=== PATIENT | male | born 1940 | race Caucasian/White ===

== ENCOUNTER 2016-05-11 23:49 | Inpatient (IN) | payer MEDICARE ==
[~2016-05-11] VITALS: Ht 167.6 cm; Wt 77.6 kg
[~2016-05-11 23:49] MED LIST: AMIO200T PO; ASPI-605 PO; BACL20TA PO; DOCU-270 PO; FERR325T28 PO; FURO20TA4 PO; IBUP1TAB68 PO; LACT1CAP72 PO; LEVO500T15 PO; METO-295 PO; PANT40TA2 PO; POTA10TA PO; SULF1TAB48 PO; TAMS-12 PO; TEMA30CA PO; TIZA4TAB4 PO; [UNRECOGNIZED DRUG - CODE] PO
[2016-05-12 00:20] LABS: BASOPHILS % (AUTO) 0.3 % (0.0-2.0); DIFF TOTAL % 100 %; EOSINOPHILS # (AUTO) 0.2 /CMM (0.0-0.7); EOSINOPHILS % (AUTO) 1.4 % (0.0-6.0); HEMATOCRIT 36 % (39-51); LYMPHOCYTES # (AUTO) 2.9 /CMM (0.8-4.8); LYMPHOCYTES % (AUTO) 25.4 % (20.0-44.0); MEAN CORPUSCULAR HEMOGLOBIN 30 PG (26.0-33.0); MEAN CORPUSCULAR HGB CONC 34 g/dl (31.0-36.0); MEAN CORPUSCULAR VOLUME 90 fL (80-96); MONOCYTES # (AUTO) 1.1 /CMM (0.1-1.30); MONOCYTES % (AUTO) 9.7 % (2.0-12.0); NEUTROPHILS # (AUTO) 7.3 /CMM (1.8-8.9); NEUTROPHILS % (AUTO) 63.2 % (43.0-81.0); PLATELET COUNT (AUTO) 332 /CMM (150-450); RED BLOOD CELL COUNT(AUTO) 3.95 MIL/uL (4.5-6.0); WHITE BLOOD COUNT (AUTO) 11.5 K/uL (4.3-11.0)
[2016-05-12] MEDS ORDERED: IV SET PRIMARY 1 EA INFUS.SET MC ONE ×2 (00:21→00:59)
[2016-05-12] MEDS ORDERED: IV NS 0.9% 1,000 ML ONE (00:21)
[2016-05-12 00:25] LABS: KETONES,URINE NEGATIVE (NEGATIVE); LEUKOCYTE ESTERASE ,URINE 3+ (NEGATIVE)
[2016-05-12 00:26] LABS: ADD UA MICROSCOPIC YES
[2016-05-12] MEDS ORDERED: IV NS 0.9% 1,000 ML BAG IV ONE (00:30)
[2016-05-12 00:36] LABS: CALCIUM, SERUM 8.1 mg/dL (8.5-10.1); CREATININE 1.3 mg/dL (0.6-1.3); POTASSIUM 3.9 mmol/L (3.5-5.1)
[2016-05-12 00:37] LABS: ADD URINE CULTURE YES; RBC,URINE TOO NUMEROUS TO COUN /HPF (0-2); WBC,URINE TOO NUMEROUS TO COUN /HPF (0-3)
[2016-05-12 00:38] LABS: LACTIC ACID 1.5 mmol/L (0.4-2.0)
[2016-05-12 00:39] LABS: TROPONIN I 0.025 ng/mL (0.00-0.056)
[2016-05-12 00:43] LABS: INR 1.05 (0.87-1.13); PROTHROMBIN TIME 11.4 SECS (9.5-12.7)
[2016-05-12 00:53] LABS: BILIRUBIN,DIRECT 0.1 mg/dL (0.0-0.2); BILIRUBIN,TOTAL 0.3 mg/dL (0.2-1.0); INDIRECT BILIRUBIN 0.2 mg/dL (0.0-1.1)
[2016-05-12] MEDS ORDERED: LEVO5TAB13 PO (00:54)
[2016-05-12] MEDS ORDERED: CEFTRIAXONE 1GM BAG (ER ONLY) 50 ML IV ONE (00:59)
[2016-05-12] MEDS ORDERED: IV NS 0.9% 1,000 ML IV PRN (00:59)
[2016-05-12] MEDS ORDERED: MAG HYDROX/AL HYDROX/SIMETH 30 ML UDC PO PRN (01:00)
[2016-05-12] MEDS ORDERED: MAGNESIUM HYDROXIDE 30 ML UDC PO PRN (01:00)
[2016-05-12] MEDS ORDERED: ACETAMINOPHEN 325 MG TABLET PO PRN (01:00)
[2016-05-12] MEDS ORDERED: CEFTRIAXONE 1GM BAG (ER ONLY) 1 GM/50 ML PIGGYBACK IV ONE (01:00)
[2016-05-12] MEDS ORDERED: ONDANSETRON HCL/PF 4 MG/2 ML VIAL IVP PRN (01:00)
[2016-05-12] MEDS ORDERED: Z GUARD REMEDY 2 OZ OINT TP PRN (01:00)
[2016-05-12 02:30] VITALS: BP 96/66
[2016-05-12 03:10] VITALS: BP 96/66
[2016-05-12] MEDS ORDERED: IV SET PRIMARY PUMP SET 1 EA INFUS.SET MC ONE (03:30)
[2016-05-12 08:00] VITALS: BP 129/72
[2016-05-12] MEDS: BACLOFEN (10 MG) 10 MG TABLET PO SCH ×3 (08:34→16:23)
[2016-05-12] MEDS: PANTOPRAZOLE 40 MG TABLET.DR PO SCH (08:34)
[2016-05-12] MEDS: TIZANIDINE HCL 4 MG TABLET PO SCH ×3 (08:34→16:23)
[2016-05-12] MEDS: HEPARIN SODIUM, PORCINE 5000 UNITS/1 ML VIAL SQ SCH ×2 (08:40→21:17)
[2016-05-12] MEDS ORDERED: ASPI81TA2 PO (10:19)
[2016-05-12 16:00] VITALS: BP 102/62
[2016-05-12 19:00] VITALS: BP 101/54
[2016-05-12 20:00] VITALS: BP 101/54
[2016-05-12] MEDS: TEMAZEPAM 15 MG CAPSULE PO PRN ×2 (22:25→22:27)
[2016-05-13] MEDS ORDERED: SECONDARY IV SET 1 EA INFUS.SET MC ONE (01:39)
[2016-05-13] MEDS: CEFTRIAXONE 1 G in IV D5W 50 ML IV SCH (01:40)
[2016-05-13 07:07] LABS: BASOPHILS % (AUTO) 0.5 % (0.0-2.0); DIFF TOTAL % 100 %; EOSINOPHILS # (AUTO) 0.3 /CMM (0.0-0.7); HEMATOCRIT 36 % (39-51); LYMPHOCYTES # (AUTO) 3.3 /CMM (0.8-4.8); LYMPHOCYTES % (AUTO) 33.5 % (20.0-44.0); MEAN CORPUSCULAR HEMOGLOBIN 30 PG (26.0-33.0); MEAN CORPUSCULAR HGB CONC 33 g/dl (31.0-36.0); MEAN CORPUSCULAR VOLUME 91 fL (80-96); MONOCYTES # (AUTO) 0.8 /CMM (0.1-1.30); MONOCYTES % (AUTO) 8.1 % (2.0-12.0); NEUTROPHILS # (AUTO) 5.4 /CMM (1.8-8.9); NEUTROPHILS % (AUTO) 54.9 % (43.0-81.0); PLATELET COUNT (AUTO) 303 /CMM (150-450); RED BLOOD CELL COUNT(AUTO) 4.02 MIL/uL (4.5-6.0); WHITE BLOOD COUNT (AUTO) 9.8 K/uL (4.3-11.0)
[2016-05-13 07:43] LABS: CALCIUM, SERUM 8.4 mg/dL (8.5-10.1); CREATININE 0.8 mg/dL (0.6-1.3); PHOSPHORUS 2.7 mg/dL (2.5-4.9); POTASSIUM 3.8 mmol/L (3.5-5.1)
[2016-05-13 08:00] VITALS: BP 105/81
[2016-05-13] MEDS: PANTOPRAZOLE 40 MG TABLET.DR PO SCH (08:03)
[2016-05-13] MEDS: ASPIRIN 81 MG TAB.CHEW PO SCH (08:03)
[2016-05-13] MEDS: BACLOFEN (10 MG) 10 MG TABLET PO SCH ×3 (08:03→17:13)
[2016-05-13] MEDS: HEPARIN SODIUM, PORCINE 5000 UNITS/1 ML VIAL SQ SCH ×2 (08:04→21:44)
[2016-05-13] MEDS: TIZANIDINE HCL 4 MG TABLET PO SCH ×3 (08:07→17:13)
[2016-05-13 16:00] VITALS: BP 131/87
[2016-05-13 16:47] VITALS: BP 131/87
[2016-05-13 19:00] VITALS: BP 99/55
[2016-05-13 20:00] VITALS: BP 99/55
[2016-05-13] MEDS: TEMAZEPAM 15 MG CAPSULE PO PRN (22:35)
[2016-05-14] MEDS: CEFTRIAXONE 1 G in IV D5W 50 ML IV SCH (00:24)
[2016-05-14 06:54] LABS: BASOPHILS # (AUTO) 0.1 /CMM (0.0-0.2); BASOPHILS % (AUTO) 0.7 % (0.0-2.0); DIFF TOTAL % 100 %; EOSINOPHILS # (AUTO) 0.2 /CMM (0.0-0.7); EOSINOPHILS % (AUTO) 3.1 % (0.0-6.0); HEMATOCRIT 38 % (39-51); HEMOGLOBIN 12.8 g/dL (13.5-17.5); LYMPHOCYTES # (AUTO) 2.9 /CMM (0.8-4.8); LYMPHOCYTES % (AUTO) 36.7 % (20.0-44.0); MEAN CORPUSCULAR HEMOGLOBIN 31 PG (26.0-33.0); MEAN CORPUSCULAR HGB CONC 34 g/dl (31.0-36.0); MEAN CORPUSCULAR VOLUME 90 fL (80-96); MONOCYTES # (AUTO) 0.8 /CMM (0.1-1.30); MONOCYTES % (AUTO) 10.5 % (2.0-12.0); NEUTROPHILS # (AUTO) 3.9 /CMM (1.8-8.9); PLATELET COUNT (AUTO) 334 /CMM (150-450); RED BLOOD CELL COUNT(AUTO) 4.17 MIL/uL (4.5-6.0)
[2016-05-14 07:02] LABS: CALCIUM, SERUM 8.8 mg/dL (8.5-10.1); CREATININE 1.1 mg/dL (0.6-1.3); PHOSPHORUS 3.9 mg/dL (2.5-4.9); POTASSIUM 3.8 mmol/L (3.5-5.1)
[2016-05-14] MEDS: ASPIRIN 81 MG TAB.CHEW PO SCH (07:50)
[2016-05-14] MEDS: TIZANIDINE HCL 4 MG TABLET PO SCH ×3 (07:51→17:11)
[2016-05-14] MEDS: PANTOPRAZOLE 40 MG TABLET.DR PO SCH (07:51)
[2016-05-14] MEDS: BACLOFEN (10 MG) 10 MG TABLET PO SCH ×3 (07:51→17:11)
[2016-05-14] MEDS: HEPARIN SODIUM, PORCINE 5000 UNITS/1 ML VIAL SQ SCH ×2 (07:58→21:04)
[2016-05-14 08:00] VITALS: BP 129/57
[2016-05-14] MEDS ORDERED: SECONDARY IV SET 1 EA INFUS.SET MC ONE ×2 (11:22→17:13)
[2016-05-14] MEDS: Magnesium 1GM/D5W 100ML PREMIX 100 ML IV SCH ×2 (11:32→12:50)
[2016-05-14 12:00] VITALS: BP 114/7
[2016-05-14] MEDS ORDERED: Magnesium 1GM/D5W 100ML PREMIX 100 ML IV SCH (12:30)
[2016-05-14] MEDS ORDERED: CEFE1PIG3 IV (14:10)
[2016-05-14] MEDS ORDERED: CEFEPIME 1 GM in IV D5W 50 ML IV SCH (14:30)
[2016-05-14 15:59] VITALS: BP 91/58
[2016-05-14] MEDS: CEFEPIME 1 GM in IV D5W 50 ML IV SCH (17:11)
[2016-05-14 20:00] VITALS: BP 113/69
[2016-05-14 22:00] VITALS: BP 113/69
[2016-05-14] MEDS: TEMAZEPAM 15 MG CAPSULE PO PRN (22:06)
[2016-05-15 08:00] VITALS: BP 150/72
[2016-05-15] MEDS: BACLOFEN (10 MG) 10 MG TABLET PO SCH ×3 (09:25→17:24)
[2016-05-15] MEDS: ASPIRIN 81 MG TAB.CHEW PO SCH (09:25)
[2016-05-15] MEDS: PANTOPRAZOLE 40 MG TABLET.DR PO SCH (09:25)
[2016-05-15] MEDS: HEPARIN SODIUM, PORCINE 5000 UNITS/1 ML VIAL SQ SCH (09:30)
[2016-05-15] MEDS: TIZANIDINE HCL 4 MG TABLET PO SCH ×3 (09:31→17:24)
[2016-05-15] MEDS: CEFEPIME 1 GM in IV D5W 50 ML IV SCH (14:26)
[2016-05-15 16:00] VITALS: BP 94/57
== END 2016-05-15 17:50 | disposition home health service (06) | DRG 689 ==
LOC: ER 23:52 → TELE1 05-12 00:44 → MEDSG1 05-12 01:31 → MED 05-12 02:30
PROVIDERS: ADMIT Nurse Practitioner Acute Care; ATTEND Nurse Practitioner Acute Care
PROC: 05H533Z Insertion of Infusion Device into Right Subclavian Vein, Percutaneous Approach (ICD-10-PCS; principal; 2016-05-15)
PROC: B546ZZA Ultrasonography of Right Subclavian Vein, Guidance (ICD-10-PCS; 2016-05-15)
DX: N39.0 Urinary tract infection, site not specified (principal); R53.2 Functional quadriplegia; I50.33 Acute on chronic diastolic (congestive) heart failure; D68.59 Other primary thrombophilia; Z87.820 Personal history of traumatic brain injury; D63.8 Anemia in other chronic diseases classified elsewhere; Z74.01 Bed confinement status; E86.0 Dehydration; G62.9 Polyneuropathy, unspecified; I25.10 Atherosclerotic heart disease of native coronary artery without angina pectoris; I10 Essential (primary) hypertension; E78.5 Hyperlipidemia, unspecified; M54.5 Low back pain; G89.29 Other chronic pain; K21.9 Gastro-esophageal reflux disease without esophagitis; M62.81 Muscle weakness (generalized); I34.0 Nonrheumatic mitral (valve) insufficiency; I25.2 Old myocardial infarction; Z87.440 Personal history of urinary (tract) infections; B96.5 Pseudomonas (aeruginosa) (mallei) (pseudomallei) as the cause of diseases classified elsewhere
CPT/HCPCS: 36415; 70450-TC; 71010-TC; 80048-TC; 80061-TC; 80076-TC; 81000-TC; 82962-TC; 83605-TC; 83735-TC; 83880; 84100-TC; 84484-TC; 85025-TC; 85730-TC; 87040-TC; 87081-TC; 87086-TC; 87186-TC; 92521; A4606; J0692; J0696; J1644; J3475; J7030; J7060; Z7610

== ENCOUNTER 2017-03-13 14:06 | Emergency (ER) | payer MEDICARE ==
[~2017-03-13] VITALS: Ht 177.8 cm; Wt 81.6 kg
[~2017-03-13 14:06] MED LIST changes: -AMIO200T PO; -ASPI-605 PO; +ASPI81TA2 PO; +CEFE1PIG3 IV; -DOCU-270 PO; -FERR325T28 PO; -FURO20TA4 PO; -IBUP1TAB68 PO; -LACT1CAP72 PO; -LEVO500T15 PO; +LEVO5TAB13 PO; -POTA10TA PO; -SULF1TAB48 PO; -TAMS-12 PO; -[UNRECOGNIZED DRUG - CODE] PO
--- NOTE | 2017-03-13 14:10 | NUR ---
BIB RA 889 FROM HOME, HUTCHISON ACCIDENTALLY PULLED OUT DURING TRANSFER FROM TRANSFER. NO BLEEDING NOTED. VSS
[2017-03-13 15:12] LABS: BASOPHILS % (AUTO) 0.3 % (0.0-2.0); EOSINOPHILS # (AUTO) 0.3 /CMM (0.0-0.7); EOSINOPHILS % (AUTO) 2.6 % (0.0-6.0); HEMATOCRIT 41 % (39-51); HEMOGLOBIN 13.5 g/dL (13.5-17.5); LYMPHOCYTES # (AUTO) 2.1 /CMM (0.8-4.8); LYMPHOCYTES % (AUTO) 18.6 % (20.0-44.0); MEAN CORPUSCULAR HEMOGLOBIN 30 PG (26.0-33.0); MEAN CORPUSCULAR HGB CONC 33 g/dl (31.0-36.0); MEAN CORPUSCULAR VOLUME 91 fL (80-96); MONOCYTES # (AUTO) 0.7 /CMM (0.1-1.30); MONOCYTES % (AUTO) 5.8 % (2.0-12.0); NEUTROPHILS # (AUTO) 8.3 /CMM (1.8-8.9); NEUTROPHILS % (AUTO) 72.7 % (43.0-81.0); PLATELET COUNT (AUTO) 398 /CMM (150-450); RED BLOOD CELL COUNT(AUTO) 4.46 MIL/uL (4.5-6.0); WHITE BLOOD COUNT (AUTO) 11.4 K/uL (4.3-11.0)
[2017-03-13 15:19] LABS: CALCIUM, SERUM 8.6 mg/dL (8.5-10.1); CARBON DIOXIDE 27 mmol/L (21-32); CHLORIDE 107 mmol/L (98-107); CREATININE 0.8 mg/dL (0.6-1.3); GLUCOSE 101 mg/dL (74-106); POTASSIUM 4.4 mmol/L (3.5-5.1); SODIUM SERUM 142 mmol/L (136-145); UREA NITROGEN, BLOOD 21 mg/dL (7-18)
--- NOTE | 2017-03-13 15:44 | NUR ---
dr willis called for dr cervantes
--- NOTE | 2017-03-13 15:52 | NUR ---
ATTEMPTED TO CALL CARMELA CLOUD AT DR VAZ'S OFFICE TO F/U THE OH TO [facility] UNDER DR MK BENITEZ MENTIONED BY DR VAZ
--- NOTE | 2017-03-13 16:00 | NUR ---
CARMELA IS UNABLE TO COME TO THE PHONE AND WILL CALL ME BACK
--- NOTE | 2017-03-13 16:09 | NUR ---
CALL BACK FROM BELLA CLOUD FROM DR VAZ'S OFFICE TO LET US KNOW THAT THEY ARE WORKING ON THE TRANSFER AND DR VAZ DID CALL [facility] TO REQUEST FOR THE TRANSFER
--- NOTE | 2017-03-13 17:20 | NUR ---
[facility] TX/BED CONTROL CALLED TO F/U , I WAS TOLD THAT THEY HAVEN'T RECEIVE ANY REQUEST FOR TX, WHEN I CALLED THE OFFICE, CARMELA CLOUD, WHO WAS NOT VERY HELPFUL TOLD ME THAT IT TAKES TIME. WHEN I TOLD HER THAT THIS IS A UROLOGICAL EMERGENCY AND TRIED TO GIVE HER THE NUMBER OF THE TX CENTER, SHE REFUSED AND ASKED TO TALK TO MY MANAGEMENT PSYCHOLOGIST INSTEAD SINCE SHE DIDN'T LIKE THE WAY I TALKED TO HER. I TOLD HER THE REASON WHY I WAN'T THIS TO MOVE FASTER IS BECAUSE I'M CONCERNED FOR THE WELFARE OF THE PATIENT. DR STOVER IN [place] PAGED INSTEAD
--- NOTE | 2017-03-13 17:28 | NUR ---
CALL BACK FROM DR STOVER,SPOKE WITH DR CASSIDY.
--- NOTE | 2017-03-13 17:46 | NUR ---
DR CRUZ, ON-CALL FOR [facility] PAGED
--- NOTE | 2017-03-13 18:12 | NUR ---
MADELINE CLOUD,CALLED FOR A BED AT [facility]
--- NOTE | 2017-03-13 18:19 | NUR ---
CALLED [facility] FOR S TRANSPORT TO [place] WITH ETA 1845 - TRIP# [id number]
--- NOTE | 2017-03-13 18:38 | NUR ---
REPORT GIVEN TO NURA CLOUD FOR MUKUL
[2017-03-13 18:45] VITALS: BP 147/88
== END 2017-03-13 19:02 | disposition home or self-care (01) ==
LOC: ER 14:08
DX: T83.021A Displacement of indwelling urethral catheter, initial encounter (principal); Z79.82 Long term (current) use of aspirin
CPT/HCPCS: 36415; 51702; 72192; 80048; 85025; 99285; A4606; Z7610

== ENCOUNTER 2020-08-10 02:45 | Inpatient (IN) | payer MEDICARE ==
[~2020-08-10] VITALS: Ht 170.2 cm; Wt 68.0 kg
[~2020-08-10 02:45] MED LIST changes: +ASPI-1169 PEG; -ASPI81TA2 PO; +BACL20TA PEG; -BACL20TA PO; +METO-295 PEG; -METO-295 PO; +PANT40TA2 PEG; -PANT40TA2 PO; +TEMA30CA PEG; -TEMA30CA PO; -TIZA4TAB4 PO; +TIZA4TAB5 PEG
[2020-08-10] MEDS ORDERED: IV NS 0.9% 1,000 ML BAG IV ONE ×2 (03:00→06:00)
--- NOTE | 2020-08-10 03:05 | NUR ---
PATIENT BIBRA 102 FROM HOME C/O LOW BLOOD PRESSURE PER PREPARER MAKING DEPARTMENT. PATIENT IS A/OX 2, RR EVEN AND UNLABORED. PATIENT CONNECTED TO BUFFER MACHINE AND POX. PATIENT POA WTIH F/C AND G TUBE. WILL CONTINUE TO MONITOR.
--- NOTE | 2020-08-10 03:15 | NUR ---
BLOOD Cx, BLOOD DRAW, COLLECTED AND SENT TO LAB
[2020-08-10 03:18] LABS: BASOPHILS % (AUTO) 0.1 % (0.0-2.0); EOSINOPHILS % (AUTO) 0.5 % (0.0-6.0); HEMATOCRIT 35 % (39-51); HEMOGLOBIN 11.7 g/dL (13.5-17.5); LYMPHOCYTES # (AUTO) 1.6 /CMM (0.8-4.8); LYMPHOCYTES % (AUTO) 13.1 % (20.0-44.0); MEAN CORPUSCULAR HGB CONC 33 g/dl (31.0-36.0); MEAN CORPUSCULAR VOLUME 92 fL (80-96); MONOCYTES # (AUTO) 1.1 /CMM (0.1-1.30); MONOCYTES % (AUTO) 9.3 % (2.0-12.0); NEUTROPHILS # (AUTO) 9.3 /CMM (1.8-8.9); PLATELET COUNT (AUTO) 302 /CMM (150-450); RED BLOOD CELL COUNT(AUTO) 3.82 MIL/uL (4.5-6.0); WHITE BLOOD COUNT (AUTO) 12.1 K/uL (4.3-11.0)
[2020-08-10 03:28] LABS: CALCIUM, SERUM 8.4 mg/dL (8.5-10.1); CARBON DIOXIDE 29 mmol/L (21-32); CHLORIDE 102 mmol/L (98-107); CREATININE 1.1 mg/dL (0.6-1.3); GLUCOSE 118 mg/dL (74-106); POTASSIUM 3.8 mmol/L (3.5-5.1); SODIUM SERUM 141 mmol/L (136-145); UREA NITROGEN, BLOOD 26 mg/dL (7-18)
--- NOTE | 2020-08-10 03:33 | NUR ---
X RAY AT BEDSIDE
[2020-08-10 03:34] LABS: ALANINE AMINOTRANSFERASE 13 U/L (12-78); ALBUMIN 3.1 g/dL (3.4-5.0); ALKALINE PHOSPHATASE 64 U/L (46-116); ASPARTATE AMINOTRANSFERASE 14 U/L (15-37); BILIRUBIN,DIRECT 0.1 mg/dL (0.0-0.2); BILIRUBIN,TOTAL 0.2 mg/dL (0.2-1.0); TOTAL PROTEIN, SERUM 7.4 g/dL (6.4-8.2)
[2020-08-10 04:07] LABS: BILIRUBIN,URINE NEGATIVE (NEGATIVE); COLOR,URINE YELLOW (YELLOW); PH,URINE 5.5 (5.0-8.0); PROTEIN,URINE NEGATIVE (NEGATIVE); UGLUCOSE NEGATIVE (NEGATIVE)
[2020-08-10 04:08] LABS: LEUKOCYTE ESTERASE ,URINE SMALL (NEGATIVE); NITRITE, URINE NEGATIVE (NEGATIVE); UROBILINOGEN,URINE 0.2 EU/dL (0.2)
--- NOTE | 2020-08-10 04:10 | NUR ---
COLLECTED COVID SWAB AND SENT TO LAB
[2020-08-10 04:19] LABS: BACTERIA,URINE Moderate /HPF (None Seen)
[2020-08-10 04:20] LABS: SQUAMOUS EPITHELIAL CELL,UR Rare /HPF (None Seen); YEAST,URINE Moderate /HPF (None Seen)
--- NOTE | 2020-08-10 05:47 | NUR ---
PATIENT DAUGHTER PHONE NUMBER
[2020-08-10] MEDS ORDERED: VANCOMYCIN 1 GM in IV D5W 250 ML IV ONE (06:00)
[2020-08-10] MEDS ORDERED: PIPERACILLIN /TAZOBACTAM 3.375 G in IV D5W 50 ML IV ONE (06:00)
[2020-08-10] MEDS ORDERED: VANCOMYCIN 1 GM VIAL ONE (06:30)
[2020-08-10] MEDS ORDERED: MAGNESIUM HYDROXIDE 30 ML UDC PO PRN (06:30)
[2020-08-10] MEDS ORDERED: ACETAMINOPHEN 325 MG TABLET PO PRN (06:30)
[2020-08-10] MEDS ORDERED: Z GUARD REMEDY 2 OZ OINT TP PRN (06:30)
[2020-08-10] MEDS ORDERED: HYDROCODONE/APAP 5/325MG TABLET PO PRN (06:30)
[2020-08-10] MEDS ORDERED: ZOLPIDEM TARTRATE 5 MG TABLET PO PRN (06:30)
[2020-08-10] MEDS ORDERED: IV NS 0.9% 1,000 ML IV PRN (06:30)
[2020-08-10] MEDS ORDERED: PIPERACILLIN /TAZOBACTAM 3.375 G VIAL IV ONE (06:30)
[2020-08-10] MEDS ORDERED: ONDANSETRON HCL/PF 4 MG/2 ML VIAL IVP PRN (06:30)
--- NOTE | 2020-08-10 07:41 | NUR ---
BED 112-1 REPORT GIVEN TO NAVEED CLOUD FOR MUKUL.
--- NOTE | 2020-08-10 07:41 | NUR ---
REPORT GIVEN TO NAVEED CLOUD FOR MUKUL.
--- NOTE | 2020-08-10 08:37 | NUR ---
PATIENT TRANSFERRED TO ROOM 112-1 VIA ACLS PROTOCOL. IN NO DISTRESS. NEEDS ATTENDED. ENDORSED TO NAVEED CLOUD.
--- NOTE | 2020-08-10 08:40 | NUR ---
RN NOTE PT REPORT GIVEN BY AI NEGRON. PT IN STABLE CONDITION, A/Ox1, ON NC 2LPM SPO2 99%, NO SIGNS OF RESP DISTRESS OR SOB. PT CONTRACTED ON ALL FOUR EXTREMITIES. PT RFA #20 FLUSHED, INTACT AND PATENT WITH NO SIGNS OF INFECTION/INFILTRATION, SL. PT HAS GTUBE, AUSCULTATED FOR POSITIVE PLACEMENT, FLUSHED, NO RESIDUALS, PATENT AND CLAMPED. PT HUTCHISON CATH IN PLACE DRAINING CLEAR YELLOW URINE TO GRAVITY. PT HOB 40 DEGREES. ALL PT SAFETY PRECAUTIONS IN PLACE, WILL CONT TO MONITOR
[2020-08-10 09:00] VITALS: BP 110/52
[2020-08-10] MEDS: ENOXAPARIN SODIUM 40 MG/0.4 ML DISP.SYRIN SQ SCH (09:50)
--- NOTE | 2020-08-10 10:30 | NUR ---
RN NOTE' PT ON CARDIAC DIET. PER SPEECH THERAPIST, PT HIGH ASPIRATION RISK, MESSAGED DR SNEED PT IS ORDERED CARDIAC DIET. RD TO FOLLOW UP WITH PT
[2020-08-10 12:00] VITALS: BP 105/47
[2020-08-10] MEDS ORDERED: BUME0.5T6 PO (12:19)
[2020-08-10] MEDS: ZOSYN IVPB 3.375 G in IV D5W 50ml IV SCH ×2 (14:21→20:17)
--- NOTE | 2020-08-10 14:45 | NUR ---
RN NOTE PT DISCHARGED IN STABLE CONDITION. REPORT GIVEN TO EMT, AND CAREGIVER ART AT BOARD AND CARE Addendum: 08/10/20 at 1454 by MYLA CLINE RN DISREGARD ABOVE NOTE- WRONG PT
[2020-08-10 16:00] VITALS: BP 108/65
[2020-08-10] MEDS ORDERED: VANCOMYCIN 0.75 GM in IV D5W 250 ML IV SCH (18:00)
[2020-08-10] MEDS: JEVITY 1.2 CAL 1,000 ML BOTTLE GT PRN (18:15)
--- NOTE | 2020-08-10 18:15 | NUR ---
RN NOTE LEFT V/M WITH GUARANTOR TRICIA NGUYEN REGARDING PT CODE STATUS. PT FULL CODE UNTIL HEMAL REACHED Addendum: 08/10/20 at 1843 by MYLA CLINE RN HEMAL NGUYEN [phone]
--- NOTE | 2020-08-10 19:00 | NUR ---
RN CLOSING NOTE PT IN STABLE CONDITION. NO CHANGES TO PT STATUS. PT NOW ON JEVITY 1.2 STARTING AT 20ML/HR WITH GOAL RATE OF 60 ML/HR. ALL PT SAFETY PRECAUTIONS IN PLACE, HOB 40 DEGREES D/T ASPIRATION RISK, PT CALL LIGHT WITHIN REACH, SR UP x2, BED LOCKED AND IN LOWEST POSITION. WILL ENDORSE MUKUL TO ONCOMING RN
[2020-08-10 20:00] VITALS: BP 117/51
--- NOTE | 2020-08-10 20:00 | NUR ---
RN NOTE RECEIVED PT IN BED A/A/O X2, PT ON 2L VIA NC SATING 98%, TELE MONITOR SHOWING SR WITH HR IN 80s, PT HAS TUBE FEEDING RUNNING AT20 ML/H, NO RESIDUAL NOTED. CHECKED FOR REPLACEMENT.WILL CONTINUE WITH PLAN OF CARE.
[2020-08-11] VITALS (8 sets, daily range): BP systolic 92–113; BP diastolic 49–113
[2020-08-11] MEDS: ZOSYN IVPB 3.375 G in IV D5W 50ml IV SCH ×4 (01:57→20:20)
[2020-08-11 06:01] LABS: BASOPHILS # (AUTO) 0.1 /CMM (0.0-0.2); BASOPHILS % (AUTO) 0.8 % (0.0-2.0); HEMATOCRIT 31 % (39-51); HEMOGLOBIN 10.5 g/dL (13.5-17.5); LYMPHOCYTES # (AUTO) 1.6 /CMM (0.8-4.8); LYMPHOCYTES % (AUTO) 20.2 % (20.0-44.0); MEAN CORPUSCULAR HGB CONC 34 g/dl (31.0-36.0); MEAN CORPUSCULAR VOLUME 93 fL (80-96); MONOCYTES # (AUTO) 0.8 /CMM (0.1-1.30); MONOCYTES % (AUTO) 10.2 % (2.0-12.0); NEUTROPHILS # (AUTO) 5.1 /CMM (1.8-8.9); NEUTROPHILS % (AUTO) 64.8 % (43.0-81.0); PLATELET COUNT (AUTO) 254 /CMM (150-450); RED BLOOD CELL COUNT(AUTO) 3.35 MIL/uL (4.5-6.0); WHITE BLOOD COUNT (AUTO) 7.9 K/uL (4.3-11.0)
[2020-08-11 06:19] LABS: CALCIUM, SERUM 8.4 mg/dL (8.5-10.1); CREATININE 0.9 mg/dL (0.6-1.3); MAGNESIUM 2.2 mg/dL (1.8-2.4); PHOSPHORUS 2.4 mg/dL (2.5-4.9); POTASSIUM 3.9 mmol/L (3.5-5.1)
--- NOTE | 2020-08-11 07:24 | NUR ---
rn note report given to oncoming shift for ben.
[2020-08-11] MEDS ORDERED: PANTOPRAZOLE 40 MG TABLET.DR PO SCH (07:30)
--- NOTE | 2020-08-11 08:00 | NUR ---
ms rn note patient in bed , all needs attended alert x2 ,awake , hob elevated with g tube feeding as ordered, on 2l nc, no sob noted at this time, with g tube feeding as ordered no residua noted, st at bedside with order oral gravitation, bed in lowest and locked position , will cont to monitor
[2020-08-11] MEDS: ENOXAPARIN SODIUM 40 MG/0.4 ML DISP.SYRIN SQ SCH (08:01)
[2020-08-11] MEDS ORDERED: HYDROCODONE/APAP 5/325MG TABLET GT PRN (10:22)
[2020-08-11] MEDS ORDERED: MAGNESIUM HYDROXIDE 30 ML UDC GT PRN (10:22)
[2020-08-11] MEDS ORDERED: ACETAMINOPHEN 650 MG/20.3 ML UDC GT PRN (10:30)
[2020-08-11] MEDS ORDERED: NEUTRA PHOS 1 POWD.PACKET GT ONE (11:00)
[2020-08-11] MEDS ORDERED: BISACODYL SUPP (10 MG) 10 MG/SUPP.RECT SUPP.RECT RC PRN (11:30)
[2020-08-11] MEDS: TIZANIDINE HCL 4 MG TABLET GT SCH ×2 (12:13→16:15)
[2020-08-11] MEDS: METOCLOPRAMIDE HCL 10 MG TABLET GT SCH ×2 (12:14→20:20)
[2020-08-11] MEDS: BACLOFEN (10 MG) 10 MG TABLET GT SCH ×3 (12:14→20:20)
--- NOTE | 2020-08-11 12:41 | NUR ---
MS RN NOTE NOTED SOUND CONGESTED, RT AT BEDSIDE OROPHARYNGEAL SUCTION DONE , DR SNEED NOTIFIED WITH ORDER TO OK TO STOP IVF , ORDER CARRIED OUT
--- NOTE | 2020-08-11 15:55 | NUR ---
ms rn note all needs attended, checked for residual ok to increase to 45 ml per hour of g tube feeding , turn reposition , not in distress
--- NOTE | 2020-08-11 18:21 | NUR ---
MS RN NOTE PATIENT IN BED .AWAKE , ALERT, WITH G TUBE FEEDING ORDERED ,NO RESIDUAL NOTED , KEEP HOB ELEVATED AT ALL TIME, LT WRIST HL INTACT AND FLUSHED WELL , ON 2L NC NO SOB NOTED , BED IN LOWEST AND LOCKED POSITION ,SAFETY MEASURE IMPLEMENTED , KEEP CLEAN DRY CALLLIGHT WITHIN REACH , WILL CONT TO MONITOR
[2020-08-12] MEDS: ZOSYN IVPB 3.375 G in IV D5W 50ml IV SCH ×4 (02:39→20:01)
--- NOTE | 2020-08-12 02:54 | NUR ---
RN notes In bed, awake with caregiver at bedside. Alert and oriented x 2. Garbled speech. Good eye contact. No physical manifestation of pain or discomfort. Vital signs wnl. No significant change of condition. On O2 at 2lpm via nasal cannula, tolerating well. Breathing even and unlabored. Kept clean and dry. Will endorse to next shift for continuity of care.
[2020-08-12] MEDS: JEVITY 1.2 CAL 1,000 ML BOTTLE GT PRN (03:26)
[2020-08-12 04:00] VITALS: BP 96/54
[2020-08-12] MEDS: METOCLOPRAMIDE HCL 10 MG TABLET GT SCH ×3 (06:29→20:05)
[2020-08-12 06:34] LABS: BASOPHILS % (AUTO) 0.3 % (0.0-2.0); EOSINOPHILS % (AUTO) 1.4 % (0.0-6.0); HEMATOCRIT 31 % (39-51); HEMOGLOBIN 10.6 g/dL (13.5-17.5); LYMPHOCYTES # (AUTO) 1.6 /CMM (0.8-4.8); MEAN CORPUSCULAR HGB CONC 34 g/dl (31.0-36.0); MEAN CORPUSCULAR VOLUME 92 fL (80-96); MONOCYTES % (AUTO) 10.1 % (2.0-12.0); NEUTROPHILS # (AUTO) 6.9 /CMM (1.8-8.9); NEUTROPHILS % (AUTO) 71.2 % (43.0-81.0); PLATELET COUNT (AUTO) 274 /CMM (150-450); RED BLOOD CELL COUNT(AUTO) 3.38 MIL/uL (4.5-6.0); WHITE BLOOD COUNT (AUTO) 9.7 K/uL (4.3-11.0)
[2020-08-12 06:40] LABS: CALCIUM, SERUM 8.2 mg/dL (8.5-10.1); CREATININE 0.9 mg/dL (0.6-1.3); PHOSPHORUS 2.7 mg/dL (2.5-4.9); POTASSIUM 3.7 mmol/L (3.5-5.1)
--- NOTE | 2020-08-12 07:10 | NUR ---
RN OPENING NOTES RECEIVED PT IN BED, A/O X2. ON 2L O2 VIA NC, SATING @95%. NO SOB OR ANY DISTRESS NOTED. TELE MONITOR SHOWING SR. PT HAS GTUBE, POSITIVE PLACEMENT CHECKED BY AUSCULTATION. FEEDING RUNNING @60ML/HR, NO RESIDUAL NOTED. SAFETY MEASURES IN PLACE. CALL LIGHT WITHIN REACH. BED LOCKED AND AT LOWEST POSITION WITH SIDE RAILS UP X3. WILL CONTINUE TO MONITOR.
[2020-08-12 08:00] VITALS: BP 100/68
[2020-08-12] MEDS: PANTOPRAZOLE 40 MG/PACK PACK GT SCH (08:08)
[2020-08-12] MEDS: TIZANIDINE HCL 4 MG TABLET GT SCH ×3 (08:09→17:40)
[2020-08-12] MEDS: BACLOFEN (10 MG) 10 MG TABLET GT SCH ×4 (08:09→20:04)
[2020-08-12] MEDS: ENOXAPARIN SODIUM 40 MG/0.4 ML DISP.SYRIN SQ SCH (08:11)
[2020-08-12 16:00] VITALS: BP 90/54
--- NOTE | 2020-08-12 18:51 | NUR ---
RN CLOSING NOTES NO SIGNIFICANT CHANGES THROUGHOUT THE SHIFT. NO SOB. NO PAIN REPORTED AT THIS TIME. ALL DUE MEDS GIVEN. NEEDS ATTENDED. SAFETY MEASURES STILL IN PLACE. WILL ENDORSE TO NIGHT RN FOR MUKUL.
--- NOTE | 2020-08-12 19:30 | NUR ---
RN NOTE RECEIVED PATIENT IN BED, CAREGIVER AT BEDSIDE, A0 X 1-2, IN NO S/SX OF ACUTE DISTRESS AT THIS TIME, BREATHING IS EVEN AND UNLABORED, SATURATION AT 95% ON 2L VIA NC, HR IS 73. NOTED IV SITE RFA 20G, PATENT AND FLUSHING WELL, NO S/S OF INFECTION OR INFILTRATION, SALINE LOCKED. GTUBE INTACT, PLACEMENT CHECKED BY AUSCULTATION AND ASPIRATION, NO RESIDUAL NOTED. HUTCHISON CATHETER CONNECTED TO URINE BAG IN PLACE, DRAINING TO A CLEAR, YELLOW OUTPUT. SAFETY MEASURES HAVE BEEN PROVIDED AND IMPLEMENTED. PATIENT BED ALARM IS ON. HEAD OF BED ELEVATED. BED IS LOCKED, IN LOWEST POSITION AND SIDE RAILS UP. CALL LIGHT WITHIN REACH OF THE PATIENT. WILL CONTINUE TO MONITOR AND REASSESS FOR ANY CHANGES.
[2020-08-12 20:00] VITALS: BP 104/54
--- NOTE | 2020-08-12 20:00 | NUR ---
RN NOTE NOTED TEMP AT 99.6 DEG. COOLING MEASURES PROVIDED. TEMP RECHECKED AND REVEALED 98.7 DEG. WILL CONTINUE TO MONITOR TEMP
[2020-08-13] MEDS: ZOSYN IVPB 3.375 G in IV D5W 50ml IV SCH ×4 (02:00→19:46)
[2020-08-13 04:00] VITALS: BP 99/62
[2020-08-13] MEDS: METOCLOPRAMIDE HCL 10 MG TABLET GT SCH ×3 (05:05→20:57)
[2020-08-13] MEDS: JEVITY 1.2 CAL 1,000 ML BOTTLE GT PRN (06:14)
[2020-08-13 06:28] LABS: CALCIUM, SERUM 7.8 mg/dL (8.5-10.1)
--- NOTE | 2020-08-13 07:20 | NUR ---
RN OPENING NOTE PATIENT RECEIVED IN BED RESTING IN HIGH-FOWLERS POSITION, A&O X 1-2, IN NO S/SX OF ACUTE DISTRESS AT THIS TIME, BREATHING IS EVEN AND UNLABORED. PATIENT IS ON O2 THERAPY VIA NC AT 2 LPM TOLERATING WELL. NOTED IV SITE RFA 20G, PATENT AND FLUSHING WELL, NO S/S OF INFECTION OR INFILTRATION, SALINE LOCKED. G-TUBE INTACT, PLACEMENT CHECKED BY AUSCULTATION AND ASPIRATION, NO RESIDUAL NOTED WITH JEVITY 1.2 RUNNING AT 60 ML/HR. HUTCHISON CATHETER DRAINING URINE VIA GRAVITY. SAFETY MEASURES IMPLEMENTED, BED LOCKED IN LOWEST POSITION, SIDE RAILS UP X2, CALL LIGHT WITHIN REACH. WILL CONTINUE TO MONITOR AND PROVIDE CARE THROUGHOUT SHIFT.
--- NOTE | 2020-08-13 07:29 | NUR ---
RN NOTE NO SIGNIFICANT CHANGES THROUGHOUT THE SHIFT. STABLE ON 2L VIA NC. NO PAIN REPORTED AT THIS TIME. TUBE FEEDING OF JEVITY 1.2 RUNNING AT 60 ML/HR. HOB ELEVATED AT ALL TIMES. ALL DUE MEDS GIVEN. NEEDS ATTENDED. SAFETY MEASURES STILL IN PLACE. ENDORSED TO JEAN CLOUD FOR CONTINUATION OF CARE.
[2020-08-13 08:00] VITALS: BP 96/48
[2020-08-13] MEDS: ENOXAPARIN SODIUM 40 MG/0.4 ML DISP.SYRIN SQ SCH (08:34)
[2020-08-13] MEDS: BACLOFEN (10 MG) 10 MG TABLET GT SCH ×4 (08:37→20:57)
[2020-08-13] MEDS: TIZANIDINE HCL 4 MG TABLET GT SCH ×3 (08:37→17:27)
[2020-08-13] MEDS: PANTOPRAZOLE 40 MG/PACK PACK GT SCH (08:37)
[2020-08-13] MEDS ORDERED: IV NS 0.9% 500 ML IV ONE (12:30)
[2020-08-13] MEDS ORDERED: TEMAZEPAM 15 MG CAPSULE GT PRN (12:30)
[2020-08-13 18:50] VITALS: BP 102/58
--- NOTE | 2020-08-13 19:10 | NUR ---
RN CLOSING NOTE PATIENT IN BED RESTING IN HIGH-FOWLERS POSITION, A&O X 1-2, IN NO S/SX OF ACUTE DISTRESS AT THIS TIME, BREATHING IS EVEN AND UNLABORED. PATIENT IS ON O2 THERAPY VIA NC AT 2 LPM TOLERATING WELL. LEFT UPPER ARM MIDLINE AND LEFT HAND 24 QUINTEN [address]ACED INTACT AND PATENT AND FLUSHING WELL. G-TUBE INTACT WITH JEVITY 1.2 RUNNING AT 60 ML/HR. HUTCHISON CATHETER DRAINING URINE VIA GRAVITY. SAFETY MEASURES IMPLEMENTED, BED LOCKED IN LOWEST POSITION, SIDE RAILS UP X2, CALL LIGHT WITHIN REACH. WILL ENDORSE CARE TO UPCOMING SHIFT.
--- NOTE | 2020-08-13 19:30 | NUR ---
RN NOTE RECEIVED PATIENT IN BED, CAREGIVER AT BEDSIDE, A0 X 1-2, IN NO S/SX OF ACUTE DISTRESS AT THIS TIME, BREATHING IS EVEN AND UNLABORED, SATURATION AT 95% ON 2L VIA NC, HR IS 73. NOTED IV SITE L HAND 24G, AND MUSTAPHA MIDLINE 18G, ALL HUBS PATENT AND FLUSHING WELL, NO S/S OF INFECTION OR INFILTRATION. GTUBE INTACT, PLACEMENT CHECKED BY AUSCULTATION AND ASPIRATION, NO RESIDUAL NOTED. HUTCHISON CATHETER CONNECTED TO URINE BAG IN PLACE, DRAINING TO A CLEAR, YELLOW OUTPUT. SAFETY MEASURES HAVE BEEN PROVIDED AND IMPLEMENTED. PATIENT BED ALARM IS ON. HEAD OF BED ELEVATED. BED IS LOCKED, IN LOWEST POSITION AND SIDE RAILS UP. CALL LIGHT WITHIN REACH OF THE PATIENT. WILL CONTINUE TO MONITOR AND REASSESS FOR ANY CHANGES.
[2020-08-13 20:00] VITALS: BP 98/50
--- NOTE | 2020-08-13 21:00 | NUR ---
RN NOTE NOTED BP AT 1999 88/39, PLACED PATIENT ON [place] POSITION, RECHECKED BP AND REVEALED, 102/49.
[2020-08-14] MEDS ORDERED: IV NS 0.9% 500 ML IV ONE (01:00)
[2020-08-14] MEDS: ZOSYN IVPB 3.375 G in IV D5W 50ml IV SCH ×4 (02:07→19:59)
[2020-08-14] MEDS: METOCLOPRAMIDE HCL 10 MG TABLET GT SCH ×3 (04:36→21:13)
[2020-08-14] MEDS: JEVITY 1.2 CAL 1,000 ML BOTTLE GT PRN (05:15)
[2020-08-14 06:18] LABS: BASOPHILS # (AUTO) 0.1 /CMM (0.0-0.2); BASOPHILS % (AUTO) 0.5 % (0.0-2.0); EOSINOPHILS % (AUTO) 2.7 % (0.0-6.0); HEMATOCRIT 32 % (39-51); HEMOGLOBIN 10.7 g/dL (13.5-17.5); LYMPHOCYTES # (AUTO) 2.1 /CMM (0.8-4.8); MEAN CORPUSCULAR HGB CONC 34 g/dl (31.0-36.0); MEAN CORPUSCULAR VOLUME 93 fL (80-96); MONOCYTES # (AUTO) 1.1 /CMM (0.1-1.30); MONOCYTES % (AUTO) 10.3 % (2.0-12.0); NEUTROPHILS % (AUTO) 66.5 % (43.0-81.0); PLATELET COUNT (AUTO) 294 /CMM (150-450); RED BLOOD CELL COUNT(AUTO) 3.43 MIL/uL (4.5-6.0); WHITE BLOOD COUNT (AUTO) 10.5 K/uL (4.3-11.0)
[2020-08-14 06:26] LABS: CALCIUM, SERUM 8.1 mg/dL (8.5-10.1); POTASSIUM 3.9 mmol/L (3.5-5.1)
--- NOTE | 2020-08-14 07:25 | NUR ---
RN OPENING NOTE PATIENT RESTING IN BED RESTING IN HIGH-FOWLERS POSITION, A&O X 1-2, IN NO S/SX OF ACUTE DISTRESS AT THIS TIME, BREATHING IS EVEN AND UNLABORED. PATIENT IS ON O2 THERAPY VIA NC AT 2 LPM TOLERATING WELL. LEFT UPPER ARM MIDLINE AND LEFT HAND 24 QUINTEN INTACT AND PATENT AND FLUSHING WELL. G-TUBE INTACT WITH JEVITY 1.2 RUNNING AT 60 ML/HR. HUTCHISON CATHETER DRAINING URINE VIA GRAVITY. SAFETY MEASURES IMPLEMENTED, BED LOCKED IN LOWEST POSITION, SIDE RAILS UP X2, CALL LIGHT WITHIN REACH. WILL CONTINUE TO MONITOR AND PROVIDE CARE THROUGHOUT SHIFT.
[2020-08-14 08:00] VITALS: BP 98/60
[2020-08-14] MEDS: PANTOPRAZOLE 40 MG/PACK PACK GT SCH (09:24)
[2020-08-14] MEDS: BACLOFEN (10 MG) 10 MG TABLET GT SCH ×4 (09:25→21:14)
[2020-08-14] MEDS: TIZANIDINE HCL 4 MG TABLET GT SCH ×3 (09:25→17:49)
[2020-08-14] MEDS: ENOXAPARIN SODIUM 40 MG/0.4 ML DISP.SYRIN SQ SCH (09:27)
--- NOTE | 2020-08-14 19:08 | NUR ---
RN CLOSING NOTE PATIENT IN BED RESTING IN HIGH-FOWLERS POSITION, A&O X 1-2, IN NO S/SX OF ACUTE DISTRESS AT THIS TIME, BREATHING IS EVEN AND UNLABORED. PATIENT IS ON O2 THERAPY VIA NC AT 2 LPM TOLERATING WELL. LEFT UPPER ARM MIDLINE AND LEFT HAND 24 QUINTEN INTACT AND PATENT AND FLUSHING WELL. G-TUBE INTACT WITH JEVITY 1.2 RUNNING AT 60 ML/HR. HUTCHISON CATHETER DRAINING URINE VIA GRAVITY. SAFETY MEASURES IMPLEMENTED, BED LOCKED IN LOWEST POSITION, SIDE RAILS UP X2, CALL LIGHT WITHIN REACH. WILL ENDORSE CARE TO UPCOMING SHIFT.
--- NOTE | 2020-08-14 19:20 | NUR ---
RN OPENING NOTE RECEIVED PATIENT IN BED RESTING ALERT ORIENTED X1-2 ON MED SURG MONITORING ON 2L OXYGEN VIA NASAL CANNULA,O2:97% IV SITE IS ON RIGHT UPPER ARM MID LINE INTACT PATENT ON G-TUBE FEEDING JEVITY 1.2 60CC/HR CHECKED PLACEMENT IN PLACE NO RESIDUAL NOTED,HUTCHISON CATHETER IN PLACE,URINE DRAINING YELLOW CLOUDY,HEAD OF BED ELEVATED SAFETY MEASURE IMPLEMENT,BED IN LOW POSITION AND LOCKED CONTINUE TO MONITOR
[2020-08-14 20:00] VITALS: BP 97/62
[2020-08-15] MEDS: ZOSYN IVPB 3.375 G in IV D5W 50ml IV SCH ×4 (01:05→20:14)
[2020-08-15] MEDS: METOCLOPRAMIDE HCL 10 MG TABLET GT SCH ×3 (05:06→20:15)
[2020-08-15] MEDS: JEVITY 1.2 CAL 1,000 ML BOTTLE GT PRN (05:53)
--- NOTE | 2020-08-15 06:39 | NUR ---
RN CLOSING NOTE PATIENT REMAINS ON ALERT ORIENTED X1-2 ON 2L OXYGEN VIA NASAL CANNULA, O2:98% NO SOB NOT ACUTE DISTRESS NOTED ON G-TUBE FEEDING ALL DUE MEDS GIVEN MD ORDERED KEPT CLEAN AND DRY ALL THE TIME,KEPT HEAD OF BED ELEVATED,HUTCHISON CATHETER IN PLACE URINE DRAINING YELLOW AND CLEAR ENDORSE NEXT COMING SHIFT FOR CONTINUATION OF CARE.
--- NOTE | 2020-08-15 07:30 | NUR ---
MS RN AM NOTES RECEIVED PATIENT IN BED RESTING ALERT ORIENTED X1-2, ON 2L OXYGEN VIA NASAL CANNULA,97% SATURATION,NO SOB, RESPIRATION UNLABORED. CONTRACTED, MUSTAPHA MIDLINE, FLUSHES WELL, SITE CLEAR. ON G-TUBE FEEDING JEVITY 1.2 60CC/HR CHECKED PLACEMENT IN PLACE NO RESIDUAL NOTED,HUTCHISON CATHETER IN PLACE,URINE DRAINING YELLOW CLOUDY,HEAD OF BED ELEVATED SAFETY MEASURE IMPLEMENT,BED IN LOW POSITION AND LOCKED WILL CONTINUE TO MONITOR
[2020-08-15] MEDS: PANTOPRAZOLE 40 MG/PACK PACK GT SCH (07:48)
[2020-08-15 08:00] VITALS: BP 104/61
[2020-08-15] MEDS: TIZANIDINE HCL 4 MG TABLET GT SCH ×3 (08:51→17:15)
[2020-08-15] MEDS: BACLOFEN (10 MG) 10 MG TABLET GT SCH ×4 (08:51→20:15)
[2020-08-15] MEDS: ENOXAPARIN SODIUM 40 MG/0.4 ML DISP.SYRIN SQ SCH (08:56)
--- NOTE | 2020-08-15 09:30 | NUR ---
RN NOTES DUE MEDS GIVEN
[2020-08-15 16:00] VITALS: BP 83/50
--- NOTE | 2020-08-15 18:29 | NUR ---
MS RN CLOSING NOTES PATIENT RESTING IN BED.COMFORTABLE.ALERT ORIENTED X1-2, ON 2L OXYGEN VIA NASAL CANNULA,98% SATURATION,NO SOB, RESPIRATION UNLABORED. CONTRACTED, MUSTAPHA MIDLINE, FLUSHES WELL, SITE CLEAR. ON G-TUBE FEEDING JEVITY 1.2 60CC/HR CHECKED PLACEMENT IN PLACE NO RESIDUAL NOTED,HUTCHISON CATHETER IN PLACE,URINE DRAINING YELLOW CLOUDY,TOTAL 750 ML OUTPUT.HEAD OF BED ELEVATED SAFETY MEASURE IMPLEMENT,BED IN LOW POSITION AND LOCKED, CALL LIGHT WITHIN REACH, OBDULIO PCG AT BEDSIDE. ALL NEEDS MET. NO OTHER SIGNIFICANT CHANGE IN CONDITION. WILL ENDORSE TO NEXT SHIFT FOR MUKUL. Addendum: 08/15/20 at 1832 by RANJITH WILLIAM RN ADDENDUM TURNED AND REPOSITIONED Q 2 HOURS. PM CARE DONE EARLIER.
[2020-08-15 20:00] VITALS: BP 110/55
[2020-08-16] MEDS: ZOSYN IVPB 3.375 G in IV D5W 50ml IV SCH ×3 (02:36→13:00)
[2020-08-16 04:00] VITALS: BP 105/54
[2020-08-16] MEDS: METOCLOPRAMIDE HCL 10 MG TABLET GT SCH ×2 (05:09→13:00)
[2020-08-16] MEDS: JEVITY 1.2 CAL 1,000 ML BOTTLE GT PRN (05:14)
[2020-08-16 06:43] LABS: CALCIUM, SERUM 8.3 mg/dL (8.5-10.1); POTASSIUM 3.8 mmol/L (3.5-5.1)
--- NOTE | 2020-08-16 07:30 | NUR ---
RN OPENING NOTE PATIENT RESTING IN BED COMFORTABLY A/Ox1, ON RA SPO2 94% NO SOB OR RESP DISTRESS, BREATHING EVEN AND UNLABORED. PT HAS CONTRACTED BUE. PT MUSTAPHA MIDLINE FLUSHED, INTACT WITH NO S/S OF INFECTION/INFILTRATION. PT HAS G-TUBE FEED JEVITY 1.2 RUNNING @ 60 ML/HR, AUSCULTATED FOR POSITIVE PLACEMENT, NO RESIDUALS, FLUSHED AND IS PATENT. HUTCHISON CATH IN PLACE DRAINING YELLOW CLOUDY URINE TO GRAVITY. ALL PT SAFETY PRECAUTIONS IN PLACE, PT IN HIGH FOWLERS FOR ASPIRATION PRECAUTIONS, BED LOCKED AND IN LOWEST POSITION, SR UP x2, CALL LIGHT WITHIN REACH, BED ALARM ON. PT HAS REGIONAL CONTROLLER GABE LANDIS. WILL CONT TO MONITOR
[2020-08-16 08:00] VITALS: BP 91/55
[2020-08-16] MEDS: TIZANIDINE HCL 4 MG TABLET GT SCH ×2 (08:16→13:00)
[2020-08-16] MEDS: BACLOFEN (10 MG) 10 MG TABLET GT SCH ×2 (08:16→13:00)
[2020-08-16] MEDS: PANTOPRAZOLE 40 MG/PACK PACK GT SCH (08:16)
[2020-08-16] MEDS: ENOXAPARIN SODIUM 40 MG/0.4 ML DISP.SYRIN SQ SCH (08:17)
[2020-08-16 16:00] VITALS: BP 89/53
--- NOTE | 2020-08-16 19:20 | NUR ---
PT REPORT GIVEN TO EMT. PT IN STABLE CONDITION FOR DISCHARGE HOME
== END 2020-08-16 17:00 | disposition home health service (06) | DRG 871 ==
LOC: ER 02:46 → TRANSITION 06:53 → TELE1 07:45 → MEDSG1 08-11 08:19
PROVIDERS: ADMIT Internal Medicine; ATTEND Nurse Practitioner Acute Care
PROC: 05H533Z Insertion of Infusion Device into Right Subclavian Vein, Percutaneous Approach (ICD-10-PCS; principal; 2020-08-13)
PROC: B546ZZA Ultrasonography of Right Subclavian Vein, Guidance (ICD-10-PCS; 2020-08-13)
DX: A41.9 Sepsis, unspecified organism (principal); G92 Toxic encephalopathy; G82.50 Quadriplegia, unspecified; N17.0 Acute kidney failure with tubular necrosis; J69.0 Pneumonitis due to inhalation of food and vomit; N39.0 Urinary tract infection, site not specified; E87.2 Acidosis; E86.0 Dehydration; E78.5 Hyperlipidemia, unspecified; D63.8 Anemia in other chronic diseases classified elsewhere; I10 Essential (primary) hypertension; R13.10 Dysphagia, unspecified; Z20.822 Contact with and (suspected) exposure to COVID-19; Z93.1 Gastrostomy status; I25.10 Atherosclerotic heart disease of native coronary artery without angina pectoris; N31.9 Neuromuscular dysfunction of bladder, unspecified; B96.5 Pseudomonas (aeruginosa) (mallei) (pseudomallei) as the cause of diseases classified elsewhere; T14.8XXS Other injury of unspecified body region, sequela; Z79.82 Long term (current) use of aspirin
CPT/HCPCS: 36410; 36415; 71045-TC; 80048-TC; 80061-TC; 80076-TC; 81001; 83605-TC; 83735-TC; 84100-TC; 84484-TC; 85025-TC; 85730-TC; 87040-TC; 87081-TC; 87086-TC; 87186-TC; 92526; 92611-TC; 94799-TC; C9803; G0378; J1650; J2405; J2543; J3370; J7030; J7040; J7050; J7060; J7070; J8597

== ENCOUNTER 2020-10-31 04:33 | Inpatient (IN) | payer MEDICARE ==
[~2020-10-31] VITALS: Ht 165.1 cm; Wt 60.3 kg
[~2020-10-31 04:33] MED LIST changes: -ASPI-1169 PEG; -CEFE1PIG3 IV; -LEVO5TAB13 PO
[2020-10-31] MEDS ORDERED: NOREPINEPHRINE 4 MG/4 ML AMPUL IV ONE (04:40)
--- NOTE | 2020-10-31 04:54 | NUR ---
PATIENT CAME TO THE ER BED 8 BIBRA 102 FROM HOME C/O LOW BLOOD PRESSURE. PATIENT'S REVENUE INTEGRITY ANALYST WAS TAKING THE PATIENT'S BLOOD PRESSURE WHEN REVENUE INTEGRITY ANALYST NOTICED 70s SYSTOLIC BLOOD PRESSURE. PER RA, PATIENT IS ALTERED, IS USUALLY ALERT AND ORIENTED. BREATHING EVENLY AND UNLABORED ON 4L AT 100%. CONNECTED TO THE COMPUTER NUMERICAL CONTROL PROGRAMMER.
[2020-10-31] MEDS ORDERED: VANCOMYCIN 1 GM VIAL ONE (04:56)
[2020-10-31 04:57] LABS: BASOPHILS % (AUTO) 0.3 % (0.0-2.0); EOSINOPHILS % (AUTO) 0.1 % (0.0-6.0); HEMATOCRIT 37 % (39-51); HEMOGLOBIN 12.4 g/dL (13.5-17.5); LYMPHOCYTES # (AUTO) 1.6 K/uL (0.8-4.8); LYMPHOCYTES % (AUTO) 11.6 % (20.0-44.0); MEAN CORPUSCULAR HGB CONC 34 g/dl (31.0-36.0); MEAN CORPUSCULAR VOLUME 94 fL (80-96); MONOCYTES # (AUTO) 0.2 K/uL (0.1-1.30); MONOCYTES % (AUTO) 1.5 % (2.0-12.0); NEUTROPHILS % (AUTO) 86.5 % (43.0-81.0); PLATELET COUNT (AUTO) 333 K/uL (150-450); RED BLOOD CELL COUNT(AUTO) 3.94 MIL/uL (4.5-6.0); WHITE BLOOD COUNT (AUTO) 13.8 K/uL (4.3-11.0)
[2020-10-31] MEDS ORDERED: PIPERACILLIN /TAZOBACTAM 3.375 G VIAL IV ONE (04:57)
[2020-10-31] MEDS ORDERED: ACETAMINOPHEN 650 MG/SUPP.RECT RC ONE ×2 (04:57→05:00)
[2020-10-31] MEDS ORDERED: NOREPINEPHRINE 8 MG in IV NS 0.9% 250 ML IV ONE (05:00)
[2020-10-31] MEDS ORDERED: IV NS 0.9% 1,000 ML BAG IV ONE (05:00)
[2020-10-31] MEDS ORDERED: VANCOMYCIN 1 GM in IV D5W 250 ML IV ONE (05:00)
[2020-10-31] MEDS ORDERED: PIPERACILLIN /TAZOBACTAM 3.375 G in IV D5W 50 ML IV ONE (05:00)
--- NOTE | 2020-10-31 05:03 | NUR ---
PT HAD A BM, CLEANED, PLACED IN A GOWN. REMAINS ON REFRIGERATING ENGINEER AND PULSE OX.
[2020-10-31] MEDS ORDERED: LEVO750T46 GT (05:04)
[2020-10-31 05:10] LABS: BILIRUBIN,URINE NEGATIVE (NEGATIVE); COLOR,URINE YELLOW (YELLOW); LEUKOCYTE ESTERASE ,URINE LARGE (NEGATIVE); NITRITE, URINE POSITIVE (NEGATIVE); PH,URINE 5.5 (5.0-8.0); PROTEIN,URINE TRACE mg/dl (NEGATIVE); UGLUCOSE NEGATIVE (NEGATIVE); UROBILINOGEN,URINE 0.2 EU/dL (0.2)
--- NOTE | 2020-10-31 05:11 | NUR ---
PT'S BLOOD PRESSURE STABLIZED DUE TO FLUIDS ONLY. LEVOPHED NOT STARTED. ER MD AWARE. PT NOW AWAKE, RESPONSIVE WHEN SPOKEN TO. PLAN OF CARE DISCUSSED WITH PATIENT.
[2020-10-31 05:13] LABS: BACTERIA,URINE Many /HPF (None Seen); RBC,URINE 21-50 /HPF (0-2); SQUAMOUS EPITHELIAL CELL,UR Few /HPF (None Seen); WBC,URINE TOO NUMEROUS TO COUN /HPF (0-3)
--- NOTE | 2020-10-31 05:13 | NUR ---
PAGED EPIC. PATTERSON WILL CALL BACK.
[2020-10-31 05:16] LABS: D-DIMER 1.6 mg/L(FEU (0.17-0.50)
--- NOTE | 2020-10-31 05:20 | NUR ---
CALLED LAB FOR COVID SWAB
[2020-10-31 05:27] LABS: ALANINE AMINOTRANSFERASE 16 U/L (12-78); ALKALINE PHOSPHATASE 64 U/L (46-116); ASPARTATE AMINOTRANSFERASE 10 U/L (15-37); BILIRUBIN,DIRECT 0.2 mg/dL (0.0-0.2); BILIRUBIN,TOTAL 0.8 mg/dL (0.2-1.0); CALCIUM, SERUM 8.6 mg/dL (8.5-10.1); CARBON DIOXIDE 27 mmol/L (21-32); CHLORIDE 100 mmol/L (98-107); CREATININE 1.5 mg/dL (0.6-1.3); GLUCOSE 115 mg/dL (74-106); POTASSIUM 3.8 mmol/L (3.5-5.1); SODIUM SERUM 136 mmol/L (136-145); TOTAL PROTEIN, SERUM 7.7 g/dL (6.4-8.2); UREA NITROGEN, BLOOD 32 mg/dL (7-18)
[2020-10-31 05:38] LABS: CREATINE KINASE, TOTAL 62 U/L (39-308); FERRITIN 84 ng/mL (8-388)
[2020-10-31 05:39] LABS: C-REACTIVE PROTEIN 17.5 mg/dL (0.0-0.9)
--- NOTE | 2020-10-31 06:20 | NUR ---
tele bed [phone]
[2020-10-31] MEDS ORDERED: MAGNESIUM HYDROXIDE 30 ML UDC PO PRN (06:30)
[2020-10-31] MEDS ORDERED: IV NS 0.9% 1,000 ML IV PRN (06:30)
[2020-10-31] MEDS ORDERED: ZOLPIDEM TARTRATE 5 MG TABLET PO PRN (06:30)
[2020-10-31] MEDS ORDERED: ONDANSETRON HCL/PF 4 MG/2 ML VIAL IVP PRN (06:30)
[2020-10-31] MEDS ORDERED: Z GUARD REMEDY 2 OZ OINT TP PRN (06:30)
--- NOTE | 2020-10-31 06:43 | NUR ---
report given to David on third floor for MUKUL
--- NOTE | 2020-10-31 06:52 | NUR ---
PT WAS TRANSFERED TO THE THIRD FLOOR UNDER ACLS
[2020-10-31 08:00] VITALS: BP 111/58
[2020-10-31] MEDS: HEPARIN SODIUM, PORCINE 5000 UNITS/1 ML VIAL SQ SCH ×2 (10:11→21:34)
[2020-10-31 11:00] VITALS: BP 83/37
[2020-10-31] MEDS ORDERED: TEMAZEPAM 15 MG CAPSULE GT PRN (11:30)
[2020-10-31] MEDS: ALBUTEROL HALF STRENGTH 1.25 MG/3 ML VIAL.NEB NEB SCH ×3 (11:50→20:14)
[2020-10-31] MEDS: IPRATROPIUM NEB FS 0.5 MG/2.5 ML AMPUL.NEB NEB SCH ×3 (11:50→20:14)
--- NOTE | 2020-10-31 11:50 | NUR ---
RT HHN tx not given at this time, too close to next scheduled administration. No SOB or respiratory distress noted.
[2020-10-31] MEDS: METOCLOPRAMIDE HCL 10 MG TABLET GT SCH ×2 (14:01→21:24)
[2020-10-31] MEDS: TIZANIDINE HCL 4 MG TABLET PEG SCH ×2 (14:01→17:59)
[2020-10-31] MEDS: ZOSYN IVPB 2.25 G in IV D5W 50ml IV SCH ×3 (14:37→23:53)
--- NOTE | 2020-10-31 20:00 | NUR ---
Patient sleeping though easy to wake. On NC 3L. ON IVF at 75cc/hr tolerating well. No signs of distress. Will continue to monitor.
[2020-10-31 20:30] VITALS: BP 69/37
--- NOTE | 2020-10-31 20:52 | NUR ---
Patient B/P 69/37 awake and alert. All other VS WNL. Order from MD for NS 1000mL bolus. Started.
[2020-10-31] MEDS ORDERED: IV NS 0.9% 1,000 ML IV ONE (21:00)
[2020-11-01] VITALS (7 sets, daily range): BP systolic 90–132; BP diastolic 50–73
--- NOTE | 2020-11-01 | NUR ---
B/P went up to 129/56 after admin of bolus fluids.
[2020-11-01] MEDS: IPRATROPIUM NEB FS 0.5 MG/2.5 ML AMPUL.NEB NEB SCH ×4 (01:49→19:51)
[2020-11-01] MEDS: ALBUTEROL HALF STRENGTH 1.25 MG/3 ML VIAL.NEB NEB SCH ×4 (01:50→19:51)
[2020-11-01] MEDS: METOCLOPRAMIDE HCL 10 MG TABLET GT SCH ×3 (05:12→21:36)
[2020-11-01] MEDS: ZOSYN IVPB 2.25 G in IV D5W 50ml IV SCH ×4 (05:13→23:07)
[2020-11-01] MEDS ORDERED: VANCOMYCIN 1 GM in IV D5W 250 ML IV SCH (06:00)
[2020-11-01 06:41] LABS: BASOPHILS % (AUTO) 0.1 % (0.0-2.0); EOSINOPHILS % (AUTO) 0.1 % (0.0-6.0); HEMATOCRIT 28 % (39-51); HEMOGLOBIN 9.7 g/dL (13.5-17.5); LYMPHOCYTES # (AUTO) 0.8 K/uL (0.8-4.8); LYMPHOCYTES % (AUTO) 5.3 % (20.0-44.0); MEAN CORPUSCULAR HGB CONC 34 g/dl (31.0-36.0); MEAN CORPUSCULAR VOLUME 94 fL (80-96); MONOCYTES # (AUTO) 0.7 K/uL (0.1-1.30); MONOCYTES % (AUTO) 4.4 % (2.0-12.0); NEUTROPHILS # (AUTO) 14.4 K/uL (1.8-8.9); NEUTROPHILS % (AUTO) 90.1 % (43.0-81.0); PLATELET COUNT (AUTO) 272 K/uL (150-450); RED BLOOD CELL COUNT(AUTO) 3.02 MIL/uL (4.5-6.0)
[2020-11-01 06:58] LABS: CALCIUM, SERUM 7.7 mg/dL (8.5-10.1); CREATININE 0.9 mg/dL (0.6-1.3); MAGNESIUM 1.7 mg/dL (1.8-2.4); PHOSPHORUS 1.6 mg/dL (2.5-4.9); POTASSIUM 3.5 mmol/L (3.5-5.1)
--- NOTE | 2020-11-01 07:00 | NUR ---
Patient is awake A&Ox1. VSS. Denies pain or discomfort. Continuous feeding going. IVF running. No signs of distress. Denies pain. Tolerated IV ABX well. Tolerated breathing txt with RT well. B/P stable since IV bolus admin.
--- NOTE | 2020-11-01 07:49 | NUR ---
TELE/RN OPENING NOTES RECEIVED PATIENT IN BED, ALERT AND ORIENTEDX1-2. GARBLED SPEECH. ON 3L OF OXYGEN VIA NASAL CANNULA SATURATING WELL. HOB ELEVATED AT 40 DEGREES. JEVITY 1.2 RUNNING @60ML/HR VIA G-TUBE. RIGHT AC #20G HAS A RUNNING NS@75CC/HR. SAFETY PRECAUTIONS IN PLACED. BED LOCKED ON LOWEST POSITION. SIDE RAILS UPX3, CALL LIGHT WITHIN REACH. WILL CONTINUE TO MONITOR.
[2020-11-01] MEDS: HEPARIN SODIUM, PORCINE 5000 UNITS/1 ML VIAL SQ SCH ×2 (08:30→21:38)
[2020-11-01] MEDS: TIZANIDINE HCL 4 MG TABLET PEG SCH ×3 (08:33→16:01)
[2020-11-01] MEDS: PANTOPRAZOLE 40 MG TABLET.DR PO SCH (08:33)
[2020-11-01 08:52] LABS: ABG BASE EXCESS -2.6 mmol/L; ABG OXYGEN SATURATION 93.8 % (92.0-98.5); ABG PCO2 32.3 mmHg (35.0-45.0); ABG PH 7.432 (7.350-7.450); ABG PO2 64.9 mmHg (75.0-100.0); AaDO2 125.5 mmHg; COHb 0.1 % (0.5-1.5); MetHb 0.3 % (0.0-1.5); O2Hb 93.4 % (94.0-97.0); SITE, ABG Left Brachial; VENT MODE, BG NASAL CANNULA
[2020-11-01] MEDS ORDERED: ALBUTEROL FS 2.5 MG/0.5 ML VIAL.NEB NEB PRN (09:00)
[2020-11-01] MEDS ORDERED: Magnesium 1GM/D5W 100ML PREMIX PIGGYBACK IV ONE (09:00)
[2020-11-01] MEDS ORDERED: MGSO4/D5W 100 ML IV SCH (09:30)
[2020-11-01] MEDS ORDERED: NEUTRA PHOS 1 POWD.PACKET GT ONE (09:30)
[2020-11-01] MEDS: JEVITY 1.2 CAL 1,000 ML BOTTLE GT SCH (10:51)
[2020-11-01] MEDS: VANCOMYCIN 1 GM in IV D5W 250 ML IV SCH (13:52)
--- NOTE | 2020-11-01 19:42 | NUR ---
MS/RN CLOSING NOTES PATIENT IN BED, ALERT AND ORIENTEDX1-2. GARBLED SPEECH. ON 5L OF OXYGEN VIA NASAL CANNULA SATURATING WELL. HOB ELEVATED AT 40 DEGREES. JEVITY 1.2 RUNNING @60ML/HR VIA G-TUBE. RIGHT AC #20G IS INTACT AND PATENT ON SALINE LOCKED. IV FLUIDS HOLD PER NOW. SAFETY PRECAUTIONS IN PLACED. BED LOCKED ON LOWEST POSITION. SIDE RAILS UPX3, CALL LIGHT WITHIN REACH. PRIVATE CAREGIVER AT PATIENT'S BEDSIDE. WILL ENDORSE TO THE NEXT SHIFT FOR MUKUL.
--- NOTE | 2020-11-01 20:11 | NUR ---
MS RN OPENING NOT4ES: RECEIVED PATIENT IN BED, BED IN LOW POSITION, CALL LIGHTS WITHIN REACH, NO COMPLAIN OF PAIN AND DISCOMFORT AT THIS TIME, ON G TUBE FEEDING WITH JEVITY 1.2@60ML PER HR, ON HUTCHISON CATHETER, INFUSING WELL, PATIENT TO REMAIN SEMI FOWLERS WITH HOB 40 AT ALL TIMES, ON O2 INHALATION AT 3LPM IV LINE WITH RIGHT AC#20, AND AT RT WRIST #20 SL , VANCO TROUGH AT 1200NN TOMORROW, HOLD IV FLUID., PATIENT KEPT CLEAN AND DRY, WILL CONTINUE TO MONITOR.
[2020-11-01] MEDS ORDERED: FUROSEMIDE 20 MG/2 ML VIAL IV SCH (22:00)
--- NOTE | 2020-11-01 22:44 | NUR ---
RN NOTES: LASIX 20 MG STAT DOSE GIVEN
[2020-11-02] MEDS ORDERED: BUMETANIDE INJ 6 MG in IV NS 0.9% 36 ML IV ONE (01:00)
[2020-11-02] MEDS: VANCOMYCIN 1 GM in IV D5W 250 ML IV SCH (01:10)
[2020-11-02] MEDS ORDERED: BUMETANIDE INJ 0.25 MG/ML VIAL ONE ×3 (01:29→01:31)
[2020-11-02] MEDS: IPRATROPIUM NEB FS 0.5 MG/2.5 ML AMPUL.NEB NEB SCH ×4 (01:44→19:44)
[2020-11-02] MEDS: ALBUTEROL HALF STRENGTH 1.25 MG/3 ML VIAL.NEB NEB SCH ×4 (01:44→19:44)
--- NOTE | 2020-11-02 03:13 | NUR ---
RN NOTES: RIKAMEX 6MG GIVEN @0224 TO RUN AT 10ML/HR X 6H.
[2020-11-02] MEDS: METOCLOPRAMIDE HCL 10 MG TABLET GT SCH ×3 (04:59→20:41)
[2020-11-02] MEDS: ZOSYN IVPB 2.25 G in IV D5W 50ml IV SCH ×4 (04:59→22:23)
[2020-11-02 06:14] LABS: BASOPHILS % (AUTO) 0.1 % (0.0-2.0); EOSINOPHILS % (AUTO) 0.1 % (0.0-6.0); HEMATOCRIT 28 % (39-51); HEMOGLOBIN 9.6 g/dL (13.5-17.5); LYMPHOCYTES % (AUTO) 7.6 % (20.0-44.0); MEAN CORPUSCULAR HGB CONC 35 g/dl (31.0-36.0); MEAN CORPUSCULAR VOLUME 93 fL (80-96); MONOCYTES % (AUTO) 7.5 % (2.0-12.0); NEUTROPHILS % (AUTO) 84.7 % (43.0-81.0); PLATELET COUNT (AUTO) 243 K/uL (150-450); RED BLOOD CELL COUNT(AUTO) 2.97 MIL/uL (4.5-6.0); WHITE BLOOD COUNT (AUTO) 12.9 K/uL (4.3-11.0)
[2020-11-02 06:36] LABS: CALCIUM, SERUM 7.7 mg/dL (8.5-10.1); CREATININE 0.8 mg/dL (0.6-1.3); PHOSPHORUS 2.7 mg/dL (2.5-4.9); POTASSIUM 3.5 mmol/L (3.5-5.1)
[2020-11-02 06:48] VITALS: BP 99/44
--- NOTE | 2020-11-02 07:26 | NUR ---
MS RN OPENING NOTES RECEIVED PATIENT AWAKE IN BED IN NO ACUTE SIGNS OF DISTRESS. HOB ELEVATED. A/O X1-2. GARBLED SPEECH, PT CALMED, QUIET WITH NO S/S OF PAIN LIKE GRIMACING OR MOANING NOTED AT THIS TIME. ON 02 VIA N/C AT 3LPM, TOLERATING WELL WITH NO SOB NOTED. IV BUMEX AT 10ML/HR RUNNING TO IV ACCESS ON RIGHT HAND G#22, NO S/S OF INFILTRATION AT SITE NOTED. G-TUBE IN PLACE WITH FEEDING OF JEVITY 1.2 RUNNING ORDERED, TOLERATING WELL. ASPIRATION PRECAUTIONS MAINTAINED. HTUCHISON IN PLACE WITH CLEAR YELLOW URINE OUTPUT NOTED. SAFETY PRECAUTIONS IN PLACED: BED LOCKED AND IN LOWEST POSITION, SIDE RAILS UP X2 AND CALL LIGHT WITHIN REACH. WILL CONTINUE TO MONITOR PT ACCORDINGLY. .
--- NOTE | 2020-11-02 07:46 | NUR ---
RN CLOSING NOTES: RECEIVED PATIENT AWAKE IN BED, A/O X1 GARBLED SPEECH, BR ON O2 INHALTION AT 43LPM, HOLD ALL IV FLUIDS, PATIENT IS DESATING AT AROUND 2230 WITH O2 SAT AT [address] MEADOWS ORDERED ONE TIME FUROSIMIDE, NOTIFY DR THOMPSON AND ORDERED TO HOLD IVF AND BUMEG 6MG TO RUN FOR 6H, PATIENT IS MONITORED DUE TO DESATURATION AND SHORTNESS OF BREATH, UPRIGHT AT ALL TIMES AT 40 DEGREE HOB, PRN SUCTIONING DONE, BP IS MONITORED DUE TO BUMEG INFUSION RECENT IS 94/49 PATIENT IS MS BUT PLACE TELE MONITORING AND READS AFIB ASYMPTOMATIC. ENDORSE TO INCOMING SHIFT FOR MONITORING , PATIEN KEPT CLEAN AND RY ALL NEEDS METT, WILL CONTINUE TO MONITOR.
[2020-11-02 08:00] VITALS: BP 98/42
[2020-11-02] MEDS: PANTOPRAZOLE 40 MG TABLET.DR PO SCH (08:19)
[2020-11-02] MEDS: TIZANIDINE HCL 4 MG TABLET PEG SCH ×3 (08:51→16:21)
[2020-11-02] MEDS: HEPARIN SODIUM, PORCINE 5000 UNITS/1 ML VIAL SQ SCH ×2 (08:52→20:40)
--- NOTE | 2020-11-02 09:31 | NUR ---
RN NOTES PT NOTED WITH CRACKLES AND UN-ABLE TO COUGH-OUT SECRETIONS, RESPIRATORY THERAPIST DID DEEP SUCTIONING AND OBTAINED BLOOD TINGED THIN WHITISH SECRETION. EKG DONE AND RESULTS SHOWS A-FIB. CONTROLLED, DR MARVIN MADE AWARE. G-TUBE FEEDING DECREASED TO JEVITY 1.2 AT 30ML/HR AT THIS TIME AND CHRIS MARVIN IS AWARE. PT ASLEEP AT THIS TIME. HOB KEEP ELEVATED. PT'S PRIVATE CAREGIVER AT BEDSIDE.
[2020-11-02] MEDS: VANCOMYCIN 0.75 GM in IV D5W 250 ML IV SCH (13:33)
[2020-11-02 16:00] VITALS: BP 54/97
--- NOTE | 2020-11-02 18:32 | NUR ---
MS RN CLOSING NOTES PATIENT IN BED AWAKE AT THIS TIME WITH PRIVATE CAREGIVER AT BEDSIDE. A/O X1-2. PT HAS GARBLED SPEECH. MAINTAINED PT ON 02 VIA N/C AT 3LPM, TOLERATING WELL WITH NO SOB NOTED. IV IV ACCESS ON RIGHT HAND G#22 AND LEFT WRIST G#20 BOTH INTACT AND PATENT. G-TUBE IN PLACE WITH FEEDING OF JEVITY 1.2 RUNNING AT 45ML/HR AT THIS TIME, TOLERATING WELL. ASPIRATION PRECAUTIONS MAINTAINED. HUTCHISON IN PLACE WITH CLEAR YELLOW URINE OUTPUT NOTED, HUTCHISON CARE DONE. PT TURNED AND REPOSITIONED Q 2HRS AND PRN. ALL NEEDS AND CARE PROVIDED WELL. SAFETY MEASURES KEPT IN PLACE: BED LOCKED AND IN LOWEST POSITION, HOB KEPT ELEVATED AT 40 DEGREES AT ALL TIMES, SIDE RAILS UP X2 AND CALL LIGHT WITHIN REACH. WILL ENDORSE MUKUL TO BACON SKINNER NURSE.
[2020-11-02] MEDS: JEVITY 1.2 CAL 1,000 ML BOTTLE GT SCH (18:43)
--- NOTE | 2020-11-02 19:00 | NUR ---
MS RN OPENING NOTES RECEIVE PT AWAKE IN BED AT THIS TIME. AOx 1 WITH GARBLED SPECH. UNABLE TO VERBALIZE NEEDS. NO S/O OF ANY ACUTE DISTRESS NOTED, DENIES PAIN AT THIS. PT ON 3LP OXYGEN VIA NC, G TUBE IN PLACE. HUTCHISON IN PLACE AND DRAINING TO GRAVITY IV ACCESS IN R WRIST #22SL INTACT AND PATENT AND FLUSHING WELL. SAFETY PRECAUTIONS IN PLACE AND MAINTAINED AT ALL TIMES. BED IN LOWEST LOCKED POSITION, HOB ELEVATED, SIDE RAILS UP X2, CALL LIGHT AND TABLE WITHIN REACH. CAREGIVER AT BEDSIDE. WILL CONTINUE TO MONITOR
[2020-11-02 20:00] VITALS: BP 78/45
--- NOTE | 2020-11-03 00:45 | NUR ---
MS RN OPENING NOTES REPORT RECEIVED, ASSESSMENT COMPLETE. PT RECEIVED SLEEPING INTERMITTENTLY. . AOx 1 WITH GARBLED SPECH. PT UNABLE TO VERBALIZE BASIC NEEDS. NO S/O OF ACUTE DISTRESS NOTED, DENIES PT ON 3L OXYGEN VIA NC, O2 SATURATION WITHIN NORMAL LIMITS. G TUBE IN PLACE AND INFUSING JEVITY.HUTCHISON IN PLACE AND DRAINING TO GRAVITY WITH CLOUDY PETRA URINE. IV ACCESS IN R WRIST #22SL INFILTRATED. LEFT WRIST #20 PATENT AND FLUSHING WELL. HOB ELEVATED, ASPIRATION PRECAUTIONS IN PLACE. BED IN LOWEST LOCKED POSITION, SIDE RAILS UP X2. CALL LIGHT WITHIN REACH. ASSISTED WITH REPOSITIONING FOR SKIN INTEGRITY AND COMFORT. WILL CONTINUE TO MONITOR
[2020-11-03] MEDS: IPRATROPIUM NEB FS 0.5 MG/2.5 ML AMPUL.NEB NEB SCH ×4 (01:46→20:36)
[2020-11-03] MEDS: ALBUTEROL HALF STRENGTH 1.25 MG/3 ML VIAL.NEB NEB SCH ×4 (01:46→20:36)
[2020-11-03] MEDS: VANCOMYCIN 0.75 GM in IV D5W 250 ML IV SCH (02:04)
[2020-11-03] MEDS: ZOSYN IVPB 2.25 G in IV D5W 50ml IV SCH ×4 (04:42→23:20)
[2020-11-03] MEDS: METOCLOPRAMIDE HCL 10 MG TABLET GT SCH ×3 (04:42→21:47)
--- NOTE | 2020-11-03 06:22 | NUR ---
RN NOTE: ASSISTED WITH REPOSITIONING, PERICARE AND LINEN CHANGED. PT IS WARM TO TOUCH. FOLLOW UP TEMP 99.0.
[2020-11-03 07:00] LABS: CALCIUM, SERUM 7.8 mg/dL (8.5-10.1); CREATININE 1.2 mg/dL (0.6-1.3); POTASSIUM 2.9 mmol/L (3.5-5.1)
[2020-11-03 08:00] VITALS: BP 117/60
[2020-11-03] MEDS ORDERED: MAGNESIUM HYDROXIDE 30 ML UDC GT PRN (08:24)
--- NOTE | 2020-11-03 08:33 | NUR ---
RN-NOTES RECEIVED PATIENT LYING BED HOB @45 DEGREE HIGH,NOTED PATIENT WITH SOB O2 SAT 83% @3 L/MIN. RT CAME FOR BREATHING TREATMENT AND SUCTION PATIENT. O2 SAT UP @ 99%.
[2020-11-03] MEDS: POTASSIUM CHLORIDE 20 MEQ POWDER PACKET GT SCH ×3 (10:19→12:26)
[2020-11-03] MEDS: PANTOPRAZOLE 40 MG/PACK PACK GT SCH (10:19)
[2020-11-03] MEDS: TIZANIDINE HCL 4 MG TABLET PEG SCH ×3 (10:19→16:34)
[2020-11-03] MEDS: HEPARIN SODIUM, PORCINE 5000 UNITS/1 ML VIAL SQ SCH ×2 (10:23→21:48)
[2020-11-03] MEDS: MIDODRINE HCL (5MG) 5 MG TABLET PO SCH ×2 (13:00→16:34)
[2020-11-03 16:00] VITALS: BP 90/50
--- NOTE | 2020-11-03 18:40 | NUR ---
RN-CLOSED NOTES PATIENT LYING IN BED AWAKE,ALERT X1 ,NO ACUTE DISTRESS NOTED. PATIENT ON GT JEVITY 1.2 @ 45ML/HR,INFUSING WELL WELL TOLERATED. IV SITE ON L WRIST , INTACT NO S/S OF INFILTRATION NOTED ON THE IV SITE. ALL NEEDS ATTENDED AND ANTICIPATED. REPOSITIONED Q2HRS ORDERED.MOTOR VEHICLE SALESPERSON AT BEDSIDE AT THIS TIME.WILL ENDORSE TO INCOMING NURSED FOR CONTINUITY OF CARE AND MONITORING.
--- NOTE | 2020-11-03 19:15 | NUR ---
MS RN OPENING NOTES: RECEIVED PATIENT IN BED, AWAKE, NON VERBAL. NO S/S OF DISTRESS NOTED. WITH APPLICATION COUNSELOR AT THE BEDSIDE. CALL LIGHT WITHIN REACH. BED ALARM ON. BED IN LOWEST AND LOCKED POSITION. HOB ELEVATED AT ALL TIMES. WITH G-TUBE INTACT, TF RUNNING AT 45ML/HOUR.WITH SCD'S ON. WITH HUTCHISON CATHETER INTACT.
[2020-11-03 20:00] VITALS: BP 112/71
[2020-11-04] MEDS: ALBUTEROL HALF STRENGTH 1.25 MG/3 ML VIAL.NEB NEB SCH ×4 (02:43→20:59)
[2020-11-04] MEDS: IPRATROPIUM NEB FS 0.5 MG/2.5 ML AMPUL.NEB NEB SCH ×4 (02:43→20:59)
[2020-11-04] MEDS: ACETAMINOPHEN 325 MG TABLET PO PRN ×2 (02:47→22:31)
--- NOTE | 2020-11-04 03:04 | NUR ---
HAD LARGE BM. TEMP [id number]=617.0, TYLENOL 650 MG GIVEN THRU G-TUBE, PATIENT IS TACHYPNEIC RR=32, INFORMED DR NISHA THOMPSON.
[2020-11-04] MEDS: ZOSYN IVPB 2.25 G in IV D5W 50ml IV SCH (05:17)
[2020-11-04] MEDS: METOCLOPRAMIDE HCL 10 MG TABLET GT SCH ×3 (05:19→21:41)
--- NOTE | 2020-11-04 06:18 | NUR ---
MS RN CLOSING NOTES: PATIENT IN BED, AWAKE, NON VERBAL. NO S/S OF DISTRESS NOTED. CALL LIGHT WITHIN REACH, BED ALARM ON. BED IN LOWEST AND LOCKED POSITION. HOB ELEVATED AT ALL TIMES, WITH TF JEVITY RUNNING AT 45ML/HOUR, NO RESIDUAL NOTED. GT SITE IS CLEAN, AND DRY, NO LEAKING NOTED. OXYGEN TITRATED TO 8L/MIN MASK, SATTING 98%. TEMP RECHECKED EARLIER, 97.5. TURNED AND REPOSITIONED Q2 HOURS. HEELS OFFLOADED.
--- NOTE | 2020-11-04 07:49 | NUR ---
MS RN OPENING NOTES RECEIVED PATIENT IN BED, AWAKE, GARBLED SPEECH. PATIENT ON OXYGEN THERAPY VIA FACE MASK AT 8 LPM; BREATHING EVEN AND UNLABORED AT THIS TIME. NO S/S OF PAIN SUCH FACIAL GRIMACING, MOANING OR GUARDING NOTED. L WRIST IV ACCESS G #20; G SL PRESENT. G-TUBE IN PLACE RUNNING JEVITY @ 45 MLS/HR. SAFETY PRECAUTIONS IN PLACE; BED IN LOW POSITION AND LOCKED, RAILS UP X2, CALL LIGHT WITHIN REACH. WILL CONTINUE TO MONITOR PATIENT.
[2020-11-04 07:52] LABS: CALCIUM, SERUM 8.3 mg/dL (8.5-10.1); POTASSIUM 3.9 mmol/L (3.5-5.1)
[2020-11-04 08:14] LABS: BASOPHILS # (AUTO) 0.1 K/uL (0.0-0.2); BASOPHILS % (AUTO) 0.5 % (0.0-2.0); EOSINOPHILS % (AUTO) 0.1 % (0.0-6.0); HEMATOCRIT 32 % (39-51); HEMOGLOBIN 10.6 g/dL (13.5-17.5); LYMPHOCYTES # (AUTO) 1.5 K/uL (0.8-4.8); LYMPHOCYTES % (AUTO) 10.1 % (20.0-44.0); MEAN CORPUSCULAR HGB CONC 33 g/dl (31.0-36.0); MEAN CORPUSCULAR VOLUME 94 fL (80-96); MONOCYTES # (AUTO) 1.8 K/uL (0.1-1.30); NEUTROPHILS # (AUTO) 11.4 K/uL (1.8-8.9); NEUTROPHILS % (AUTO) 77.3 % (43.0-81.0); PLATELET COUNT (AUTO) 273 K/uL (150-450); RED BLOOD CELL COUNT(AUTO) 3.38 MIL/uL (4.5-6.0); WHITE BLOOD COUNT (AUTO) 14.7 K/uL (4.3-11.0)
[2020-11-04] MEDS: PANTOPRAZOLE 40 MG/PACK PACK GT SCH (08:25)
[2020-11-04] MEDS: TIZANIDINE HCL 4 MG TABLET PEG SCH ×3 (08:25→17:07)
[2020-11-04] MEDS: MIDODRINE HCL (5MG) 5 MG TABLET PO SCH ×3 (08:29→17:07)
[2020-11-04] MEDS: HEPARIN SODIUM, PORCINE 5000 UNITS/1 ML VIAL SQ SCH ×2 (08:30→21:41)
[2020-11-04] MEDS ORDERED: VANCOMYCIN 1 GM in IV D5W 250 ML IV SCH (10:00)
[2020-11-04 10:47] VITALS: BP 103/83
[2020-11-04] MEDS: MEROPENEM 1 G in IV NS 0.9% 100 ML IV SCH ×2 (12:09→23:01)
[2020-11-04] MEDS ORDERED: MEROPENEM 500 MG in IV NS 0.9% 50 ML IV SCH (13:00)
[2020-11-04 13:46] LABS: ABG OXYGEN SATURATION 97.8 % (92.0-98.5); ABG PH 7.474 (7.350-7.450); ABG PO2 99.3 mmHg (75.0-100.0); COHb 0.1 % (0.5-1.5); MetHb 0.3 % (0.0-1.5); O2Hb 97.4 % (94.0-97.0); SITE, ABG Right Radial; VENT MODE, BG 8L SIMPLE MASK
[2020-11-04 17:18] VITALS: BP 89/50
--- NOTE | 2020-11-04 18:43 | NUR ---
MS RN CLOSING NOTES PATIENT REMAINS IN BED, AWAKE, GARBLED SPEECH. PATIENT STILL ON OXYGEN THERAPY VIA FACE MASK AT 8 LPM; BREATHING EVEN AND UNLABORED. NO S/S OF PAIN SUCH FACIAL GRIMACING, MOANING OR GUARDING NOTED. L WRIST IV ACCESS G #20; G SL PRESENT. G-TUBE IN PLACE RUNNING JEVITY @ 45 MLS/HR. ALL NEEDS ATTENDED DURING THE DAY. SAFETY PRECAUTIONS IN PLACE; BED IN LOW POSITION AND LOCKED, RAILS UP X2, CALL LIGHT WITHIN REACH. WILL ENDORSE TO MANAGER INFRASTRUCTURE NURSE.
--- NOTE | 2020-11-04 19:30 | NUR ---
MS RN OPENING NOTES: RECEIVED PATIENT IN BED, AWAKE, NON VERBAL. CAREGIVER AT THE BEDSIDE. NO S/S OF DISTRESS NOTED. CALL LIGHT WITHIN REACH. BED ALARM ON. BED IN LOWEST AND LOCKED POSITION. HOB ELEVATED. WITH TF RUNNING AT 45ML/HOUR. HEELS OFFLOADED. WITH 02 AT 8L/MIN VIA MASK O2 SAT 95%.
[2020-11-04 20:00] VITALS: BP 117/57
[2020-11-04] MEDS: VANCOMYCIN 0.75 GM in IV D5W 250 ML IV SCH (21:40)
--- NOTE | 2020-11-04 22:32 | NUR ---
PATIENT IS BEING TURNED Q1 HOUR BY THE CAREGIVER. OFFERED ASSISTANCE, DECLINED.
[2020-11-05] VITALS (15 sets, daily range): BP systolic 91–153; BP diastolic 42–105
[2020-11-05] MEDS: IPRATROPIUM NEB FS 0.5 MG/2.5 ML AMPUL.NEB NEB SCH ×4 (02:07→20:01)
[2020-11-05] MEDS: ALBUTEROL HALF STRENGTH 1.25 MG/3 ML VIAL.NEB NEB SCH ×4 (02:07→20:01)
[2020-11-05] MEDS: MEROPENEM 1 G in IV NS 0.9% 100 ML IV SCH ×3 (05:45→21:26)
[2020-11-05] MEDS: METOCLOPRAMIDE HCL 10 MG TABLET GT SCH ×3 (05:45→21:25)
[2020-11-05 06:10] LABS: ABG BASE EXCESS 4.4 mmol/L; ABG OXYGEN SATURATION 96.5 % (92.0-98.5); ABG PCO2 47.8 mmHg (35.0-45.0); ABG PH 7.412 (7.350-7.450); ABG PO2 83.3 mmHg (75.0-100.0); AaDO2 291.9 mmHg; COHb 0.8 % (0.5-1.5); O2Hb 95.7 % (94.0-97.0); SITE, ABG Left Brachial
--- NOTE | 2020-11-05 06:19 | NUR ---
RT NOTE ABG TAKEN AND RESULTS REPORTED TO CHARGED RN. WILL CONTINUE TO MONITOR PATIENT.
[2020-11-05 07:00] LABS: CALCIUM, SERUM 8.6 mg/dL (8.5-10.1); CREATININE 0.9 mg/dL (0.6-1.3); POTASSIUM 3.9 mmol/L (3.5-5.1)
--- NOTE | 2020-11-05 07:01 | NUR ---
MS RN CLOSING NOTES: PATIENT IN BED, AWAKE, NON VERBAL. CALL LIGHT WITHIN REACH. BED ALARM ON. BED IN LOWEST AND LOCKED POSITION. HOB ELEVATED AT ALL TIMES. NO FEEDING RESIDUAL NOTED. DRESSING PLACED ON THE G TUBE SITE, NO LEAKING NOTED. HEELS OFFLOADED AT ALL TIMES AND PATIENT TURNED AND REPOSITIONED Q6LCUCR. PATIENT STILL TACHYPNEIC, STAT ABG DONE THIS MORNING, RESULTS WAS RELAYED TO THE CHARGE NURSE MARGARET BY THE RT.
[2020-11-05] MEDS ORDERED: FUROSEMIDE 20 MG/2 ML VIAL IV SCH (09:00)
[2020-11-05] MEDS: PANTOPRAZOLE 40 MG/PACK PACK GT SCH (09:21)
[2020-11-05] MEDS: VANCOMYCIN 0.75 GM in IV D5W 250 ML IV SCH ×2 (09:21→22:13)
[2020-11-05] MEDS: TIZANIDINE HCL 4 MG TABLET PEG SCH ×3 (09:24→18:38)
[2020-11-05] MEDS: HEPARIN SODIUM, PORCINE 5000 UNITS/1 ML VIAL SQ SCH ×2 (09:24→21:27)
[2020-11-05] MEDS: MIDODRINE HCL (5MG) 5 MG TABLET PO SCH ×3 (09:32→18:38)
[2020-11-05 09:57] LABS: BASOPHILS % (AUTO) 0.2 % (0.0-2.0); EOSINOPHILS % (AUTO) 0.1 % (0.0-6.0); HEMATOCRIT 30 % (39-51); HEMOGLOBIN 9.9 g/dL (13.5-17.5); LYMPHOCYTES # (AUTO) 0.9 K/uL (0.8-4.8); LYMPHOCYTES % (AUTO) 4.3 % (20.0-44.0); MEAN CORPUSCULAR HGB CONC 33 g/dl (31.0-36.0); MEAN CORPUSCULAR VOLUME 95 fL (80-96); MONOCYTES # (AUTO) 1.7 K/uL (0.1-1.30); MONOCYTES % (AUTO) 8.3 % (2.0-12.0); NEUTROPHILS # (AUTO) 17.7 K/uL (1.8-8.9); NEUTROPHILS % (AUTO) 87.1 % (43.0-81.0); PLATELET COUNT (AUTO) 281 K/uL (150-450); RED BLOOD CELL COUNT(AUTO) 3.18 MIL/uL (4.5-6.0); WHITE BLOOD COUNT (AUTO) 20.3 K/uL (4.3-11.0)
[2020-11-05 10:26] LABS: ABG BASE EXCESS 5.9 mmol/L; ABG PCO2 50.6 mmHg (35.0-45.0); ABG PH 7.412 (7.350-7.450); ABG PO2 62.4 mmHg (75.0-100.0); AaDO2 309.7 mmHg; COHb 0.4 % (0.5-1.5); O2Hb 91.6 % (94.0-97.0); SITE, ABG Right Radial; VENT MODE, BG SIMPLE MASK
--- NOTE | 2020-11-05 10:54 | NUR ---
PT ARRIVED IN ICU ROOM 257 FROM 3W ON 10L SIMPLE MASK FOR RESPIRATORY DISTRESS. CAREGIVER AT BEDSIDE, APPEARS SUPPORTIVE. PT APPEARS OBTUNDED, NON VERBAL AND CONTRACTED. PLAN IS TO TRIAL PT ON HIGH FLOW NASAL CANNULA TO AVOID INTUBATION AT THIS TIME. PT CHECKED ON HOURLY AND PRN BY NURSING STAFF. Addendum: 11/05/20 at 1400 by SNEHAL UGARTE RN CORRECTION ON NEURO STATUS. PT IS LETHARGIC, ORIENTED TO SELF, GARBLED SPEECH.
--- NOTE | 2020-11-05 11:04 | NUR ---
RT NOTE TRANSPORTED PATIENT TO ICU 257 WITH NURSE. PLACED ON 10L SIMPLE MASK VIA E OXYGEN TANK DURING TRANSPORT. NO INCIDENCE.
[2020-11-05 14:06] LABS: ABG BASE EXCESS 7.7 mmol/L; ABG OXYGEN SATURATION 98.1 % (92.0-98.5); ABG PCO2 46.5 mmHg (35.0-45.0); ABG PH 7.461 (7.350-7.450); ABG PO2 107.4 mmHg (75.0-100.0); AaDO2 559.1 mmHg; COHb 0.1 % (0.5-1.5); MetHb 0.1 % (0.0-1.5); O2Hb 97.9 % (94.0-97.0); SITE, ABG Right Radial; VENT MODE, BG HIGH FLOW N/C 100%
--- NOTE | 2020-11-05 17:32 | NUR ---
RT Pt was transferred to ICU and was placed on high flow nasal cannula initially with 40L and 60% FiO2, pt gradually required more O2 and is now at 90% FiO2. Pt remains tachypneic with mild abdominal muscle usage, ABG was done and is within normal limits. Addendum: 11/05/20 at 1752 by CLAUDE ERAZO RT Amended: Links added.
--- NOTE | 2020-11-05 19:21 | NUR ---
END OF SHIFT NOTE: PT'S MENTAL STATUS APPEARS TO HAVE IMPROVED SINCE HIS ARRIVAL IN THE ICU. PT IS OPENING HIS EYES AND COMMUNICATING. PT'S BREATHING APPEARS TO BE CALMER ALSO. CAREGIVER HAS BEEN AT THE BEDSIDE IN THE ICU AND PT'S DAUGHTER AND GRANDSON VISITED TODAY. PT CHECKED ON HOURLY AND PRN BY NURSING STAFF.
--- NOTE | 2020-11-05 19:38 | NUR ---
RN NOTE RECEIVED PT IN BED IN SEMI-FOWLERS POSITION A/O X 1. PT IN NO RESPIRATORY DISTRESS, HUTCHISON CATH DRAINING URINE. IV SITE PATENT, INTACT ANG FLUSHING WELL. CALL LIGHT WITHIN REACH, BED LOCKED AND IN THE LOWEST POSITION WILL CONT. TO MONITOR PT.
[2020-11-05] MEDS ORDERED: VANCOMYCIN 1 GM VIAL ONE (22:02)
[2020-11-06] VITALS (26 sets, daily range): BP systolic 83–139; BP diastolic 40–77
[2020-11-06] MEDS: ACETAMINOPHEN 325 MG TABLET PO PRN ×2 (01:07→08:14)
--- NOTE | 2020-11-06 01:20 | NUR ---
RN NOTE TYLENOL GIVEN FOR TEMP OF 99.9 ORAL.
[2020-11-06] MEDS: IPRATROPIUM NEB FS 0.5 MG/2.5 ML AMPUL.NEB NEB SCH ×4 (02:13→20:14)
[2020-11-06] MEDS: ALBUTEROL HALF STRENGTH 1.25 MG/3 ML VIAL.NEB NEB SCH ×4 (02:13→20:14)
[2020-11-06] MEDS: MEROPENEM 1 G in IV NS 0.9% 100 ML IV SCH ×3 (04:44→20:29)
[2020-11-06] MEDS: METOCLOPRAMIDE HCL 10 MG TABLET GT SCH ×3 (04:44→20:29)
[2020-11-06 04:58] LABS: BASOPHILS % (AUTO) 0.2 % (0.0-2.0); EOSINOPHILS % (AUTO) 0.4 % (0.0-6.0); HEMATOCRIT 28 % (39-51); HEMOGLOBIN 9.3 g/dL (13.5-17.5); LYMPHOCYTES # (AUTO) 2.1 K/uL (0.8-4.8); LYMPHOCYTES % (AUTO) 13.9 % (20.0-44.0); MEAN CORPUSCULAR HGB CONC 34 g/dl (31.0-36.0); MEAN CORPUSCULAR VOLUME 93 fL (80-96); MONOCYTES # (AUTO) 1.4 K/uL (0.1-1.30); MONOCYTES % (AUTO) 9.3 % (2.0-12.0); NEUTROPHILS # (AUTO) 11.4 K/uL (1.8-8.9); NEUTROPHILS % (AUTO) 76.2 % (43.0-81.0); PLATELET COUNT (AUTO) 279 K/uL (150-450); RED BLOOD CELL COUNT(AUTO) 2.96 MIL/uL (4.5-6.0); WHITE BLOOD COUNT (AUTO) 14.9 K/uL (4.3-11.0)
[2020-11-06 05:06] LABS: CALCIUM, SERUM 8.5 mg/dL (8.5-10.1); CREATININE 1.1 mg/dL (0.6-1.3); MAGNESIUM 2.2 mg/dL (1.8-2.4); POTASSIUM 3.6 mmol/L (3.5-5.1)
--- NOTE | 2020-11-06 07:13 | NUR ---
RN NOTE PT REMAINED STABLE, AFEBRILE DURING SHIFT,ALL NEEDS MET REPORT GIVEN TO AM RN FOR MUKUL
--- NOTE | 2020-11-06 07:55 | NUR ---
superintendent horticulture note patient in bed awake bir nonverbal, on high floe arn793% 40l saturation 98%, hob elevated at al time, with Paiz cath to gravity with yellow color urine, g tube feeding in placed, on npo at this time, lt hl lt wrist intact but arm slightly swollen , keep elevated at this time, new hl vangie 22 inserted on rt fa , bed in lowest and locked position , will monitor closely
--- NOTE | 2020-11-06 08:00 | NUR ---
viticulturist note . rt at bedside ,placed o 6l nc saturation 95% will cont to monitor Addendum: 11/06/20 at 1041 by GRACIA HUTTON RN dr haddad aware that earlier t 100.0 and Tylenol was given
[2020-11-06] MEDS: TIZANIDINE HCL 4 MG TABLET PEG SCH ×3 (08:13→16:19)
[2020-11-06] MEDS: HEPARIN SODIUM, PORCINE 5000 UNITS/1 ML VIAL SQ SCH ×2 (08:14→20:30)
[2020-11-06] MEDS: FUROSEMIDE 20 MG/2 ML VIAL IV SCH ×2 (08:15→16:17)
[2020-11-06] MEDS: MIDODRINE HCL (5MG) 5 MG TABLET PO SCH ×3 (08:18→16:17)
[2020-11-06] MEDS: PANTOPRAZOLE 40 MG/PACK PACK GT SCH (08:30)
--- NOTE | 2020-11-06 09:46 | NUR ---
icu r note seen by set up worker ok to cont monitor aware on 6l nc saturation 95% and still has a little labored respiration also aware that bp 86/49
[2020-11-06] MEDS: VANCOMYCIN 0.75 GM in IV D5W 250 ML IV SCH ×2 (10:18→22:48)
--- NOTE | 2020-11-06 10:36 | NUR ---
research agricultural engineer note kub done as ordered ,dr haddad at bedside aware that urine out put 50 ml at this time ,last night 300 ml also bp was earlier 86/45 Lasix was given earlier , stated to monitor closely ,no new order given
--- NOTE | 2020-11-06 14:00 | NUR ---
curriculum development coordinator note turn reposition q2 hour , no sob noted at this time , saturation 96% , healthcare advisory services manager at bedside , all needs attended
--- NOTE | 2020-11-06 18:17 | NUR ---
horticulture supervisor note turn reposition q2 hour, new hl on lt fa vangie 20 inserted with good blood return , keep clean dry not in distress will monitor,
--- NOTE | 2020-11-06 19:30 | NUR ---
RN NOTE RECEIVED PATIENT IN BED. A/OX1. ON OXYGEN 6L/MIN VIA NASAL CANNULA. NO S/S SOB NOTED AT THIS TIME. NO S/S PAIN NOTED. EXTERNAL TELE MONITOR READS UNCONTROLLED A FIB/ AFLUTTER. IN NO APPARENT DISTRESS. IV ACCESS IN RFA#24 PATENT AND SALINE LOCKED. LFA#20 PATENT AND SALINE LOCKED. LEFT WRIST #20 INFILTRATED. REMOVED IV. GTUBE PRESENT. NO RESIDUAL, CLAMPED. FEEDINGS ARE BEING HELD PER DR. LYN NOTE. HUTCHISON CATHETER DRAINING TO GRAVITY, URINE YELLOW. BED IS LOW AND LOCKED, HOB ELEVATED IN SEMI FOWLERS, SIDE RAILS UP X2, CALL LIGHT WITHIN REACH. PATIENTS CAREGIVER IS AT BEDSIDE. WILL CONTINUE TO MONITOR THROUGHOUT SHIFT.
--- NOTE | 2020-11-06 21:35 | NUR ---
RN NOTE PATIENT IS SOB, TACHYPNEIC O2 SAT 90% ON 6L NC. CHANGED TO SIMPLE MASK 10L, O2 SAT REMAINED 90%. THEN INCREASED O2 TO 15L NON REBREATHER. WILL TITRATE DOWN PATIENTS RESPIRATORY STATUS ALLOWS.
[2020-11-07] VITALS (24 sets, daily range): BP systolic 91–142; BP diastolic 32–92
[2020-11-07] MEDS: ACETAMINOPHEN 325 MG TABLET PO PRN (00:35)
[2020-11-07] MEDS: ALBUTEROL HALF STRENGTH 1.25 MG/3 ML VIAL.NEB NEB SCH ×5 (01:30→20:24)
[2020-11-07] MEDS: IPRATROPIUM NEB FS 0.5 MG/2.5 ML AMPUL.NEB NEB SCH ×5 (01:30→20:24)
[2020-11-07] MEDS: METOCLOPRAMIDE HCL 10 MG TABLET GT SCH ×3 (04:19→20:04)
[2020-11-07] MEDS: MEROPENEM 1 G in IV NS 0.9% 100 ML IV SCH ×3 (04:19→20:04)
[2020-11-07 05:38] LABS: CALCIUM, SERUM 8.1 mg/dL (8.5-10.1); CREATININE 0.9 mg/dL (0.6-1.3); POTASSIUM 3.5 mmol/L (3.5-5.1)
--- NOTE | 2020-11-07 06:37 | NUR ---
RN NOTE PATIENT RESTING IN BED. A/OX1. ON OXYGEN 8L/MIN VIA SIMPLE MASK. SOB NOTED, TACHYPNEA, DESAT TO 90%. NOW 95% ON 8L. TELE MONITOR READS UNCONTROLLED AFLUTTER, UP TO 130S BUT UNSUSTAINED. NO DISTRESS. IV RFA#24 RUNNING MERREM #33.33. GTUBE REMAINS CLAMPED. HUTCHIOSN CATHETER OUTPUT 375. BED IS LOW AND LOCKED, HOB ELEVATED IN HIGH FOWLERS, SIDE RAILS UP X3, CALL LIGHT WITHIN REACH. WILL ENDORSE TO ONCOMING SHIFT.
--- NOTE | 2020-11-07 07:00 | NUR ---
RN NOTES RECEIVED, PT ON BED, DRAWZY , OPENS EYES VERBAL STIMULI, ON TELE , AFB/A.FLUTER , PT ON 6L O2 N/C , O2 SAT 90-91% , HUTCHISON DRAINING TO GRAVITY, TF ON HOLD PER MD AT THIS TIME, RIGHT FA AN LEFT FA IV SITES, CLEAN,DRY AND INTACT, SR UP x3, CALL LIGHT WITHIN EASY REACH, BED LOCKED AND IN LOWEST POSITION, CONTINUE OT MONITOR.
[2020-11-07] MEDS: PANTOPRAZOLE 40 MG/PACK PACK GT SCH (08:09)
[2020-11-07] MEDS: MIDODRINE HCL (5MG) 5 MG TABLET PO SCH ×3 (08:10→16:36)
[2020-11-07] MEDS: FUROSEMIDE 20 MG/2 ML VIAL IV SCH ×2 (08:10→16:38)
[2020-11-07] MEDS: HEPARIN SODIUM, PORCINE 5000 UNITS/1 ML VIAL SQ SCH ×2 (08:13→21:52)
[2020-11-07] MEDS: TIZANIDINE HCL 4 MG TABLET PEG SCH ×3 (08:17→16:26)
[2020-11-07] MEDS: JEVITY 1.2 CAL 1,000 ML BOTTLE GT SCH (09:58)
[2020-11-07] MEDS: VANCOMYCIN 0.75 GM in IV D5W 250 ML IV SCH ×2 (10:00→22:56)
[2020-11-07 10:20] LABS: ABG BASE EXCESS 6.9 mmol/L; ABG OXYGEN SATURATION 98.6 % (92.0-98.5); ABG PCO2 40.4 mmHg (35.0-45.0); ABG PH 7.498 (7.350-7.450); ABG PO2 125.2 mmHg (75.0-100.0); AaDO2 258.2 mmHg; COHb 0.1 % (0.5-1.5); MetHb 0.3 % (0.0-1.5); O2Hb 98.2 % (94.0-97.0); SITE, ABG Right Radial; VENT MODE, BG SIMPLE MASK
--- NOTE | 2020-11-07 12:00 | NUR ---
RN NOTES PT ON FACE MASK AT 10L , O2 SAT WNL, CONTINUE TO MONITOR.
--- NOTE | 2020-11-07 18:00 | NUR ---
RN NOTES PT REMAINS THE SAME ON , 10 L O2 FACE MASK , PT IS MOUTH BREATHER , FLOWER CHENILLER AT THE BEDSIDE, TF AT 20CC/HR RUNNING PER DIRECTOR OF SLEEP ORDER , WILL ENDORSE TO REPAIRER FINISHED METAL NURSE FOR CONTINUITY OF CARE .
--- NOTE | 2020-11-07 19:30 | NUR ---
RN NOTE PATIENT IN BED. A/OX1. ON OXYGEN 7L/MIN VIA SIMPLE MASK. TACHYPNEIC. O2 SAT 96%. NO S/S PAIN NOTED. EXTERNAL TELE MONITOR READS UNCONTROLLED A FIB/ AFLUTTER. HR RANGING FROM 108-130 IN NO APPARENT DISTRESS. IV ACCESS IN LFA#20 X2. GTUBE SITE IS CLEAN, NO RESIDUAL, RUNNING JEVITY @20ML/HR. HUTCHISON CATHETER DRAINING TO GRAVITY, URINE YELLOW. BED IS LOW AND LOCKED, HOB ELEVATED IN SEMI FOWLERS, SIDE RAILS UP X3, CALL LIGHT WITHIN REACH. PATIENTS CAREGIVER IS AT BEDSIDE. WILL CONTINUE TO MONITOR THROUGHOUT SHIFT.
--- NOTE | 2020-11-07 21:22 | NUR ---
RN NOTE INFORMED PASSENGER TIRE INSPECTOR NISHA THOMPSON DNP THAT PATIENT IS NOT ON ANY ANTICOAGULANTS, HEPARIN WAS DC D/T REACHING STOP DATE. PATIENT HAS UNCONTROLLED AFIB. NISHA THOMPSON DNP ORDER TO CONTINUE HEPARIN 5000 UNITS Q12HR. ORDER READ BACK NOTED AND CARRIED OUT.
[2020-11-08] VITALS (38 sets, daily range): BP systolic 66–151; BP diastolic 41–89
[2020-11-08] MEDS: ALBUTEROL HALF STRENGTH 1.25 MG/3 ML VIAL.NEB NEB SCH ×4 (01:30→20:12)
[2020-11-08] MEDS: IPRATROPIUM NEB FS 0.5 MG/2.5 ML AMPUL.NEB NEB SCH ×4 (01:30→20:12)
[2020-11-08] MEDS: MEROPENEM 1 G in IV NS 0.9% 100 ML IV SCH ×3 (04:29→20:00)
[2020-11-08] MEDS: METOCLOPRAMIDE HCL 10 MG TABLET GT SCH ×3 (04:29→20:44)
[2020-11-08 04:45] LABS: BASOPHILS % (AUTO) 0.4 % (0.0-2.0); EOSINOPHILS % (AUTO) 4.5 % (0.0-6.0); HEMATOCRIT 30 % (39-51); LYMPHOCYTES # (AUTO) 1.8 K/uL (0.8-4.8); LYMPHOCYTES % (AUTO) 15.7 % (20.0-44.0); MEAN CORPUSCULAR HGB CONC 34 g/dl (31.0-36.0); MEAN CORPUSCULAR VOLUME 93 fL (80-96); MONOCYTES # (AUTO) 0.8 K/uL (0.1-1.30); NEUTROPHILS # (AUTO) 8.5 K/uL (1.8-8.9); NEUTROPHILS % (AUTO) 72.4 % (43.0-81.0); PLATELET COUNT (AUTO) 347 K/uL (150-450); RED BLOOD CELL COUNT(AUTO) 3.19 MIL/uL (4.5-6.0); WHITE BLOOD COUNT (AUTO) 11.8 K/uL (4.3-11.0)
[2020-11-08 04:50] LABS: CALCIUM, SERUM 8.1 mg/dL (8.5-10.1); POTASSIUM 3.1 mmol/L (3.5-5.1)
--- NOTE | 2020-11-08 06:17 | NUR ---
RN NOTE RESTING IN BED. A/OX1. REMAINS ON OXYGEN 7L/MIN VIA SIMPLE MASK. TACHYPNEIC. O2 SAT RANGE 93-98%. NO S/S PAIN. TELE MONITOR CONTINUES TO READS UNCONTROLLED A FIB/ AFLUTTER. HR RANGING FROM 108-130S. NO DISTRESS. IV ACCESS IN LFA#20 X2, CURRENTLY RUNNING [employer]. GTUBE RUNNING FittingRoom @20ML/HR. HUTCHISON CATHETER OUTPUT 700. BED REMAINS LOW AND LOCKED, HOB ELEVATED IN SEMI FOWLERS, SIDE RAILS UP X3, CALL LIGHT WITHIN REACH. WILL ENDORSE TO ONCOMING SHIFT.
--- NOTE | 2020-11-08 07:12 | NUR ---
RN NOTES RECEIVED, PT ON BED, ALERT, DOES NOT FOLLOW COMMAND, ON TELE , AFB/A.FLUTER , PT ON 6L 02 VIA FACE MASK , O2 SAT WNL, HUTCHISON DRAINING TO GRAVITY, TF AT 20CC/HR RUNNING, NO RESIDUAL NOTED, , RIGHT FA IV SITES , CLEAN,DRY AND INTACT, SR UP x3, CALL LIGHT WITHIN EASY REACH, BED LOCKED AND IN LOWEST POSITION, CONTINUE OT MONITOR.
[2020-11-08] MEDS ORDERED: POTASSIUM CHLORIDE 20 MEQ POWDER PACKET GT ONE (08:00)
[2020-11-08] MEDS: MIDODRINE HCL (5MG) 5 MG TABLET PO SCH ×3 (08:35→16:10)
[2020-11-08] MEDS: PANTOPRAZOLE 40 MG/PACK PACK GT SCH (08:35)
[2020-11-08] MEDS: FUROSEMIDE 20 MG/2 ML VIAL IV SCH ×2 (08:35→16:06)
[2020-11-08] MEDS: TIZANIDINE HCL 4 MG TABLET PEG SCH ×3 (08:35→16:05)
[2020-11-08] MEDS: HEPARIN SODIUM, PORCINE 5000 UNITS/1 ML VIAL SQ SCH ×2 (08:37→20:45)
--- NOTE | 2020-11-08 09:44 | NUR ---
WOUND CARE CONSULT: PT PRESENTS WITH INTACT SKIN AND SACRAL SCARRING, PRESENT ON ADMISSION. PT IS IMMOBILE. HUTCHISON CATH NOTED. RECOMMENDATIONS MADE FOR SKIN PROTECTION. DISCUSSED WITH NURSING STAFF AND PT CAREGIVER AT BEDSIDE. PT IS ON DESMOND ISOFLEX LOW AIRLOSS BED. MD IN AGREEMENT WITH PLAN OF CARE.
--- NOTE | 2020-11-08 10:15 | NUR ---
RN NOTES SBP IN 80'S , DR CROWELL NOTIFIED, NEW ORDER RECEIVED FOR 500CC NS BULOS , CONTINUE TO MONITOR.
[2020-11-08] MEDS ORDERED: IV NS 0.9% 500 ML IV ONE (10:30)
--- NOTE | 2020-11-08 10:45 | NUR ---
RN NOTES SBP IN 90'S AT THIS TIME, CONTINUE TO MONITOR.
--- NOTE | 2020-11-08 16:06 | NUR ---
RN NOTES DANIEL HELD PER DR CROWELL AT THIS TIME.
[2020-11-08] MEDS: JEVITY 1.2 CAL 1,000 ML BOTTLE GT SCH (16:13)
--- NOTE | 2020-11-08 19:14 | NUR ---
RN NOTES PT REMAINS THE SAME ON , 6 L O2 FACE MASK , PT IS MOUTH BREATHER , WIRE HANGER AT THE BEDSIDE, TF AT 40CC/HR RUNNING PER ASPHALT TAMPING MACHINE OPERATOR ORDER , BP STABLE AT THIS TIME , WILL ENDORSE TO STORE ASSOCIATE NURSE FOR CONTINUITY OF CARE .
--- NOTE | 2020-11-08 19:41 | NUR ---
RN NOTE RECEIVED PT OPEN EYES TO VERBAL AND TOUCH STIMULI. ON O2 VIA FACE MASK AT 6L. NO SIGNS OF DISTRESS NOTED. TELE SHOWS SR WITH HR OF 76. GT IN PLACE AND PATENT, ON GT FEEDING OF JEVITY AT 40L NO RESIDUAL NOTED, FEEDING RATE INCREASED TO 5OCC/HR, GOAL IS 60CC/HR. IV SITES INTACT AND PATENT, FLUSHES WELL. HUTCHISON DRAINING URINE BY GRAVITY. NO SIGNS OF PAIN OR DISCOMFORT. ALL SAFETY IN PLACE, WILL CONTINUE TO MONITOR.
[2020-11-08] MEDS: VANCOMYCIN 0.75 GM in IV D5W 250 ML IV SCH (22:51)
--- NOTE | 2020-11-08 23:13 | NUR ---
RN NOTE PT TOLERATING FEEDING, NO RESIDUALS NOTED. INCREASED RATE TO 60ML/HR, GOAL RATE. WILL CONTINUE TO MONITOR.
[2020-11-09] VITALS (23 sets, daily range): BP systolic 87–126; BP diastolic 47–70
[2020-11-09] MEDS: ACETAMINOPHEN 325 MG TABLET PO PRN (00:22)
--- NOTE | 2020-11-09 00:22 | NUR ---
RN NOTE PT COMPLAINS OF BACK PAIN, REPOSITIONED. TYLENOL GIVEN.
[2020-11-09] MEDS: ALBUTEROL HALF STRENGTH 1.25 MG/3 ML VIAL.NEB NEB SCH ×4 (01:41→20:42)
[2020-11-09] MEDS: IPRATROPIUM NEB FS 0.5 MG/2.5 ML AMPUL.NEB NEB SCH ×4 (01:41→20:42)
[2020-11-09 04:42] LABS: BASOPHILS # (AUTO) 0.1 K/uL (0.0-0.2); EOSINOPHILS % (AUTO) 3.6 % (0.0-6.0); HEMATOCRIT 28 % (39-51); HEMOGLOBIN 9.2 g/dL (13.5-17.5); LYMPHOCYTES % (AUTO) 15.6 % (20.0-44.0); MEAN CORPUSCULAR HGB CONC 34 g/dl (31.0-36.0); MEAN CORPUSCULAR VOLUME 94 fL (80-96); MONOCYTES # (AUTO) 0.8 K/uL (0.1-1.30); MONOCYTES % (AUTO) 6.1 % (2.0-12.0); NEUTROPHILS # (AUTO) 9.4 K/uL (1.8-8.9); NEUTROPHILS % (AUTO) 73.7 % (43.0-81.0); PLATELET COUNT (AUTO) 320 K/uL (150-450); RED BLOOD CELL COUNT(AUTO) 2.94 MIL/uL (4.5-6.0); WHITE BLOOD COUNT (AUTO) 12.7 K/uL (4.3-11.0)
[2020-11-09] MEDS: MEROPENEM 1 G in IV NS 0.9% 100 ML IV SCH ×3 (04:43→21:37)
[2020-11-09] MEDS: METOCLOPRAMIDE HCL 10 MG TABLET GT SCH ×3 (04:43→21:36)
[2020-11-09 04:58] LABS: ALBUMIN 2.2 g/dL (3.4-5.0); BILIRUBIN,TOTAL 0.4 mg/dL (0.2-1.0); CALCIUM, SERUM 7.8 mg/dL (8.5-10.1); CREATININE 0.9 mg/dL (0.6-1.3); MAGNESIUM 2.3 mg/dL (1.8-2.4); PHOSPHORUS 2.7 mg/dL (2.5-4.9); POTASSIUM 3.3 mmol/L (3.5-5.1)
[2020-11-09] MEDS ORDERED: POTASSIUM CHLORIDE 20 MEQ POWDER PACKET GT ONE (07:00)
--- NOTE | 2020-11-09 07:05 | NUR ---
RN NOTE PT REMAINS ON 6L O2 VIA SIMPLE MASK. NO DISTRESS NOTED. PT TOLERATING GT FEEDING AT 60ML/HR. NO RESIDUAL NOTED. NO SIGNS OF ASPIRATION NOTED. KEPT HOB ELEVATED. HUTCHISON DRAINING WELL. REPOSITIONED Q2H, KEPT CLEAN AND DRY. ALL SAFETY MEASURES MAINTAINED. ENDORSED TO NEXT SHIFT NURSE FOR MUKUL.
--- NOTE | 2020-11-09 07:31 | NUR ---
OPENING NOTE: REPORT RECEIVED FROM HAYDER CLOUD. K IS 3.3, DR ROSA ORDERED POTASSIUM ALREADY THIS AM. TUBE FEEDING AT GOAL AT 60ML/HR WITH 100ML Q6H WATER FLUSHES. PT CHECKED ON HOURLY AND PRN BY NURSING STAFF.
[2020-11-09] MEDS: FUROSEMIDE 20 MG/2 ML VIAL IV SCH ×2 (08:52→16:27)
[2020-11-09] MEDS: TIZANIDINE HCL 4 MG TABLET PEG SCH ×3 (08:52→16:27)
[2020-11-09] MEDS: PANTOPRAZOLE 40 MG/PACK PACK GT SCH (08:53)
[2020-11-09] MEDS: MIDODRINE HCL (5MG) 5 MG TABLET PO SCH ×3 (08:53→16:27)
[2020-11-09] MEDS: HEPARIN SODIUM, PORCINE 5000 UNITS/1 ML VIAL SQ SCH ×2 (08:54→21:40)
--- NOTE | 2020-11-09 10:58 | NUR ---
REPORT GIVEN TO BUNNY RN FOR PT TRANSFER TO ROOM 117-2 AT 1025. PT TRANSFERRED TO ROOM 117-2 AT 1043. PT SETTLED IN ROOM, CAREGIVER AT BEDSIDE, ALL BELONGINGS SENT WITH PATIENT. TELE HOOKED UP TO PATIENT, BUNNY RN IN ROOM BEFORE MAXILLOFACIAL SURGEON LEFT ROOM.
--- NOTE | 2020-11-09 19:30 | NUR ---
RN OPENING NOTES: RECEIVED PT A/OX1 IN BED RESTING COMFORTABLY. CAREGIVER PRESENT AT BEDSIDE. PATIENT IN NO S/SX OF ACUTE DISTRESS AT THIS TIME. NO SOB NOTED. PATIENT'S BREATHING IS EVEN AND UNLABORED. PATIENT IS ON 6L OF OXYGEN VIA NC; TOLERATING WELL. PATIENT ON TELE MONITORING READING SINUS RHYTHM HR IS @70s AT THE TIME OF RECEIVED. PT HAS G TUBE FLUSHING AND PATENT; SITE CLEAN DRY AND INTACT; NO RESIDUAL NOTED; CONNECTED TO GTUBE FEEDING OF JEVITY 1.2 @60CC/HR;TOLERATES WELL. NOTED IV SITE ON L FA #20 ; PATENT, INTACT AND FLUSHING WELL; NO S/S OF INFECTION OR INFILTRATION. HUTCHISON CATH IN PLACE, MODERATE URINE OUTPUT NOTED. SAFETY MEASURES HAVE BEEN PROVIDED AND IMPLEMENTED. PATIENT BED ALARM IS ON. HEAD OF BED ELEVATED. BED IS LOCKED, IN LOWEST POSITION AND SIDE RAILS UP. CALL LIGHT WITHIN REACH OF THE PATIENT. APPLICABLE ISOLATION PRECAUTIONS IN PLACE. WILL CONTINUE TO MONITOR AND REASSESS FOR ANY CHANGES AND WILL CARRY OUT ANY ONGOING AND ACTIVE MD ORDER.
[2020-11-09] MEDS: VANCOMYCIN 0.75 GM in IV D5W 250 ML IV SCH (22:42)
--- NOTE | 2020-11-09 23:00 | NUR ---
RN NOTES PATIENT REMAINED TO BE IN NO SIGNS OF ACUTE RESPIRATORY DISTRESS , VITAL SIGNS WNL AT THIS TIME. DISPATCHER SERVICE MADE AWARE. WILL CONTINUE TO MONITOR AND REASSESS FOR ANY CHANGES THROUGHOUT THE SHIFT.
[2020-11-10] VITALS: BP 99/48
[2020-11-10] MEDS: IPRATROPIUM NEB FS 0.5 MG/2.5 ML AMPUL.NEB NEB SCH ×4 (01:39→19:56)
[2020-11-10] MEDS: ALBUTEROL HALF STRENGTH 1.25 MG/3 ML VIAL.NEB NEB SCH ×4 (01:39→19:56)
[2020-11-10 04:00] VITALS: BP 98/41
[2020-11-10] MEDS: METOCLOPRAMIDE HCL 10 MG TABLET GT SCH ×3 (04:04→21:34)
[2020-11-10] MEDS: MEROPENEM 1 G in IV NS 0.9% 100 ML IV SCH ×3 (04:05→21:35)
--- NOTE | 2020-11-10 05:47 | NUR ---
RN NOTES RT COORDINATED TO RN; PT WAS PLACED ON8L OF VIA SIMPLE MASK; CURRENT O2 SAT @96% DINING SERVICE WORKER MADE AWARE. WILL CONTINUE TO MONITOR AND ASSESS THROUGHOUT THE SHIFT.
--- NOTE | 2020-11-10 06:39 | NUR ---
RN CLOSING NOTE: PATIENT REMAINS IN ROOM IN NO SIGNS OF RESPIRATORY DISTRESS, PATIENT ON 8L OF 02 VIA SIMPLE MASK ;TOLERATING WELL SATURATING @ >95% SP02. SAFETY MEASURES IMPLEMENTED, BED IN LOWEST POSITION, LOCKED, SIDE RAILS UP, CALL LIGHT WITHIN REACH. ALL NEEDS AND ORDERS ADDRESSED DURING THE SHIFT. IV ACCESS MAINTAINED INTACT, SECURED AND FLUSHING WELL. ALL DUE MEDS GIVEN ORDERED & SCHEDULED ; PATIENT TOLERATED WELL. PATIENT KEPT CLEAN & COMFORTABLE WITHIN THE SHIFT. PATIENT ENDORSED TO INCOMING SHIFT RN WITH STABLE VITAL SIGN AND FOR CONTINUITY OF CARE.
[2020-11-10 07:26] LABS: BASOPHILS % (AUTO) 0.3 % (0.0-2.0); HEMATOCRIT 29 % (39-51); HEMOGLOBIN 9.6 g/dL (13.5-17.5); LYMPHOCYTES # (AUTO) 1.9 K/uL (0.8-4.8); LYMPHOCYTES % (AUTO) 13.6 % (20.0-44.0); MEAN CORPUSCULAR HGB CONC 34 g/dl (31.0-36.0); MEAN CORPUSCULAR VOLUME 94 fL (80-96); MONOCYTES # (AUTO) 0.7 K/uL (0.1-1.30); MONOCYTES % (AUTO) 5.1 % (2.0-12.0); NEUTROPHILS # (AUTO) 10.4 K/uL (1.8-8.9); PLATELET COUNT (AUTO) 409 K/uL (150-450); RED BLOOD CELL COUNT(AUTO) 3.04 MIL/uL (4.5-6.0); WHITE BLOOD COUNT (AUTO) 13.9 K/uL (4.3-11.0)
--- NOTE | 2020-11-10 07:45 | NUR ---
RN OPENING NOTE Pt is A/O X 1, no respiratory distress, no SOB. Ongoing Gtube feeding, HOB kept elevated, No facial grimacing. F/C in place draining urine. Left FA IV site clean with no s/sx of infiltration. Safety precautions implemented, bed locked in lowest position, call light within reach.
[2020-11-10 08:00] VITALS: BP 131/57
[2020-11-10 08:12] LABS: ALBUMIN 2.2 g/dL (3.4-5.0); BILIRUBIN,TOTAL 0.3 mg/dL (0.2-1.0); CREATININE 0.9 mg/dL (0.6-1.3); MAGNESIUM 2.3 mg/dL (1.8-2.4); POTASSIUM 3.8 mmol/L (3.5-5.1)
[2020-11-10] MEDS: TIZANIDINE HCL 4 MG TABLET PEG SCH ×3 (09:06→16:16)
[2020-11-10] MEDS: PANTOPRAZOLE 40 MG/PACK PACK GT SCH (09:06)
[2020-11-10] MEDS: MIDODRINE HCL (5MG) 5 MG TABLET PO SCH ×3 (09:08→16:16)
[2020-11-10] MEDS: FUROSEMIDE 20 MG/2 ML VIAL IV SCH ×2 (09:10→16:17)
[2020-11-10] MEDS: HEPARIN SODIUM, PORCINE 5000 UNITS/1 ML VIAL SQ SCH ×2 (09:14→21:37)
[2020-11-10 12:00] VITALS: BP 133/86
[2020-11-10] MEDS: JEVITY 1.2 CAL 1,000 ML BOTTLE GT SCH (12:53)
[2020-11-10] MEDS ORDERED: NEUTRA PHOS 1 POWD.PACKET GT ONE (15:30)
[2020-11-10 16:00] VITALS: BP 132/71
--- NOTE | 2020-11-10 18:58 | NUR ---
RN CLOSING NOTE Pt is A/O X 2, verbally responsive, no respiratory distress, no SOB. Telereading sinus rhythm. F/C patent 1 liter at end of shift. Wound care rendered. Gtube ongoing, HOB kept elevated. Left FA Iv site clean with no s/sx of infiltration. Safety precautions implemented, bed locked in lowest position, call light within reach.
--- NOTE | 2020-11-10 19:35 | NUR ---
RN OPENING NOTES: RECEIVED PT A/OX1 IN BED RESTING COMFORTABLY. CAREGIVER PRESENT AT BEDSIDE. PATIENT IN NO S/SX OF ACUTE DISTRESS AT THIS TIME. NO SOB NOTED. PATIENT'S BREATHING IS EVEN AND UNLABORED. PATIENT IS ON 8L OF OXYGEN VIA SIMPLE MASK TOLERATING WELL. PATIENT ON TELE MONITORING READING SINUS RHYTHM HR IS @80s AT THE TIME OF RECEIVED. PT HAS G TUBE FLUSHING AND PATENT; SITE CLEAN DRY AND INTACT; NO RESIDUAL NOTED; CONNECTED TO GTUBE FEEDING OF JEVITY 1.2 @60CC/HR;TOLERATES WELL. NOTED IV SITE ON L FA #20 ; PATENT, INTACT AND FLUSHING WELL; NO S/S OF INFECTION OR INFILTRATION. HUTCHISON CATH IN PLACE, MODERATE URINE OUTPUT NOTED. SAFETY MEASURES HAVE BEEN PROVIDED AND IMPLEMENTED. PATIENT BED ALARM IS ON. HEAD OF BED ELEVATED. BED IS LOCKED, IN LOWEST POSITION AND SIDE RAILS UP. CALL LIGHT WITHIN REACH OF THE PATIENT. APPLICABLE ISOLATION PRECAUTIONS IN PLACE. WILL CONTINUE TO MONITOR AND REASSESS FOR ANY CHANGES AND WILL CARRY OUT ANY ONGOING AND ACTIVE MD ORDER.
[2020-11-10 20:00] VITALS: BP 92/47
--- NOTE | 2020-11-10 23:43 | NUR ---
RN NOTES RT COORDINATED TO RN; PT WAS switched form 8L OF 02 VIA MASK TO 6L OF 02 VIA NC; CURRENT O2 SAT @98% MATTRESS AND BOXSPRINGS SUPERVISOR MADE AWARE. WILL CONTINUE TO MONITOR AND ASSESS THROUGHOUT THE SHIFT.
[2020-11-11] VITALS: BP 126/81
[2020-11-11] MEDS: ALBUTEROL HALF STRENGTH 1.25 MG/3 ML VIAL.NEB NEB SCH ×3 (01:43→13:18)
[2020-11-11] MEDS: IPRATROPIUM NEB FS 0.5 MG/2.5 ML AMPUL.NEB NEB SCH ×3 (01:43→13:18)
[2020-11-11 04:00] VITALS: BP 106/59
[2020-11-11] MEDS: METOCLOPRAMIDE HCL 10 MG TABLET GT SCH ×2 (04:02→13:18)
[2020-11-11] MEDS: MEROPENEM 1 G in IV NS 0.9% 100 ML IV SCH ×2 (04:02→14:17)
--- NOTE | 2020-11-11 06:53 | NUR ---
RN CLOSING NOTE: PATIENT REMAINS IN ROOM IN NO SIGNS OF RESPIRATORY DISTRESS, PATIENT ON 6L OF 02 VIA NC ;TOLERATING WELL SATURATING @ >93% SP02. SAFETY MEASURES IMPLEMENTED, BED IN LOWEST POSITION, LOCKED, SIDE RAILS UP, CALL LIGHT WITHIN REACH. ALL NEEDS AND ORDERS ADDRESSED DURING THE SHIFT. IV ACCESS MAINTAINED INTACT, SECURED AND FLUSHING WELL. ALL DUE MEDS GIVEN ORDERED & SCHEDULED ; PATIENT TOLERATED WELL. PATIENT KEPT CLEAN & COMFORTABLE WITHIN THE SHIFT. PATIENT ENDORSED TO INCOMING SHIFT RN WITH STABLE VITAL SIGN AND FOR CONTINUITY OF CARE.
--- NOTE | 2020-11-11 07:20 | NUR ---
RN NOTE PATIENT OBSERVED IN BED, AWAKE, ALERT AND ORIENTED X1,ON O2 VIA NC @ 6LPM, O2 SAT OF 95% BREATHING EVEN AND UNLABORED, ON TELE MONITOR SR OF 77, HOB ELEVATED FOR ASPIRATION PRECAUTION, GT FEEDING JEVITY 1.2 TOLERATING WELL 0 RESIDUAL NOTED, PATIENT HUTCHISON CATHETER DRAINING WELL NO HEMATURIA NOTED, WILL CONTINUE TO MONITOR, SAFETY MEASURES OBSERVED, BED WHEELS LOCK, CALL LIGHT WITHIN REACH.
[2020-11-11 07:29] LABS: BASOPHILS # (AUTO) 0.1 K/uL (0.0-0.2); EOSINOPHILS % (AUTO) 3.6 % (0.0-6.0); HEMATOCRIT 33 % (39-51); HEMOGLOBIN 11.1 g/dL (13.5-17.5); LYMPHOCYTES # (AUTO) 2.1 K/uL (0.8-4.8); LYMPHOCYTES % (AUTO) 14.2 % (20.0-44.0); MEAN CORPUSCULAR HGB CONC 33 g/dl (31.0-36.0); MEAN CORPUSCULAR VOLUME 95 fL (80-96); MONOCYTES # (AUTO) 0.9 K/uL (0.1-1.30); MONOCYTES % (AUTO) 6.2 % (2.0-12.0); NEUTROPHILS # (AUTO) 10.9 K/uL (1.8-8.9); PLATELET COUNT (AUTO) 484 K/uL (150-450); RED BLOOD CELL COUNT(AUTO) 3.51 MIL/uL (4.5-6.0); WHITE BLOOD COUNT (AUTO) 14.6 K/uL (4.3-11.0)
[2020-11-11 07:46] LABS: ALBUMIN 2.7 g/dL (3.4-5.0); BILIRUBIN,TOTAL 0.3 mg/dL (0.2-1.0); MAGNESIUM 2.9 mg/dL (1.8-2.4); PHOSPHORUS 2.8 mg/dL (2.5-4.9); POTASSIUM 4.1 mmol/L (3.5-5.1); TOTAL PROTEIN, SERUM 8.5 g/dL (6.4-8.2)
[2020-11-11 08:00] VITALS: BP 106/59
[2020-11-11] MEDS: FUROSEMIDE 20 MG/2 ML VIAL IV SCH ×2 (09:06→16:55)
[2020-11-11] MEDS: MIDODRINE HCL (5MG) 5 MG TABLET PO SCH ×3 (09:06→16:55)
[2020-11-11] MEDS: TIZANIDINE HCL 4 MG TABLET PEG SCH ×3 (09:06→16:55)
[2020-11-11] MEDS: PANTOPRAZOLE 40 MG/PACK PACK GT SCH (09:06)
[2020-11-11] MEDS: HEPARIN SODIUM, PORCINE 5000 UNITS/1 ML VIAL SQ SCH (09:08)
[2020-11-11 10:08] LABS: EOSINOPHILS % (MANUAL) 4 % (0-4); LYMPHOCYTES % (MANUAL) 15 % (16-48); MONOCYTES % (MANUAL) 6 % (0-11.0); NEUTROPHILS % (MANUAL) 75 (42-76)
--- NOTE | 2020-11-11 11:30 | NUR ---
RN NOTE DR. MERVAT ADHIKARI NOTIFED REGARDING PATIENT BP OF 70/40, MD ORDERED NS 500CC BOLUS 1X, ORDERS NOTED AND CARRIED OUT.
[2020-11-11 12:00] VITALS: BP 90/55
[2020-11-11] MEDS ORDERED: IV NS 0.9% 500 ML IV ONE (12:00)
--- NOTE | 2020-11-11 13:45 | NUR ---
RN NOTE PATIENT BP 90/55 DR. CROWELL NOTIFIED
[2020-11-11 16:00] VITALS: BP 111/67
[2020-11-11 16:55] VITALS: BP 111/61
--- NOTE | 2020-11-11 19:23 | NUR ---
RN NOTE PATIENT DISCHARGE TO HOME UNDER HOSPICE CARE, PATIENT VTS WNL, ON O2 VIA NC @6LPM O2 SAT OF 97%, TRANSFERRED OUT OF UNIT VIA GURNEY.
== END 2020-11-11 19:28 | disposition hospice, home (50) | DRG 871 ==
LOC: ER 04:34 → TELE 06:23 → MED 11-01 12:40 → ICU 11-05 10:53 → TELE1 11-09 11:08 → TELE-TD 11-09 20:31 → TELE1 11-11 11:54
PROVIDERS: ADMIT Nurse Practitioner Acute Care
PROC: 05H533Z Insertion of Infusion Device into Right Subclavian Vein, Percutaneous Approach (ICD-10-PCS; principal; 2020-11-11)
PROC: B546ZZA Ultrasonography of Right Subclavian Vein, Guidance (ICD-10-PCS; 2020-11-11)
DX: A41.9 Sepsis, unspecified organism (principal); J69.0 Pneumonitis due to inhalation of food and vomit; N17.0 Acute kidney failure with tubular necrosis; G92 Toxic encephalopathy; G82.50 Quadriplegia, unspecified; J96.01 Acute respiratory failure with hypoxia; N39.0 Urinary tract infection, site not specified; E87.2 Acidosis; D68.59 Other primary thrombophilia; J90 Pleural effusion, not elsewhere classified; D63.8 Anemia in other chronic diseases classified elsewhere; E78.5 Hyperlipidemia, unspecified; I25.10 Atherosclerotic heart disease of native coronary artery without angina pectoris; K21.9 Gastro-esophageal reflux disease without esophagitis; E86.0 Dehydration; R65.20 Severe sepsis without septic shock; Z20.822 Contact with and (suspected) exposure to COVID-19; E83.42 Hypomagnesemia; I10 Essential (primary) hypertension; S14.109S Unspecified injury at unspecified level of cervical spinal cord, sequela; Z74.01 Bed confinement status; Z87.440 Personal history of urinary (tract) infections; Z93.1 Gastrostomy status; B96.20 Unspecified Escherichia coli [E. coli] as the cause of diseases classified elsewhere; N31.9 Neuromuscular dysfunction of bladder, unspecified; R13.10 Dysphagia, unspecified; Z74.09 Other reduced mobility; E87.70 Fluid overload, unspecified; I95.9 Hypotension, unspecified
CPT/HCPCS: 31720; 36415; 36600; 71045-TC; 74018; 80048-TC; 80053-TC; 80061-TC; 80076-TC; 80202-TC; 81001; 82550-TC; 82728-TC; 82803-TC; 83605-TC; 83615-TC; 83735-TC; 83880; 84100-TC; 84484-TC; 85025-TC; 85378-TC; 85730-TC; 86140-TC; 87040-TC; 87070-TC; 87081-TC; 87086-TC; 87186-TC; 93307-TC; 94667-TC; 94799-TC; 99082-TC; C9803; G0378; J1644; J1940; J2185; J2543; J3370; J3475; J3490; J7030; J7040; J7050; J7060; J8597

== ENCOUNTER 2021-04-14 04:05 | Inpatient (IN) | payer MEDICARE ==
[~2021-04-14] VITALS: Ht 170.2 cm; Wt 83.5 kg
[~2021-04-14 04:05] MED LIST changes: +BACL20TA GT; -BACL20TA PEG; +LEVO750T46 GT; +METO-295 GT; -METO-295 PEG; +PANT40TA2 GT; -PANT40TA2 PEG; +TEMA30CA GT; -TEMA30CA PEG; +TIZA4TAB5 GT; -TIZA4TAB5 PEG
--- NOTE | 2021-04-14 04:26 | NUR ---
PATIENT BIBRA FROM HOME C/O LOW BP AT HOME IN THE 50'S SYSTOLIC. PER EMS HE WAS 70'S SYSTOLIC, WAS GIVEN 250CC NS. PATIENT O2 WAS ALSO LOW AT 88% ROOM AIR GIVEN 3L NC NOW 96%. PATIENT A&0X0 WITH NON LABORED BREATHING.
[2021-04-14] MEDS ORDERED: PIPERACILLIN /TAZOBACTAM 3.375 G VIAL IV ONE (04:27)
[2021-04-14] MEDS ORDERED: VANCOMYCIN 1 GM VIAL ONE (04:27)
--- NOTE | 2021-04-14 04:27 | NUR ---
BLOOD AND CULTURES COLLECTED AND SENT TO LAB
--- NOTE | 2021-04-14 04:28 | NUR ---
URINE COLLECTED AND SENT TO LAB
--- NOTE | 2021-04-14 04:28 | NUR ---
ESTEFANY DONE AND SENT TO LAB
--- NOTE | 2021-04-14 04:28 | NUR ---
EMT @ BEDSIDE FOR EKG
[2021-04-14] MEDS ORDERED: VANCOMYCIN 1 GM in IV D5W 250 ML IV ONE (04:30)
[2021-04-14] MEDS ORDERED: PIPERACILLIN /TAZOBACTAM 3.375 G in IV D5W 50 ML IV ONE (04:30)
[2021-04-14 04:59] LABS: BASOPHILS % (AUTO) 0.2 % (0.0-2.0); HEMATOCRIT 32 % (39-51); LYMPHOCYTES # (AUTO) 1.4 K/uL (0.8-4.8); LYMPHOCYTES % (AUTO) 25.3 % (20.0-44.0); MEAN CORPUSCULAR HGB CONC 34 g/dl (31.0-36.0); MEAN CORPUSCULAR VOLUME 94 fL (80-96); MONOCYTES # (AUTO) 0.5 K/uL (0.1-1.30); NEUTROPHILS # (AUTO) 3.6 K/uL (1.8-8.9); NEUTROPHILS % (AUTO) 65.5 % (43.0-81.0); PLATELET COUNT (AUTO) 228 K/uL (150-450); RED BLOOD CELL COUNT(AUTO) 3.45 MIL/uL (4.5-6.0); WHITE BLOOD COUNT (AUTO) 5.5 K/uL (4.3-11.0)
[2021-04-14 05:18] LABS: CALCIUM, SERUM 7.8 mg/dL (8.5-10.1); CARBON DIOXIDE 26 mmol/L (21-32); CHLORIDE 98 mmol/L (98-107); CREATININE 1.3 mg/dL (0.6-1.3); GLUCOSE 92 mg/dL (74-106); POTASSIUM 4.6 mmol/L (3.5-5.1); SODIUM SERUM 137 mmol/L (136-145); UREA NITROGEN, BLOOD 26 mg/dL (7-18)
--- NOTE | 2021-04-14 05:26 | NUR ---
LA 4.1
[2021-04-14] MEDS ORDERED: ASPIRIN 325 MG TABLET PO ONE (05:30)
[2021-04-14 05:31] LABS: ALANINE AMINOTRANSFERASE 24 U/L (12-78); ALBUMIN 2.8 g/dL (3.4-5.0); ALKALINE PHOSPHATASE 49 U/L (46-116); ASPARTATE AMINOTRANSFERASE 31 U/L (15-37); BILIRUBIN,DIRECT 0.1 mg/dL (0.0-0.2); BILIRUBIN,TOTAL 0.3 mg/dL (0.2-1.0); TOTAL PROTEIN, SERUM 7.4 g/dL (6.4-8.2)
--- NOTE | 2021-04-14 05:33 | NUR ---
epic panel paged
[2021-04-14] MEDS ORDERED: ASPIRIN 325 MG TABLET ONE (05:42)
[2021-04-14 06:07] LABS: BILIRUBIN,URINE NEGATIVE (NEGATIVE); COLOR,URINE YELLOW (YELLOW); LEUKOCYTE ESTERASE ,URINE MODERATE (NEGATIVE); NITRITE, URINE POSITIVE (NEGATIVE); PROTEIN,URINE NEGATIVE (NEGATIVE); UGLUCOSE NEGATIVE (NEGATIVE); UROBILINOGEN,URINE 0.2 EU/dL (0.2)
[2021-04-14] MEDS ORDERED: MAGNESIUM HYDROXIDE 30 ML UDC PO PRN (06:30)
[2021-04-14] MEDS ORDERED: ALBUTEROL SULFATE 8 GM HFA.AER.AD IH PRN (06:30)
[2021-04-14] MEDS ORDERED: Z GUARD REMEDY 4 OZ OINT TP PRN (06:30)
[2021-04-14] MEDS ORDERED: MAG HYDROX/AL HYDROX/SIMETH 30 ML UDC PO PRN (06:30)
[2021-04-14] MEDS ORDERED: ONDANSETRON HCL/PF 4 MG/2 ML VIAL IVP PRN (06:30)
[2021-04-14] MEDS ORDERED: ENOXAPARIN SODIUM 40 MG/0.4 ML DISP.SYRIN SQ ONE (07:59)
[2021-04-14] MEDS ORDERED: PANTOPRAZOLE 40 MG TABLET.DR PO ONE (08:00)
[2021-04-14] MEDS: ENOXAPARIN SODIUM 40 MG/0.4 ML DISP.SYRIN SQ SCH (08:00)
[2021-04-14] MEDS: PANTOPRAZOLE 40 MG TABLET.DR PO SCH (08:08)
[2021-04-14 08:49] LABS: SQUAMOUS EPITHELIAL CELL,UR Rare /HPF (None Seen)
[2021-04-14 08:50] LABS: BACTERIA,URINE Few /HPF (None Seen)
[2021-04-14] MEDS: IV NS 0.9% 1,000 ML IV PRN ×2 (08:53→18:44)
[2021-04-14] MEDS ORDERED: TEMAZEPAM 15 MG CAPSULE GT PRN (11:30)
[2021-04-14] MEDS: PIPERACILLIN /TAZOBACTAM 3.375 G in IV D5W 100 ML IV SCH ×2 (12:08→20:52)
--- NOTE | 2021-04-14 12:40 | NUR ---
BUSINESS ACCOUNT EXECUTIVE AT PT'S BEDSIDE
[2021-04-14] MEDS ORDERED: DEXAMETHASONE SOD PHOSPHATE 10 MG/ML VIAL ONE (12:49)
[2021-04-14] MEDS ORDERED: BACLOFEN (10 MG) 10 MG TABLET ONE (12:50)
[2021-04-14] MEDS: BACLOFEN (10 MG) 10 MG TABLET GT SCH ×3 (13:01→21:20)
[2021-04-14] MEDS: METOCLOPRAMIDE HCL 10 MG TABLET GT SCH ×2 (13:01→21:21)
[2021-04-14] MEDS: DEXAMETHASONE SOD PHOSPHATE 10 MG/ML VIAL IV SCH (13:01)
[2021-04-14] MEDS: TIZANIDINE HCL 4 MG TABLET GT SCH ×2 (13:02→16:16)
[2021-04-14] MEDS ORDERED: METOCLOPRAMIDE HCL 10 MG TABLET ONE (13:03)
--- NOTE | 2021-04-14 13:35 | NUR ---
GOT BED 119-1
--- NOTE | 2021-04-14 14:01 | NUR ---
CALLED MULTIPLE TIMES, NURSE WAS NOT AVAILABLE TO RECEIVE REPORT
--- NOTE | 2021-04-14 14:35 | NUR ---
TRANSFERRED TO ROOM 119 IN STABLE CONDITION
--- NOTE | 2021-04-14 14:35 | NUR ---
RN NOTE PATIENT RECEIVED ON THE FLOOR, ON 3L O2 NC WITH NO SIGNS OF LABORED BREATHING AT THIS TIME. PATIENT NON-VERBAL, CONFUSED. HUTCHISON CATH IN PLACE. RIGHT AND LEFT FA 20G IN PLACE RUNNING NS AT 75 CC/HR. BED LOCKED AND IN LOWEST POSITION, CALL LIGHT WITHIN REACH, 3 SIDE RAILS UP. WILL CONTINUE TO MONITOR.
[2021-04-14 15:32] LABS: C-REACTIVE PROTEIN 6.5 mg/dL (0.0-0.9)
[2021-04-14 16:00] VITALS: BP 115/58
[2021-04-14] MEDS ORDERED: REMDESIVIR (CHARGED) 200 MG, *LOADING DOSE 1 EA in IV NS 0.9% 210 ML IV ONE (17:00)
[2021-04-14] MEDS: VANCOMYCIN 0.75 GM in IV D5W 250 ML IV SCH (18:08)
--- NOTE | 2021-04-14 18:56 | NUR ---
RN NOTE PATIENT REMAINS IN BED. PATIENT ON 3L O2 NC WITH NO SIGNS OF LABORED BREATHING AT THIS TIME. G TUBE IN PLACE, NO FEEDING RUNNING AT THIS TIME. RIGHT AND LEFT FA IV IN PLACE, PATENT AND RUNNING ABX AND NS AT 75 CC/HR. HUTCHISON CATH IN PLACE, PATENT. NO SIGNS OF DISTRESS NOTED. BED LOCKED AND IN LOWEST POSITION, CALL LIGHT WITHIN REACH, 3 SIDE RAILS UP. WILL ENDORSE TO PRINTED CIRCUIT BOARD DRAFTER NURSE.
--- NOTE | 2021-04-14 19:30 | NUR ---
RN NOTES RECEIVED PT FOR CONTINUITY OF CARE. PATIENT NON VERBAL,IN NO S/SX OF ACUTE DISTRESS AT THIS TIME; CURRENTLY ON 3L OF 02 VIA NC; WITH 02 SAT >95% AT THIS TIME. WILL ENSURE SAFETY MEASURES WITHIN THE SHIFT. PATIENT BED ALARM IS ON. HEAD OF BED ELEVATED. BED IS LOCKED, IN LOWEST POSITION AND SIDE RAILS UP. CALL LIGHT WITHIN REACH OF THE PATIENT. APPLICABLE ISOLATION PRECAUTIONS IN PLACE. WILL CONTINUE TO MONITOR AND REASSESS FOR ANY CHANGES AND WILL CARRY OUT ANY ONGOING AND ACTIVE MD ORDER.
--- NOTE | 2021-04-14 20:26 | NUR ---
RN NOTES CALLED NAZARIO NGUYEN (PT'S DAUGHTER-[phone]) VERIFIED PT'S DIET AT HOME. SHE SAID PT IS GETTING JEVITY 1.5 BOLUS Q6H. RN ACKNOWLEDGED. PROVIDED GENERAL UPDATE ABOUT PT. FAMILY ACKNOWLEDGED AND THANKFUL. WILL REQUEST FOR DIETARY CONSULT.
[2021-04-14 22:00] VITALS: BP 112/87
[2021-04-15] VITALS (94 sets, daily range): BP systolic 47–162; BP diastolic 20–130
--- NOTE | 2021-04-15 00:24 | NUR ---
RN NOTES RN NOTIFIED BY DESIGN ENG THAT PT UNRESPONSIVE. ASSESSMENT DONE, PT REMAINED UNRESPONSIVE. CODE BLUE INITIATED.
--- NOTE | 2021-04-15 00:25 | NUR ---
RN NOTES ACTIVATED CODE BLUE, ACLS INITIATED PER PROTOCOL. REFER TO CARDIOPULMONARY ARREST RECORD FOR DETAILS. ACLS EFFORTS SUCCESSFUL, PT. SURVIVED,ROSC AT 0029. BED SPRING MAKER MADE AWARE.
--- NOTE | 2021-04-15 00:29 | NUR ---
RT NOTE PATIENT ORALLY INTUBATED WITH ETT 7.0 AND SECURED AT 25CM @ LIP LINE. COLOR CHANGE ON CO2 DETECTOR NOTED. BILATERAL BREATH SOUNDS AND EQUAL CHEST RISE NOTED. PLACED ON VENT SETTINGS OF AC16 500 100% PEEP+5 PER MD ORDERS. PT SUCTIONED FOR SMALL, PINK TINGED SECRETIONS. MECHANICAL VENT IS PLUGGED INTO RED OUTLET. ALARMS ARE SET AND AUDIBLE. WILL CONTINUE TO MONITOR PATIENT. PENDING FURTHER ORDERS. Addendum: 04/15/21 at 0125 by ALANNA GUNDERSON RT Amended: Links added.
--- NOTE | 2021-04-15 00:35 | NUR ---
RN NOTES PATIENT TRANSFERRED TO ICU RM #[id number] VIA ACLS PROTOCOL WITH RT STAFF. PROVIDED BEDSIDE REPORT TO ED,RN FOR MUKUL.
--- NOTE | 2021-04-15 00:50 | NUR ---
RN NOTES CALLED NAZARIO NGUYEN (PT DAUGHTER- [phone]) PROVIDED UPDATE ABOUT PT STATUS, PT CODED AROUND 0025 AND INTUBATED AT 0029. PT TRANSFERRED TO ICU RM 254. FAMILY ACKNOWLEDGED. PRESIDENT COLLEGE OR UNIVERSITY MADE AWARE.
[2021-04-15] MEDS ORDERED: NOREPINEPHRINE 8MG/250ML RTU 250 ML IV ONE (01:22)
[2021-04-15] MEDS: NOREPINEPHRINE 8 MG in IV NS 0.9% 242 ML IV PRN (01:25)
--- NOTE | 2021-04-15 01:30 | NUR ---
ICU/ET PT'S DAUGHTER NAZARIO WAS NOTIFED THAT HER FATHER, PT CANDICE RAMAN WAS S/P CODE BLUE AND INTUBATED. NAZARIO CALLED [phone]. PT'S DAUGHTER WAS BROUGHT UP TO THE ICU EXPLAINED WHAT HAD TAKEN PLACE WITH NIRAJ DIA, DAUGHTER STARTED TO CRY, WANTED TO GO IN ROOM, THIS WAS ATTEMPTED A FEW TIMES. IT WAS EXPLAINED TO HER THAT PT WAS COVID POSITIVE AND SHE WASN'T ALLOWED IN ROOM. THEN DAUGHTER BEGAN TO YELL ABOUT HOW COVID WAS NOT KILLING HER FATHER AND THE UTI AND SEPSIS WAS KILLING HER FATHER AND SHE ALSO SAID COVID ISN'T A REAL THING. DAUGHTER THEN GOT ON THE PHONE WITH UNKNOWN PERSON AND TRIED TO HAND THE PHONE OVER TO THE CHARGE NURSE. CHARGE NURSE REFUSED PHONE. THE DAUGHTER THEN BECAME MORE ANGRY AND STATED ICU STAFF WAS TRYING TO KILL HER FATHER BECAUSE THE BP WAS LOW, IT WAS EXPLAINED PT WAS ON A PRESSOR HOWEVER DAUGHTER WOULD NOT LISTEN. AGAIN DAUGHTER STARTED TO YELL THAT STAFF IS KILLING HER FATHER, AT THIS TIME SECURITY ESCORTED DAUGHTER OUT. DAUGHTER BECAME DEFENSIVE AND ASKED FOR CHARGE NURSE NAME SO THAT SHE COULD GO TO THE HOUSE SUP. TO COMPLAIN.
[2021-04-15] MEDS: IV NS 0.9% 1,000 ML IV PRN ×2 (02:03→17:20)
[2021-04-15 02:48] LABS: ABG BASE EXCESS -4.5 mmol/L; ABG OXYGEN SATURATION 93.5 % (92.0-98.5); ABG PCO2 33.8 mmHg (35.0-45.0); ABG PH 7.384 (7.350-7.450); ABG PO2 69.9 mmHg (75.0-100.0); AaDO2 609.3 mmHg; COHb 0.1 % (0.5-1.5); O2Hb 93.4 % (94.0-97.0); PEEP,BG 5 cm H2O; SITE, ABG Right Brachial; VENT MODE, BG AC16 VT500 100% PEEP+5; VT, ABG 500 mL
--- NOTE | 2021-04-15 02:54 | NUR ---
GELY PÉREZ RN NOTIFIED. Addendum: 04/15/21 at 0254 by QIAN HADDAD RT Amended: Links added.
[2021-04-15] MEDS ORDERED: PHENYLEPHRINE 10 MG/ML VIAL ONE (03:02)
[2021-04-15] MEDS: PHENYLEPHRINE 50 MG in IV NS 0.9% 245 ML IV PRN ×3 (03:21→23:03)
[2021-04-15] MEDS: PROPOFOL 100 ML IV PRN ×4 (03:22→21:29)
[2021-04-15] MEDS: PIPERACILLIN /TAZOBACTAM 3.375 G in IV D5W 100 ML IV SCH ×3 (03:24→20:00)
[2021-04-15] MEDS: METOCLOPRAMIDE HCL 10 MG TABLET GT SCH ×3 (04:32→20:32)
[2021-04-15] MEDS: VANCOMYCIN 0.75 GM in IV D5W 250 ML IV SCH ×2 (05:13→17:24)
[2021-04-15 06:10] LABS: HEMATOCRIT 33 % (39-51); LYMPHOCYTES # (AUTO) 0.4 K/uL (0.8-4.8); LYMPHOCYTES % (AUTO) 3.2 % (20.0-44.0); MEAN CORPUSCULAR HGB CONC 33 g/dl (31.0-36.0); MEAN CORPUSCULAR VOLUME 94 fL (80-96); MONOCYTES # (AUTO) 1.2 K/uL (0.1-1.30); MONOCYTES % (AUTO) 9.9 % (2.0-12.0); NEUTROPHILS # (AUTO) 10.3 K/uL (1.8-8.9); NEUTROPHILS % (AUTO) 86.9 % (43.0-81.0); PLATELET COUNT (AUTO) 255 K/uL (150-450); RED BLOOD CELL COUNT(AUTO) 3.54 MIL/uL (4.5-6.0); WHITE BLOOD COUNT (AUTO) 11.8 K/uL (4.3-11.0)
--- NOTE | 2021-04-15 06:22 | NUR ---
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 PT IS SEDATED WITH PROPOFOL DRIP, D/T HYPOTENSION PT IS ON PHENYLEPHRINE DRIP, TITRATED TO KEEP SBP> 90. PT HAS 2 PERIPHERAL IV ACCESS. D/T PRESSORS PT NEED PICC LINE INSERTION. SCOPE-SR-ST. URINE OUTPUT IS INADEQUATE. MEDICATED ORDERED. WILL CONTINUE CLOSE MONITORING.
[2021-04-15 06:39] LABS: ALBUMIN 2.5 g/dL (3.4-5.0); BILIRUBIN,DIRECT 0.4 mg/dL (0.0-0.2); BILIRUBIN,TOTAL 0.7 mg/dL (0.2-1.0); CALCIUM, SERUM 7.3 mg/dL (8.5-10.1); CREATININE 1.1 mg/dL (0.6-1.3); MAGNESIUM 1.9 mg/dL (1.8-2.4); PHOSPHORUS 3.4 mg/dL (2.5-4.9); POTASSIUM 3.5 mmol/L (3.5-5.1); TOTAL PROTEIN, SERUM 6.8 g/dL (6.4-8.2)
[2021-04-15] MEDS ORDERED: PANTOPRAZOLE 40 MG TABLET.DR PO SCH (07:30)
--- NOTE | 2021-04-15 07:30 | NUR ---
SPORTS PHYSIOTHERAPIST OPENING NOTES Patient is sedated on propofol. Patient is on mechanical vent setting of 500, 100% fi02 peep of 5 and ac 16. On diprivan at 40 mcg/min and tsering at 1 mcg, normal saline running 75 cc/hour. Turned and repositioned q2h and prn. HOB kept elevated. No grimacing and moaning noted. Bed is in lowest and locked position.Will continue to monitor. Call light with in reach.
[2021-04-15] MEDS: TIZANIDINE HCL 4 MG TABLET GT SCH ×3 (09:00→16:57)
[2021-04-15] MEDS: BACLOFEN (10 MG) 10 MG TABLET GT SCH ×4 (09:00→20:32)
[2021-04-15] MEDS: DEXAMETHASONE SOD PHOSPHATE 10 MG/ML VIAL IV SCH (09:56)
[2021-04-15] MEDS: PANTOPRAZOLE 40 MG TABLET.DR PO SCH (09:56)
[2021-04-15] MEDS: ENOXAPARIN SODIUM 40 MG/0.4 ML DISP.SYRIN SQ SCH (09:56)
[2021-04-15] MEDS: HYDROCORTISONE SOD SUCCINATE 100 MG/2 ML VIAL IV SCH ×3 (09:58→20:34)
[2021-04-15] MEDS ORDERED: EPINEPHRINE (1:10,000) SYRINGE 1 MG/10 ML DISP.SYRIN IVP ONE (10:23)
[2021-04-15] MEDS ORDERED: SODIUM BICARBONATE SYR 50 MEQ/50 ML DISP.SYRIN IV ONE (10:23)
--- NOTE | 2021-04-15 11:50 | NUR ---
Et-tube pulled back to 22cm per md order.
[2021-04-15] MEDS ORDERED: methylPREDNISolone SOD SUCC 40 MG/ML VIAL IV ONE (12:00)
[2021-04-15] MEDS: FLUDROCORTISONE 0.1 MG TABLET GT SCH ×3 (12:00→23:28)
[2021-04-15] MEDS ORDERED: diphenhydrAMINE HCL 50 MG/ML VIAL IV ONE (12:00)
[2021-04-15] MEDS ORDERED: ACETAMINOPHEN 650 MG/20.3 ML UDC GT ONE (12:00)
[2021-04-15] MEDS ORDERED: NS 0.9% IV ONE (12:30)
[2021-04-15] MEDS ORDERED: TOCILIZUMAB IV ONE (12:30)
--- NOTE | 2021-04-15 12:30 | NUR ---
Vent setting changed to TV 450 Fi02 of 80% peep of 8
[2021-04-15] MEDS: REMDESIVIR (CHARGED) 100 MG in IV NS 0.9% 100 ML IV SCH (18:26)
[2021-04-15] MEDS ORDERED: GLUCERNA 1.2 1,000 ML BOTTLE NG PRN (19:30)
--- NOTE | 2021-04-15 19:30 | NUR ---
TONGUE CARRIER JEVITY NOT AVAILABLE IN NURSING OFFICE AT THIS TIME
--- NOTE | 2021-04-15 19:36 | NUR ---
SENIOR RELIABILITY ENGINEER CLOSING NOTES Patient is sedated on propofol. Patient is on mechanical vent setting of 450, 70% fi02 peep of 8 and ac 16. On diprivan at 40 mcg/min and tsering at 1.5 mcg, normal saline running 75 cc/hour. Noted with steve output of 900 cc during shift and one bm. Patient noted with right upper arm mid line. Midline nurse unable to place picc line due to patient being contracted. Turned and repositioned q2h and prn. HOB kept elevated. No grimacing and moaning noted. Endorsed to next shift for MUKUL. Bed is in lowest and locked position.
--- NOTE | 2021-04-15 20:00 | NUR ---
TECHNICAL RESEARCH SCIENTIST MIDLINE NOT FLUSHING PROPERLY; NO BLOOD RETURN
--- NOTE | 2021-04-15 20:30 | NUR ---
BANBURY OPERATOR RCD CALL FROM PTS DAUGHTER ANNAMARIE; UPDATED HER WITH PLAN OF CARE AND PT CONDITION. DAUGHTER REQUESTED CAREGIVER TO STAY WITH PT EXPLAINED TO HER THAT WAS NOT ALLOWED D/T PT BEING COVID POSITIVE. PER DAUGHTER PT IS NOT COVID POSITIVE. THEN SHE SHIFTED CONVERSATION STATING THAT THE WHOLE FAMILY (HER, HER BF, HER 9 YEAR OLD SON) WENT TO SEE AMANDA DOTSON AND THEY ALL BECAME COVID POSITIVE. DAUGHTER VERY DISTRACTED DURING PHONE CALL. THEN SHE PUT HER BOYFRIEND ON THE PHONE ONCE AGAIN HE STATED THERE IS NO COVID. STATES PT HAS SEPSIS AND WE ARE NOT TREATING THE SEPSIS; INFORMED HIM PT IS GETTING THE ADEQUATE TREATMENT WITH THE DX HE HAS; HE THEN ASKED FOR A MINUTE BY MINUTE ACCOUNT THE CARE AND MEDICATION THE PT RECEIVED. TOLD HIM ONCE AGAIN THAT THE PT IS GETTING THE APPROPRIATE CARE; HE BEGAN CURSING AND THREATENING STAFF; AT THIS POINT HE WAS TOLD THE CONVERSATION WOULD NO LONGER CONTINUE THERE IS NO REASON FOR STAFF TO TOLERATE THREATS AND CURSING.
[2021-04-16] VITALS (94 sets, daily range): BP systolic 91–188; BP diastolic 31–125
[2021-04-16] MEDS: PROPOFOL 100 ML IV PRN ×4 (02:43→17:00)
[2021-04-16] MEDS: PIPERACILLIN /TAZOBACTAM 3.375 G in IV D5W 100 ML IV SCH ×3 (03:11→20:20)
[2021-04-16] MEDS: VANCOMYCIN 0.75 GM in IV D5W 250 ML IV SCH ×2 (05:01→18:50)
[2021-04-16] MEDS: HYDROCORTISONE SOD SUCCINATE 100 MG/2 ML VIAL IV SCH ×3 (05:01→21:41)
[2021-04-16] MEDS: METOCLOPRAMIDE HCL 10 MG TABLET GT SCH ×3 (05:01→21:41)
[2021-04-16] MEDS: PHENYLEPHRINE 50 MG in IV NS 0.9% 245 ML IV PRN ×3 (05:02→18:49)
[2021-04-16] MEDS: FLUDROCORTISONE 0.1 MG TABLET GT SCH ×4 (05:03→23:23)
--- NOTE | 2021-04-16 06:55 | NUR ---
CATTLE SORTER PT NOTED WITH TWITCHING EPISODES; ZANAFLEX HELD BY MD WILL ENDORSE TO ONCOMING SHIFT.
--- NOTE | 2021-04-16 07:20 | NUR ---
RN NOTES PT FOUND SEMI FOWLERS DISPLAYING NO S/S OF DISTRESS, FLACC = 2, RIKERS = 4 AND BILATERAL RISE AND FALL OF THE CHEST OBSERVED. PT TWITCHING. R UA ML PATIENT AND INTACT. HUTCHISON CATH BELOW PATIENT DRAINING BY GRAVITY. VSS, RN WILL MONITOR AND TREAT THROUGHOUT SHIFT. SAFETY MEASURES IN PLACE, BED LOCKED AND IN LOWEST POSITION, SIDE RAILS UPX2, CALL LIGHT WITHIN REACH, BED ALARM ARMED.
--- NOTE | 2021-04-16 07:25 | NUR ---
CRITICAL LAB LAB [facility] CALLED TO REPORT CRITICAL LAB: CORTISOL LEVEL IS 21.4. RN ACKNOWLEDGED AND WILL INFORM PROVIDER
[2021-04-16] MEDS: DEXAMETHASONE SOD PHOSPHATE 10 MG/ML VIAL IV SCH (08:04)
[2021-04-16] MEDS: PANTOPRAZOLE 40 MG TABLET.DR PO SCH (08:04)
[2021-04-16] MEDS: ENOXAPARIN SODIUM 40 MG/0.4 ML DISP.SYRIN SQ SCH (08:06)
[2021-04-16 08:12] LABS: ABG BASE EXCESS -3.9 mmol/L; ABG OXYGEN SATURATION 98.7 % (92.0-98.5); ABG PCO2 28.6 mmHg (35.0-45.0); ABG PH 7.441 (7.350-7.450); ABG PO2 148.5 mmHg (75.0-100.0); AaDO2 247.8 mmHg; COHb 0.3 % (0.5-1.5); MetHb 0.2 % (0.0-1.5); O2Hb 98.2 % (94.0-97.0); SITE, ABG Left Radial
[2021-04-16] MEDS: TIZANIDINE HCL 4 MG TABLET GT SCH ×3 (09:00→17:04)
[2021-04-16] MEDS: BACLOFEN (10 MG) 10 MG TABLET GT SCH ×4 (09:00→21:42)
--- NOTE | 2021-04-16 09:00 | NUR ---
NURSES NOTES RN INFORMED DR CANALES OF PT'S CORTISOL LEVEL. ACKNOWLEDGED AND GAVE NO NEW ORDERS. AT 0815 DR SNEED VISITED PT, STATED HE WOULD PUT IN A NEURO CONSULT AND BEST TO HOLD BACLOFEN AND ZENAFLEX UNTIL CLEARED.
[2021-04-16] MEDS: ACETAMINOPHEN 325 MG TABLET PO PRN ×2 (10:22→18:12)
[2021-04-16] MEDS: IV NS 0.9% 1,000 ML IV PRN ×2 (10:22→21:35)
--- NOTE | 2021-04-16 11:45 | NUR ---
MD COMMUNICATION RN SPOKE TO DR. SAUNDERS, DESCRIBED PT'S CONDITION AND ASKED ABOUT BACLOFEN AND ZANAFLEX. MD GAVE ORDERS: EEG AND OKAY TO GIVE BACLOFEN AND ZANAFLEX. FAMILY CONTACT INFO PROVIDED TO
[2021-04-16] MEDS: JEVITY 1.2 CAL 1,000 ML BOTTLE GT PRN (12:17)
--- NOTE | 2021-04-16 12:30 | NUR ---
RN NOTE TYLENOL WAS NOT EFFECTIVE AT LOWERING TEMP, 102.4 -> 103.2. ICE PACKS APPLIED TO AXILLA
[2021-04-16] MEDS: REMDESIVIR (CHARGED) 100 MG in IV NS 0.9% 100 ML IV SCH (19:23)
--- NOTE | 2021-04-16 19:30 | NUR ---
RN NOTES PT FOUND SEMI FOWLERS DISPLAYING NO S/S OF DISTRESS, FLACC = 1, RIKERS = 4 AND BILATERAL RISE AND FALL OF THE CHEST OBSERVED. PT TWITCHING, EEG CURRENTLY BEING DONE. R UA ML PATIENT AND INTACT. HUTCHISON CATH BELOW PATIENT DRAINING BY GRAVITY. SBAR AND REPORT GIVEN TO STAFFING PROGRAM MANAGER RN, ALL QUESTIONS ANSWERED. SAFETY MEASURES IN PLACE, BED LOCKED AND IN LOWEST POSITION, SIDE RAILS UPX2, CALL LIGHT WITHIN REACH, BED ALARM ARMED. PT ENDORSED IN STABLE CONDITION FOR MUKUL.
[2021-04-16] MEDS ORDERED: LORAZEPAM INJ 2 MG/ML VIAL IV STA (19:37)
--- NOTE | 2021-04-16 19:45 | NUR ---
MULTILITH OPERATOR GLUTEN SETTLING TENDER AT BEDSIDE UNABLE TO COMPLETE EEG PT IS CONTINUOUSLY TWITCHING ATIVAN 1 MG IV GIVEN PER MD ORDER
[2021-04-16] MEDS ORDERED: LEVETIRACETAM (500MG) 2,000 MG in IV NS 0.9% 100 ML IV STA (20:06)
[2021-04-16] MEDS ORDERED: LEVETIRACETAM (500MG) 500 MG/5 ML VIAL IV ONE ×2 (20:24→20:29)
[2021-04-16] MEDS ORDERED: MEROPENEM 500 MG VIAL IV ONE (20:25)
[2021-04-17] VITALS (92 sets, daily range): BP systolic 62–138; BP diastolic 29–90
[2021-04-17] MEDS: PROPOFOL 100 ML IV PRN ×2 (02:02→11:05)
--- NOTE | 2021-04-17 02:11 | NUR ---
CATALOGUE ILLUSTRATOR PT NOTED AFIB ON MONITOR; NOTIFIED HORTICULTURAL FARMWORKER ROSETTE. EKG DONE.
[2021-04-17] MEDS: PHENYLEPHRINE 50 MG in IV NS 0.9% 245 ML IV PRN ×3 (02:22→19:55)
--- NOTE | 2021-04-17 02:44 | NUR ---
RESEARCH PHYSIOLOGIST MULTIPLE ATTEMPTS BY AUTOPSY ASSISTANT TO DRAW LABS UNSUCCESFUL PLACED ORDER FOR NE MIDLINE EXISITNG MIDLINE HAS NO BLOOD RETURN.
[2021-04-17] MEDS: PIPERACILLIN /TAZOBACTAM 3.375 G in IV D5W 100 ML IV SCH ×3 (03:00→20:46)
[2021-04-17] MEDS: METOCLOPRAMIDE HCL 10 MG TABLET GT SCH ×3 (05:22→21:18)
[2021-04-17] MEDS: HYDROCORTISONE SOD SUCCINATE 100 MG/2 ML VIAL IV SCH ×3 (05:22→21:18)
[2021-04-17] MEDS: FLUDROCORTISONE 0.1 MG TABLET GT SCH ×4 (05:22→23:40)
[2021-04-17] MEDS: ACETAMINOPHEN 325 MG TABLET PO PRN (05:42)
[2021-04-17] MEDS: VANCOMYCIN 0.75 GM in IV D5W 250 ML IV SCH ×2 (06:15→18:07)
--- NOTE | 2021-04-17 07:15 | NUR ---
RN OPENING NOTES; RECIEVED PT IN BED IN SUPINE POS. PT IS SEDATED. PT ON PROPOFOL @ 25MCG, NS RUNNING AT 75ML/HR. BRUCE AT 1.2MCG. JEVITY FEEDING AT 20CC/HR, NOTED, AND RUNNING. MUSTAPHA ML NOTED, FLUSHED WITH NO SIGNS OF INFILTRATION. ALL SAFETY MEASURES RENDERED, BED IN LOWEST POS. LOCKED, SIDE RAILSX3. WILL CONTINUE TO MONITOR.
[2021-04-17] MEDS ORDERED: LEVETIRACETAM (500MG) 1,000 MG in IV NS 0.9% 100 ML IV SCH (08:00)
--- NOTE | 2021-04-17 08:05 | NUR ---
WOUND CARE CONSULT: REVIEWED CHART, NURSING DOCUMENTATION AND PHOTOS WHICH INDICATE SACRAL, RT HIP AND BUTTOCK SCARRING AND DRY SCABS TO LOWER EXTREMITIES, PRESENT ON ADMISSION. RECOMMENDATIONS MADE FOR SKIN PROTECTION. DISCUSSED WITH NURSING STAFF. MD IN AGREEMENT WITH PLAN OF CARE.
[2021-04-17 08:10] LABS: ALBUMIN 2.1 g/dL (3.4-5.0); BILIRUBIN,DIRECT 0.1 mg/dL (0.0-0.2); BILIRUBIN,TOTAL 0.4 mg/dL (0.2-1.0); CALCIUM, SERUM 6.7 mg/dL (8.5-10.1); POTASSIUM 3.1 mmol/L (3.5-5.1)
[2021-04-17] MEDS: ENOXAPARIN SODIUM 40 MG/0.4 ML DISP.SYRIN SQ SCH (08:13)
[2021-04-17] MEDS: TIZANIDINE HCL 4 MG TABLET GT SCH ×3 (08:14→16:17)
[2021-04-17] MEDS: PANTOPRAZOLE 40 MG TABLET.DR PO SCH (08:14)
[2021-04-17] MEDS: BACLOFEN (10 MG) 10 MG TABLET GT SCH ×4 (08:14→21:17)
[2021-04-17] MEDS: DEXAMETHASONE SOD PHOSPHATE 10 MG/ML VIAL IV SCH (08:14)
[2021-04-17] MEDS: LEVETIRACETAM (500MG) 1,000 MG in IV NS 0.9% 100 ML IV SCH ×2 (08:56→20:53)
[2021-04-17] MEDS: POTASSIUM CL. PREMIX PERIPHER. 50 ML IV SCH ×4 (09:30→12:30)
[2021-04-17 09:43] LABS: BASOPHILS % (AUTO) 0.2 % (0.0-2.0); HEMATOCRIT 36 % (39-51); HEMOGLOBIN 11.7 g/dL (13.5-17.5); LYMPHOCYTES # (AUTO) 1.2 K/uL (0.8-4.8); LYMPHOCYTES % (AUTO) 13.1 % (20.0-44.0); MEAN CORPUSCULAR HGB CONC 33 g/dl (31.0-36.0); MEAN CORPUSCULAR VOLUME 95 fL (80-96); MONOCYTES % (AUTO) 21.4 % (2.0-12.0); NEUTROPHILS # (AUTO) 6.2 K/uL (1.8-8.9); NEUTROPHILS % (AUTO) 65.3 % (43.0-81.0); PLATELET COUNT (AUTO) 184 K/uL (150-450); RED BLOOD CELL COUNT(AUTO) 3.74 MIL/uL (4.5-6.0); WHITE BLOOD COUNT (AUTO) 9.4 K/uL (4.3-11.0)
[2021-04-17] MEDS: IV NS 0.9% 1,000 ML IV PRN (10:07)
[2021-04-17] MEDS: REMDESIVIR (CHARGED) 100 MG in IV NS 0.9% 100 ML IV SCH (16:33)
--- NOTE | 2021-04-17 18:45 | NUR ---
RN CLOSING NOTES; PT IN BED IN SUPINE POS. SEDATION VACATION STARTING AT 1300. PROPOFOL ON HOLD SINCE 1325. NO RESPONSE FROM PT. PT STILL SEDATED. DR. CANALES AWARE. ALL MEDICATIONS GIVEN AND TOLERATED WELL. REMDESIVIR 3RD BAG GIVEN. PT K WAS LOW, 4 BAGS OF IV POTASSIUM GIVEN. FLORIDALMA #18 ML INSERTED. STILL CANNOT DRAW BLOOD. PHLEBOTOMISTS ATTEMPTED TO GET BLOOD FROM PT, BUT PT IS A HARD STICK. PT KEPT, CLEAN, DRY AND COMFORTABLE. ALL SAFETY MEASURES RENDERED, BED IN LOWEST POS. LOCKED, WITH SIDE RAILSX3. NO SIGNIFICANT CHANGES IN PT HEALTH STATUS DURING SHIFT. WILL ENDORSE TO FORM SETTER STEEL FORMS RN.
[2021-04-18] VITALS (93 sets, daily range): BP systolic 82–125; BP diastolic 41–82
[2021-04-18] MEDS: IV NS 0.9% 1,000 ML IV PRN ×2 (01:32→17:47)
[2021-04-18] MEDS: PIPERACILLIN /TAZOBACTAM 3.375 G in IV D5W 100 ML IV SCH ×3 (04:27→19:45)
[2021-04-18] MEDS: PHENYLEPHRINE 50 MG in IV NS 0.9% 245 ML IV PRN ×2 (05:02→19:46)
[2021-04-18] MEDS: HYDROCORTISONE SOD SUCCINATE 100 MG/2 ML VIAL IV SCH ×3 (05:08→21:55)
[2021-04-18] MEDS: METOCLOPRAMIDE HCL 10 MG TABLET GT SCH ×3 (05:09→21:56)
[2021-04-18] MEDS: VANCOMYCIN 0.75 GM in IV D5W 250 ML IV SCH ×2 (05:53→18:00)
[2021-04-18] MEDS: FLUDROCORTISONE 0.1 MG TABLET GT SCH ×3 (06:06→18:06)
[2021-04-18 08:35] LABS: ABG BASE EXCESS -2.7 mmol/L; ABG PCO2 33.2 mmHg (35.0-45.0); ABG PH 7.421 (7.350-7.450); ABG PO2 94.1 mmHg (75.0-100.0); AaDO2 152.9 mmHg; COHb 0.3 % (0.5-1.5); MetHb 0.1 % (0.0-1.5); O2Hb 96.6 % (94.0-97.0); PEEP,BG 5 cm H2O; SITE, ABG Right Radial; VT, ABG 450 mL
[2021-04-18] MEDS: BACLOFEN (10 MG) 10 MG TABLET GT SCH ×4 (08:44→21:56)
[2021-04-18] MEDS: TIZANIDINE HCL 4 MG TABLET GT SCH ×3 (08:44→16:29)
[2021-04-18] MEDS: DEXAMETHASONE SOD PHOSPHATE 10 MG/ML VIAL IV SCH (08:44)
[2021-04-18] MEDS: PANTOPRAZOLE 40 MG TABLET.DR PO SCH (08:44)
[2021-04-18] MEDS: ENOXAPARIN SODIUM 40 MG/0.4 ML DISP.SYRIN SQ SCH (08:46)
[2021-04-18] MEDS: LEVETIRACETAM (500MG) 1,000 MG in IV NS 0.9% 100 ML IV SCH ×2 (08:50→21:30)
[2021-04-18] MEDS ORDERED: POTASSIUM CHLORIDE 20 MEQ POWDER PACKET GT SCH (09:30)
[2021-04-18 10:58] LABS: BASOPHILS % (AUTO) 0.1 % (0.0-2.0); EOSINOPHILS % (AUTO) 0.1 % (0.0-6.0); HEMATOCRIT 33 % (39-51); LYMPHOCYTES # (AUTO) 0.8 K/uL (0.8-4.8); LYMPHOCYTES % (AUTO) 6.7 % (20.0-44.0); MEAN CORPUSCULAR HGB CONC 33 g/dl (31.0-36.0); MEAN CORPUSCULAR VOLUME 95 fL (80-96); MONOCYTES # (AUTO) 1.5 K/uL (0.1-1.30); MONOCYTES % (AUTO) 12.3 % (2.0-12.0); NEUTROPHILS # (AUTO) 9.7 K/uL (1.8-8.9); NEUTROPHILS % (AUTO) 80.8 % (43.0-81.0); PLATELET COUNT (AUTO) 217 K/uL (150-450)
[2021-04-18 11:18] LABS: ALBUMIN 2.1 g/dL (3.4-5.0); BILIRUBIN,DIRECT 0.2 mg/dL (0.0-0.2); BILIRUBIN,TOTAL 0.6 mg/dL (0.2-1.0); CALCIUM, SERUM 6.6 mg/dL (8.5-10.1); POTASSIUM 3.8 mmol/L (3.5-5.1); TOTAL PROTEIN, SERUM 5.9 g/dL (6.4-8.2)
[2021-04-18] MEDS: REMDESIVIR (CHARGED) 100 MG in IV NS 0.9% 100 ML IV SCH (18:03)
[2021-04-19] VITALS (55 sets, daily range): BP systolic 83–180; BP diastolic 42–103
[2021-04-19] MEDS: FLUDROCORTISONE 0.1 MG TABLET GT SCH ×4 (00:18→17:44)
--- NOTE | 2021-04-19 02:07 | NUR ---
POSTAL SUPERVISOR NO SEIZURE LIKE ACTIVITY NOTED
[2021-04-19] MEDS: PIPERACILLIN /TAZOBACTAM 3.375 G in IV D5W 100 ML IV SCH ×3 (03:00→20:47)
[2021-04-19] MEDS: HYDROCORTISONE SOD SUCCINATE 100 MG/2 ML VIAL IV SCH ×3 (04:39→20:47)
[2021-04-19] MEDS: METOCLOPRAMIDE HCL 10 MG TABLET GT SCH ×3 (04:39→20:47)
[2021-04-19] MEDS: ACETAMINOPHEN 325 MG TABLET PO PRN (04:39)
[2021-04-19] MEDS: VANCOMYCIN 0.75 GM in IV D5W 250 ML IV SCH ×2 (05:00→23:26)
[2021-04-19 05:58] LABS: CALCIUM, SERUM 6.7 mg/dL (8.5-10.1); CARBON DIOXIDE 22 mmol/L (21-32); CHLORIDE 110 mmol/L (98-107); GLUCOSE 145 mg/dL (74-106); POTASSIUM 4.2 mmol/L (3.5-5.1); SODIUM SERUM 140 mmol/L (136-145); UREA NITROGEN, BLOOD 33 mg/dL (7-18)
[2021-04-19] MEDS: ENOXAPARIN SODIUM 40 MG/0.4 ML DISP.SYRIN SQ SCH (08:13)
[2021-04-19] MEDS: LEVETIRACETAM SOL (5 ML) 100 MG/ML UDC GT SCH ×2 (08:17→20:47)
[2021-04-19] MEDS: TIZANIDINE HCL 4 MG TABLET GT SCH ×3 (08:17→17:44)
[2021-04-19] MEDS: JEVITY 1.2 CAL 1,000 ML BOTTLE GT PRN (08:17)
[2021-04-19] MEDS: BACLOFEN (10 MG) 10 MG TABLET GT SCH ×4 (08:17→20:47)
[2021-04-19] MEDS: PANTOPRAZOLE 40 MG TABLET.DR PO SCH (08:17)
[2021-04-19] MEDS: DEXAMETHASONE SOD PHOSPHATE 10 MG/ML VIAL IV SCH (08:18)
[2021-04-19] MEDS ORDERED: FENTANYL CITRATE/PF 1,250 MCG in IV NS 0.9% 225 ML IV PRN (10:30)
[2021-04-19] MEDS ORDERED: BUPIVACAINE IV PRN (11:00)
[2021-04-19] MEDS ORDERED: FENTANYL CITRATE IV PRN (11:00)
[2021-04-19] MEDS ORDERED: NS 0.9% IV PRN (11:00)
[2021-04-19] MEDS ORDERED: EPINEPHRINE (1:10,000) SYRINGE 1 MG/10 ML DISP.SYRIN IVP ONE (14:42)
[2021-04-19] MEDS ORDERED: SODIUM BICARBONATE SYR 50 MEQ/50 ML DISP.SYRIN IV ONE (14:42)
--- NOTE | 2021-04-19 15:32 | NUR ---
SW consult for: getting adequate treatment/Doesn't believe pt. is COVID positive. SW attempted to reach out to pt.'s daughter [Fabiana [phone]] and left VM.
[2021-04-19] MEDS: IV NS 0.9% 1,000 ML IV PRN ×2 (15:36→22:18)
[2021-04-19] MEDS: PHENYLEPHRINE 50 MG in IV NS 0.9% 245 ML IV PRN (18:50)
--- NOTE | 2021-04-19 19:30 | NUR ---
RN CLOSING NOTES PT INTUBATED VENT SETTINGS AC 16, TV 450, 40% FIO2 AND PEEP 5. PT HAS CHELSIE MIDLINE #18 RUNNING PHENYLEPHRINE 0.6 MCG, FENTANYL 50 MCG, AND NS 75CC. PT HAS RIGHT FA #18 TKO. HUTCHISON OUTPUT 500CC. PT PLACED ON INFLATEABLE BED. JEVITY @20CC TOLERATING WELL WITH NO RESIDUAL. WILL ENDORSE TO CHRISTIE RN.
[2021-04-20] VITALS (92 sets, daily range): BP systolic 56–215; BP diastolic 31–190
[2021-04-20] MEDS: FLUDROCORTISONE 0.1 MG TABLET GT SCH ×5 (00:07→23:21)
[2021-04-20] MEDS: PIPERACILLIN /TAZOBACTAM 3.375 G in IV D5W 100 ML IV SCH ×3 (04:03→20:08)
[2021-04-20 05:09] LABS: CALCIUM, SERUM 6.7 mg/dL (8.5-10.1); CARBON DIOXIDE 25 mmol/L (21-32); CHLORIDE 111 mmol/L (98-107); CREATININE 0.8 mg/dL (0.6-1.3); GLUCOSE 169 mg/dL (74-106); POTASSIUM 4.2 mmol/L (3.5-5.1); SODIUM SERUM 140 mmol/L (136-145); UREA NITROGEN, BLOOD 34 mg/dL (7-18)
[2021-04-20] MEDS: HYDROCORTISONE SOD SUCCINATE 100 MG/2 ML VIAL IV SCH ×3 (05:53→21:18)
[2021-04-20] MEDS: METOCLOPRAMIDE HCL 10 MG TABLET GT SCH ×3 (05:53→21:19)
[2021-04-20] MEDS ORDERED: FENTANYL CITRAT IV 2,500 MCG in IV NS 0.9% 200 ML IV PRN (07:30)
[2021-04-20] MEDS ORDERED: NS 0.9% IV PRN (07:30)
[2021-04-20] MEDS ORDERED: FENTANYL CITRATE IV PRN (07:30)
[2021-04-20] MEDS: LEVETIRACETAM SOL (5 ML) 100 MG/ML UDC GT SCH ×2 (08:21→21:18)
[2021-04-20] MEDS: TIZANIDINE HCL 4 MG TABLET GT SCH ×3 (08:21→17:02)
[2021-04-20] MEDS: BACLOFEN (10 MG) 10 MG TABLET GT SCH ×4 (08:22→21:18)
[2021-04-20] MEDS: PANTOPRAZOLE 40 MG TABLET.DR PO SCH (08:22)
[2021-04-20] MEDS: DEXAMETHASONE SOD PHOSPHATE 10 MG/ML VIAL IV SCH (08:24)
[2021-04-20] MEDS: ENOXAPARIN SODIUM 40 MG/0.4 ML DISP.SYRIN SQ SCH (08:25)
[2021-04-20] MEDS: PHENYLEPHRINE 50 MG in IV NS 0.9% 245 ML IV PRN (10:25)
[2021-04-20] MEDS: IV NS 0.9% 1,000 ML IV PRN (13:20)
--- NOTE | 2021-04-20 19:04 | NUR ---
RN CLOSING NOTES PT RESTING IN BED, INTUBATED VENT SETTINGS AC 16, TV 450, 40% FIO2 AND PEEP 5. CHELSIE MIDLINE #[address] AND RUNNING PHENYLEPHRINE 0.6 MCG, FENTANYL 150 MCG. AND NS 75CC. PT HAS RIGHT FA #18 TKO. HUTCHISON OUTPUT 400CC. PT PLACED ON INFLATEABLE BED. JEVITY @20CC TOLERATING WELL WITH NO RESIDUAL. WILL ENDORSE TO NOC RN. ASPIRATION PRECAUTIONS FOLLOWED. DUE MEDICATIONS GIVEN.
--- NOTE | 2021-04-20 19:35 | NUR ---
WOOD DRILL OPERATOR NOTES RECEIVED PT FOR CONTINUITY OF CARE. PATIENT A/OX0 IN NO S/SX OF ACUTE DISTRESS AT THIS TIME; CURRENTLY ON MECHANICAL VENT; SETTING PRESCRIBED, WITH 02 SAT >95% AT THIS TIME. RECEIVED PT WITH RUNNING DRIPS FOLLOWS: NS@75CC/HR, BRUCE RECEIVED AT 0.6MCG/KG/MIN , FENTANYL DRIP VIA GRANITE POLISHER RECEIVED @ 150MCG/HR ALL RUNNING , MONITORED AND ADJUSTED PER PROTOCOL. WITH GTUBE FEEDING RUNNING PRESCRIBED. WILL ENSURE SAFETY MEASURES WITHIN THE SHIFT. PATIENT BED ALARM IS ON. HEAD OF BED ELEVATED. BED IS LOCKED, IN LOWEST POSITION AND SIDE RAILS UP. CALL LIGHT WITHIN REACH OF THE PATIENT. APPLICABLE ISOLATION PRECAUTIONS IN PLACE. WILL CONTINUE TO MONITOR AND REASSESS FOR ANY CHANGES AND WILL CARRY OUT ANY ONGOING AND ACTIVE MD ORDER.
--- NOTE | 2021-04-20 22:20 | NUR ---
TWISTER HAND NOTES PICC LINE NURSE (ARIA) FACILITATED INSERTION OF MIDLINE @ R UA G#18, SECURED , INTACT AND FLUSHING WELL. DIRECTOR OF LAND MADE AWARE.
[2021-04-21] VITALS (85 sets, daily range): BP systolic 54–131; BP diastolic 20–96
[2021-04-21] MEDS: FENTANYL CITRAT IV 2,500 MCG in IV NS 0.9% 200 ML IV PRN ×2 (01:09→18:38)
[2021-04-21] MEDS: IV NS 0.9% 1,000 ML IV PRN ×2 (02:30→15:36)
[2021-04-21] MEDS: PIPERACILLIN /TAZOBACTAM 3.375 G in IV D5W 100 ML IV SCH (03:27)
[2021-04-21] MEDS: HYDROCORTISONE SOD SUCCINATE 100 MG/2 ML VIAL IV SCH ×3 (05:25→21:54)
[2021-04-21] MEDS: FLUDROCORTISONE 0.1 MG TABLET GT SCH ×4 (05:26→23:06)
[2021-04-21] MEDS: METOCLOPRAMIDE HCL 10 MG TABLET GT SCH ×3 (05:26→21:54)
--- NOTE | 2021-04-21 05:51 | NUR ---
RN NOTES AM ABG RESULT ENDORSED TO ONCANI STEVE (Chetan BERRIOS,) RT ADJUSTED SETTINGS FROM 40% TO 50 % FI02. ONCANI STEVE ACKNOWLEDGED. FINANCIAL ASSISTANCE SPECIALIST MADE AWARE.
[2021-04-21] MEDS: PHENYLEPHRINE 50 MG in IV NS 0.9% 245 ML IV PRN ×2 (06:21→21:16)
--- NOTE | 2021-04-21 06:42 | NUR ---
INFORMATION TECHNOLOGY PROFESSOR CLOSING NOTE: PATIENT REMAINS IN ROOM IN NO SIGNS OF RESPIRATORY DISTRESS, PATIENT STILL ON MECH VENT; SETTINGS PRESCRIBED;TOLERATING WELL SATURATING @ >95% SP02. SAFETY MEASURES IMPLEMENTED, BED IN LOWEST POSITION, LOCKED, SIDE RAILS UP, CALL LIGHT WITHIN REACH. ALL NEEDS AND ORDERS ADDRESSED DURING THE SHIFT. IV ACCESS MAINTAINED INTACT, SECURED AND FLUSHING WELL. ALL DUE MEDS GIVEN ORDERED & SCHEDULED ; PATIENT TOLERATED WELL. STILL WITH ONGOING DRIP FOLLOWS: FENTANYL DRIP VIA DIE STORAGE WORKER PUMP @150MCG/HR AND ; BRUCE@0.5MCG/KG/MIN BOTH RUNNING AND MONITORED PER PROTOCOL. ALSO HAS A RUNNING IVF OF NS@75ML/HR. PATIENT KEPT CLEAN AND COMFORTABLE WITHIN THE SHIFT. PATIENT ENDORSED TO INCOMING SHIFT RN WITH STABLE VITAL SIGN AND FOR CONTINUITY OF CARE.
--- NOTE | 2021-04-21 07:01 | NUR ---
FABRIC MACHINE OPERATOR CLOSING NOTE: PATIENT REMAINS IN ROOM IN NO SIGNS OF RESPIRATORY DISTRESS, PATIENT STILL ON MECH VENT; SETTINGS PRESCRIBED;TOLERATING WELL SATURATING @ >93% SP02. SAFETY MEASURES IMPLEMENTED, BED IN LOWEST POSITION, LOCKED, SIDE RAILS UP, CALL LIGHT WITHIN REACH. ALL NEEDS AND ORDERS ADDRESSED DURING THE SHIFT. IV ACCESS MAINTAINED INTACT, SECURED AND FLUSHING WELL. ALL DUE MEDS GIVEN ORDERED & SCHEDULED ; PATIENT TOLERATED WELL. PATIENT KEPT CLEAN AND COMFORTABLE WITHIN THE SHIFT. PATIENT ENDORSED TO INCOMING SHIFT RN WITH STABLE VITAL SIGN AND FOR CONTINUITY OF CARE.
[2021-04-21] MEDS: DEXAMETHASONE SOD PHOSPHATE 10 MG/ML VIAL IV SCH (08:36)
[2021-04-21] MEDS: TIZANIDINE HCL 4 MG TABLET GT SCH ×3 (08:36→17:32)
[2021-04-21] MEDS: BACLOFEN (10 MG) 10 MG TABLET GT SCH ×4 (08:36→21:54)
[2021-04-21] MEDS: LEVETIRACETAM SOL (5 ML) 100 MG/ML UDC GT SCH ×2 (08:36→21:53)
[2021-04-21] MEDS: PANTOPRAZOLE 40 MG TABLET.DR PO SCH (08:40)
[2021-04-21] MEDS: ENOXAPARIN SODIUM 40 MG/0.4 ML DISP.SYRIN SQ SCH (08:44)
--- NOTE | 2021-04-21 19:32 | NUR ---
RN CLOSING NOTES PT RESTING IN BED, INTUBATED VENT SETTINGS AC 16, TV 450, 40% FIO2 AND PEEP 5. CHELSIE MIDLINE #[address] AND RUNNING PHENYLEPHRINE 0.6 MCG, MUSTAPHA MIDLINE #[address] AND RUNNING FENTANYL 150 MCG. AND NS 75CC. PT HAS RIGHT FA #18 TKO. HUTCHISON OUTPUT 550CC. PT PLACED ON INFLATEABLE BED. JEVITY @20CC TOLERATING WELL WITH NO RESIDUAL. WILL ENDORSE TO NOC RN. ASPIRATION PRECAUTIONS FOLLOWED. DUE MEDICATIONS GIVEN.
--- NOTE | 2021-04-21 19:32 | NUR ---
SILVER BRAZER NOTES RECEIVED PT FOR CONTINUITY OF CARE. PATIENT A/OX0 IN NO S/SX OF ACUTE DISTRESS AT THIS TIME; CURRENTLY ON MECHANICAL VENT; SETTING PRESCRIBED, WITH 02 SAT >95% AT THIS TIME. RECEIVED PT WITH RUNNING DRIPS FOLLOWS: NS@75CC/HR, BRUCE RECEIVED AT 1.1MCG/KG/MIN , FENTANYL DRIP VIA RETAIL INTERIOR DESIGNER RECEIVED @ 150MCG/HR ALL RUNNING , MONITORED AND ADJUSTED PER PROTOCOL. WITH GTUBE FEEDING RUNNING PRESCRIBED. WILL ENSURE SAFETY MEASURES WITHIN THE SHIFT. PATIENT BED ALARM IS ON. HEAD OF BED ELEVATED. BED IS LOCKED, IN LOWEST POSITION AND SIDE RAILS UP. CALL LIGHT WITHIN REACH OF THE PATIENT. APPLICABLE ISOLATION PRECAUTIONS IN PLACE. WILL CONTINUE TO MONITOR AND REASSESS FOR ANY CHANGES AND WILL CARRY OUT ANY ONGOING AND ACTIVE MD ORDER.
[2021-04-22] VITALS (97 sets, daily range): BP systolic 42–157; BP diastolic 15–108
--- NOTE | 2021-04-22 03:00 | NUR ---
RN NOTES [place]HIP SUPERVISOR RECEIVE CRITICAL LAB RESULT FROM LAB; PCR RESULT +. WILL NOTIFY MISSY STEVE (YASH Benton DO). Addendum: 04/22/21 at 0633 by MASON DE LA FUENTE RN NOTIFIED MISSY STEVE (YASH Benton DO) ABOUT PCR + RESULT.
[2021-04-22] MEDS: IV NS 0.9% 1,000 ML IV PRN ×2 (04:50→17:14)
[2021-04-22] MEDS: HYDROCORTISONE SOD SUCCINATE 100 MG/2 ML VIAL IV SCH ×3 (04:59→20:59)
[2021-04-22] MEDS: METOCLOPRAMIDE HCL 10 MG TABLET GT SCH ×3 (04:59→20:59)
[2021-04-22] MEDS: FLUDROCORTISONE 0.1 MG TABLET GT SCH ×3 (05:18→17:16)
[2021-04-22] MEDS: JEVITY 1.2 CAL 1,000 ML BOTTLE GT PRN (05:54)
--- NOTE | 2021-04-22 06:37 | NUR ---
RN CLOSING NOTE: PATIENT REMAINS IN ROOM IN NO SIGNS OF RESPIRATORY DISTRESS, PATIENT STILL ON MECH VENT; SETTINGS PRESCRIBED;TOLERATING WELL SATURATING @ >95% SP02. SAFETY MEASURES IMPLEMENTED, BED IN LOWEST POSITION, LOCKED, SIDE RAILS UP, CALL LIGHT WITHIN REACH. ALL NEEDS AND ORDERS ADDRESSED DURING THE SHIFT. IV ACCESS MAINTAINED INTACT, SECURED AND FLUSHING WELL. ALL DUE MEDS GIVEN ORDERED & SCHEDULED ; PATIENT TOLERATED WELL. STILL WITH ONGOING DRIP FOLLOWS: FENTANYL DRIP VIA ELECTRICAL UNIT REBUILDER PUMP @150CG/HR & BRUCE 1.1MCG/KG/MIN BOTH ALL RUNNING AND MONITORED PER PROTOCOL. ALSO HAS ON GOING TUBE FEEDING PRESCRIBED; TOLERATED WELL. PATIENT KEPT CLEAN AND COMFORTABLE WITHIN THE SHIFT. PATIENT ENDORSED TO INCOMING SHIFT RN WITH STABLE VITAL SIGN AND FOR CONTINUITY OF CARE.
[2021-04-22] MEDS: PHENYLEPHRINE 50 MG in IV NS 0.9% 245 ML IV PRN ×2 (06:46→22:31)
--- NOTE | 2021-04-22 07:10 | NUR ---
RN NOTES RECEIVED PT ON BED, INTUBATED AND SEDATED, TOLERATING VENT SETTING WELL, O2 SAT WNL, PT AWAKE , DOES NOT FOLLOW COMMAND , NS@75CC/HR, BRUCE RECEIVED AT 1.1MCG/KG/MIN , FENTANYL DRIP VIA MECHANICAL PRODUCT ENGINEER RECEIVED @ 150MCG/HR ALL RUNNING , G TUBE FEEDING AT 20CC/HR RUNNING , PATIENT BED ALARM IS ON. HEAD OF BED ELEVATED. BED IS LOCKED, IN LOWEST POSITION AND SIDE RAILS UP x3, . CALL LIGHT WITHIN REACH OF THE PATIENT. APPLICABLE ISOLATION PRECAUTIONS IN PLACE. WILL CONTINUE TO MONITOR .
[2021-04-22] MEDS: BACLOFEN (10 MG) 10 MG TABLET GT SCH ×4 (08:09→20:59)
[2021-04-22] MEDS: PANTOPRAZOLE 40 MG TABLET.DR PO SCH (08:09)
[2021-04-22] MEDS: TIZANIDINE HCL 4 MG TABLET GT SCH ×3 (08:09→16:13)
[2021-04-22] MEDS: DEXAMETHASONE SOD PHOSPHATE 10 MG/ML VIAL IV SCH (08:10)
[2021-04-22] MEDS: ENOXAPARIN SODIUM 40 MG/0.4 ML DISP.SYRIN SQ SCH ×2 (08:11→09:00)
--- NOTE | 2021-04-22 09:20 | NUR ---
RN ADITYA AVILA HELD PER DR JONES ORDER , PT TO HAVE U/S GUIDED THORACENTESIS TODAY.
[2021-04-22] MEDS: LEVETIRACETAM SOL (5 ML) 100 MG/ML UDC GT SCH ×2 (09:48→20:59)
--- NOTE | 2021-04-22 10:13 | NUR ---
CALL AI HAAS REGARDING PROCEDURE AT 9.00 AM , WAITING FOR THE DOUGHTER TO CALL BACK TO CONSENT FOR THE PROCEDURE
[2021-04-22] MEDS: FENTANYL CITRAT IV 2,500 MCG in IV NS 0.9% 200 ML IV PRN (11:28)
--- NOTE | 2021-04-22 11:40 | NUR ---
RN NOTES LEFT TWO VOICE MESSAGED FOR PT DAUGHTER REGARDING US GUIDED THORACENTESIS CONSENT , NO RETURN CALL YET , DR JONES NOTIFIED.
--- NOTE | 2021-04-22 12:34 | NUR ---
NO CONSENT AT THIS TIME PER RN JEFFREY, STILL WAITING FO THE DAUGHTER TO RESPOND, I GIVE MY PHONE NUMBER TO JEFFREY TO CALL ME IF CONSENT IS DONE BEFORE 4.0 O'CLOCK
--- NOTE | 2021-04-22 14:35 | NUR ---
RN NOTES NO RETURN CALL FROM PT'S DAUGHTER REGARDING US GUIDED THORACENTESIS CONSENT , OK TO TO WAIT TILL TOMORROW PER DR JONES ORDER .
[2021-04-22 15:08] LABS: BASOPHILS % (AUTO) 0.1 % (0.0-2.0); EOSINOPHILS % (AUTO) 0.1 % (0.0-6.0); HEMATOCRIT 34 % (39-51); HEMOGLOBIN 10.9 g/dL (13.5-17.5); LYMPHOCYTES # (AUTO) 0.4 K/uL (0.8-4.8); LYMPHOCYTES % (AUTO) 2.9 % (20.0-44.0); MEAN CORPUSCULAR HGB CONC 32 g/dl (31.0-36.0); MEAN CORPUSCULAR VOLUME 98 fL (80-96); MONOCYTES # (AUTO) 0.5 K/uL (0.1-1.30); MONOCYTES % (AUTO) 3.3 % (2.0-12.0); NEUTROPHILS # (AUTO) 13.2 K/uL (1.8-8.9); NEUTROPHILS % (AUTO) 93.6 % (43.0-81.0); PLATELET COUNT (AUTO) 156 K/uL (150-450); RED BLOOD CELL COUNT(AUTO) 3.47 MIL/uL (4.5-6.0); WHITE BLOOD COUNT (AUTO) 14.2 K/uL (4.3-11.0)
[2021-04-22 15:28] LABS: CALCIUM, SERUM 6.9 mg/dL (8.5-10.1); CREATININE 0.7 mg/dL (0.6-1.3); POTASSIUM 4.8 mmol/L (3.5-5.1)
[2021-04-22 16:32] LABS: LYMPHOCYTES % (MANUAL) 7 % (16-48); MONOCYTES % (MANUAL) 2 % (0-11.0); NEUTROPHILS % (MANUAL) 91 (42-76)
--- NOTE | 2021-04-22 18:00 | NUR ---
RN NOTES TELEPHONE CONSENT RECEIVED FROM PT'S DAUGHTER FOR U/S GUIDED THORACENTESIS ,
--- NOTE | 2021-04-22 18:31 | NUR ---
RN NOTES PT REMANINS INTUBATED, AND SEDATED, ON FENTANYL AT 183 MCG/HR, TOLERAING VENT SETTING WELL, O2 SAT WNL, ON TELE HR IN 100'S, BRUCE AT .1MCG/KG/MIN RUNNING , IV SITE CLEAN ,DRY AND INTACT, NS AT 75CC/HR RUNNING , SR UP x3, CALL LIGHT WITHIN EASY REACH, BED LOCKED AND IN LOWEST POSITION, WILL ENDORSE TO SPACE OPERATIONS NURSE FOR CONTINUITY OF CARE.
--- NOTE | 2021-04-22 19:30 | NUR ---
TICKET SORTER NOTES RECEIVED PT FOR CONTINUITY OF CARE. PATIENT A/OX0 IN NO S/SX OF ACUTE DISTRESS AT THIS TIME; CURRENTLY ON MECHANICAL VENT; SETTING PRESCRIBED, WITH 02 SAT 94% AT THIS TIME. RECEIVED PT WITH RUNNING DRIPS FOLLOWS: NS@75CC/HR, BRUCE RECEIVED AT 0.2MCG/KG/MIN , FENTANYL DRIP VIA WELL SERVICE PUMP EQUIPMENT OPERATOR RECEIVED @ 183MCG/HR ALL RUNNING , MONITORED AND ADJUSTED PER PROTOCOL. WITH GTUBE FEEDING RUNNING PRESCRIBED. WILL ENSURE SAFETY MEASURES WITHIN THE SHIFT. PATIENT BED ALARM IS ON. HEAD OF BED ELEVATED. BED IS LOCKED, IN LOWEST POSITION AND SIDE RAILS UP. CALL LIGHT WITHIN REACH OF THE PATIENT. APPLICABLE ISOLATION PRECAUTIONS IN PLACE. WILL CONTINUE TO MONITOR AND REASSESS FOR ANY CHANGES AND WILL CARRY OUT ANY ONGOING AND ACTIVE MD ORDER.
[2021-04-23] VITALS (98 sets, daily range): BP systolic 70–142; BP diastolic 34–93
[2021-04-23] MEDS: FLUDROCORTISONE 0.1 MG TABLET GT SCH ×5 (00:04→23:23)
[2021-04-23] MEDS: FENTANYL CITRAT IV 2,500 MCG in IV NS 0.9% 200 ML IV PRN ×2 (02:20→17:38)
[2021-04-23] MEDS: HYDROCORTISONE SOD SUCCINATE 100 MG/2 ML VIAL IV SCH ×3 (05:07→20:36)
[2021-04-23] MEDS: METOCLOPRAMIDE HCL 10 MG TABLET GT SCH ×3 (05:07→20:36)
--- NOTE | 2021-04-23 05:30 | NUR ---
RN NOTES AM ABG RESULT OUT, NOTIFIED ONCALL (Hannah BERRIOS DO). AUTOMATION TEST ENGINEER MADE AWARE.
[2021-04-23] MEDS: IV NS 0.9% 1,000 ML IV PRN ×2 (06:40→20:53)
--- NOTE | 2021-04-23 06:52 | NUR ---
ADULT FAMILY HOME PROGRAM MANAGER CLOSING NOTE: PATIENT REMAINS IN ROOM STILL ON [facility] VENT; SETTINGS PRESCRIBED;TOLERATING WELL SATURATING @ >90% SP02. SAFETY MEASURES IMPLEMENTED, BED IN LOWEST POSITION, LOCKED, SIDE RAILS UP, CALL LIGHT WITHIN REACH. ALL NEEDS AND ORDERS ADDRESSED DURING THE SHIFT. IV ACCESS MAINTAINED INTACT, SECURED AND FLUSHING WELL. ALL DUE MEDS GIVEN ORDERED & SCHEDULED ; PATIENT TOLERATED WELL. STILL WITH ONGOING DRIP FOLLOWS: FENTANYL DRIP VIA BLEND PLANT OPERATOR PUMP @200CG/HR & BRUCE 0.6 MCG/KG/MIN BOTH ALL RUNNING AND MONITORED PER PROTOCOL. ALSO HAS ON GOING TUBE FEEDING PRESCRIBED; TOLERATED WELL. PATIENT KEPT CLEAN AND COMFORTABLE WITHIN THE SHIFT. PATIENT ENDORSED TO INCOMING SHIFT RN WITH STABLE VITAL SIGN AND FOR CONTINUITY OF CARE.
--- NOTE | 2021-04-23 07:52 | NUR ---
RT PATIENT REC'D ORALLY INTUBATED ON [facility] VENT WITH ORDERED SETTINGS. VENT ALARMS CHECKED + AUDIBLE. AIRWAY CHECKED + SECURE. AMBU BAG AT HOB. Addendum: 04/23/21 at 1616 by RAMSEY NORIEGA RT Amended: Links added.
--- NOTE | 2021-04-23 08:00 | NUR ---
RN NOTES RECEIVED PATIENT ON [facility] VENT, TOLERATING WELL SATURATING 90% SP02, FIO2-65, PEEP-5. BEDSIDE MONITOR SHOWS HR 123 AFIB, PATIENT GETTING SEDATION FENTANYL 200 MCG/KG/HR, ALSO INFUSING BRUCE 0.6 MCG/KG/HR, AND NS @75ML/HR. IV ACCESS RIGHT AND LEFT UPPER ARMS MIDLINE MAINTAINED INTACT, SECURED AND FLUSHING WELL. ALL DUE MEDS ADMINISTERED. RUNNING TUBE FEEDING @20ML/HR NO RESIDUAL. TOLERATED WELL. PATIENT ASSIST TURN AND REPOSTION, KEEP HOB ELEVATED FOR ASPIRATION PRECAUTION. PATIENT HAS GENERALIZED EDEMA, OOZING FROM RIGHT ARM. HUTCHISON DRAINING VIA GRAVITY. WILL FOLLOW UP.
[2021-04-23] MEDS: LEVETIRACETAM SOL (5 ML) 100 MG/ML UDC GT SCH ×2 (08:20→20:36)
[2021-04-23] MEDS: BACLOFEN (10 MG) 10 MG TABLET GT SCH ×4 (08:20→20:36)
[2021-04-23] MEDS: DEXAMETHASONE SOD PHOSPHATE 10 MG/ML VIAL IV SCH (08:20)
[2021-04-23] MEDS: PANTOPRAZOLE 40 MG TABLET.DR PO SCH (08:20)
[2021-04-23] MEDS: TIZANIDINE HCL 4 MG TABLET GT SCH ×3 (08:20→17:43)
[2021-04-23] MEDS: ENOXAPARIN SODIUM 40 MG/0.4 ML DISP.SYRIN SQ SCH (09:00)
[2021-04-23 09:14] LABS: ABG BASE EXCESS -4.9 mmol/L; ABG OXYGEN SATURATION 90.3 % (92.0-98.5); ABG PCO2 34.3 mmHg (35.0-45.0); ABG PH 7.375 (7.350-7.450); ABG PO2 62.5 mmHg (75.0-100.0); AaDO2 255.4 mmHg; COHb 0.2 % (0.5-1.5); MetHb 0.3 % (0.0-1.5); O2Hb 89.8 % (94.0-97.0); SITE, ABG Left Radial; VENT MODE, BG AC 16 450 50% +5
[2021-04-23 09:53] LABS: ABG BASE EXCESS -7.3 mmol/L; ABG OXYGEN SATURATION 87.4 % (92.0-98.5); ABG PCO2 32.9 mmHg (35.0-45.0); ABG PH 7.343 (7.350-7.450); ABG PO2 58.9 mmHg (75.0-100.0); AaDO2 404.8 mmHg; COHb 0.3 % (0.5-1.5); MetHb 0.3 % (0.0-1.5); O2Hb 86.9 % (94.0-97.0); PEEP,BG 5 cm H2O; SITE, ABG Right Radial; VT, ABG 450 mL
--- NOTE | 2021-04-23 10:17 | NUR ---
RN NOTES PATIENT SCHEDULE ONCOMING THORACENTESIS TODAY, HELD LOVENOX.
--- NOTE | 2021-04-23 16:10 | NUR ---
rn notes PATIENT GETTING THORACENTESIS AT THIS TIME VIA RADIOLOGIST DR LOPEZ OUTPUT WAS 950ML, PATIENT TOLERATED BEDSIDE PROCEDURE WELL, DRESSING INTACT.
[2021-04-23] MEDS: JEVITY 1.2 CAL 1,000 ML BOTTLE GT PRN (17:51)
[2021-04-23] MEDS ORDERED: VANCOMYCIN 1.25 GM in IV D5W 250 ML IV ONE (18:00)
--- NOTE | 2021-04-23 18:30 | NUR ---
RN NOTES PATIENT PM CARE DONE, ADMINISTERED SCHEDULED MEDICATION, RUNNING JEVITY 1.2 @20ML/HR. PATIENT SEDATED WITH FENTANYL 150MCG/KG/HR. INFUSING BRUCE 0.1 MCG/KG/HR, NS@75ML/HR, AND VANCOMYCIN @125ML/HR INTACT ON LEFT UA MIDLINE INTACT. PATIENT HAS GENERALIZED EDEMA, OOZING ON LEFT AND RIGHT ARMS. KEEP HOB ELEVATED FOR ASPIRATION PRECAUTION. HUTCHISON DRAINING VIA GRAVITY. ENDORSED ONCOMING NURSE FOLLOW PLAN OF CARE.
[2021-04-23] MEDS: CEFEPIME 2 GM in IV D5W 100 ML IV SCH (20:36)
--- NOTE | 2021-04-23 21:50 | NUR ---
RN NOTE SPOKE WITH MAX KHOURY, FROM ID, NO NEED TO CONT LABS 04/23 SAID OK TO WAIT FOR AM LABS 04/24
[2021-04-23] MEDS: PHENYLEPHRINE 50 MG in IV NS 0.9% 245 ML IV PRN (23:03)
[2021-04-24] VITALS (73 sets, daily range): BP systolic 78–177; BP diastolic 32–94
--- NOTE | 2021-04-24 01:42 | NUR ---
RN NOTE PT HAS OPENED EYES, UNABLE TO FOLLOW COMMANDS. BUT HAS BEGUN SHAKING, PT IS BLINKING, AND SITUATION HAS OCCURRED CONTINUOUSLY FOR OVER 10 MIN, NOTIFIED DR BERRIOS OF SITUATION. SHAKING OCCURS MOSTLY IN THE MOUTH AREA. ORDERS TO GIVE 1MG ATIVAN Q6HR PRN NOTED.
[2021-04-24] MEDS: LORAZEPAM INJ 2 MG/ML VIAL IV PRN (01:52)
[2021-04-24] MEDS: FLUDROCORTISONE 0.1 MG TABLET GT SCH ×4 (05:19→23:40)
[2021-04-24] MEDS: CEFEPIME 2 GM in IV D5W 100 ML IV SCH ×3 (05:19→20:12)
[2021-04-24] MEDS: HYDROCORTISONE SOD SUCCINATE 100 MG/2 ML VIAL IV SCH ×3 (05:19→20:12)
[2021-04-24] MEDS: METOCLOPRAMIDE HCL 10 MG TABLET GT SCH ×3 (05:19→20:12)
[2021-04-24 05:42] LABS: BASOPHILS # (AUTO) 0.1 K/uL (0.0-0.2); BASOPHILS % (AUTO) 0.8 % (0.0-2.0); HEMATOCRIT 30 % (39-51); HEMOGLOBIN 10.1 g/dL (13.5-17.5); LYMPHOCYTES # (AUTO) 0.3 K/uL (0.8-4.8); LYMPHOCYTES % (AUTO) 2.3 % (20.0-44.0); MEAN CORPUSCULAR HGB CONC 33 g/dl (31.0-36.0); MEAN CORPUSCULAR VOLUME 96 fL (80-96); MONOCYTES % (AUTO) 7.7 % (2.0-12.0); NEUTROPHILS # (AUTO) 11.6 K/uL (1.8-8.9); NEUTROPHILS % (AUTO) 89.2 % (43.0-81.0); PLATELET COUNT (AUTO) 273 K/uL (150-450); RED BLOOD CELL COUNT(AUTO) 3.17 MIL/uL (4.5-6.0)
--- NOTE | 2021-04-24 05:50 | NUR ---
RN NOTE NOTIFIED LAB, ENDOTRACH CX AND URINE COLLECTED READY FOR CAN REFORMING MACHINE OPERATOR
[2021-04-24 05:52] LABS: CALCIUM, SERUM 6.7 mg/dL (8.5-10.1); CREATININE 0.9 mg/dL (0.6-1.3); POTASSIUM 4.1 mmol/L (3.5-5.1)
[2021-04-24] MEDS: VANCOMYCIN 1 GM in IV D5W 250 ML IV SCH ×2 (05:53→17:19)
--- NOTE | 2021-04-24 07:24 | NUR ---
RN NOTE PT REMAINS WITH AFIB, ONLY CHANGE INCREASED IN HEARTRATE 100-130S. PT CURRENTLY TITRATING BP TO BE WNL OF ORDER. PT NOTED TO HAVE THICK SECRETIONS WHEN SUCTIONING, SPECIMENS COLLECTED FOR LAB. ALL MEDS ADMINISTERED ORDERED. NO SEIZURE ACTIVITY, SINCE FIRST TWITCHING/SHAKING EPISODE, NO OTHER ACTIVITY. SAFETY MEASURES IN PLACE. NEEDS ATTENDED. ENDORSED TO DAY SHIFT FOR CONT OF CARE
--- NOTE | 2021-04-24 07:30 | NUR ---
RN NOTES RECEIVED PT FOR CONTINUITY OF CARE. PATIENT A/OX0 IN NO S/SX OF ACUTE DISTRESS AT THIS TIME; CURRENTLY ON MECHANICAL VENT; SETTING PRESCRIBED, WITH 02 SAT 94% AT THIS TIME. RECEIVED PT WITH RUNNING DRIPS FOLLOWS: NS@75CC/HR, BRUCE RECEIVED AT 0.4MCG/KG/MIN , FENTANYL DRIP VIA MANAGER OF TRAINING ALL RUNNING , MONITORED AND ADJUSTED PER PROTOCOL. WITH GTUBE FEEDING RUNNING PRESCRIBED 20 CC/HR. WILL ENSURE SAFETY MEASURES WITHIN THE SHIFT. PATIENT BED ALARM IS ON. HEAD OF BED ELEVATED. BED IS LOCKED, IN LOWEST POSITION AND SIDE RAILS UP. CALL LIGHT WITHIN REACH OF THE PATIENT. APPLICABLE ISOLATION PRECAUTIONS IN PLACE. WILL CONTINUE TO MONITOR AND REASSESS FOR ANY CHANGES AND WILL CARRY OUT ANY ONGOING AND ACTIVE MD ORDER.
[2021-04-24] MEDS: PANTOPRAZOLE 40 MG TABLET.DR PO SCH (07:42)
[2021-04-24] MEDS: TIZANIDINE HCL 4 MG TABLET GT SCH ×3 (08:36→17:16)
[2021-04-24] MEDS: DEXAMETHASONE SOD PHOSPHATE 10 MG/ML VIAL IV SCH (08:36)
[2021-04-24] MEDS: BACLOFEN (10 MG) 10 MG TABLET GT SCH ×4 (08:36→20:12)
[2021-04-24] MEDS: LEVETIRACETAM SOL (5 ML) 100 MG/ML UDC GT SCH ×2 (08:36→20:12)
[2021-04-24] MEDS: ENOXAPARIN SODIUM 40 MG/0.4 ML DISP.SYRIN SQ SCH (08:38)
[2021-04-24] MEDS: FENTANYL CITRAT IV 2,500 MCG in IV NS 0.9% 200 ML IV PRN (09:07)
[2021-04-24] MEDS: IV NS 0.9% 1,000 ML IV PRN ×2 (11:18→23:53)
--- NOTE | 2021-04-24 18:55 | NUR ---
RN NOTE PATIENT REMAIN A/OX0 IN NO S/SX OF ACUTE DISTRESS AT THIS TIME; NS@75CC/HR, BRUCE AT 0.4MCG/KG/MIN , FENTANYL DRIP VIA DRUG SAFETY SPECIALIST RUNNING , WITH GT FEEDING RUNNING 20 CC/HR. HUTCHISON DRAINING VIA GRAVITY, SAFETY PT OBSERVED. PATIENT BED ALARM IS ON. HOB ELEVATED. BED IS LOCKED, IN LOWEST POSITION AND SIDE RAILS X3 UP. CALL LIGHT WITHIN REACH. WILL ENDORSE TO NOC SHIFT.
[2021-04-24] MEDS: JEVITY 1.2 CAL 1,000 ML BOTTLE GT PRN (19:34)
--- NOTE | 2021-04-24 21:15 | NUR ---
DAUGHTER UPDATED PHONE NUMBER GAVE DAUGHTER ANNAMARIE UPDATE, PHONE NUMBER TO CALL IS [phone]
[2021-04-24] MEDS: PHENYLEPHRINE 50 MG in IV NS 0.9% 245 ML IV PRN (23:41)
[2021-04-24] MEDS: IV NS 0.9% 250 ML IV PRN (23:53)
[2021-04-25] VITALS (59 sets, daily range): BP systolic 70–160; BP diastolic 34–119
[2021-04-25] MEDS: FENTANYL CITRAT IV 2,500 MCG in IV NS 0.9% 200 ML IV PRN ×2 (02:04→16:28)
[2021-04-25] MEDS: CEFEPIME 2 GM in IV D5W 100 ML IV SCH ×3 (04:43→20:10)
[2021-04-25 05:05] LABS: CALCIUM, SERUM 7.1 mg/dL (8.5-10.1); CARBON DIOXIDE 20 mmol/L (21-32); CHLORIDE 112 mmol/L (98-107); CREATININE 0.7 mg/dL (0.6-1.3); GLUCOSE 118 mg/dL (74-106); SODIUM SERUM 141 mmol/L (136-145); UREA NITROGEN, BLOOD 34 mg/dL (7-18)
[2021-04-25] MEDS: FLUDROCORTISONE 0.1 MG TABLET GT SCH ×4 (05:11→23:51)
[2021-04-25] MEDS: HYDROCORTISONE SOD SUCCINATE 100 MG/2 ML VIAL IV SCH (05:11)
[2021-04-25] MEDS: METOCLOPRAMIDE HCL 10 MG TABLET GT SCH ×3 (05:11→20:09)
--- NOTE | 2021-04-25 06:13 | NUR ---
RN NOTE VANCO TROUGH IS 19
[2021-04-25] MEDS: VANCOMYCIN 1 GM in IV D5W 250 ML IV SCH ×2 (06:15→17:27)
--- NOTE | 2021-04-25 07:18 | NUR ---
RN NOTE SAFETY MEASURES IN PLACE. ALL NEEDS ATTENDED. PT GOES FROM LETHARGIC TO EYES OPEN/ALERT. STILL DOES NOT OBEY COMMANDS. ENDORSED TO DAY SHIFT RN FOR CONT OF CARE.
--- NOTE | 2021-04-25 07:27 | NUR ---
RN OPENING NOTE RECEIVE REPORT FROM SENIOR ORACLE ADF DEVELOPER NURSE. PATIENT ON VENTILATOR WITH SETTING OF AC 16, TV 450, FIO2 65%, PEEP 8. PATIENT IS LETHARGIC, OPEN EYES. TELEMETRY SHOWS AFIB 120-130. RECEIVING JEVITY TUBE FEEDING AT 20ML/HR. WILL FOLLOW UP AM LABS AND DOCTOR ORDERS. PROPER ISOLATION PRECAUTION IN PLACE. ALL SAFETY MEASURE IN PLACE. BED ON LOWEST POSITION WITH HOB ELEVATED. WILL CONTINUE TO MONITOR.
[2021-04-25] MEDS: PANTOPRAZOLE 40 MG TABLET.DR PO SCH (08:03)
[2021-04-25] MEDS: BACLOFEN (10 MG) 10 MG TABLET GT SCH ×4 (08:03→20:09)
[2021-04-25] MEDS: ENOXAPARIN SODIUM 40 MG/0.4 ML DISP.SYRIN SQ SCH (08:03)
[2021-04-25] MEDS: LEVETIRACETAM SOL (5 ML) 100 MG/ML UDC GT SCH ×2 (08:03→20:09)
[2021-04-25] MEDS: TIZANIDINE HCL 4 MG TABLET GT SCH ×3 (08:03→17:26)
[2021-04-25] MEDS: DEXAMETHASONE SOD PHOSPHATE 10 MG/ML VIAL IV SCH (08:11)
[2021-04-25 08:35] LABS: ABG BASE EXCESS -3.8 mmol/L; ABG OXYGEN SATURATION 89.7 % (92.0-98.5); ABG PCO2 29.7 mmHg (35.0-45.0); ABG PH 7.435 (7.350-7.450); ABG PO2 58.3 mmHg (75.0-100.0); AaDO2 336.8 mmHg; COHb 0.3 % (0.5-1.5); MetHb 0.3 % (0.0-1.5); O2Hb 89.2 % (94.0-97.0); SITE, ABG Right Radial
[2021-04-25] MEDS: MICAFUNGIN SODIUM 100 MG in IV NS 0.9% 100 ML IV SCH (11:41)
[2021-04-25] MEDS: IV NS 0.9% 1,000 ML IV PRN (14:24)
[2021-04-25] MEDS: JEVITY 1.2 CAL 1,000 ML BOTTLE GT PRN (16:03)
--- NOTE | 2021-04-25 18:22 | NUR ---
RN CLOSING NOTE PATIENT REMAIN HEMODYNAMICLY UNSTABLE. CONTINUE NEOSYNEPHERINE DRIP. REAMAIN ON FENTANYL DRIP AT 200MCG/KG/MIN. CONTINUE TUBE FEEDING WITH JEVITY AT 20ML/HR. NO RESIDUAL. REMAIN ON VENT WITH VENT SETTIGN OF; AC16, TV 450, FIO2 70%, PEEP 8. ALL SCHEDULE MEDICATION WAS GIVEN. ALL WOUND DRESSING WAS CHANGED. PATIETN WAS CLEAN, TURNED, AND REPOSITION PER PROTOCOL. PROPER ISOLATION IN PLACE. ALL SAFETY MEASURE IN PLACE. BED ON LOWEST POSITION WITH HOB ELEVATED AND 3 SIDE RAIL UP. WILL CONTINUE TO MONITOR AND ENDORSE TO ON COMING NURSE.
--- NOTE | 2021-04-25 19:05 | NUR ---
RECEIVED PT ON BED AWAKE/OBTUNDED NOT FOLLOWING ANY COMMANDS STILL ORALLY INTUBATED SETTING PER MD FIO2 70% SPO2 91-94% BEDSIDE MONITOR READS AFIB UNCONTROLLED WITH HR 100'S-130'S HAVE GTUBE ON PLACE WITH ONGOING JEVITY @ 20 RESIDUAL 10ML/HR WEEOING EDEMA NOTED ON BUE, ON FRNTANYL 200 MCG/HR BRUCE @ 0.2 MCG/KG/MIN AND NS @ 75ML/HR INFUSING VIA MUSTAPHA ML HUTCHISON CATHETER DRAINING SMALL AMT OF YELLOW URINE VIA GRAVITY BED ON LOWEST POSITON AND LOCKED SIDERAILS UP X2 WILL CONT TO MONITOR
[2021-04-26] VITALS (60 sets, daily range): BP systolic 79–162; BP diastolic 43–100
[2021-04-26] MEDS: FENTANYL CITRAT IV 2,500 MCG in IV NS 0.9% 200 ML IV PRN ×2 (02:34→17:41)
[2021-04-26] MEDS: LORAZEPAM INJ 2 MG/ML VIAL IV PRN (02:56)
[2021-04-26] MEDS: FLUDROCORTISONE 0.1 MG TABLET GT SCH ×4 (05:03→23:36)
[2021-04-26] MEDS: METOCLOPRAMIDE HCL 10 MG TABLET GT SCH ×3 (05:03→20:37)
[2021-04-26] MEDS: CEFEPIME 2 GM in IV D5W 100 ML IV SCH ×3 (05:03→20:36)
[2021-04-26 05:30] LABS: BASOPHILS % (AUTO) 0.2 % (0.0-2.0); HEMATOCRIT 28 % (39-51); HEMOGLOBIN 9.2 g/dL (13.5-17.5); LYMPHOCYTES # (AUTO) 0.4 K/uL (0.8-4.8); LYMPHOCYTES % (AUTO) 3.3 % (20.0-44.0); MEAN CORPUSCULAR HGB CONC 33 g/dl (31.0-36.0); MEAN CORPUSCULAR VOLUME 96 fL (80-96); MONOCYTES % (AUTO) 9.2 % (2.0-12.0); NEUTROPHILS # (AUTO) 9.9 K/uL (1.8-8.9); NEUTROPHILS % (AUTO) 87.3 % (43.0-81.0); PLATELET COUNT (AUTO) 256 K/uL (150-450); RED BLOOD CELL COUNT(AUTO) 2.91 MIL/uL (4.5-6.0); WHITE BLOOD COUNT (AUTO) 11.3 K/uL (4.3-11.0)
[2021-04-26 05:47] LABS: CALCIUM, SERUM 7.1 mg/dL (8.5-10.1); CARBON DIOXIDE 20 mmol/L (21-32); CHLORIDE 114 mmol/L (98-107); CREATININE 0.7 mg/dL (0.6-1.3); GLUCOSE 115 mg/dL (74-106); MAGNESIUM 2.4 mg/dL (1.8-2.4); PHOSPHORUS 2.4 mg/dL (2.5-4.9); SODIUM SERUM 140 mmol/L (136-145); UREA NITROGEN, BLOOD 35 mg/dL (7-18)
[2021-04-26] MEDS: IV NS 0.9% 250 ML IV PRN (05:50)
[2021-04-26] MEDS: IV NS 0.9% 1,000 ML IV PRN ×2 (05:50→20:27)
[2021-04-26] MEDS: VANCOMYCIN 1 GM in IV D5W 250 ML IV SCH (06:16)
--- NOTE | 2021-04-26 07:07 | NUR ---
RN OPENING NOTE RECEIVE REPORT FROM HOTEL RECEPTIONIST NURSE. PATIENT CONTINUE TO BRUCE DRIPS AT 0.1MCG/KG/MIN. CONTINUE ON FENTANYL DRIP. RECEIVING G-TUBE FEEDING WITH JEVITY AT 20ML/HR. PATIENT IS OBTUNDED, OPEN EYES. WOODWORKER SHOWS A-FIB. WILL FOLLOW UP AM LABS AND DOCTOR ORDERS. ALL SAFETY MEASURE IN PLACE. BED ON LOWEST POSITION WITH HOB ELEVATED AND 3 SIDE RAIL UP. WILL CONTINUE TO MONITOR.
--- NOTE | 2021-04-26 07:16 | NUR ---
PT STILL ORALLY INTUBATED VENT SETTING ORDERED FIO2 70% SPO2 92% NO RESPIRATORY DISTRESS, TELE MONITOR READS AFIB 80-110'S STILL ON FENTANYL 175 MCG/HR AND NS @ 75ML/HR HUTCHISON CATHETER DRAIN 300ML URINE THE WHOLE SHIFT NO BM,BED ON LOWEST POSITION AND LOCKED SIDE RAILS UP WILL CONT TO MONITOR
--- NOTE | 2021-04-26 08:00 | NUR ---
RT PATIENT REMAINS ORALLY INTUBATED ON [facility] VENT. PER DR JONES FIO2 INCREASED TO 80% AND PEEP AT 8. AIRWAY SECURE AND SUCTIONED. AMBU BAG AT HOB. Addendum: 04/26/21 at 1747 by RAMSEY NORIEGA RT Amended: Links added.
[2021-04-26] MEDS: LEVETIRACETAM SOL (5 ML) 100 MG/ML UDC GT SCH ×2 (08:06→20:37)
[2021-04-26] MEDS: PANTOPRAZOLE 40 MG TABLET.DR PO SCH (08:07)
[2021-04-26] MEDS: DEXAMETHASONE SOD PHOSPHATE 10 MG/ML VIAL IV SCH (08:07)
[2021-04-26] MEDS: BACLOFEN (10 MG) 10 MG TABLET GT SCH ×4 (08:07→20:37)
[2021-04-26] MEDS: TIZANIDINE HCL 4 MG TABLET GT SCH ×3 (08:07→17:08)
[2021-04-26] MEDS: ENOXAPARIN SODIUM 40 MG/0.4 ML DISP.SYRIN SQ SCH (08:11)
[2021-04-26] MEDS: PHENYLEPHRINE 50 MG in IV NS 0.9% 245 ML IV PRN (10:52)
--- NOTE | 2021-04-26 11:52 | NUR ---
RN NOTE FENTANYL WAS STOP FROM 0950 TO 1045. PATIENT WAS NON RESPONSIVE. PATIENT IS BACK ON FENTANYL DRIP AT 200MCG/HR.
[2021-04-26] MEDS: MICAFUNGIN SODIUM 100 MG in IV NS 0.9% 100 ML IV SCH (12:46)
[2021-04-26] MEDS ORDERED: Sodium Phosphate 30 MMOL in IV NS 0.9% 250 ML IV SCH (14:00)
[2021-04-26 14:19] LABS: BAND % (MANUAL) 2 % (0.0-5.0); LYMPHOCYTES % (MANUAL) 5 % (16-48); MONOCYTES % (MANUAL) 4 % (0-11.0); NEUTROPHILS % (MANUAL) 89 (42-76)
--- NOTE | 2021-04-26 16:45 | NUR ---
RN NOTE PATIENT TEMPERATURE 93.5 DEGREE. WARM BLANKET AND BEAR HUGER WAS PLACE.
[2021-04-26] MEDS: JEVITY 1.2 CAL 1,000 ML BOTTLE GT PRN (17:08)
[2021-04-26] MEDS: VANCOMYCIN HCL 0.75 GM in IV D5W 250 ML IV SCH (17:09)
--- NOTE | 2021-04-26 18:38 | NUR ---
RN CLOSING NOTE PATIENT REMAIN ON VENTILATOR WITH SETTINGS: AC16, TV450, FIO2 80%, PEEP 8. INTERVENTIONAL RADIOLOGY RN SHOWS SINUS CUCA CARDIA IN THE 40S TO 50S. CONTINUE TO RECEIVE TUBE FEEDING WITH JEVITY AT 20ML/HR. PATIENT TOLERATE WELL WITH 0ML OF RESIDUAL. CONTINUE RECEIVING PRESSORS DRIP AND FENTANYL. TITRATE PER PATIENT CONDITIONS. PATIENT IS SCHEDULE TO HAVE LEFT SIDED THORACENTESIS. PATIENT TEMPERATURE HAVE BEEN DECREASING. LAST TEMPERATURE WAS 93.5 F. BEAR HUGGER HAVE BEEN PLACE ON PATIENT. HOLD BLOOD THINNER. PATIENT WAS CLEAN, TURN, AND REPOSITION PER PROTOCOL. PROPER ISOLATION PRECAUTION IN PLACE. ALL SAFETY MEASURE IN PLACE. BED ON LOWEST POSITION WITH HOB ELEVATED AND 3 SIDE RAIL UP. WILL CONTINUE TO MONITOR AND ENDORSE TO ON COMING NURSE.
--- NOTE | 2021-04-26 19:05 | NUR ---
RECEIVED PT ON BED OBTUNDED NOT FOLLOWING ANY COMMANDS STILL ORALLY INTUBATED SETTING PER MD FIO2 80% SPO2 91-94% BEDSIDE MONITOR READS sinus charito 38-[address] WITH ONGOING JEVITY @ 20 RESIDUAL 0ML/HR WEEPING EDEMA NOTED ON BUE, ON FENTANYL 200 MCG/HR BRUCE @ 0.2 MCG/KG/MIN AND NS @ 75ML/HR INFUSING VIA MUSTAPHA ML HUTCHISON CATHETER DRAINING SMALL AMT OF YELLOW URINE VIA GRAVITY BED ON LOWEST POSITON AND LOCKED SIDERAILS UP X2 WILL CONT TO MONITOR
[2021-04-26] MEDS ORDERED: NOREPINEPHRINE 8 MG in IV NS 0.9% 242 ML IV PRN (19:30)
[2021-04-26] MEDS: NOREPINEPHRINE 8 MG in IV NS 0.9% 242 ML IV PRN (20:02)
--- NOTE | 2021-04-26 20:36 | NUR ---
PT INTUBATED ON VENT. 7.0 ETT SECURED AT 24CM AT THE LIP. SX'D SMALL AMT OF TINGED SECRETIONS. VENT ALARMS SET AND AUDIBLE. CONTINUE TO MONITOR. Addendum: 04/26/21 at 2036 by QIAN HADDAD RT Amended: Links added.
[2021-04-27] VITALS (87 sets, daily range): BP systolic 73–176; BP diastolic 31–108
[2021-04-27] MEDS: CEFEPIME 2 GM in IV D5W 100 ML IV SCH ×3 (04:59→21:12)
[2021-04-27] MEDS: METOCLOPRAMIDE HCL 10 MG TABLET GT SCH ×3 (05:10→21:12)
[2021-04-27] MEDS: FLUDROCORTISONE 0.1 MG TABLET GT SCH ×3 (05:10→17:02)
[2021-04-27 05:28] LABS: CALCIUM, SERUM 6.6 mg/dL (8.5-10.1); CARBON DIOXIDE 21 mmol/L (21-32); CHLORIDE 112 mmol/L (98-107); CREATININE 0.7 mg/dL (0.6-1.3); GLUCOSE 102 mg/dL (74-106); MAGNESIUM 2.1 mg/dL (1.8-2.4); POTASSIUM 3.5 mmol/L (3.5-5.1); SODIUM SERUM 140 mmol/L (136-145); UREA NITROGEN, BLOOD 29 mg/dL (7-18)
[2021-04-27 05:36] LABS: HEMATOCRIT 32 % (39-51); HEMOGLOBIN 10.4 g/dL (13.5-17.5); LYMPHOCYTES # (AUTO) 0.6 K/uL (0.8-4.8); LYMPHOCYTES % (AUTO) 3.2 % (20.0-44.0); MEAN CORPUSCULAR HGB CONC 33 g/dl (31.0-36.0); MEAN CORPUSCULAR VOLUME 97 fL (80-96); MONOCYTES # (AUTO) 1.3 K/uL (0.1-1.30); MONOCYTES % (AUTO) 7.3 % (2.0-12.0); NEUTROPHILS # (AUTO) 16.2 K/uL (1.8-8.9); NEUTROPHILS % (AUTO) 89.5 % (43.0-81.0); PLATELET COUNT (AUTO) 284 K/uL (150-450); WHITE BLOOD COUNT (AUTO) 18.2 K/uL (4.3-11.0)
[2021-04-27] MEDS: FENTANYL CITRAT IV 2,500 MCG in IV NS 0.9% 200 ML IV PRN ×2 (06:14→21:28)
[2021-04-27] MEDS: VANCOMYCIN HCL 0.75 GM in IV D5W 250 ML IV SCH ×2 (06:14→17:02)
--- NOTE | 2021-04-27 07:21 | NUR ---
PT STILL ORALLY INTUBATED VENT SETTING ORDERED FIO2 80% SPO2 93% NO RESPIRATORY DISTRESS, TELE MONITOR READS AFIB 80-110'S STILL ON FENTANYL 200 MCG/HR AND NS @ 75ML/HR HUTCHISON CATHETER DRAIN 350ML URINE THE WHOLE SHIFT NO BM,BED ON LOWEST POSITION AND LOCKED SIDE RAILS UP WILL CONT TO MONITOR
[2021-04-27] MEDS: DEXAMETHASONE SOD PHOSPHATE 10 MG/ML VIAL IV SCH (08:32)
[2021-04-27] MEDS: TIZANIDINE HCL 4 MG TABLET GT SCH ×3 (08:32→17:00)
[2021-04-27] MEDS: PANTOPRAZOLE 40 MG TABLET.DR PO SCH (08:32)
[2021-04-27] MEDS: BACLOFEN (10 MG) 10 MG TABLET GT SCH ×4 (08:32→21:12)
[2021-04-27] MEDS: LEVETIRACETAM SOL (5 ML) 100 MG/ML UDC GT SCH ×2 (08:32→21:12)
[2021-04-27] MEDS: ENOXAPARIN SODIUM 40 MG/0.4 ML DISP.SYRIN SQ SCH ×2 (08:33→08:44)
[2021-04-27] MEDS: IV NS 0.9% 1,000 ML IV PRN (09:52)
[2021-04-27] MEDS: POTASSIUM CL. PREMIX PERIPHER. 50 ML IV SCH ×2 (11:44→12:44)
[2021-04-27] MEDS: MICAFUNGIN SODIUM 100 MG in IV NS 0.9% 100 ML IV SCH (11:54)
--- NOTE | 2021-04-27 12:00 | NUR ---
LATE ENTRY NOTE PT HAD LEFT THORACENTESIS AT THE BEDSIDE BY RADIOLOGIST, 700 CC PLEURAL FLUID OBTAINED .
[2021-04-27] MEDS: NOREPINEPHRINE 8 MG in IV NS 0.9% 242 ML IV PRN (15:59)
--- NOTE | 2021-04-27 16:00 | NUR ---
RN NOTES BP IS LOW, LEVO DRIP RESTARTED . CONTINUE TO MONITOR.
--- NOTE | 2021-04-27 18:00 | NUR ---
RN NOTES REPORT GIVEN TO PM NURSE FOR CONTINUITY OF CARE .
--- NOTE | 2021-04-27 19:20 | NUR ---
RN NOTE RECEIVED PATIENT FROM AM NURSE, PATIENT OBTUNDED, OPENS EYES, DOES NOT FOLLOW COMMANDS. PATIENT ORALLY INTUBATED WITH SETTINGS: FIO2 70%, TV 450, AC 16, PEEP 8. PATIENT WITH GTUBE RUNNING JEVITY @ 20CC/HR, NO RESIDUAL NOTED. MUSTAPHA ML RUNNING ON FENTANYL 150 MCG/HR AND LEVOPHED 0.2MCG/KG/HR. HUTCHISON CATHETER DRAINING WELL, YELLOW URINE NOTED. APPROPRIATE ISOLATION PRECAUTIONS IMPLEMENTED. SAFETY PRECAUTIONS PUT IN PLACE, BED AT LOWEST POSITON AND LOCKED SIDERAILS UP X2. WILL CONTINUE TO MONITOR.
--- NOTE | 2021-04-27 21:05 | NUR ---
RN NOTES LEVO DRIP TITRATED DOWN FROM 0.3 MCG/KG/MIN TO 0.2MCG/KG/MIN AT 2010 FOR BP 177/72. LEVO DRIP WAS TITRATED DOWN TO 0.1 MCG/KG/MIN AT 2025 FOR BP 162/103. LEVO DRIP STOPPED AT 2102 FOR BP 159/107. PATIENT SHOWS NO SIGNS OF DISTRESS. WILL CONTINUE TO MONITOR.
[2021-04-28] VITALS (76 sets, daily range): BP systolic 75–160; BP diastolic 37–100
[2021-04-28] MEDS: FLUDROCORTISONE 0.1 MG TABLET GT SCH ×5 (00:26→23:22)
[2021-04-28 04:34] LABS: BASOPHILS # (AUTO) 0.2 K/uL (0.0-0.2); BASOPHILS % (AUTO) 0.8 % (0.0-2.0); HEMATOCRIT 31 % (39-51); HEMOGLOBIN 10.3 g/dL (13.5-17.5); LYMPHOCYTES # (AUTO) 0.3 K/uL (0.8-4.8); LYMPHOCYTES % (AUTO) 1.7 % (20.0-44.0); MEAN CORPUSCULAR HGB CONC 33 g/dl (31.0-36.0); MEAN CORPUSCULAR VOLUME 96 fL (80-96); MONOCYTES # (AUTO) 0.9 K/uL (0.1-1.30); MONOCYTES % (AUTO) 4.4 % (2.0-12.0); NEUTROPHILS % (AUTO) 93.1 % (43.0-81.0); RED BLOOD CELL COUNT(AUTO) 3.23 MIL/uL (4.5-6.0); WHITE BLOOD COUNT (AUTO) 20.4 K/uL (4.3-11.0)
[2021-04-28 05:01] LABS: CALCIUM, SERUM 6.7 mg/dL (8.5-10.1); CREATININE 0.7 mg/dL (0.6-1.3); PHOSPHORUS 2.3 mg/dL (2.5-4.9); POTASSIUM 3.6 mmol/L (3.5-5.1)
[2021-04-28] MEDS: METOCLOPRAMIDE HCL 10 MG TABLET GT SCH ×3 (05:42→21:57)
[2021-04-28] MEDS: CEFEPIME 2 GM in IV D5W 100 ML IV SCH ×3 (05:43→21:44)
[2021-04-28 06:40] LABS: PLATELET COUNT (AUTO) 192 K/uL (150-450)
[2021-04-28] MEDS: VANCOMYCIN HCL 0.75 GM in IV D5W 250 ML IV SCH ×2 (06:41→17:00)
--- NOTE | 2021-04-28 07:00 | NUR ---
RN NOTE RECEIVED PATIENT ON BED, OBTUNDED, OPENS EYES, DOES NOT FOLLOW COMMANDS. PATIENT ORALLY INTUBATED WITH SETTINGS: FIO2 70%, TV 450, AC 16, PEEP 8. PATIENT WITH G TUBE RUNNING JEVITY @ 20CC/HR, NO RESIDUAL NOTED. MUSTAPHA ML RUNNING ON FENTANYL 150 MCG/HR , HUTCHISON CATHETER DRAINING WELL, YELLOW URINE NOTED. SAFETY PRECAUTIONS IN PLACE, BED AT LOWEST POSITION AND LOCKED SIDE RAILS UP X3. WILL CONTINUE TO MONITOR.
--- NOTE | 2021-04-28 07:22 | NUR ---
RN NOTES ENDORSED CARE OF PATIENT TO AM NURSE FOR CONTINUITY OF CARE.
[2021-04-28] MEDS: DEXAMETHASONE SOD PHOSPHATE 10 MG/ML VIAL IV SCH (08:12)
[2021-04-28] MEDS: LEVETIRACETAM SOL (5 ML) 100 MG/ML UDC GT SCH ×2 (08:12→21:57)
[2021-04-28] MEDS: PANTOPRAZOLE 40 MG TABLET.DR PO SCH (08:12)
[2021-04-28] MEDS: TIZANIDINE HCL 4 MG TABLET GT SCH ×3 (08:12→16:21)
[2021-04-28] MEDS: BACLOFEN (10 MG) 10 MG TABLET GT SCH ×4 (08:12→21:57)
[2021-04-28] MEDS: ENOXAPARIN SODIUM 40 MG/0.4 ML DISP.SYRIN SQ SCH (08:13)
[2021-04-28] MEDS: MICAFUNGIN SODIUM 100 MG in IV NS 0.9% 100 ML IV SCH (11:20)
--- NOTE | 2021-04-28 12:00 | NUR ---
RN NOTES ORAL AND ET TUBE SUCTIONING DONE, CONTINUE TO MONITOR .
[2021-04-28] MEDS: JEVITY 1.2 CAL 1,000 ML BOTTLE GT PRN (12:07)
[2021-04-28] MEDS: FENTANYL CITRAT IV 2,500 MCG in IV NS 0.9% 200 ML IV PRN (14:29)
[2021-04-28] MEDS: NOREPINEPHRINE 8 MG in IV NS 0.9% 242 ML IV PRN (14:52)
--- NOTE | 2021-04-28 15:00 | NUR ---
RN NOTES DR JAMISON NOTIFIED REGARDING PHOS =2.3,
[2021-04-28] MEDS ORDERED: NEUTRA PHOS 1 POWD.PACKET NG ONE (16:00)
[2021-04-28] MEDS ORDERED: Sodium Phosphate 30 MMOL in IV NS 0.9% 250 ML IV SCH (16:30)
--- NOTE | 2021-04-28 18:16 | NUR ---
RN NOTES PT REMAINS INTUBATED AND SEDATED, ON FENTANYL AT 125MCG/KG/MIN , ON TELE SR WITH PAC'S , HR IN 90'S , HUTCHISON DRAINING TO GRAVITY, TF AT 30CC/HR RUNNING , NO RESIDUAL NOTED, SR UP x3, CALL LIGHT WITHIN EASY REACH, BED LOCKED AND IN LOWEST POSITION, WILL ENDORSE TO SLOT OPERATIONS DIRECTOR NURSE FOR CONTINUITY OF CARE
--- NOTE | 2021-04-28 20:45 | NUR ---
ICU/CERTIFIED FLEX ENDOSCOPE REPROCESSOR NOTICED THAT THERE WAS MANY SKIN ISSUES THAT HAD NOT BEEN ADDRESSED. PHOTO DOCUMENTATION WAS DONE. WOUND NURSE CONSULT WAS DONE. CHARGE NURSE MADE AWARE OF THESE ISSUES.
[2021-04-29] VITALS (91 sets, daily range): BP systolic 70–171; BP diastolic 39–117
--- NOTE | 2021-04-29 00:08 | NUR ---
ICU/HAND CROWN POUNCER PT'S RIGHT ARM IS RED, SWOLLEN, AND WEEPING, ORDER WAS OBTAINED TO GET AN ULTRASOUND TO R/O DVT. CHARGE NURSE WAS MADE AWARE, PHOTO DOCUMENTATION WAS DONE.
--- NOTE | 2021-04-29 03:00 | NUR ---
ICU/UI DEVELOPER WITH ANGULAR JS PT'S HEART RYTHEM IS AFIB FROM SINUS, WILL MONITOR THIS PT.
--- NOTE | 2021-04-29 03:45 | NUR ---
ICU/SALES AND MARKETING REPRESENTATIVE LEVO WAS TURNED OFF FOR STABLE BP. CHARGE NURSE MADE AWARE OF THIS. WILL CONTINUE TO MONITOR THIS PT'S BLOOD PRESSURE.
[2021-04-29] MEDS: CEFEPIME 2 GM in IV D5W 100 ML IV SCH ×3 (04:15→21:19)
[2021-04-29] MEDS: IV NS 0.9% 250 ML IV PRN (04:49)
[2021-04-29] MEDS: VANCOMYCIN HCL 0.75 GM in IV D5W 250 ML IV SCH ×2 (05:05→17:09)
[2021-04-29] MEDS: METOCLOPRAMIDE HCL 10 MG TABLET GT SCH ×3 (05:14→21:27)
[2021-04-29] MEDS: FLUDROCORTISONE 0.1 MG TABLET GT SCH ×4 (05:14→23:58)
--- NOTE | 2021-04-29 07:30 | NUR ---
RN NOTES PT FOUND SEMI FOWLERS DISPLAYING NO S/S OF DISTRESS, FLACC = 0, RIKERS = 3 AND BILATERAL RISE AND FALL OF THE CHEST OBSERVED. L UA ML IS PATIENT AND INTACT. HUTCHISON CATH BELOW PATIENT DRAINING BY GRAVITY. WEEPING OBSERVED IN ALL FOUR EXTREMITIES. VSS, RN WILL MONITOR AND TREAT THROUGHOUT SHIFT. SAFETY MEASURES IN PLACE, BED LOCKED AND IN LOWEST POSITION, SIDE RAILS UPX2, CALL LIGHT WITHIN REACH, BED ALARM ARMED.
--- NOTE | 2021-04-29 08:15 | NUR ---
PATIENT AFIB 120'S. DR. MCINTYRE MADE AWARE WITH ORDERS GIVEN. TO START AMIO GTT PER PROTOCOL.
[2021-04-29] MEDS: BACLOFEN (10 MG) 10 MG TABLET GT SCH ×4 (08:58→21:27)
[2021-04-29] MEDS: PANTOPRAZOLE 40 MG TABLET.DR PO SCH (08:58)
[2021-04-29] MEDS: DEXAMETHASONE SOD PHOSPHATE 10 MG/ML VIAL IV SCH (08:58)
[2021-04-29] MEDS: TIZANIDINE HCL 4 MG TABLET GT SCH (08:58)
[2021-04-29] MEDS: FENTANYL CITRAT IV 2,500 MCG in IV NS 0.9% 200 ML IV PRN (08:59)
[2021-04-29] MEDS ORDERED: AMIODARONE 150 MG in IV D5W 100 ML IV ONE (09:00)
[2021-04-29] MEDS: ENOXAPARIN SODIUM 40 MG/0.4 ML DISP.SYRIN SQ SCH (09:00)
[2021-04-29] MEDS: LEVETIRACETAM SOL (5 ML) 100 MG/ML UDC GT SCH ×2 (09:18→21:27)
[2021-04-29] MEDS: AMIODARONE 450 MG in IV D5W 241 ML IV PRN (09:51)
[2021-04-29] MEDS: PHENYLEPHRINE 50 MG in IV NS 0.9% 245 ML IV PRN (11:14)
[2021-04-29] MEDS: MICAFUNGIN SODIUM 100 MG in IV NS 0.9% 100 ML IV SCH (12:04)
[2021-04-29] MEDS: JEVITY 1.2 CAL 1,000 ML BOTTLE GT PRN (12:05)
[2021-04-29 15:35] LABS: BASOPHILS # (AUTO) 0.1 K/uL (0.0-0.2); BASOPHILS % (AUTO) 0.5 % (0.0-2.0); HEMATOCRIT 31 % (39-51); HEMOGLOBIN 10.2 g/dL (13.5-17.5); LYMPHOCYTES # (AUTO) 0.2 K/uL (0.8-4.8); LYMPHOCYTES % (AUTO) 1.1 % (20.0-44.0); MEAN CORPUSCULAR HGB CONC 34 g/dl (31.0-36.0); MEAN CORPUSCULAR VOLUME 97 fL (80-96); MONOCYTES # (AUTO) 0.6 K/uL (0.1-1.30); MONOCYTES % (AUTO) 3.4 % (2.0-12.0); NEUTROPHILS # (AUTO) 16.6 K/uL (1.8-8.9); PLATELET COUNT (AUTO) 170 K/uL (150-450); RED BLOOD CELL COUNT(AUTO) 3.14 MIL/uL (4.5-6.0); WHITE BLOOD COUNT (AUTO) 17.4 K/uL (4.3-11.0)
[2021-04-29 15:50] LABS: CALCIUM, SERUM 6.7 mg/dL (8.5-10.1); CREATININE 0.7 mg/dL (0.6-1.3); MAGNESIUM 2.1 mg/dL (1.8-2.4); PHOSPHORUS 2.2 mg/dL (2.5-4.9); POTASSIUM 3.6 mmol/L (3.5-5.1)
--- NOTE | 2021-04-29 19:15 | NUR ---
RN NOTES PT FOUND SEMI FOWLERS DISPLAYING NO S/S OF DISTRESS, FLACC = 0, RIKERS = 3 AND BILATERAL RISE AND FALL OF THE CHEST OBSERVED. L UA ML & R UA ML ARE PATIENT AND INTACT. HUTCHISON CATH BELOW PATIENT DRAINING BY GRAVITY. WEEPING OBSERVED IN ALL FOUR EXTREMITIES. SBAR AND REPORT GIVEN TO ONLINE EDUCATION MANAGER RN, ALL QUESTIONS ANSWERED. SAFETY MEASURES IN PLACE, BED LOCKED AND IN LOWEST POSITION, SIDE RAILS UPX2, CALL LIGHT WITHIN EACH, BED ALARM ARMED. PT ENDORSED IN STABLE CONDITION FOR MUKUL.
[2021-04-30] VITALS (87 sets, daily range): BP systolic 77–142; BP diastolic 31–94
[2021-04-30] MEDS: CEFEPIME 2 GM in IV D5W 100 ML IV SCH ×3 (04:25→20:26)
[2021-04-30 05:25] LABS: BASOPHILS # (AUTO) 0.1 K/uL (0.0-0.2); BASOPHILS % (AUTO) 0.7 % (0.0-2.0); HEMATOCRIT 34 % (39-51); HEMOGLOBIN 11.1 g/dL (13.5-17.5); LYMPHOCYTES # (AUTO) 0.6 K/uL (0.8-4.8); MEAN CORPUSCULAR HGB CONC 33 g/dl (31.0-36.0); MEAN CORPUSCULAR VOLUME 99 fL (80-96); MONOCYTES # (AUTO) 1.6 K/uL (0.1-1.30); MONOCYTES % (AUTO) 8.5 % (2.0-12.0); NEUTROPHILS # (AUTO) 16.8 K/uL (1.8-8.9); NEUTROPHILS % (AUTO) 87.8 % (43.0-81.0); PLATELET COUNT (AUTO) 158 K/uL (150-450); RED BLOOD CELL COUNT(AUTO) 3.42 MIL/uL (4.5-6.0); WHITE BLOOD COUNT (AUTO) 19.2 K/uL (4.3-11.0)
[2021-04-30] MEDS: METOCLOPRAMIDE HCL 10 MG TABLET GT SCH ×3 (05:53→20:27)
[2021-04-30] MEDS: FLUDROCORTISONE 0.1 MG TABLET GT SCH ×4 (05:54→23:33)
--- NOTE | 2021-04-30 07:13 | NUR ---
ICU/FILM ARCHIVIST BLOOD FROM MORNING LABS CLOTTED. THIS HAD THE VANCO LEVEL. CALLED PHARMACY, ASKED IF OK TO GIVE HOWEVER THE LAST LEVEL WAS 18, PHARMACY SAID NO JUST WAIT TILL THE LAB.
--- NOTE | 2021-04-30 07:30 | NUR ---
RN NOTES PT FOUND SEMI FOWLERS DISPLAYING NO S/S OF DISTRESS, FLACC = 0, RIKERS = 3 AND BILATERAL RISE AND FALL OF THE CHEST OBSERVED. L UA ML & R UA ML ARE PATIENT AND INTACT. HUTCHISON CATH BELOW PATIENT DRAINING BY GRAVITY. WEEPING OBSERVED IN ALL FOUR EXTREMITIES. VSS, RN WILL MONITOR AND TREAT THROUGHOUT SHIFT. SAFETY MEASURES IN PLACE, BED LOCKED AND IN LOWEST POSITION, SIDE RAILS UPX2, CALL LIGHT WITHIN REACH, BED ALARM ARMED.
[2021-04-30] MEDS: FENTANYL CITRAT IV 2,500 MCG in IV NS 0.9% 200 ML IV PRN (07:36)
[2021-04-30] MEDS: PANTOPRAZOLE 40 MG TABLET.DR PO SCH (07:43)
[2021-04-30] MEDS: AMIODARONE 450 MG in IV D5W 241 ML IV PRN (08:00)
[2021-04-30] MEDS: DEXAMETHASONE SOD PHOSPHATE 10 MG/ML VIAL IV SCH (08:12)
[2021-04-30] MEDS: LEVETIRACETAM SOL (5 ML) 100 MG/ML UDC GT SCH ×2 (08:12→20:27)
[2021-04-30] MEDS: BACLOFEN (10 MG) 10 MG TABLET GT SCH ×4 (08:12→20:27)
[2021-04-30] MEDS: ENOXAPARIN SODIUM 40 MG/0.4 ML DISP.SYRIN SQ SCH (08:14)
[2021-04-30] MEDS: MICAFUNGIN SODIUM 100 MG in IV NS 0.9% 100 ML IV SCH (12:02)
[2021-04-30] MEDS: JEVITY 1.2 CAL 1,000 ML BOTTLE GT PRN (12:33)
[2021-04-30] MEDS: AMIODARONE HCL 200 MG TABLET PO SCH ×3 (16:45→17:13)
--- NOTE | 2021-04-30 17:31 | NUR ---
NURSES NOTES RN WILL GIVE 400 MG AMIODARONE ON SCHEDULED 1600 BUT NOT 400 MG AMIODARONE AT 1700. ERROR HAS BEEN MADE (400MG SCHEDULED AT 1600 WELL 400 MG AT 1700)
--- NOTE | 2021-04-30 19:30 | NUR ---
RN NOTES PT FOUND SEMI FOWLERS DISPLAYING NO S/S OF DISTRESS, FLACC = 0, RIKERS = 3 AND BILATERAL RISE AND FALL OF THE CHEST OBSERVED. L UA ML & R UA ML ARE PATIENT AND INTACT. HUTCHISON CATH BELOW PATIENT DRAINING BY GRAVITY. WEEPING OBSERVED IN ALL FOUR EXTREMITIES. SBAR AND REPORT GIVEN TO SPECIAL EDUCATION INCLUSION TEACHER RN, ALL QUESTIONS ANSWERED. SAFETY MEASURES IN PLACE, BED LOCKED AND IN LOWEST POSITION, SIDE RAILS UPX2, CALL LIGHT WITHIN EACH, BED ALARM ARMED. PT ENDORSED IN STABLE CONDITION FOR MUKUL.
[2021-04-30 20:26] LABS: CALCIUM, SERUM 6.7 mg/dL (8.5-10.1); CREATININE 0.8 mg/dL (0.6-1.3); MAGNESIUM 2.1 mg/dL (1.8-2.4); POTASSIUM 3.6 mmol/L (3.5-5.1)
--- NOTE | 2021-04-30 21:10 | NUR ---
RN NOTE CALLED FOR MISSING LABS FROM TODAY, LAB SAID THERE WILL BE SOMEONE TO COME AND DRAW LABS THIS EVENING.
--- NOTE | 2021-04-30 21:15 | NUR ---
RN NOTE HYDRATE CONTROL TENDER ABLE TO TAKE BLOOD WILL F/U
--- NOTE | 2021-04-30 22:38 | NUR ---
RN NOTE VANCO TROUGH CAME BACK, RESULT OF 18, NOTIFIED BOOM MAN.
[2021-04-30] MEDS ORDERED: PHENYLEPHRINE 10 MG/ML VIAL ONE (23:15)
--- NOTE | 2021-04-30 23:15 | NUR ---
RN NOTE BP NOTED TO BE IN 80S, WILL RESTART BRUCE TO KEEP SBP >90 ORDERED
[2021-04-30] MEDS: PHENYLEPHRINE 50 MG in IV NS 0.9% 245 ML IV PRN (23:21)
[2021-05-01] VITALS (76 sets, daily range): BP systolic 88–174; BP diastolic 47–108
[2021-05-01] MEDS: FENTANYL CITRAT IV 2,500 MCG in IV NS 0.9% 200 ML IV PRN ×2 (03:44→16:41)
[2021-05-01 04:59] LABS: BASOPHILS # (AUTO) 0.2 K/uL (0.0-0.2); EOSINOPHILS % (AUTO) 0.1 % (0.0-6.0); HEMATOCRIT 31 % (39-51); HEMOGLOBIN 10.5 g/dL (13.5-17.5); LYMPHOCYTES # (AUTO) 0.7 K/uL (0.8-4.8); LYMPHOCYTES % (AUTO) 3.1 % (20.0-44.0); MEAN CORPUSCULAR HGB CONC 34 g/dl (31.0-36.0); MEAN CORPUSCULAR VOLUME 97 fL (80-96); MONOCYTES # (AUTO) 1.7 K/uL (0.1-1.30); MONOCYTES % (AUTO) 8.1 % (2.0-12.0); NEUTROPHILS # (AUTO) 18.2 K/uL (1.8-8.9); NEUTROPHILS % (AUTO) 87.7 % (43.0-81.0); PLATELET COUNT (AUTO) 149 K/uL (150-450); WHITE BLOOD COUNT (AUTO) 20.7 K/uL (4.3-11.0)
[2021-05-01 05:30] LABS: CALCIUM, SERUM 7.3 mg/dL (8.5-10.1); CARBON DIOXIDE 26 mmol/L (21-32); CHLORIDE 106 mmol/L (98-107); CREATININE 0.8 mg/dL (0.6-1.3); GLUCOSE 126 mg/dL (74-106); MAGNESIUM 2.1 mg/dL (1.8-2.4); PHOSPHORUS 1.9 mg/dL (2.5-4.9); POTASSIUM 3.6 mmol/L (3.5-5.1); SODIUM SERUM 135 mmol/L (136-145); UREA NITROGEN, BLOOD 25 mg/dL (7-18)
[2021-05-01] MEDS: CEFEPIME 2 GM in IV D5W 100 ML IV SCH ×2 (05:46→14:16)
[2021-05-01] MEDS: METOCLOPRAMIDE HCL 10 MG TABLET GT SCH ×3 (05:47→20:44)
[2021-05-01] MEDS: FLUDROCORTISONE 0.1 MG TABLET GT SCH ×3 (05:47→17:32)
[2021-05-01] MEDS: VANCOMYCIN HCL 0.75 GM in IV D5W 250 ML IV SCH ×2 (06:00→17:38)
--- NOTE | 2021-05-01 07:30 | NUR ---
SITE COORDINATOR OPENING NOTES RECEIVED PATIENT ON BED, OBTUNDED, OPENS EYES, DOES NOT FOLLOW COMMANDS. PATIENT WITH G TUBE RUNNING JEVITY @ 30CC/HR, NO RESIDUAL NOTED. FLORIDALMA ML RUNNING ON FENTANYL 175 MCG/HR, NOTED WITH TWO SEPARATE MIDLINES TO RIGHT UPPER ARM. HUTCHISON CATHETER DRAINING WELL, YELLOW URINE NOTED. SAFETY PRECAUTIONS IN PLACE, BED AT LOWEST POSITION AND LOCKED SIDE RAILS UP. WILL CONTINUE TO MONITOR.
--- NOTE | 2021-05-01 08:20 | NUR ---
RN NOTE SPOKE WITH CATRACHITO FROM PHARMACY REGARDING TROUGH BEING DRAWN LATE, AND MISSING VANCO ADMIN. OK TO CONT VANCO ORDERED. PHARMACY WILL MANAGED CARE ANALYST OLD VANCO
[2021-05-01] MEDS: LEVETIRACETAM SOL (5 ML) 100 MG/ML UDC GT SCH ×2 (08:58→20:44)
[2021-05-01] MEDS: DEXAMETHASONE SOD PHOSPHATE 10 MG/ML VIAL IV SCH (08:58)
[2021-05-01] MEDS: PANTOPRAZOLE 40 MG TABLET.DR PO SCH (08:58)
[2021-05-01] MEDS: BACLOFEN (10 MG) 10 MG TABLET GT SCH ×4 (08:58→20:44)
[2021-05-01] MEDS: AMIODARONE HCL 200 MG TABLET PO SCH ×3 (08:59→16:19)
[2021-05-01] MEDS: ENOXAPARIN SODIUM 40 MG/0.4 ML DISP.SYRIN SQ SCH (09:00)
[2021-05-01 09:47] LABS: BAND % (MANUAL) 1 % (0.0-5.0); LYMPHOCYTES % (MANUAL) 2 % (16-48); MONOCYTES % (MANUAL) 7 % (0-11.0); NEUTROPHILS % (MANUAL) 90 (42-76)
[2021-05-01] MEDS ORDERED: NEUTRA PHOS 1 POWD.PACKET GT ONE (11:00)
[2021-05-01 11:33] LABS: ABG BASE EXCESS -2.6 mmol/L; ABG OXYGEN SATURATION 96.9 % (92.0-98.5); ABG PCO2 37.1 mmHg (35.0-45.0); ABG PO2 94.6 mmHg (75.0-100.0); AaDO2 292.4 mmHg; COHb 0.3 % (0.5-1.5); MetHb 0.1 % (0.0-1.5); O2Hb 96.5 % (94.0-97.0); PEEP,BG 8 cm H2O; SITE, ABG Right Radial; VT, ABG 450 mL
--- NOTE | 2021-05-01 12:00 | NUR ---
fI02 decreaed to 40 % by RT but increased back to previous value.
--- NOTE | 2021-05-01 13:00 | NUR ---
Patient noted with breathing labored. PER MD Peleg to max out on Fentanyl. Increased to 175 mcg. Informed MD Peleg and per md if WOB continues to given ativan 1 mg q2h prn. Current ativan changed to Ativan 1 mg iv q2h prn.
[2021-05-01] MEDS: MICAFUNGIN SODIUM 100 MG in IV NS 0.9% 100 ML IV SCH (13:04)
[2021-05-01] MEDS ORDERED: LORAZEPAM INJ 2 MG/ML VIAL IV PRN (15:00)
--- NOTE | 2021-05-01 15:30 | NUR ---
Patient care transferred to AI Herrera. Patient noted with output of 600 cc. Turned and repositoned q2h and prn.[id number]
[2021-05-01] MEDS ORDERED: LORAZEPAM INJ 2 MG/ML VIAL IVP PRN (16:30)
[2021-05-01 20:47] LABS: ABG BASE EXCESS -2.3 mmol/L; ABG OXYGEN SATURATION 96.7 % (92.0-98.5); ABG PCO2 37.3 mmHg (35.0-45.0); ABG PH 7.393 (7.350-7.450); ABG PO2 88.9 mmHg (75.0-100.0); AaDO2 297.9 mmHg; COHb 0.3 % (0.5-1.5); MetHb 0.3 % (0.0-1.5); O2Hb 96.1 % (94.0-97.0); SITE, ABG Left Brachial; VENT MODE, BG AC16 450 60% +8
[2021-05-02] VITALS (42 sets, daily range): BP systolic 102–178; BP diastolic 54–108
[2021-05-02] MEDS: METOCLOPRAMIDE HCL 10 MG TABLET GT SCH ×3 (05:28→21:37)
[2021-05-02] MEDS: FLUDROCORTISONE 0.1 MG TABLET GT SCH ×5 (05:28→23:17)
[2021-05-02] MEDS: FENTANYL CITRAT IV 2,500 MCG in IV NS 0.9% 200 ML IV PRN ×3 (05:33→20:57)
[2021-05-02 05:42] LABS: CALCIUM, SERUM 7.4 mg/dL (8.5-10.1); CARBON DIOXIDE 25 mmol/L (21-32); CHLORIDE 104 mmol/L (98-107); CREATININE 0.7 mg/dL (0.6-1.3); GLUCOSE 118 mg/dL (74-106); MAGNESIUM 2.3 mg/dL (1.8-2.4); PHOSPHORUS 2.2 mg/dL (2.5-4.9); POTASSIUM 3.6 mmol/L (3.5-5.1); SODIUM SERUM 136 mmol/L (136-145); UREA NITROGEN, BLOOD 27 mg/dL (7-18)
[2021-05-02 05:44] LABS: BASOPHILS # (AUTO) 0.2 K/uL (0.0-0.2); BASOPHILS % (AUTO) 0.8 % (0.0-2.0); HEMATOCRIT 32 % (39-51); HEMOGLOBIN 10.6 g/dL (13.5-17.5); LYMPHOCYTES # (AUTO) 0.5 K/uL (0.8-4.8); LYMPHOCYTES % (AUTO) 2.5 % (20.0-44.0); MEAN CORPUSCULAR HGB CONC 33 g/dl (31.0-36.0); MEAN CORPUSCULAR VOLUME 97 fL (80-96); MONOCYTES # (AUTO) 1.9 K/uL (0.1-1.30); MONOCYTES % (AUTO) 9.7 % (2.0-12.0); NEUTROPHILS # (AUTO) 17.4 K/uL (1.8-8.9); PLATELET COUNT (AUTO) 121 K/uL (150-450); RED BLOOD CELL COUNT(AUTO) 3.27 MIL/uL (4.5-6.0)
[2021-05-02] MEDS ORDERED: PHARMACY TO CHANGE PO MEDS TO GT/NG XX PRN (07:30)
--- NOTE | 2021-05-02 07:30 | NUR ---
OPENING NOTE: REPORT RECEIVED FROM ELISA CLOUD. NO SIGNIFICANT CHANGES OVERNIGHT PER REPORT. FENTANYL 200MCG INFUSING PER MD ORDERS. NO PRESSORS INFUSING AT THIS TIME. ORDERS DISCUSSED DURING REPORT. PT CHECKED ON HOURLY AND PRN BY NURSING STAFF.
[2021-05-02] MEDS ORDERED: MAG HYDROX/AL HYDROX/SIMETH 30 ML UDC GT PRN (07:54)
[2021-05-02] MEDS ORDERED: AMIODARONE HCL 200 MG TABLET NG SCH (07:54)
[2021-05-02] MEDS: JEVITY 1.2 CAL 1,000 ML BOTTLE GT PRN (08:57)
[2021-05-02] MEDS: LEVETIRACETAM SOL (5 ML) 100 MG/ML UDC GT SCH ×2 (08:58→21:37)
[2021-05-02] MEDS: PANTOPRAZOLE 40 MG/PACK PACK NG SCH (08:58)
[2021-05-02] MEDS: DEXAMETHASONE SOD PHOSPHATE 10 MG/ML VIAL IV SCH (08:58)
[2021-05-02] MEDS: BACLOFEN (10 MG) 10 MG TABLET GT SCH ×4 (08:59→21:36)
[2021-05-02] MEDS: ENOXAPARIN SODIUM 40 MG/0.4 ML DISP.SYRIN SQ SCH (09:00)
[2021-05-02] MEDS: AMIODARONE HCL 200 MG TABLET GT SCH ×3 (09:00→17:01)
[2021-05-02] MEDS ORDERED: NEUTRA PHOS 1 POWD.PACKET GT ONE (15:00)
[2021-05-02] MEDS: IV NS 0.9% 250 ML IV PRN (18:32)
[2021-05-03] VITALS (66 sets, daily range): BP systolic 87–153; BP diastolic 47–95
[2021-05-03 04:45] LABS: BASOPHILS % (AUTO) 0.2 % (0.0-2.0); HEMATOCRIT 29 % (39-51); HEMOGLOBIN 9.8 g/dL (13.5-17.5); LYMPHOCYTES # (AUTO) 0.3 K/uL (0.8-4.8); LYMPHOCYTES % (AUTO) 1.6 % (20.0-44.0); MEAN CORPUSCULAR HGB CONC 34 g/dl (31.0-36.0); MEAN CORPUSCULAR VOLUME 98 fL (80-96); MONOCYTES # (AUTO) 1.3 K/uL (0.1-1.30); MONOCYTES % (AUTO) 7.7 % (2.0-12.0); NEUTROPHILS # (AUTO) 15.4 K/uL (1.8-8.9); NEUTROPHILS % (AUTO) 90.5 % (43.0-81.0); PLATELET COUNT (AUTO) 124 K/uL (150-450); RED BLOOD CELL COUNT(AUTO) 2.98 MIL/uL (4.5-6.0)
[2021-05-03 05:13] LABS: CALCIUM, SERUM 7.3 mg/dL (8.5-10.1); CREATININE 0.7 mg/dL (0.6-1.3); MAGNESIUM 2.2 mg/dL (1.8-2.4); PHOSPHORUS 2.8 mg/dL (2.5-4.9); POTASSIUM 4.1 mmol/L (3.5-5.1)
[2021-05-03] MEDS: METOCLOPRAMIDE HCL 10 MG TABLET GT SCH ×3 (05:33→21:24)
[2021-05-03] MEDS: FLUDROCORTISONE 0.1 MG TABLET GT SCH ×4 (05:33→23:25)
[2021-05-03] MEDS: JEVITY 1.2 CAL 1,000 ML BOTTLE GT PRN (05:33)
--- NOTE | 2021-05-03 07:30 | NUR ---
RN MORNING NOTE PT OBSERVED IN BED. PT IS ON MECHANICAL VENT WITH PRESCRIBED SETTINGS TOLERATING WELL WITH NO SIGNS OF DISTRESS OR LABORED BREATHING SAT 97%. PT IS ON FENTANYL @200MCG/HR. GTUBE IS IN PLACE WITH POSITIVE PLACEMENT IN FUSING WITH JEVITY 1.2 @45ML/HR >20ML RESIDUAL. FC IS IN PLACE DRAINING URINE TO GRAVITY. IV ACCESS L UA ML AND MUSTAPHA MIDLINE. BED IS LOCKED IN LOWEST POSITION ALL HOSPITAL SAFETY MEASURES ARE IN PLACE WILL CONTINUE TO MONITOR THIS SHIFT.
[2021-05-03] MEDS: AMIODARONE HCL 200 MG TABLET GT SCH ×3 (08:57→17:22)
[2021-05-03] MEDS: LEVETIRACETAM SOL (5 ML) 100 MG/ML UDC GT SCH ×2 (08:57→21:24)
[2021-05-03] MEDS: BACLOFEN (10 MG) 10 MG TABLET GT SCH ×4 (08:57→21:24)
[2021-05-03] MEDS: PANTOPRAZOLE 40 MG/PACK PACK NG SCH (08:57)
[2021-05-03] MEDS: DEXAMETHASONE SOD PHOSPHATE 10 MG/ML VIAL IV SCH (08:57)
[2021-05-03] MEDS: ENOXAPARIN SODIUM 40 MG/0.4 ML DISP.SYRIN SQ SCH (08:58)
[2021-05-03] MEDS: FENTANYL CITRAT IV 2,500 MCG in IV NS 0.9% 200 ML IV PRN ×2 (09:00→21:27)
--- NOTE | 2021-05-03 18:48 | NUR ---
RN CLOSING NOTE PT IS IN BED AND STABLE. PT IS ON MECHANICAL VENT WITH PRESCRIBED SETTINGS TOLERATING WELL WITH NO SIGNS OF DISTRESS OR LABORED BREATHING SAT 96%. PT IS ON FENTANYL @175MCG/HR. GTUBE IS IN PLACE WITH POSITIVE PLACEMENT IN FUSING WITH JEVITY 1.2 @45ML/HR >20ML RESIDUAL. FC IS IN PLACE DRAINING URINE TO GRAVITY. IV ACCESS L UA ML AND MUSTAPHA MIDLINE. BED IS LOCKED IN LOWEST POSITION ALL HOSPITAL SAFETY MEASURES ARE IN PLACE WILL ENDORSE TO TRANSACTIONAL ATTORNEY NURSE FOR MUKUL.
--- NOTE | 2021-05-03 19:15 | NUR ---
ICU/TELEHEALTH NURSE RECIEVED PT ON FENT. DRIP AT 175MCG. IT'S DOCUMENTED ON THE IV SPREADSHEET THAT PT IS GETTING FENT. 200MCG. REVISED THIS TO REFLECT THIS. WILL CONTINUE TO MONITOR THIS PT. PER DR CANALES WOULD LIKE TO WING OFF THE SEDATION.
[2021-05-03] MEDS: IV NS 0.9% 250 ML IV PRN (22:48)
[2021-05-04] VITALS (48 sets, daily range): BP systolic 82–141; BP diastolic 51–75
[2021-05-04] MEDS: JEVITY 1.2 CAL 1,000 ML BOTTLE GT PRN ×2 (04:08→04:14)
[2021-05-04 04:34] LABS: HEMATOCRIT 29 % (39-51); HEMOGLOBIN 9.6 g/dL (13.5-17.5); LYMPHOCYTES # (AUTO) 0.3 K/uL (0.8-4.8); LYMPHOCYTES % (AUTO) 1.9 % (20.0-44.0); MEAN CORPUSCULAR HGB CONC 33 g/dl (31.0-36.0); MEAN CORPUSCULAR VOLUME 98 fL (80-96); MONOCYTES # (AUTO) 1.4 K/uL (0.1-1.30); MONOCYTES % (AUTO) 7.8 % (2.0-12.0); NEUTROPHILS # (AUTO) 15.7 K/uL (1.8-8.9); NEUTROPHILS % (AUTO) 90.3 % (43.0-81.0); PLATELET COUNT (AUTO) 85 K/uL (150-450); RED BLOOD CELL COUNT(AUTO) 2.92 MIL/uL (4.5-6.0); WHITE BLOOD COUNT (AUTO) 17.4 K/uL (4.3-11.0)
[2021-05-04 04:50] LABS: CALCIUM, SERUM 7.2 mg/dL (8.5-10.1); CARBON DIOXIDE 31 mmol/L (21-32); CHLORIDE 105 mmol/L (98-107); CREATININE 0.8 mg/dL (0.6-1.3); GLUCOSE 127 mg/dL (74-106); MAGNESIUM 2.2 mg/dL (1.8-2.4); PHOSPHORUS 2.5 mg/dL (2.5-4.9); SODIUM SERUM 136 mmol/L (136-145); UREA NITROGEN, BLOOD 33 mg/dL (7-18)
[2021-05-04] MEDS: FLUDROCORTISONE 0.1 MG TABLET GT SCH ×3 (06:08→17:29)
[2021-05-04] MEDS: MAGNESIUM HYDROXIDE 30 ML UDC GT PRN ×2 (06:08→21:19)
[2021-05-04] MEDS: METOCLOPRAMIDE HCL 10 MG TABLET GT SCH ×3 (06:08→21:19)
--- NOTE | 2021-05-04 06:10 | NUR ---
ICU/CATALYST MANUFACTURING OPERATOR MOM PRN WAS GIVEN TO THIS PT DUE TO NO BM NOTED ON THIS PT FOR AWHILE NOW. WILL CONTINUE TO MONITOR THIS PT.
--- NOTE | 2021-05-04 07:30 | NUR ---
RN MORNING NOTE PT IS OBSERVED IN BED AND STABLE AT THIS TIME. PT IS ON MECHANICAL VENT WITH PRESCRIBED SETTINGS TOLERATING WELL WITH NO SIGNS OF DISTRESS OR LABORED BREATHING SAT 96%. PT IS ON FENTANYL @150MCG/HR. GTUBE IS IN PLACE WITH POSITIVE PLACEMENT IN FUSING WITH JEVITY 1.2 @45ML. FC IS IN PLACE DRAINING URINE TO GRAVITY. IV ACCESS L UA ML AND MUSTAPHA MIDLINE. BED IS LOCKED IN LOWEST POSITION ALL HOSPITAL SAFETY MEASURES ARE IN PLACE WILL CONTINUE TO MONITOR THIS SHIFT.
[2021-05-04] MEDS: BACLOFEN (10 MG) 10 MG TABLET GT SCH ×4 (09:42→21:19)
[2021-05-04] MEDS: PANTOPRAZOLE 40 MG/PACK PACK NG SCH (09:43)
[2021-05-04] MEDS: LEVETIRACETAM SOL (5 ML) 100 MG/ML UDC GT SCH ×2 (09:43→21:18)
[2021-05-04] MEDS: DEXAMETHASONE SOD PHOSPHATE 10 MG/ML VIAL IV SCH (09:43)
[2021-05-04] MEDS: AMIODARONE HCL 200 MG TABLET GT SCH ×3 (09:45→16:40)
[2021-05-04] MEDS: ENOXAPARIN SODIUM 40 MG/0.4 ML DISP.SYRIN SQ SCH (09:52)
[2021-05-04] MEDS: FENTANYL CITRAT IV 2,500 MCG in IV NS 0.9% 200 ML IV PRN (13:23)
[2021-05-04] MEDS ORDERED: POLYETHYLENE GLYCOL 3350 17 GM POWD.PACK NG ONE (15:00)
--- NOTE | 2021-05-04 19:32 | NUR ---
RN CLOSING NOTE PT IS IN BED AND STABLE AT THIS TIME WITH HOB 30. PT IS ON MECHANICAL VENT WITH PRESCRIBED SETTINGS TOLERATING WELL WITH NO SIGNS OF DISTRESS OR LABORED BREATHING SAT 97%. PT IS ON FENTANYL @125MCG/HR. GTUBE IS IN PLACE WITH POSITIVE PLACEMENT IN FUSING WITH JEVITY 1.2 @45ML. FC IS IN PLACE DRAINING URINE TO GRAVITY. IV ACCESS L UA ML AND MUSTAPHA MIDLINE. BED IS LOCKED IN LOWEST POSITION ALL HOSPITAL SAFETY MEASURES ARE IN PLACE WILL ENDORSE TO COMIC BOOK DESIGNER NURSE FOR MUKUL.
--- NOTE | 2021-05-04 20:15 | NUR ---
ICU/PROJECT COORDINATOR RN RT DECREASED THE FIO2 DOWN TO 60% FROM 70% WHICH WAS RECIEVED AT THE START OF THE SHIFT. WILL CONTINUE TO MONITOR THIS PT AND HIS SATURATION.
--- NOTE | 2021-05-04 20:30 | NUR ---
RT NOTE LATE ENTRY FIO2 TITRATED TO 60%. SPO2 @ 94%. NO RESP DISTRESS OR SOB NOTED. RN AWARE. WILL CONTINUE TO MONITOR. Addendum: 05/04/21 at 2108 by NOMAN BACH RT Amended: Links added.
--- NOTE | 2021-05-04 21:30 | NUR ---
ICU/GUITAR TECHNICIAN MOM PRN WAS GIVEN TO THIS PT DUE TO NO BM NOTED ON THIS PT FOR AWHILE NOW. WILL CONTINUE TO MONITOR THIS PT.
[2021-05-04] MEDS: IV NS 0.9% 250 ML IV PRN (22:15)
[2021-05-05] VITALS (27 sets, daily range): BP systolic 98–140; BP diastolic 54–93
[2021-05-05] MEDS: FLUDROCORTISONE 0.1 MG TABLET GT SCH ×4 (01:16→21:27)
[2021-05-05] MEDS: JEVITY 1.2 CAL 1,000 ML BOTTLE GT PRN (04:07)
[2021-05-05 05:04] LABS: BASOPHILS % (AUTO) 0.1 % (0.0-2.0); HEMATOCRIT 29 % (39-51); HEMOGLOBIN 9.5 g/dL (13.5-17.5); LYMPHOCYTES # (AUTO) 0.4 K/uL (0.8-4.8); MEAN CORPUSCULAR HGB CONC 33 g/dl (31.0-36.0); MEAN CORPUSCULAR VOLUME 99 fL (80-96); MONOCYTES # (AUTO) 0.9 K/uL (0.1-1.30); MONOCYTES % (AUTO) 5.1 % (2.0-12.0); NEUTROPHILS # (AUTO) 16.7 K/uL (1.8-8.9); NEUTROPHILS % (AUTO) 92.8 % (43.0-81.0); PLATELET COUNT (AUTO) 69 K/uL (150-450); RED BLOOD CELL COUNT(AUTO) 2.92 MIL/uL (4.5-6.0)
[2021-05-05 05:20] LABS: CALCIUM, SERUM 7.3 mg/dL (8.5-10.1); CARBON DIOXIDE 30 mmol/L (21-32); CHLORIDE 105 mmol/L (98-107); CREATININE 0.7 mg/dL (0.6-1.3); GLUCOSE 132 mg/dL (74-106); MAGNESIUM 2.2 mg/dL (1.8-2.4); PHOSPHORUS 2.1 mg/dL (2.5-4.9); POTASSIUM 4.5 mmol/L (3.5-5.1); SODIUM SERUM 137 mmol/L (136-145); UREA NITROGEN, BLOOD 32 mg/dL (7-18)
[2021-05-05] MEDS: METOCLOPRAMIDE HCL 10 MG TABLET GT SCH ×3 (05:24→21:26)
--- NOTE | 2021-05-05 05:42 | NUR ---
RT NOTE FIO2 TITRATED TO 50%. O2 SATURATION @ 94%. PT SHOWS NO SIGNS OF RESP DISTRESS OR SOB. RN AWARE. WILL CONTINUE TO MONITOR. Addendum: 05/05/21 at 0543 by NOMAN BACH RT Amended: Links added.
--- NOTE | 2021-05-05 05:45 | NUR ---
ICU/ELASTIC YARN TWISTER RT DECREASED THE FIO2 DOWN TO 50% FROM 60% WHICH WAS RECIEVED AT THE START OF THE SHIFT. WILL CONTINUE TO MONITOR THIS PT AND HIS SATURATION.
[2021-05-05] MEDS: LEVETIRACETAM SOL (5 ML) 100 MG/ML UDC GT SCH ×2 (09:07→21:26)
[2021-05-05] MEDS: DEXAMETHASONE SOD PHOSPHATE 10 MG/ML VIAL IV SCH (09:07)
[2021-05-05] MEDS: AMIODARONE HCL 200 MG TABLET GT SCH ×3 (09:08→17:48)
[2021-05-05] MEDS: PANTOPRAZOLE 40 MG/PACK PACK NG SCH (09:08)
[2021-05-05] MEDS: BACLOFEN (10 MG) 10 MG TABLET GT SCH ×4 (09:09→21:25)
[2021-05-05] MEDS: ENOXAPARIN SODIUM 40 MG/0.4 ML DISP.SYRIN SQ SCH (09:11)
[2021-05-05 09:57] LABS: EOSINOPHILS % (MANUAL) 1 % (0-4); LYMPHOCYTES % (MANUAL) 2 % (16-48); MONOCYTES % (MANUAL) 3 % (0-11.0); NEUTROPHILS % (MANUAL) 94 (42-76)
[2021-05-05 10:03] LABS: THYROID STIMULATING HORMONE 1.351 uIU/mL (0.358-3.74)
[2021-05-05] MEDS ORDERED: Sodium Phosphate 30 MMOL in IV NS 0.9% 250 ML IV SCH (10:30)
[2021-05-05] MEDS ORDERED: POLYETHYLENE GLYCOL 3350 17 GM POWD.PACK PO PRN (11:00)
[2021-05-05] MEDS ORDERED: NA PHOS,M-B/NA PHOS,DI-BA 1 EA ENEMA RC ONE (11:00)
[2021-05-05] MEDS: FENTANYL CITRAT IV 2,500 MCG in IV NS 0.9% 200 ML IV PRN (14:06)
--- NOTE | 2021-05-05 19:21 | NUR ---
PT ORDER FOR FLEET ENEMA WAS NOT AVAILABLE IN [place] NOR [place] NOR [place], PHARM NOTIFIED REQUESTED TO PLS BRING UP MEDICATION, IT WAS NOT HERE BY 1830 PM, PHARM NOTIFIED AGAIN TO PLEASE BRING MEDICATION SO WE CAN ADMIN, WILL RELAY TASK TO ONCOMING RN AT THIS TIME. PT CLEANED BED BATH, ALL DRESSINGS CHANGED AND MEXI PLEX APPLIED TO SEEPING WOUNDS ON ARMS, COCCYX AREA MEXI PLEX APPLIED AND CLEANED, F/C INTACT DRAINING WELL PATENT, ALL IV LINES PATENT FLUSHING WELL, FENTYNAL MEDICATION ON HOLD PER RN LEAD ETL DEVELOPER INSTRUCTION WE ARE EVALUATING PT TOLERANCE TO HOLDING MED FOR SEDATION AND COMFORT MEASURES ARE BEING OBSERVED, MED IS STILL BEING HELD AT THIS TIME, PHARMACY IS ADVISED AND AWARE, ONCOMING SHIFT ADVISED, MEDICATION IS LOCKED IN SAFE LOCKED UP AREA AT THIS TIME DUE TO BEING A NARCOTIC MEDICATION, ALL NEEDS MET IN A TIMELY MANNER, TRACH IS IN PLACE AND INTACT , HOB IS RAISED TO SEMI - FOWLERS POSITION AND CALL LIGHT IN REACH, WHEELS ARE LOCKED, WARMED BLANKET APPLIED TO PT FOR COMFORT MEASURES.
--- NOTE | 2021-05-05 20:58 | NUR ---
ICU/PUBLICATION DISTRIBUTOR FLEETS WAS D/C'D BY DAY NURSE FOR MEDICATION NOT BEING ON FLOOR, HOWEVER THE MEDICATION WASN'T GIVEN AND PT HAS HEAVY STOOL IN COLON. THIS WAS ORDERED AGAIN SO THAT IT CAN BE GIVEN DUE TO THE FACT PT HASN'T HAD A BM IN 2 WEEKS
[2021-05-05] MEDS ORDERED: NA PHOS,M-B/NA PHOS,DI-BA 1 EA ENEMA RC PRN (21:00)
[2021-05-05] MEDS: MAGNESIUM HYDROXIDE 30 ML UDC GT PRN (21:27)
--- NOTE | 2021-05-05 22:00 | NUR ---
ICU/AUTOMOBILE LEASING SUPERVISOR PT WAS GIVEN MOM, MIRALAX, FLEETS. PT HASN'T HAD A BM IN 3 WEEKS AND GETTING G/TUBE FEEDING. WILL CONTINUE TO MONITOR THIS PT
[2021-05-06] VITALS (25 sets, daily range): BP systolic 96–156; BP diastolic 43–99
--- NOTE | 2021-05-06 02:00 | NUR ---
ICU/PHILOSOPHY FACULTY MEMBER PT HAD A LARGE, HARD, FORMED BOWEL MOVEMENT, FROM THE LAXATIVES GIVEN EARLIER IN SHIFT
[2021-05-06 05:18] LABS: BASOPHILS % (AUTO) 0.1 % (0.0-2.0); HEMATOCRIT 27 % (39-51); HEMOGLOBIN 9.1 g/dL (13.5-17.5); LYMPHOCYTES # (AUTO) 0.3 K/uL (0.8-4.8); LYMPHOCYTES % (AUTO) 2.3 % (20.0-44.0); MEAN CORPUSCULAR HGB CONC 34 g/dl (31.0-36.0); MEAN CORPUSCULAR VOLUME 99 fL (80-96); MONOCYTES # (AUTO) 0.6 K/uL (0.1-1.30); MONOCYTES % (AUTO) 4.8 % (2.0-12.0); NEUTROPHILS # (AUTO) 11.9 K/uL (1.8-8.9); NEUTROPHILS % (AUTO) 92.8 % (43.0-81.0); PLATELET COUNT (AUTO) 54 K/uL (150-450); RED BLOOD CELL COUNT(AUTO) 2.72 MIL/uL (4.5-6.0); WHITE BLOOD COUNT (AUTO) 12.8 K/uL (4.3-11.0)
[2021-05-06] MEDS: METOCLOPRAMIDE HCL 10 MG TABLET GT SCH ×3 (05:19→21:53)
[2021-05-06] MEDS: FLUDROCORTISONE 0.1 MG TABLET GT SCH ×3 (05:19→21:53)
[2021-05-06 05:23] LABS: CALCIUM, SERUM 7.5 mg/dL (8.5-10.1); CARBON DIOXIDE 30 mmol/L (21-32); CHLORIDE 104 mmol/L (98-107); CREATININE 0.7 mg/dL (0.6-1.3); GLUCOSE 101 mg/dL (74-106); MAGNESIUM 2.4 mg/dL (1.8-2.4); PHOSPHORUS 3.5 mg/dL (2.5-4.9); SODIUM SERUM 139 mmol/L (136-145); UREA NITROGEN, BLOOD 32 mg/dL (7-18)
[2021-05-06 06:55] LABS: LYMPHOCYTES % (MANUAL) 6 % (16-48); MONOCYTES % (MANUAL) 1 % (0-11.0); NEUTROPHILS % (MANUAL) 93 (42-76)
[2021-05-06] MEDS: JEVITY 1.2 CAL 1,000 ML BOTTLE GT PRN ×2 (07:10→22:00)
[2021-05-06] MEDS: IV NS 0.9% 250 ML IV PRN (07:11)
--- NOTE | 2021-05-06 07:30 | NUR ---
NUTRITION AND DIETETICS INSTRUCTOR OPENING NOTES Patient received obtunded and on mechanical vent settings of ac 16 tv 450 fi02 of 50 and peep of 8.Patient is running jevity at 45 ml an hour and steve cath hanging to gravity with clear yellow urine. Patient noted with juan midline and right ua midline x2. Per report patient had bleeding in ET tube. Will continue to monitor. HOB kept elevated. Bed is in lowest and locked position.
[2021-05-06] MEDS: DEXAMETHASONE SOD PHOSPHATE 10 MG/ML VIAL IV SCH (08:38)
[2021-05-06] MEDS: PANTOPRAZOLE 40 MG/PACK PACK NG SCH (08:38)
[2021-05-06] MEDS: LEVETIRACETAM SOL (5 ML) 100 MG/ML UDC GT SCH ×2 (08:38→21:52)
[2021-05-06] MEDS: BACLOFEN (10 MG) 10 MG TABLET GT SCH ×4 (08:38→21:53)
[2021-05-06] MEDS: AMIODARONE HCL 200 MG TABLET GT SCH ×3 (08:39→18:20)
[2021-05-06] MEDS: ENOXAPARIN SODIUM 40 MG/0.4 ML DISP.SYRIN SQ SCH (09:00)
--- NOTE | 2021-05-06 10:00 | NUR ---
Patient's platelets relayed to Abad Morley PE MANAGER and with no new orders. Lovenox held and PE MANAGER aware.
--- NOTE | 2021-05-06 19:13 | NUR ---
DOCTOR OF MEDICINE CLOSING NOTES Patient received obtunded and on mechanical vent settings of ac 16 tv 450 fi02 of 50 and peep of 5.Patient is running jevity at 45 ml an hour and steve cath hanging to gravity with clear yellow urine with output of 375 cc. Patient noted with juan midline and right ua midline x2. Will continue to monitor. HOB kept elevated. Bed is in lowest and locked position.Endorsed to next shift for MUKUL.
--- NOTE | 2021-05-06 20:48 | NUR ---
RT pt received on mechanical vent. orally intubated. ett size 7.0, 25@ lip. vent plugged in to red outlet. ambu bag at hob. alarms on and audible. small thick bloody secretions suctioned via trach. ashutosh gann aware. no sob, no resp distress. will continue to monitor. Addendum: 05/07/21 at 0352 by HA IRWIN RT RT pt received on mechanical vent. orally intubated. ett size 7.0, 25@ lip. vent plugged in to red outlet. ambu bag at hob. alarms on and audible. small thick bloody secretions suctioned via ett. ashutosh gann aware. no sob, no resp distress. will continue to monitor.
[2021-05-06] MEDS: ACETAMINOPHEN 650 MG/20.3 ML UDC NG PRN (21:52)
[2021-05-07] VITALS (25 sets, daily range): BP systolic 95–175; BP diastolic 33–97
[2021-05-07] MEDS: JEVITY 1.2 CAL 1,000 ML BOTTLE GT PRN ×2 (04:04→15:47)
[2021-05-07] MEDS: METOCLOPRAMIDE HCL 10 MG TABLET GT SCH ×3 (05:10→21:12)
[2021-05-07] MEDS: FLUDROCORTISONE 0.1 MG TABLET GT SCH ×2 (05:10→17:03)
[2021-05-07] MEDS: ENOXAPARIN SODIUM 40 MG/0.4 ML DISP.SYRIN SQ SCH (06:19)
--- NOTE | 2021-05-07 06:20 | NUR ---
ICU/STATISTICAL MODELER LOVENOX SQ IS HELD DUE TO PT IS BLEEDING THROUGH ETT TUBE BRIGHT RED BLOOD AND IN MOUTH. WILL CONTINUE TO MONITOR THIS PT AND HIS AM LABS
[2021-05-07 06:33] LABS: ALANINE AMINOTRANSFERASE 90 U/L (12-78); ALKALINE PHOSPHATASE 60 U/L (46-116); ASPARTATE AMINOTRANSFERASE 33 U/L (15-37); BILIRUBIN,TOTAL 0.6 mg/dL (0.2-1.0); CALCIUM, SERUM 7.1 mg/dL (8.5-10.1); CARBON DIOXIDE 31 mmol/L (21-32); CHLORIDE 105 mmol/L (98-107); CREATININE 0.7 mg/dL (0.6-1.3); GLUCOSE 75 mg/dL (74-106); MAGNESIUM 2.3 mg/dL (1.8-2.4); POTASSIUM 4.2 mmol/L (3.5-5.1); SODIUM SERUM 142 mmol/L (136-145); TOTAL PROTEIN, SERUM 4.8 g/dL (6.4-8.2); UREA NITROGEN, BLOOD 33 mg/dL (7-18)
[2021-05-07 06:49] LABS: BASOPHILS % (AUTO) 0.1 % (0.0-2.0); HEMATOCRIT 29 % (39-51); HEMOGLOBIN 9.6 g/dL (13.5-17.5); LYMPHOCYTES # (AUTO) 0.4 K/uL (0.8-4.8); LYMPHOCYTES % (AUTO) 2.5 % (20.0-44.0); MEAN CORPUSCULAR HGB CONC 34 g/dl (31.0-36.0); MEAN CORPUSCULAR VOLUME 98 fL (80-96); MONOCYTES # (AUTO) 0.6 K/uL (0.1-1.30); NEUTROPHILS # (AUTO) 14.2 K/uL (1.8-8.9); NEUTROPHILS % (AUTO) 93.4 % (43.0-81.0); PLATELET COUNT (AUTO) 58 K/uL (150-450); RED BLOOD CELL COUNT(AUTO) 2.92 MIL/uL (4.5-6.0); WHITE BLOOD COUNT (AUTO) 15.2 K/uL (4.3-11.0)
--- NOTE | 2021-05-07 07:00 | NUR ---
RN NOTES RECEIVED PT ON BED, INTUBATED, OPENS EYES AT TIMES , DOES NOT FOLLOW COMMAND , TOLERATING VENT SETTING WELL, ON TELE SR HR IN 60'S, HUTCHISON DRAINING TO GRAVITY, TF AT 45CC/HR RUNNING , NO RESIDUAL NOTED, IV SITES CLEAN, DRY AND INTACT, SR UP x3, CALL LIGHT WITHIN EASY REACH, BED LOCKED AND IN LOWEST POSITION, CONTINUE TO MONITOR.
[2021-05-07] MEDS: BACLOFEN (10 MG) 10 MG TABLET GT SCH ×4 (08:29→21:12)
[2021-05-07] MEDS: LEVETIRACETAM SOL (5 ML) 100 MG/ML UDC GT SCH ×2 (08:29→21:12)
[2021-05-07] MEDS: AMIODARONE HCL 200 MG TABLET GT SCH ×3 (08:30→16:30)
[2021-05-07] MEDS: DEXAMETHASONE SOD PHOSPHATE 10 MG/ML VIAL IV SCH (08:30)
[2021-05-07] MEDS: PANTOPRAZOLE 40 MG/PACK PACK NG SCH (08:30)
--- NOTE | 2021-05-07 10:15 | NUR ---
RN NOTES TELEPHONE TRACHEOSTOMY CONSENT OBTAINED FROM PT'S NEPHEW (DPOA) HEMAL NGUYEN .
--- NOTE | 2021-05-07 14:00 | NUR ---
RN NOTES NO TF RESIDUAL NOTED, CONTINUE TO MONITOR.
--- NOTE | 2021-05-07 18:12 | NUR ---
RN NOTES NO SIGNIFCANT CHANGES NOTED ON THIS SHIFT, PT REMAINS INTUBATED, O2 SAT WNL, HUTCHISON DRANING TO GRAVITY, SR UP x3, CALL LIGHT WITHIN EASY REACH, WILL ENDORSE TO GROUND SUPPORT EQUIPMENT ASSEMBLER NURSE FOR CONTINUITY OF CARE.
--- NOTE | 2021-05-07 19:15 | NUR ---
RN NOTE PT RECEIVED IN BED. PT IS TRACH/VENT. TOLERATING CURRENT SETTINGS WELL. PT IS NOT ALERT, BUT OPENS EYES. ON LIME BOILER SHOWING NSR. G-TUBE NOTED RUNNING JEVITY AT 45 CC/HR. NO RESIDUAL NOTED. HUTCHISON CATH NOTED. IV ACCESS NOTED ON LEFT UPPER ARM ML AND RIGHT UPPER ARM ML X2. LINE FLUSHED, PATENT, AND INTACT WITH NO SIGNS OF INFILTRATION. ALL SAFETY MEASURES IMPLEMENTED. WILL CONTINUE TO MONITOR.
[2021-05-08] VITALS (24 sets, daily range): BP systolic 88–160; BP diastolic 36–84
[2021-05-08 04:41] LABS: BASOPHILS # (AUTO) 0.1 K/uL (0.0-0.2); BASOPHILS % (AUTO) 0.3 % (0.0-2.0); HEMATOCRIT 29 % (39-51); HEMOGLOBIN 9.8 g/dL (13.5-17.5); LYMPHOCYTES # (AUTO) 0.4 K/uL (0.8-4.8); LYMPHOCYTES % (AUTO) 2.3 % (20.0-44.0); MEAN CORPUSCULAR HGB CONC 33 g/dl (31.0-36.0); MEAN CORPUSCULAR VOLUME 99 fL (80-96); MONOCYTES # (AUTO) 0.7 K/uL (0.1-1.30); MONOCYTES % (AUTO) 4.5 % (2.0-12.0); NEUTROPHILS # (AUTO) 14.2 K/uL (1.8-8.9); NEUTROPHILS % (AUTO) 92.9 % (43.0-81.0); PLATELET COUNT (AUTO) 62 K/uL (150-450); RED BLOOD CELL COUNT(AUTO) 2.95 MIL/uL (4.5-6.0); WHITE BLOOD COUNT (AUTO) 15.3 K/uL (4.3-11.0)
[2021-05-08] MEDS: METOCLOPRAMIDE HCL 10 MG TABLET GT SCH ×3 (05:47→20:35)
[2021-05-08] MEDS: FLUDROCORTISONE 0.1 MG TABLET GT SCH ×2 (05:48→17:02)
[2021-05-08 06:22] LABS: CALCIUM, SERUM 7.7 mg/dL (8.5-10.1); CARBON DIOXIDE 32 mmol/L (21-32); CHLORIDE 106 mmol/L (98-107); CREATININE 0.8 mg/dL (0.6-1.3); GLUCOSE 132 mg/dL (74-106); MAGNESIUM 2.3 mg/dL (1.8-2.4); PHOSPHORUS 3.2 mg/dL (2.5-4.9); POTASSIUM 4.2 mmol/L (3.5-5.1); SODIUM SERUM 142 mmol/L (136-145); UREA NITROGEN, BLOOD 33 mg/dL (7-18)
--- NOTE | 2021-05-08 06:42 | NUR ---
RN NOTE NO CHANGES IN PT CONDITION DURING SHIFT. PT IS TRACH/VENT. TOLERATING CURRENT SETTINGS WELL. PT IS NOT ALERT, BUT OPENS EYES. ON MANAGER SOFTWARE SHOWING NSR. G-TUBE NOTED RUNNING JEVITY AT 45 CC/HR. NO RESIDUAL NOTED. HUTCHISON CATH NOTED. IV ACCESS NOTED ON LEFT UPPER ARM ML AND RIGHT UPPER ARM ML X2. LINE FLUSHED, PATENT, AND INTACT WITH NO SIGNS OF INFILTRATION. ALL SAFETY MEASURES IMPLEMENTED. ALL DUE MEDS GIVEN ORDERED. PT KEPT CLEAN AND COMFORTABLE. WILL ENDORSE TO MORNING SHIFT RN FOR MUKUL.
--- NOTE | 2021-05-08 07:05 | NUR ---
RN NOTES RECEIVED PT ON BED, INTUBATED, OPENS EYES AT TIMES , DOES NOT FOLLOW COMMAND , TOLERATING VENT SETTING WELL, ON TELE SR HR IN 70'S, HUTCHISON DRAINING TO GRAVITY, TF AT 45CC/HR RUNNING , NO RESIDUAL NOTED, IV SITES CLEAN, DRY AND INTACT, SR UP x3, CALL LIGHT WITHIN EASY REACH, BED LOCKED AND IN LOWEST POSITION, CONTINUE TO MONITOR.
[2021-05-08] MEDS: BACLOFEN (10 MG) 10 MG TABLET GT SCH ×4 (08:30→20:36)
[2021-05-08] MEDS: PANTOPRAZOLE 40 MG/PACK PACK NG SCH (08:30)
[2021-05-08] MEDS: LEVETIRACETAM SOL (5 ML) 100 MG/ML UDC GT SCH ×2 (08:30→20:36)
[2021-05-08] MEDS: DEXAMETHASONE SOD PHOSPHATE 10 MG/ML VIAL IV SCH (08:31)
[2021-05-08] MEDS: AMIODARONE HCL 200 MG TABLET GT SCH ×3 (08:31→16:40)
--- NOTE | 2021-05-08 13:00 | NUR ---
RN NOTES NO TF RESIDUAL NOTED, CONTINUE TO MONITOR.
[2021-05-08] MEDS: JEVITY 1.2 CAL 1,000 ML BOTTLE GT PRN (14:13)
--- NOTE | 2021-05-08 18:12 | NUR ---
RN NOTES NO SIGNIFCANT CHANGES NOTED ON THIS SHIFT, PT REMAINS INTUBATED, O2 SAT WNL, HUTCHISON DRANING TO GRAVITY, SR UP x3, CALL LIGHT WITHIN EASY REACH, WILL ENDORSE TO EQUITY STRUCTURER NURSE FOR CONTINUITY OF CARE.
--- NOTE | 2021-05-08 19:20 | NUR ---
MULTI DISCIPLINED LANGUAGE ANALYST NOTE RECEIVED PATIENT IN BED ORALLY INTUBATED ON MECHANICAL VENT OPEN EYES NON VERBAL IV SITE IS ON LEFT UPPER ARM AND RIGHT UPPER ARM INTACT PATENT,ON FEEDING TUBE JEVITY 1.2 50CC/HR CHECKED PLACEMENT IN PLACE,NO RESIDUAL NOTED,HTUCHISON CATHETER IN PLACE URINE DRAINING YELLOW AND CLEAR BY GRAVITY,HEAD OF THE BED ELEVATED,SAFETY MEASURE IMPLEMENT CONTINUE TO MONITOR.
[2021-05-09] VITALS (27 sets, daily range): BP systolic 73–142; BP diastolic 31–77
[2021-05-09] MEDS: METOCLOPRAMIDE HCL 10 MG TABLET GT SCH ×3 (05:04→20:34)
[2021-05-09] MEDS: FLUDROCORTISONE 0.1 MG TABLET GT SCH ×2 (05:06→17:26)
--- NOTE | 2021-05-09 06:38 | NUR ---
RN NOTE PATIENT REMAINS ON ORALLY INTUBATED,ON MECHANICAL VENT,ON G-TUBE FEEDING JEVITY 1.2 50CC/HR NO SOB NOT ACUTE DISTRESS NOTED,REPOSITIONED EVERY 2 HOURS,ALL DUE MEDS GIVEN MD ORDERED KEPT CLEAN AND DRY HEAD OF THE BED ELEVATED,HUTCHISON CATHETER IN PLACE,URINE DRAINING YELLOW AND CLEAR BY GRAVITY,IV SITE IS ON LEFT AND RIGHT UPPER ARM INTACT PATENT ENDORSE NEXT COMING SHIFT FOR CONTINUATION OF CARE.
--- NOTE | 2021-05-09 07:40 | NUR ---
RN MORNING NOTE PT IS OBSERVED IN BED AND STABLE AT THIS TIME. PT IS ON MECHANICAL VENT WITH PRESCRIBED SETTINGS TOLERATING WELL WITH NO SIGNS OF DISTRESS OR LABORED BREATHING SAT 95%. PT WILL BE RECEIVING TRACH THIS MORNING. GTUBE IS IN PLACE WITH POSITIVE PLACEMENT IN FUSING WITH JEVITY 1.2 @50ML. FC IS IN PLACE DRAINING URINE TO GRAVITY. IV ACCESS L UA ML AND MUSTAPHA MIDLINE. BED IS LOCKED IN LOWEST POSITION ALL HOSPITAL SAFETY MEASURES ARE IN PLACE WILL CONTINUE TO MONITOR THIS SHIFT.
[2021-05-09] MEDS ORDERED: MIDAZOLAM HCL 2 MG/2ML VIAL ONE (08:12)
[2021-05-09] MEDS: LEVETIRACETAM SOL (5 ML) 100 MG/ML UDC GT SCH ×2 (08:25→20:33)
[2021-05-09] MEDS: DEXAMETHASONE SOD PHOSPHATE 10 MG/ML VIAL IV SCH (08:25)
[2021-05-09] MEDS: PANTOPRAZOLE 40 MG/PACK PACK NG SCH (08:26)
[2021-05-09] MEDS: BACLOFEN (10 MG) 10 MG TABLET GT SCH ×4 (08:26→20:33)
[2021-05-09] MEDS: AMIODARONE HCL 200 MG TABLET GT SCH ×3 (08:29→16:15)
[2021-05-09] MEDS ORDERED: FENTANYL PF 100MCG/2ML AMPUL IV PRN (08:30)
[2021-05-09] MEDS ORDERED: VECURONIUM 10 MG VIAL IV ONE (08:56)
[2021-05-09] MEDS ORDERED: NORMAL SALINE 10 ML DISP.SYRIN IV ONE (08:56)
--- NOTE | 2021-05-09 09:17 | NUR ---
WOUND CARE CONSULT: PT SEEN FOR CRUSTED LESION TO FACE, BETWEEN NOSE AND UPPER LIP. DR MERVAT SANTANA NOTIFIED OF SURGICAL CONSULT REQUEST. DEFER TO SURGICAL TEAM/I.DHarshil STEVE FOR LESION. RECOMMENDATIONS MADE FOR SKIN PROTECTION. DISCUSSED WITH NURSING STAFF. PT IS ON FIRST STEP CIRS LOW AIRLOSS MATTRESS. PT IS TRACHED AT THIS TIME. MD IN AGREEMENT WITH PLAN OF CARE.
[2021-05-09] MEDS: CHLORHEXIDINE GLUCONATE 4% 118 ML BOTTLE TP SCH (16:14)
--- NOTE | 2021-05-09 18:36 | NUR ---
RN CLOSING NOTE PT IS IN BED AND STABLE AT THIS TIME. PT IS ON MECHANICAL VENT WITH PRESCRIBED SETTINGS TOLERATING WELL WITH NO SIGNS OF DISTRESS OR LABORED BREATHING SAT 96%. PT RECEIVED TRACH THIS MORNING; RAYMUNDO 8. GTUBE IS IN PLACE WITH POSITIVE PLACEMENT IN FUSING WITH JEVITY 1.2 @50ML. FC IS IN PLACE DRAINING URINE TO GRAVITY. IV ACCESS L UA ML AND [place] MIDLINE. BED IS LOCKED IN LOWEST POSITION ALL HOSPITAL SAFETY MEASURES ARE IN PLACE WILL ENDORSE TO DIRECTOR OF [employer]ES NURSE FOR [facility].
[2021-05-09] MEDS: JEVITY 1.2 CAL 1,000 ML BOTTLE GT PRN (19:05)
--- NOTE | 2021-05-09 19:10 | NUR ---
ELIGIBILITY CLERK NOTE RECEIVED PATIENT ON MECHANICAL VENT ON TRACH SHILEY 8,NON VERBAL,OBTUNDED,ON G-TUBE FEEDING JEVITY 1.2 50CC/HR CHECKED PLACEMENT IN PLACE NO RESIDUAL NOTED,HEAD OF THE BED ELEVATED,HUTCHISON CATHETER IN PLACE URINE DRAINING YELLOW AND CLEAR BY GRAVITY,IV SITE IS ON LEFT AND RIGHT UPPER ARM MIDLINE INTACT PATENT.SAFETY MEASURE IMPLEMENT,BED IN LOW POSITON AND LOCKED,CONTINUE TO MONITOR.
[2021-05-10] VITALS (25 sets, daily range): BP systolic 85–128; BP diastolic 43–71
[2021-05-10] MEDS: ACETAMINOPHEN 650 MG/20.3 ML UDC NG PRN (03:23)
--- NOTE | 2021-05-10 03:23 | NUR ---
RN NOTE ACETAMINOPHEN 650MG PRN GIVEN FOR PAIN CONTINUE TO MONITOR.
[2021-05-10 05:31] LABS: BASOPHILS % (AUTO) 0.1 % (0.0-2.0); HEMATOCRIT 25 % (39-51); HEMOGLOBIN 8.3 g/dL (13.5-17.5); LYMPHOCYTES # (AUTO) 0.3 K/uL (0.8-4.8); LYMPHOCYTES % (AUTO) 3.2 % (20.0-44.0); MEAN CORPUSCULAR HGB CONC 33 g/dl (31.0-36.0); MEAN CORPUSCULAR VOLUME 100 fL (80-96); MONOCYTES # (AUTO) 0.6 K/uL (0.1-1.30); MONOCYTES % (AUTO) 6.5 % (2.0-12.0); NEUTROPHILS % (AUTO) 90.2 % (43.0-81.0); PLATELET COUNT (AUTO) 60 K/uL (150-450); WHITE BLOOD COUNT (AUTO) 8.8 K/uL (4.3-11.0)
[2021-05-10] MEDS: METOCLOPRAMIDE HCL 10 MG TABLET GT SCH ×3 (05:31→21:30)
[2021-05-10] MEDS: FLUDROCORTISONE 0.1 MG TABLET GT SCH ×2 (05:31→17:43)
[2021-05-10 05:42] LABS: CALCIUM, SERUM 7.1 mg/dL (8.5-10.1); CARBON DIOXIDE 30 mmol/L (21-32); CHLORIDE 107 mmol/L (98-107); CREATININE 0.7 mg/dL (0.6-1.3); GLUCOSE 127 mg/dL (74-106); POTASSIUM 3.9 mmol/L (3.5-5.1); SODIUM SERUM 142 mmol/L (136-145); UREA NITROGEN, BLOOD 28 mg/dL (7-18)
--- NOTE | 2021-05-10 06:46 | NUR ---
RN NOTE PATIENT REMAINS ON INTUBATED ON MECHANICAL VENT,ON TRACH,OBTUNDED,CONTRACTED, NON VERBAL,ON G-TUBE FEEDING JEVITY 1.2 50CC/HR TOLERATING WELL,HUTCHISON CATHETER IN PLACE URINE 400CC OUTPUT.ALL DUE MEDS GIVEN MD ORDERED KEPT CLEAN AND DRY ALL THE TIME,REPOSITIONED EVERY 2HOURS,HEAD OF THE BED ELEVATED,ENDORSE NEXT COMING SHIFT FOR CONTINUATION OF CARE.
--- NOTE | 2021-05-10 07:41 | NUR ---
RN OPENING NOTE PT IS IN BED AND STABLE AT THIS TIME. PT HAS TRACH SHY 8 AND ON MECHANICAL VENT WITH PRESCRIBED SETTINGS TOLERATING WELL WITH NO SIGNS OF DISTRESS OR LABORED BREATHING SAT 95%. GTUBE IS IN PLACE WITH POSITIVE PLACEMENT IN FUSING WITH JEVITY 1.2 @50ML. FC IS IN PLACE DRAINING URINE TO GRAVITY. IV ACCESS L UA ML AND R UA MIDLINE. BED IS LOCKED IN LOWEST POSITION ALL HOSPITAL SAFETY MEASURES ARE IN PLACE WILL CONTINUE TO MONITOR THIS SHIFT.
[2021-05-10] MEDS: BACLOFEN (10 MG) 10 MG TABLET GT SCH ×4 (08:13→21:30)
[2021-05-10] MEDS: LEVETIRACETAM SOL (5 ML) 100 MG/ML UDC GT SCH ×2 (08:14→21:30)
[2021-05-10] MEDS: PANTOPRAZOLE 40 MG/PACK PACK NG SCH (08:14)
[2021-05-10] MEDS: DEXAMETHASONE SOD PHOSPHATE 10 MG/ML VIAL IV SCH (08:14)
[2021-05-10] MEDS: AMIODARONE HCL 200 MG TABLET GT SCH ×3 (08:16→16:33)
--- NOTE | 2021-05-10 09:15 | NUR ---
WOUND CARE CONSULT: PT SEEN FOR WOUND ABOVE UPPER LIP WITH RN AND RESPIRATORY THERAPIST. PT WAS SEEN BY SURGICAL TEAM. RECOMMENDATIONS MADE FOR SKIN PROTECTION. DISCUSSED WITH NURSING STAFF. PT IS TRACHED AT THIS TIME. DEFER TO SURGICAL TEAM FOR WOUND CARE TREATMENT PLAN. PT NOTED TO HAVE MULTIPLE CO-MORBIDITIES INCLUDING ACUTE HYPOXIC RESPIRATORY FAILURE SECONDARY TO COVID 19 PNEUMONIA, (STATUS POST INTUBATION, STATUS POST TRACH ON 05/09), STATUS POST CARDIOPULMONARY ARREST, FUNGURIA, SEPSIS WITH SHOCK, ENCEPHALOPATHY, QUADRIPLEGIA, SPASMS, ANEMIA AND LARGE LEFT PLEURAL EFFUSION. DUE TO MULTIPLE CO-MORBIDITIES, FURTHER SKIN BREAKDOWN MAY BE UNAVOIDABLE. PT IS ON LOW AIRLOSS MATTRESS. ALL SKIN PROTECTION MEASURES IN PLACE. MD IN AGREEMENT WITH PLAN OF CARE. Addendum: 05/10/21 at 0920 by JUAN SALDIVAR WNDNU Amended: Links added.
[2021-05-10] MEDS: HYDROCORTISONE SOD SUCCINATE 100 MG/2 ML VIAL IV SCH ×3 (12:13→21:30)
--- NOTE | 2021-05-10 12:19 | NUR ---
RN NOTE NEW SCHEDULED MED HYDROCORTISONE 0900 GIVEN RIGHT NOW. WAS NOT AVAILABLE IN PT EMAR UNTIL NOW. WILL HOLD 1300 DOSE.
[2021-05-10] MEDS: CHLORHEXIDINE GLUCONATE 4% 118 ML BOTTLE TP SCH (15:34)
[2021-05-10] MEDS: JEVITY 1.2 CAL 1,000 ML BOTTLE GT PRN (17:47)
--- NOTE | 2021-05-10 18:30 | NUR ---
RN CLOSING NOTE PT IS IN BED AND STABLE AT THIS TIME. PT HAS TRACH SHY 8 AND ON MECHANICAL VENT WITH PRESCRIBED SETTINGS TOLERATING WELL WITH NO SIGNS OF DISTRESS OR LABORED BREATHING SAT 97%. GTUBE IS IN PLACE WITH POSITIVE PLACEMENT IN FUSING WITH JEVITY 1.2 @50ML. FC IS IN PLACE DRAINING URINE TO GRAVITY. IV ACCESS L UA ML AND R UA MIDLINE. BED IS LOCKED IN LOWEST POSITION ALL HOSPITAL SAFETY MEASURES ARE IN PLACE WILL ENDORSE TO PANEL MACHINE TENDER NURSE FOR MUKUL.
--- NOTE | 2021-05-10 19:49 | NUR ---
CHARGE POSTER. INITIAL ASSESSMENT. RECEIVED THE PT REST IN BED. TRACH TO VENT CONNECTED. TRACH SHILEY#8,AC 16,TV [id number] 50%,PEEP 5. SAT 98%. NO ACUTE DISTRESS NOTED. AUTO GLASS INSTALLER SHOWING AT THIS TIME A FIB. GT INTACT. JEVITY@ 50ML/HIV RT UPPER ARM MID LINE. HOB ELEVATED. FC PATENT. WILL CONTINUE TO MONITOR VITALS.
--- NOTE | 2021-05-10 20:00 | NUR ---
RECEIVED PT VENT TRACH SHILEY 8. NO RESP DISTRESS NOTED. PT TOLERATING VENT SETTINGS. SX'D SMALL AMT OF TINGED SECRETIONS. VENT ALARMS SET AND AUDIBLE. AMBU BAG AT BESIDE. TRACH CUFF CHECKED, VENT PLUGGED INTO RED OUTLET. CONTINUE TO MONITOR. Addendum: 05/10/21 at 2002 by QIAN HADDAD RT Amended: Links added.
[2021-05-11] VITALS (21 sets, daily range): BP systolic 84–150; BP diastolic 39–65
--- NOTE | 2021-05-11 03:27 | NUR ---
agricultural chemicals inspector. am care given. remaining same vent settings tolerated well. sat 97%, no acute distress noted. shelter monitor showing gt feeding tolerated well. turn and reposition q2h. will continue to monitor vitals
[2021-05-11 04:55] LABS: HEMATOCRIT 25 % (39-51); HEMOGLOBIN 8.3 g/dL (13.5-17.5); LYMPHOCYTES # (AUTO) 0.2 K/uL (0.8-4.8); LYMPHOCYTES % (AUTO) 2.5 % (20.0-44.0); MEAN CORPUSCULAR HGB CONC 34 g/dl (31.0-36.0); MEAN CORPUSCULAR VOLUME 99 fL (80-96); MONOCYTES # (AUTO) 0.4 K/uL (0.1-1.30); MONOCYTES % (AUTO) 5.4 % (2.0-12.0); NEUTROPHILS # (AUTO) 7.3 K/uL (1.8-8.9); NEUTROPHILS % (AUTO) 92.1 % (43.0-81.0); RED BLOOD CELL COUNT(AUTO) 2.48 MIL/uL (4.5-6.0)
[2021-05-11 05:03] LABS: CALCIUM, SERUM 7.1 mg/dL (8.5-10.1); CREATININE 0.7 mg/dL (0.6-1.3); POTASSIUM 3.8 mmol/L (3.5-5.1)
[2021-05-11] MEDS: HYDROCORTISONE SOD SUCCINATE 100 MG/2 ML VIAL IV SCH ×3 (05:34→20:57)
[2021-05-11] MEDS: METOCLOPRAMIDE HCL 10 MG TABLET GT SCH ×3 (05:34→20:58)
[2021-05-11] MEDS: FLUDROCORTISONE 0.1 MG TABLET GT SCH ×2 (05:35→17:11)
[2021-05-11 06:07] LABS: PLATELET COUNT (AUTO) 63 K/uL (150-450)
--- NOTE | 2021-05-11 07:30 | NUR ---
RN OPENING NOTE PT IS IN BED AND STABLE AT THIS TIME. PT HAS TRACH SHY 8 AND ON MECHANICAL VENT WITH PRESCRIBED SETTINGS TOLERATING WELL WITH NO SIGNS OF DISTRESS OR LABORED BREATHING SAT 96%. GTUBE IS IN PLACE WITH POSITIVE PLACEMENT IN FUSING WITH JEVITY 1.2 @50ML >20 residual. FC IS IN PLACE DRAINING URINE TO GRAVITY. IV ACCESS L UA ML AND R UA MIDLINE. BED IS LOCKED IN LOWEST POSITION ALL HOSPITAL SAFETY MEASURES ARE IN PLACE WILL CONTINUE TO MONITOR THIS SHIFT.
[2021-05-11] MEDS: AMIODARONE HCL 200 MG TABLET GT SCH ×3 (08:17→17:09)
[2021-05-11] MEDS: PANTOPRAZOLE 40 MG/PACK PACK NG SCH (08:17)
[2021-05-11] MEDS: LEVETIRACETAM SOL (5 ML) 100 MG/ML UDC GT SCH ×2 (08:17→20:57)
[2021-05-11] MEDS: BACLOFEN (10 MG) 10 MG TABLET GT SCH ×4 (08:17→20:58)
[2021-05-11] MEDS: DEXAMETHASONE SOD PHOSPHATE 10 MG/ML VIAL IV SCH (08:18)
--- NOTE | 2021-05-11 10:13 | NUR ---
GIORGI Note: GIORGI was notified to find pt's family relative number. DPOA is nephew ([phone]). GIORGI spoke with son Nephew who stated that he had already given consent on May 07 for the trach procedure. GIORGI followed up with AI Martins who reported that they have the consent from Jorge A the Nephew ([phone]) and the procedure has been done on May 09.
--- NOTE | 2021-05-11 10:13 | NUR ---
RN NOTE: GIORGI SPOKE WITH BURN OUT TENDER LACE THIS MORNING. ENDORSED TO GIORGI THAT TRACH CONSENT WAS GIVEN BY TELEPHONE BY HEMAL NGUYEN (TRICIA, MUNIRA) ON MAY 07, 2021 @ 1000 AND WAS COMPLETED USING A 2 RN VERIFICATION. TRACH WAS PERFORMED ON May @0800 WITHOUT COMPLICATIONS.
--- NOTE | 2021-05-11 10:20 | NUR ---
RN NOTE CARDARONE GIVEN THIS MORNING @0817 PER PREVIOUS TID SCHEDULED ORDER. WILL HOLD NEW SCHEDULED 0930 DOSE ORDER. NEW CARDARONE ORDER IS BID. WILL GIVE NEXT DOSE @ 1700.
[2021-05-11] MEDS: DIGOXIN INJ 0.5 MG/2 ML AMPUL IV SCH ×2 (13:15→17:09)
[2021-05-11] MEDS: PROSOURCE / PROSTAT (PYXIS) 30 ML UDC GT SCH (13:16)
[2021-05-11] MEDS: CHLORHEXIDINE GLUCONATE 4% 118 ML BOTTLE TP SCH (14:16)
[2021-05-11] MEDS ORDERED: AMIODARONE HCL 200 MG TABLET PO SCH (17:00)
[2021-05-11] MEDS: APIXABAN 5 MG TABLET PO SCH (17:10)
--- NOTE | 2021-05-11 17:20 | NUR ---
RN NOTE: TRANSFER TO [facility] PT STABLE AT THIS TIME AND TRANSFERRED TO [facility] ROOM 116 GAVE REPORT TO AI GUERRA. ALL BELONGINGS TRANSFERRED WITH PT.
[2021-05-11] MEDS: JEVITY 1.2 CAL 1,000 ML BOTTLE GT PRN (17:24)
--- NOTE | 2021-05-11 19:25 | NUR ---
RN OPENING NOTES RECEIVED CARE OF PATIENT WHILE PATIENT IN BED, OBTUNDED, ABLE TO OPEN AND MOVE EYES IN RESPONSE TO PAINFUL STIMULI. PATIENT ON TRACH, NIHARIKA 8, AC16, TV 450, FIO2 40%, PEEP 5, O2 SAT 97%, NO SOB NOTED. PATIENT ON TELE MONITOR SHOWING SR WITH HR OF 71, NO DISTRESS NOTED. PATIENT NOTED WITH GENERALIZED EDEMA +2. PATIENT NOTED WITH GTUBE IN PLACE WITH POSITIVE PLACEMENT INFUSING WITH JEVITY 1.2 @50ML, NO RESIDUAL NOTED. PATIENT NOTED WITH HUTCHISON DRAINING URINE TO GRAVITY. IV ACCESS L UA ML AND R UA MIDLINE, INTACT, FLUSHING WELL. ALL SAFETY MEASURES IMPLEMENTED, BED IS LOCKED IN LOWEST POSITION, SIDE RAILS UP X3. WILL CONTINUE TO MONITOR PATIENT.
[2021-05-12] VITALS: BP 115/67
[2021-05-12] MEDS: DIGOXIN INJ 0.5 MG/2 ML AMPUL IV SCH ×2 (00:31)
--- NOTE | 2021-05-12 00:41 | NUR ---
RN NOTES HELD 3RD AND FINAL DOSE OF DIGOXIN 0.25MG. PATIENT'S HEART RATE DROPS TO LOW 40S BPM. PATIENT SHOWS NO SIGNS OF DISTRESS. WILL CONTINUE TO MONITOR PATIENT.
[2021-05-12 04:00] VITALS: BP 119/64
[2021-05-12] MEDS: HYDROCORTISONE SOD SUCCINATE 100 MG/2 ML VIAL IV SCH ×2 (05:39→17:10)
[2021-05-12] MEDS: FLUDROCORTISONE 0.1 MG TABLET GT SCH ×2 (05:40→18:01)
[2021-05-12] MEDS: METOCLOPRAMIDE HCL 10 MG TABLET GT SCH ×3 (05:41→22:24)
--- NOTE | 2021-05-12 06:51 | NUR ---
RN CLOSING NOTES WILL ENDORSE PATIENT TO AM NURSE WHILE PATIENT IN BED, ASLEEP, WAKES UP TO TOUCH. PATIENT ON TRACH WITH ORDERED SETTINGS, TOLERATING WELL, O2 SAT 97%, NO SOB NOTED. NO SIGNIFICANT FINDINGS UPON ALL NURSING ASSESSMENTS. ALL SAFETY MEASURES IMPLEMENTED, BED IS LOCKED IN LOWEST POSITION, SIDE RAILS UP X3. WILL ENDORSE CARE OF PATIENT TO AM NURSE FOR MUKUL.
[2021-05-12 06:56] LABS: HEMATOCRIT 30 % (39-51); HEMOGLOBIN 9.9 g/dL (13.5-17.5); LYMPHOCYTES # (AUTO) 0.5 K/uL (0.8-4.8); LYMPHOCYTES % (AUTO) 5.4 % (20.0-44.0); MEAN CORPUSCULAR HGB CONC 33 g/dl (31.0-36.0); MEAN CORPUSCULAR VOLUME 100 fL (80-96); MONOCYTES # (AUTO) 0.5 K/uL (0.1-1.30); MONOCYTES % (AUTO) 5.3 % (2.0-12.0); NEUTROPHILS # (AUTO) 7.6 K/uL (1.8-8.9); NEUTROPHILS % (AUTO) 89.3 % (43.0-81.0); PLATELET COUNT (AUTO) 81 K/uL (150-450); RED BLOOD CELL COUNT(AUTO) 2.98 MIL/uL (4.5-6.0); WHITE BLOOD COUNT (AUTO) 8.5 K/uL (4.3-11.0)
[2021-05-12 07:42] LABS: CREATININE 0.7 mg/dL (0.6-1.3); POTASSIUM 3.9 mmol/L (3.5-5.1)
[2021-05-12 07:55] LABS: CALCIUM, SERUM 7.7 mg/dL (8.5-10.1)
[2021-05-12 08:00] VITALS: BP 111/52
[2021-05-12] MEDS: DEXAMETHASONE SOD PHOSPHATE 10 MG/ML VIAL IV SCH (08:32)
[2021-05-12] MEDS: AMIODARONE HCL 200 MG TABLET GT SCH (08:33)
[2021-05-12] MEDS: BACLOFEN (10 MG) 10 MG TABLET GT SCH ×4 (08:33→22:25)
[2021-05-12] MEDS: PANTOPRAZOLE 40 MG/PACK PACK NG SCH (08:33)
[2021-05-12] MEDS: LEVETIRACETAM SOL (5 ML) 100 MG/ML UDC GT SCH ×2 (08:34→22:25)
[2021-05-12] MEDS: APIXABAN 5 MG TABLET PO SCH ×2 (08:35→17:11)
[2021-05-12] MEDS: PROSOURCE / PROSTAT (PYXIS) 30 ML UDC GT SCH (08:36)
[2021-05-12 12:00] VITALS: BP 114/60
[2021-05-12 16:00] VITALS: BP 113/60
[2021-05-12] MEDS: CHLORHEXIDINE GLUCONATE 4% 118 ML BOTTLE TP SCH (17:12)
[2021-05-12 20:00] VITALS: BP 120/61
--- NOTE | 2021-05-12 20:00 | NUR ---
MASTER SCHEDULER NOTES RECEIVED PTS IN BED WITHH EYE CLOSE ,OBTUNDED . ON VENTILATOR DEPENDENT , NON VERBAL TOLERATING AC SETTINGS ORDERED NO SOB NO DISTRESS NOTED SR 60 ON THE MONITOR, SATING 100% ,NO SOB NO DISTRESS NOTED , LEFT UA MIDLINE AND RIGHT UPPER ARM MID LINE INTACT AND PATENT . HOB ELEVATED AT ALL TIMES , V/S STABLE AFEBRILE ,ALL DUE MEDS GIVEN ORDERED .GT FEEDING JEVITY 1.2 50CC/HR TOLERATING WELL NO RESIDUAL NOTED , TURNED AND REPOSITION , SUCTION SECRETION DONE Q 2 HRS AND PRN.WILL CONTINUE TO MONITOR PTS.
[2021-05-12] MEDS: JEVITY 1.2 CAL 1,000 ML BOTTLE GT PRN (23:04)
[2021-05-13] VITALS: BP 130/70
[2021-05-13 04:00] VITALS: BP 120/55
[2021-05-13] MEDS: FLUDROCORTISONE 0.1 MG TABLET GT SCH ×2 (05:25→17:33)
[2021-05-13] MEDS: METOCLOPRAMIDE HCL 10 MG TABLET GT SCH ×2 (05:25→12:24)
--- NOTE | 2021-05-13 06:38 | NUR ---
PLASTER DIE MAKER NOTES PTS REMAINS ON VENT SETTINGS OPRDERED WELL TOLERATED BY PTS NO SOB NO DISTRESS NOTED REMASINS ON GT FEEDING JEVITY 1.2 AT 50CC/HR TOLERATED WELL. NO RESIDUAL NOTED .WILL ENDORSE TO RN DAY FOR CONTINUITY OF CARE.
[2021-05-13] MEDS ORDERED: POLYETHYLENE GLYCOL 3350 17 GM POWD.PACK GT PRN (07:24)
[2021-05-13 07:33] LABS: BASOPHILS % (AUTO) 0.1 % (0.0-2.0); EOSINOPHILS % (AUTO) 0.1 % (0.0-6.0); HEMATOCRIT 27 % (39-51); LYMPHOCYTES # (AUTO) 0.3 K/uL (0.8-4.8); LYMPHOCYTES % (AUTO) 4.2 % (20.0-44.0); MEAN CORPUSCULAR HGB CONC 34 g/dl (31.0-36.0); MEAN CORPUSCULAR VOLUME 101 fL (80-96); MONOCYTES # (AUTO) 0.5 K/uL (0.1-1.30); MONOCYTES % (AUTO) 7.2 % (2.0-12.0); NEUTROPHILS # (AUTO) 5.6 K/uL (1.8-8.9); NEUTROPHILS % (AUTO) 88.4 % (43.0-81.0); PLATELET COUNT (AUTO) 63 K/uL (150-450); RED BLOOD CELL COUNT(AUTO) 2.66 MIL/uL (4.5-6.0); WHITE BLOOD COUNT (AUTO) 6.4 K/uL (4.3-11.0)
[2021-05-13 07:46] LABS: CALCIUM, SERUM 7.3 mg/dL (8.5-10.1); CREATININE 0.6 mg/dL (0.6-1.3)
--- NOTE | 2021-05-13 07:47 | NUR ---
CANINE DEPUTY OPENING NOTE RECEIVED PATIENT IN BED, EYES CLOSED, OBTUNDED. ON VENT TOLERATING VENT SETTINGS WELL AT THIS TIME. BREATHING EVEN AND UNLABORED. HOB ELEVATED SEMI-NELSON. ON TELE MONITORING, SINUS RHYTHM. FLORIDALMA MIDLINE AND MUSTAPHA PICC PRESENT AND INTACT SL. G-TUBE IN PLACE RUNNING JEVITY 1.2 @50 MLS/HR. NOTED WITH INDWELLING HUTCHISON CATHETER, DRAINING YELLOW URINE, NO HEMATURIA. SAFETY PRECAUTIONS IN PLACE; BED IN LOW POSITION AND LOCKED, RAILS UP X2, CALL LIGHT WITHIN REACH. WILL CONTINUE TO MONITOR PATIENT.
[2021-05-13 08:00] VITALS: BP 136/61
[2021-05-13] MEDS: HYDROCORTISONE SOD SUCCINATE 100 MG/2 ML VIAL IV SCH ×2 (08:39→17:28)
[2021-05-13] MEDS: BACLOFEN (10 MG) 10 MG TABLET GT SCH ×3 (08:39→17:28)
[2021-05-13] MEDS: PANTOPRAZOLE 40 MG/PACK PACK NG SCH (08:39)
[2021-05-13] MEDS: DEXAMETHASONE SOD PHOSPHATE 10 MG/ML VIAL IV SCH (08:39)
[2021-05-13] MEDS: PROSOURCE / PROSTAT (PYXIS) 30 ML UDC GT SCH (08:40)
[2021-05-13] MEDS: APIXABAN 5 MG TABLET GT SCH ×2 (08:43→16:40)
[2021-05-13] MEDS ORDERED: LEVETIRACETAM SOL (5 ML) 100 MG/ML UDC GT SCH ×2 (09:00→22:00)
[2021-05-13 12:29] VITALS: BP 126/40
[2021-05-13] MEDS ORDERED: DIGOXIN 0.25 MG TABLET GT SCH (13:00)
[2021-05-13] MEDS ORDERED: Digoxin GT (13:01)
[2021-05-13] MEDS ORDERED: Prosource GT (13:01)
[2021-05-13] MEDS ORDERED: LEVE100S GT ×2 (13:01)
[2021-05-13] MEDS ORDERED: APIX5TAB GT (13:01)
[2021-05-13] MEDS ORDERED: LACT-209 GT (13:01)
[2021-05-13] MEDS ORDERED: ACET650S26 NG (13:01)
[2021-05-13] MEDS ORDERED: ACET-2605 XX (13:01)
[2021-05-13] MEDS ORDERED: FLUD0.1T3 GT (13:01)
[2021-05-13] MEDS ORDERED: ALBU18HF2 IH (13:01)
[2021-05-13] MEDS ORDERED: PANT40SU2 NG (13:01)
[2021-05-13] MEDS ORDERED: CHLO118L5 TP (13:01)
[2021-05-13] MEDS ORDERED: ACET325T53 PO (13:01)
[2021-05-13] MEDS: CHLORHEXIDINE GLUCONATE 4% 118 ML BOTTLE TP SCH (15:00)
[2021-05-13 17:07] VITALS: BP 141/45
--- NOTE | 2021-05-13 18:13 | NUR ---
HVAC INSTRUCTORCLINICAL REVIEW NURSE NOTES PATIENT DISCHARGED BACK TO SNF. PATIENT ON VENT, OBTUNDED; NO RESPIRATORY DISTRESS AT THIS TIME. ALL DISCHARGE DOCUMENTATIONS READY AND SIGNED BY 2 RNs. HUTCHISON CATH WILL REMAIN IN PLACE. IV LINES REMOVED. G-TUBE IN PLACE; LOCKED. PICTURES TAKEN AND FILED. FACILITY CALLED AND REPORT GIVEN TO SOREN. PATIENT PICKED UP BY 2 superintendent system operation AND RT VIA GURNEY. LEFT THE HOSPITAL VIA AMBULANCE AT 1820.
== END 2021-05-13 18:23 | DRG 4 ==
LOC: ER 04:56 → TRANSITION 07:09 → TELE1 13:58 → ICU 04-15 00:39 → TELE-TD 05-11 18:08 → TELE1 05-12 09:59
PROVIDERS: ADMIT Internal Medicine; ATTEND Nurse Practitioner Acute Care
PROC: 5A1955Z Respiratory Ventilation, Greater than 96 Consecutive Hours (ICD-10-PCS; principal; 2021-04-14)
PROC: 0BH18EZ Insertion of Endotracheal Airway into Trachea, Via Natural or Artificial Opening Endoscopic (ICD-10-PCS; 2021-04-15)
PROC: 02HV33Z Insertion of Infusion Device into Superior Vena Cava, Percutaneous Approach (ICD-10-PCS; 2021-04-15)
PROC: B548ZZA Ultrasonography of Superior Vena Cava, Guidance (ICD-10-PCS; 2021-04-15)
PROC: 5A2204Z Restoration of Cardiac Rhythm, Single (ICD-10-PCS; 2021-04-15)
PROC: 05HF33Z Insertion of Infusion Device into Left Cephalic Vein, Percutaneous Approach (ICD-10-PCS; 2021-04-17)
PROC: 05HB33Z Insertion of Infusion Device into Right Basilic Vein, Percutaneous Approach (ICD-10-PCS; 2021-04-21)
PROC: 0W9B3ZZ Drainage of Left Pleural Cavity, Percutaneous Approach (ICD-10-PCS; 2021-04-23)
PROC: 05HD33Z Insertion of Infusion Device into Right Cephalic Vein, Percutaneous Approach (ICD-10-PCS; 2021-04-29)
PROC: 0B113F4 Bypass Trachea to Cutaneous with Tracheostomy Device, Percutaneous Approach (ICD-10-PCS; 2021-05-09)
PROC: 0BJ08ZZ Inspection of Tracheobronchial Tree, Via Natural or Artificial Opening Endoscopic (ICD-10-PCS; 2021-05-09)
DX: A41.89 Other specified sepsis (principal); U07.1 COVID-19; J18.9 Pneumonia, unspecified organism; N17.0 Acute kidney failure with tubular necrosis; J12.82 Pneumonia due to coronavirus disease 2019; J96.01 Acute respiratory failure with hypoxia; R65.21 Severe sepsis with septic shock; I21.A1 Myocardial infarction type 2; R53.2 Functional quadriplegia; G92.8 Other toxic encephalopathy; I46.9 Cardiac arrest, cause unspecified; J81.1 Chronic pulmonary edema; J90 Pleural effusion, not elsewhere classified; E87.2 Acidosis; D68.59 Other primary thrombophilia; B37.49 Other urogenital candidiasis; Z99.11 Dependence on respirator [ventilator] status; S14.109S Unspecified injury at unspecified level of cervical spinal cord, sequela; Z93.1 Gastrostomy status; Z79.899 Other long term (current) drug therapy; R13.10 Dysphagia, unspecified; N31.9 Neuromuscular dysfunction of bladder, unspecified; M89.9 Disorder of bone, unspecified; E78.5 Hyperlipidemia, unspecified; Z74.09 Other reduced mobility; I25.10 Atherosclerotic heart disease of native coronary artery without angina pectoris; G89.29 Other chronic pain; D64.9 Anemia, unspecified; D69.6 Thrombocytopenia, unspecified; E87.6 Hypokalemia; G40.909 Epilepsy, unspecified, not intractable, without status epilepticus; I10 Essential (primary) hypertension; Z87.440 Personal history of urinary (tract) infections; I48.91 Unspecified atrial fibrillation; Z93.0 Tracheostomy status; M62.40 Contracture of muscle, unspecified site; X58.XXXA Exposure to other specified factors, initial encounter; Y92.89 Other specified places as the place of occurrence of the external cause; S01.80XA Unspecified open wound of other part of head, initial encounter
CPT/HCPCS: 31623; 31720; 36410; 36415; 36600; 70450-TC; 71045-TC; 74018; 80048-TC; 80053-TC; 80061-TC; 80076-TC; 80162-TC; 80202-TC; 81001; 82533; 82728-TC; 82803-TC; 83605-TC; 83615-TC; 83735-TC; 83880; 84100-TC; 84439-TC; 84443-TC; 84480; 84484-TC; 85025-TC; 85378-TC; 85610-TC; 85730-TC; 86140-TC; 87040-TC; 87070-TC; 87081-TC; 87086-TC; 93307-TC; 93971-TC; 94002-TC; 94003-TC; 94760-TC; 94762-TC; 94799-TC; 95819-TC; A4216; A4217; A6253; A6403; A9563; C1750; C9803; G0378; J0171; J0282; J0692; J1100; J1160; J1200; J1650; J1720; J1953; J2060; J2185; J2248; J2250; J2370; J2543; J2920; J3010; J3262; J3370; J3480; J3490; J7030; J7050; J7060; J8597; U0003

== ENCOUNTER 2021-05-13 18:51 | Emergency (ER) | payer MEDICARE ==
[~2021-05-13] VITALS: Ht 180.3 cm; Wt 82.6 kg
[~2021-05-13 18:51] MED LIST changes: +ACET-2605 XX; +ACET325T53 PO; +ACET650S26 NG; +ALBU18HF2 IH; +APIX5TAB GT; +CHLO118L5 TP; +Digoxin GT; +FLUD0.1T3 GT; +LACT-209 GT; +LEVE100S GT; -LEVO750T46 GT; +PANT40SU2 NG; +Prosource GT
--- NOTE | 2021-05-13 19:00 | NUR ---
Patient is a 81-year-old male who was being discharged from the [facility]. Private ambulance picked him up to take him to the long term. They noted that his blood pressure went down and they felt he was not oxygenating on the ventilator so they brought him into the emergency room. Patient is obtunded with trach connected to ventilator with settings as prescribed. Saturation at 100%. Patient attached to monitor and pulse ox. Will cont to monitor and carry out MD orders.
--- NOTE | 2021-05-13 21:35 | NUR ---
RT AT BEDSIDE FOR ABG
--- NOTE | 2021-05-13 22:30 | NUR ---
[facility] NO TIME SLOT AVAILABLE
--- NOTE | 2021-05-13 23:00 | NUR ---
AM [facility], CALL AFTER 7AM
--- NOTE | 2021-05-14 02:49 | NUR ---
PER ASHLEY DENISE ADMISSIONS COUNSELOR, [facility] FOR VENT PT NOT AVAILABLE. WAS TOLD TO CALL AGAIN AFTER 0800
--- NOTE | 2021-05-14 07:30 | NUR ---
RECEIVED PATIENT IN [facility] VENT WITH SETTINGS OF A/C, 100% O2, PEEP 5, RATE 16 AND TIDAL VOLUME OF 450. HOOKED TO MONITOR. STABLE VITAL SIGNS. WILL CONTINUE TO MONITOR. Addendum: 05/14/21 at 0949 by GARDENIA RECEIVED PATIENT IN [facility] VENT WITH SETTINGS OF A/C, 40% O2, PEEP 5, RATE 16 AND TIDAL VOLUME OF 450. HOOKED TO MONITOR. STABLE VITAL SIGNS. WILL CONTINUE TO MONITOR.
--- NOTE | 2021-05-14 09:48 | NUR ---
REPORT GIVEN TO SHWETA CLOUD OF [facility]
--- NOTE | 2021-05-14 09:52 | NUR ---
[facility] TRANSPORT ETA 1400 PER [place].
[2021-05-14 14:08] VITALS: BP 130/67
--- NOTE | 2021-05-14 14:13 | NUR ---
PATIENT PICKED UP BY [facility] [address] RUN NUMBER [id number], TO BE TRANSFERRED TO [facility] ([phone]). PATIENT IN STABLE CONDITION. ALL BELONGINGS BROUGHT WITH THE PATIENT.
[2021-05-14 20:46] LABS: ABG BASE EXCESS 4.2 mmol/L; ABG PCO2 35.7 mmHg (35.0-45.0); ABG PH 7.504 (7.350-7.450); ABG PO2 122.8 mmHg (75.0-100.0); COHb 0.3 % (0.5-1.5); MetHb 0.2 % (0.0-1.5); SITE, ABG Right Brachial; VENT MODE, BG AC 16 450 50% +5
== END 2021-05-14 14:35 ==
LOC: ER 18:57
DX: J96.10 Chronic respiratory failure, unspecified whether with hypoxia or hypercapnia (principal); G82.50 Quadriplegia, unspecified; Z93.1 Gastrostomy status; Z79.899 Other long term (current) drug therapy
CPT/HCPCS: 31720; 36600; 82803-TC; 94003-TC

== ENCOUNTER 2021-05-21 09:18 | Inpatient (IN) | payer MEDICARE ==
[2021-05-21] VITALS (35 sets, daily range): BP systolic 85–115; BP diastolic 38–96
[~2021-05-21] VITALS: Ht 170.2 cm; Wt 77.1 kg
--- NOTE | 2021-05-21 09:20 | NUR ---
COVID SWAB DONE AND SENT TO LAB Addendum: 05/21/21 at 1453 by ANNA REPORT GIVEN TO AI HOLDER MUKUL
--- NOTE | 2021-05-21 09:25 | NUR ---
RT NOTE; PT. 81 Y OLD MALE REC. IN ER BED 5 VIA AMBU BAGGING FROM PARAMEDICS, PT. TRACH SHILEY # [address] ON VENT WITH NOTED VENT SETTINGS (AC/VC RR16, [id number], FIO2 100%, PEEP+5) TITRATION WILL FOLLOW FOR FIO2 PER PROTOCOL, ALARMS ARE SET AND FUNCTIONAL, AMBU BAG REMAIN AT THE BEDSIDE. PT. STABILIZED, CONTINUE TO MONITOR. B/S BILATERALLY RALES SUX'D FOR MINIMAL AMT. WHITE THICK SECRETIONS, EQUAL CHEST RISE NOTED, HIM DIRECTOR DONE, VENT PLUGGED INTO RED OUT LET. Addendum: 05/21/21 at 1641 by NAVEED GONZALEZ RT Amended: Links added.
--- NOTE | 2021-05-21 09:26 | NUR ---
To ERb ed 5, JEFFREY ZIEGLER From [facility] "SOB/Respiratory distress was covid+. Initial o2 sat 88% on HFNR now 100%, connected to vent setting 450V, 60%, resp 16, peep of 5, non verbal, connected to monitor, awaiting md coyle
[2021-05-21] MEDS ORDERED: DIGO250T GT (09:46)
[2021-05-21] MEDS ORDERED: LACT-209 GT (09:46)
[2021-05-21] MEDS ORDERED: MULT-447 GT (09:46)
[2021-05-21] MEDS ORDERED: ALBU8.5H8 IH ×2 (09:46)
[2021-05-21] MEDS ORDERED: TIZA4TAB5 GT (09:46)
[2021-05-21] MEDS ORDERED: LEVE100S GT ×2 (09:46)
[2021-05-21] MEDS ORDERED: TEMA30CA GT (09:46)
[2021-05-21] MEDS ORDERED: APIX5TAB GT (09:46)
[2021-05-21] MEDS ORDERED: BISA10SU11 RC (09:46)
[2021-05-21] MEDS ORDERED: CEFT1VIA15 IV (09:46)
[2021-05-21] MEDS ORDERED: IPRA12.9 IH ×2 (09:46)
[2021-05-21] MEDS ORDERED: BACL20TA GT (09:46)
[2021-05-21] MEDS ORDERED: ZINC50TA69 GT (09:46)
[2021-05-21] MEDS ORDERED: NA P133E RC (09:46)
[2021-05-21] MEDS ORDERED: CRAN3875 GT (09:46)
[2021-05-21] MEDS ORDERED: MAGN400O6 GT (09:46)
[2021-05-21] MEDS ORDERED: FLUD0.1T GT (09:46)
[2021-05-21] MEDS ORDERED: PANT40SU2 GT (09:46)
[2021-05-21] MEDS ORDERED: AMIN30LI2 GT (09:46)
[2021-05-21] MEDS ORDERED: METO-295 GT (09:46)
[2021-05-21] MEDS ORDERED: ACET-868 GT ×2 (09:46)
[2021-05-21] MEDS ORDERED: TYL2T GT (09:46)
[2021-05-21] MEDS ORDERED: CHLO473M5 MM (09:46)
[2021-05-21] MEDS ORDERED: POLY17PO4 GT (09:46)
[2021-05-21] MEDS ORDERED: ASCO-352 GT (09:46)
--- NOTE | 2021-05-21 10:04 | NUR ---
URINE COLLECTED AND SENT TO LAB
[2021-05-21 11:08] LABS: BASOPHILS % (AUTO) 0.1 % (0.0-2.0); EOSINOPHILS % (AUTO) 0.5 % (0.0-6.0); HEMATOCRIT 22 % (39-51); HEMOGLOBIN 7.3 g/dL (13.5-17.5); LYMPHOCYTES # (AUTO) 0.5 K/uL (0.8-4.8); LYMPHOCYTES % (AUTO) 6.9 % (20.0-44.0); MEAN CORPUSCULAR HGB CONC 34 g/dl (31.0-36.0); MEAN CORPUSCULAR VOLUME 98 fL (80-96); MONOCYTES # (AUTO) 0.1 K/uL (0.1-1.30); MONOCYTES % (AUTO) 1.5 % (2.0-12.0); RED BLOOD CELL COUNT(AUTO) 2.23 MIL/uL (4.5-6.0); WHITE BLOOD COUNT (AUTO) 6.5 K/uL (4.3-11.0)
[2021-05-21 11:13] LABS: CALCIUM, SERUM 7.4 mg/dL (8.5-10.1); CARBON DIOXIDE 33 mmol/L (21-32); CHLORIDE 97 mmol/L (98-107); CREATININE 0.5 mg/dL (0.6-1.3); GLUCOSE 94 mg/dL (74-106); POTASSIUM 3.6 mmol/L (3.5-5.1); SODIUM SERUM 134 mmol/L (136-145); UREA NITROGEN, BLOOD 32 mg/dL (7-18)
[2021-05-21 11:18] LABS: PLATELET COUNT (AUTO) 46 K/uL (150-450)
[2021-05-21 11:25] LABS: ALANINE AMINOTRANSFERASE 48 U/L (12-78); ALBUMIN 1.7 g/dL (3.4-5.0); ALKALINE PHOSPHATASE 59 U/L (46-116); ASPARTATE AMINOTRANSFERASE 19 U/L (15-37); BILIRUBIN,DIRECT 0.2 mg/dL (0.0-0.2); BILIRUBIN,TOTAL 0.4 mg/dL (0.2-1.0); TOTAL PROTEIN, SERUM 5.7 g/dL (6.4-8.2)
[2021-05-21] MEDS ORDERED: PIPERACILLIN /TAZOBACTAM 3.375 G in IV D5W 50 ML IV ONE (11:30)
[2021-05-21] MEDS ORDERED: DEXAMETHASONE SOD PHOSPHATE 6 MG in IV D5W 50 ML IV SCH (11:30)
[2021-05-21] MEDS ORDERED: VANCOMYCIN 1 GM in IV D5W 250 ML IV ONE (11:30)
[2021-05-21] MEDS ORDERED: DEXAMETHASONE SOD PHOSPHATE 10 MG/ML VIAL ONE (11:51)
[2021-05-21] MEDS ORDERED: DEXAMETHASONE SOD PHOSPHATE 6 MG in IV D5W 50 ML IV ONE (12:00)
--- NOTE | 2021-05-21 13:30 | NUR ---
NAZARIO [facility] [phone]
--- NOTE | 2021-05-21 13:43 | NUR ---
GOT BED 259
--- NOTE | 2021-05-21 13:51 | NUR ---
ATTEMPTED TO GIVE REPORT TO RN, WILL CALL BACK
--- NOTE | 2021-05-21 14:03 | NUR ---
ATTEMPTED TO GIVE REPORT BUT RN IS IN ISOLATION ROOM WITH ANOTHER PATIENT
--- NOTE | 2021-05-21 14:21 | NUR ---
REPORT GIVEN TO RN FOR MUKUL
[2021-05-21] MEDS ORDERED: MAGNESIUM HYDROXIDE 30 ML UDC PO PRN (14:30)
[2021-05-21] MEDS ORDERED: MAG HYDROX/AL HYDROX/SIMETH 30 ML UDC PO PRN (14:30)
[2021-05-21] MEDS ORDERED: Z GUARD REMEDY 4 OZ OINT TP PRN (14:30)
[2021-05-21] MEDS ORDERED: ZOLPIDEM TARTRATE 5 MG TABLET PO PRN (14:30)
[2021-05-21] MEDS ORDERED: ONDANSETRON HCL/PF 4 MG/2 ML VIAL IVP PRN (14:30)
[2021-05-21] MEDS ORDERED: HYDROCODONE/APAP 5/325MG TABLET PO PRN (14:30)
[2021-05-21] MEDS ORDERED: ACETAMINOPHEN 325 MG TABLET PO PRN (14:30)
[2021-05-21] MEDS ORDERED: DEXTROSE 50%-WATER 50 ML DISP.SYRIN IV PRN (14:30)
--- NOTE | 2021-05-21 14:54 | NUR ---
TRANSFERRED TO ROOM 262 IN STABLE CONDITION
--- NOTE | 2021-05-21 14:55 | NUR ---
RT NOTE: PT. TRANSFERRED TO ICU VENT SETTINGS REMAIN SAME FIO2 TITRATED DOWN TO 40% PRIOR TO ICU ADMISSION, PT REMAIN STABLE AND AIR WAY PATENT, REPORT WILL BE GIVEN TO ICU RT. Addendum: 05/21/21 at 1641 by NAVEED GONZALEZ RT Amended: Links added.
--- NOTE | 2021-05-21 15:30 | NUR ---
RN NOTES PATIENT GET ADMITTED FROM ER ON DX OF SEPSIS. PATIENT ON TRACHEA/VENT DEPENDENT, NO ACUTE RESPIRATORY DISTRESS O2-BEDSIDE IS 99%, T-95.2F RECTALY , PATIENT ON KIRAN HUGGER, HAS GENERALIZED EDEMA OOZING FROM BOTH ARMS. HUTCHISON DRAINING VIA GRAVITY. PICC LINE ON LEFT UA INTACT. ASIN ASSESSMEN DONE PICTURE TAKEN. NEW ORDERS TAKEN AND CARRIED OUT. WILL FOLLOW UP.
[2021-05-21] MEDS: IV NS 0.9% 1,000 ML IV PRN (16:56)
[2021-05-21] MEDS: BLOOD SUGAR DIAGNOSTIC 1 EACH STRIP IN SCH ×2 (16:57→23:02)
--- NOTE | 2021-05-21 18:23 | NUR ---
RT PATIENT REMAINS TRACHED ON [facility] VENT WITH ORDERED SETTINGS JAZMYN WELL. VENT ALARMS CHECKED + AUDIBLE. AIR PATENT AND SUCTIONED. AMBU BAG AT HOB. Addendum: 05/21/21 at 1824 by RAMSEY NORIEGA RT Amended: Links added.
--- NOTE | 2021-05-21 18:30 | NUR ---
RN NOTES SUCTION, DUE MEDICATION ADMINISTERED, BS-86 MG/DL, GT INTACT, FLASHED FREELY WITH WATER, , INFUSING NS @75ML/HR ON LEFT PICC LINE. ENDORSED ONCOMING NURSE FOLLOW PLAN OF CARE.
[2021-05-21] MEDS: PIPERACILLIN /TAZOBACTAM 3.375 G in IV D5W 50 ML IV SCH (21:02)
[2021-05-21] MEDS: VANCOMYCIN 1 GM in IV D5W 250 ML IV SCH (23:02)
[2021-05-22] VITALS (41 sets, daily range): BP systolic 86–135; BP diastolic 47–75
[2021-05-22 05:12] LABS: HEMATOCRIT 21 % (39-51); LYMPHOCYTES # (AUTO) 0.2 K/uL (0.8-4.8); LYMPHOCYTES % (AUTO) 3.7 % (20.0-44.0); MEAN CORPUSCULAR HGB CONC 34 g/dl (31.0-36.0); MEAN CORPUSCULAR VOLUME 97 fL (80-96); MONOCYTES # (AUTO) 0.1 K/uL (0.1-1.30); NEUTROPHILS # (AUTO) 5.2 K/uL (1.8-8.9); NEUTROPHILS % (AUTO) 95.3 % (43.0-81.0); RED BLOOD CELL COUNT(AUTO) 2.12 MIL/uL (4.5-6.0); WHITE BLOOD COUNT (AUTO) 5.4 K/uL (4.3-11.0)
[2021-05-22] MEDS: PIPERACILLIN /TAZOBACTAM 3.375 G in IV D5W 50 ML IV SCH ×3 (05:36→23:19)
[2021-05-22] MEDS: BLOOD SUGAR DIAGNOSTIC 1 EACH STRIP IN SCH ×4 (05:36→23:23)
[2021-05-22 05:37] LABS: THYROID STIMULATING HORMONE 0.681 uIU/mL (0.358-3.74)
[2021-05-22 06:28] LABS: PLATELET COUNT (AUTO) 48 K/uL (150-450)
--- NOTE | 2021-05-22 07:05 | NUR ---
RN NOTES RECEIVED PT ON BED, TRACH/VENT INDEPENDENT, EYES ARE OPEN, PT DOSE NOT FOLLOW COMMAND, ON TELE SR , GT CLAMPED AT THIS TIME, L UPPER ARM PICC LINE SITE CLEAN,DRY AND INTACT, NS AT 75CC/HR RUNNING , SR UP x3, CALL LIGHT WITHIN EASY REACH, BED LOCKED AND IN LOWEST POSITION, CONTINUE TO MONITOR.
--- NOTE | 2021-05-22 07:55 | NUR ---
WOUND CARE CONSULT: PT PRESENTS WITH SKIN TEAR TO RT ARM, GENERALIZED WEEPING EDEMA, PROFOUND SCROTAL SWELLING, DISCOLORATIONS AND AREAS OF SCARRING, SACRAL DEEP TISSUE INJURY IN EVOLUTION, DRY ESCHARS, SCABS TO UPPER LIP AND BILATERAL EARS, ALL PRESENT ON ADMISSION. RECOMMENDATIONS MADE FOR SKIN PROTECTION AND WOUND CARE. DISCUSSED WITH NURSING STAFF. FIRST STEP LOW AIRLOSS MATTRESS IS ON ORDER. PT IS IMMOBILE WITH HISTORY OF QUADRIPLEGIA. MD IN AGREEMENT WITH PLAN OF CARE. Addendum: 05/22/21 at 0758 by JUAN SALDIVAR WNDNU Amended: Links added.
[2021-05-22] MEDS: IV NS 0.9% 1,000 ML IV PRN (08:17)
[2021-05-22] MEDS: PANTOPRAZOLE 40 MG TABLET.DR PO SCH (08:32)
[2021-05-22] MEDS: DEXAMETHASONE SOD PHOSPHATE 10 MG/ML VIAL IV SCH (08:32)
[2021-05-22 10:05] LABS: CALCIUM, SERUM 7.1 mg/dL (8.5-10.1); CREATININE 0.6 mg/dL (0.6-1.3); MAGNESIUM 1.8 mg/dL (1.8-2.4); PHOSPHORUS 3.6 mg/dL (2.5-4.9); POTASSIUM 3.6 mmol/L (3.5-5.1)
[2021-05-22] MEDS: VANCOMYCIN 1 GM in IV D5W 250 ML IV SCH (12:00)
--- NOTE | 2021-05-22 13:39 | NUR ---
RN NOTES NO VANCO TROUGH LEVEL FROM LAB YET , CONTINUE TO MONITOR.
[2021-05-22] MEDS ORDERED: JEVITY 1.2 CAL 1,000 ML BOTTLE GT PRN (14:00)
--- NOTE | 2021-05-22 15:36 | NUR ---
RN NOTES NO VANCO TROUGH LEVEL FROM LAB YET, PHARMACY NOTIFIED.
--- NOTE | 2021-05-22 17:39 | NUR ---
RN NOTES NO VANCO TROUGH LEVEL YET FROM LAB DUE TO MACHINE MECHANICAL PROBLEM , 12 NOON VANCO NOT GIVEN , PHARMACY AWARE.
[2021-05-22] MEDS: INSULIN REGULAR, HUMAN 100 UNIT/ML 3 ML VIAL SQ PRN ×2 (17:45→23:29)
--- NOTE | 2021-05-22 18:45 | NUR ---
RN NOTES TRACH CARE DONE, NO SIGNIFICANT CHANGES NOTED ON THIS SHIFT, TOLERAING VENT SETTING WELL, O2 SAT WNL, HUTCHISON DRAINING TO GRAVITY , TOLERAING TF WELL, NO RESIDUAL NOTED , WILL ENDORSE TO LEASING DIRECTOR NURSE FOR CONTINUITY OF CARE.
--- NOTE | 2021-05-22 19:15 | NUR ---
RN NOTES O2 SAT IN 80'S , TRACH SUCTIONING DONE , MODERATED AMOUNT OF THICK SECRETION NOTED , O2 SAT UP TO 96% AFTER SUCTIONING , REPORT GIVEN TO SOFÍA CLOUD FOR CONTINUITY OF CARE.
--- NOTE | 2021-05-22 19:20 | NUR ---
RN NOTES REPORT GIVEN TO BLANCHE CLOUD FOR CONTINUITY OF CARE
--- NOTE | 2021-05-22 19:30 | NUR ---
PURCHASING SUPERVISOR NOTE PT RECEIVED FROM ICU VIA BED. RT AT BED SIDE WITH ICU CHARGE NURSE KATARINA. PT ON VENT/TRACH TOLERATING SETTINGS WELL. EYES OPEN NON VERBAL. NO DISTRESS OR DISCOMFORT NOTED. NO S/S OF PAIN NOTED. INCONTINENCE CARE GIVEN WITH BED BATH. SACRAL WOUND CARE GIVEN. AND CHANGED THE DRESSING. Z GUARD APPLIED. BILATERAL UPPER AND LOWER EXT'S WITH EDEMA AND WEEPING, KEPT THEM ELEVATED. GTF JEVITTY INFUSING AT 45 ML/HR 0 ML RESIDUAL NOTED. FLORIDALMA WITH PICC LINE INFUSING NS AT 75 ML/HR. NO S/S OF INFILTRATION NOTED. F/C INTACT AND PATENT DRAINING YELLOWISH COLOR URINE. SIDE RAILS UP X 3 AND CALL LIGHT WITHIN REACH. VSS. REPOSITION TO RT SIDE AND WILL DO Q2H.
[2021-05-22] MEDS ORDERED: VANCOMYCIN 1 GM in IV D5W 250 ML IV SCH (21:00)
[2021-05-23] VITALS (11 sets, daily range): BP systolic 71–116; BP diastolic 33–62
[2021-05-23] MEDS: IV NS 0.9% 1,000 ML IV PRN (02:03)
[2021-05-23] MEDS: PIPERACILLIN /TAZOBACTAM 3.375 G in IV D5W 50 ML IV SCH ×3 (04:16→21:35)
[2021-05-23] MEDS: BLOOD SUGAR DIAGNOSTIC 1 EACH STRIP IN SCH ×3 (05:37→18:15)
[2021-05-23] MEDS: INSULIN REGULAR, HUMAN 100 UNIT/ML 3 ML VIAL SQ PRN ×2 (05:38→18:30)
--- NOTE | 2021-05-23 07:20 | NUR ---
CULINARY WORKER NOT PATIENT IN BED WITH TRACH TO VENT SETTING. RT AT BED SIDE TRACH CARE DONE , VENT TOLERATING SETTINGS WELL. EYES OPEN NON VERBAL. NO DISTRESS OR DISCOMFORT NOTED. NO S/S OF PAIN NOTED.AL UPPER AND LOWER EXT'S WITH EDEMA AND WEEPING, KEPT THEM ELEVATED. GTF JEVITTY INFUSING AT 45 ML/HR 0 ML RESIDUAL NOTED. FLORIDALMA WITH PICC LINE INFUSING NS AT 75 ML/HR. NO S/S OF INFILTRATION NOTED. F/C INTACT AND PATENT DRAINING YELLOWISH COLOR URINE. SIDE RAILS UP X 3 AND CALL LIGHT WITHIN REACH. WILL MONITOR
[2021-05-23] MEDS: PANTOPRAZOLE 40 MG TABLET.DR PO SCH (08:45)
[2021-05-23] MEDS: DEXAMETHASONE SOD PHOSPHATE 10 MG/ML VIAL IV SCH (08:45)
[2021-05-23] MEDS: PROSOURCE / PROSTAT (PYXIS) 30 ML UDC GT SCH (08:46)
[2021-05-23] MEDS ORDERED: PROSOURCE / PROSTAT (PYXIS) 30 ML UDC GT SCH (09:00)
--- NOTE | 2021-05-23 09:00 | NUR ---
CAREER CENTER DIRECTOR NOTE UNABLE TO ADMINISTER VANCOMYCIN , NO VANCO LEVEL AVAILABLE DUE TO CANT DRAW BLOOD AT THIS TIME , PHARMACIST NOTIFIED ,WILL F\U
[2021-05-23] MEDS ORDERED: NA PHOS,M-B/NA PHOS,DI-BA 1 EA ENEMA RC PRN (09:30)
[2021-05-23] MEDS ORDERED: BISACODYL SUPP (10 MG) 10 MG/SUPP.RECT SUPP.RECT RC PRN (09:30)
[2021-05-23] MEDS ORDERED: MAGNESIUM HYDROXIDE 30 ML UDC GT PRN (09:30)
[2021-05-23] MEDS ORDERED: JEVITY 1.2 CAL 1,000 ML BOTTLE GT SCH (09:30)
[2021-05-23] MEDS: LEVETIRACETAM SOL (5 ML) 100 MG/ML UDC GT SCH ×2 (09:31→21:55)
--- NOTE | 2021-05-23 10:30 | NUR ---
RETAIL PRESENTATION SPECIALIST NOTE UNABLE TO DRAW BLOOD FRO PICC LINE, HYPERCIL CORE TRANSFORMER ASSEMBLER AT BESIDE STILL UNABLE TO TO TAKE BLOOD FOR MORNING LAB PERIPHERALLY INCLUDING VANCO LEVEL DR MONDRAGON AT BEDSIDE NOTIFIED ABOUT THIS STATED ITS OK AT THIS TIME Addendum: 05/23/21 at 1054 by GRACIA HUTTON RN PER DR BERTHA MCBRIDE TO INSERT MID LINE
--- NOTE | 2021-05-23 11:28 | NUR ---
DOCUMENT REVIEW ATTORNEY NOTE PER DR STALLINGS OK TO DO ABG AND CHECK HG IF LESS THEN 7 OK TO TRANSFUSE 1 UNIT PRBC
[2021-05-23] MEDS: METOCLOPRAMIDE HCL 10 MG TABLET GT SCH ×2 (12:25→21:55)
[2021-05-23] MEDS: BACLOFEN (10 MG) 10 MG TABLET GT SCH ×2 (12:26→17:31)
[2021-05-23] MEDS: TIZANIDINE HCL 4 MG TABLET GT SCH ×2 (12:27→16:26)
--- NOTE | 2021-05-23 12:42 | NUR ---
supervisor telephone clerks note reported by rt lokesh from abg result 7.[address] hammonds , no new order at this time will f\u
[2021-05-23 12:43] LABS: BASOPHILS % (AUTO) 0.1 % (0.0-2.0); LYMPHOCYTES # (AUTO) 0.2 K/uL (0.8-4.8); LYMPHOCYTES % (AUTO) 2.7 % (20.0-44.0); MEAN CORPUSCULAR HGB CONC 34 g/dl (31.0-36.0); MEAN CORPUSCULAR VOLUME 99 fL (80-96); MONOCYTES # (AUTO) 0.1 K/uL (0.1-1.30); MONOCYTES % (AUTO) 1.2 % (2.0-12.0); NEUTROPHILS # (AUTO) 5.4 K/uL (1.8-8.9); PLATELET COUNT (AUTO) 62 K/uL (150-450); RED BLOOD CELL COUNT(AUTO) 1.96 MIL/uL (4.5-6.0); WHITE BLOOD COUNT (AUTO) 5.6 K/uL (4.3-11.0)
--- NOTE | 2021-05-23 12:45 | NUR ---
television announcer note mid line nurse at bedside ,midline inserted on rt upper arm , blood drawn as ordered
[2021-05-23 12:46] LABS: HEMATOCRIT 19 % (39-51); HEMOGLOBIN 6.5 g/dL (13.5-17.5)
--- NOTE | 2021-05-23 13:02 | NUR ---
[address] palumbo ordered i unit prbc hg result from mid line is 6.5
--- NOTE | 2021-05-23 13:06 | NUR ---
relay telegrapher note called son to get consent for blood transfusion ,stated need to speak with before give consent, called to dr boss phone number of son given , will await for further orders and f\u Addendum: 05/23/21 at 1337 by GRACIA HUTTON RN also spoke with dr nichols notified that patient edema on upper and lower extremities and scrotal on ivf , ordered to stop ivf , order carried out
--- NOTE | 2021-05-23 13:37 | NUR ---
telegraphic typewriter operator note spoke with son Jorge A again , telephone consent for blood transfusion obtained ,
[2021-05-23 13:41] LABS: CARBON DIOXIDE 30 mmol/L (21-32); CHLORIDE 105 mmol/L (98-107); CREATININE 0.5 mg/dL (0.6-1.3); GLUCOSE 123 mg/dL (74-106); POTASSIUM 4.1 mmol/L (3.5-5.1); SODIUM SERUM 140 mmol/L (136-145); UREA NITROGEN, BLOOD 22 mg/dL (7-18)
[2021-05-23 13:48] LABS: ALANINE AMINOTRANSFERASE 44 U/L (12-78); ALBUMIN 1.6 g/dL (3.4-5.0); ALKALINE PHOSPHATASE 63 U/L (46-116); ASPARTATE AMINOTRANSFERASE 44 U/L (15-37); BILIRUBIN,TOTAL 0.6 mg/dL (0.2-1.0); TOTAL PROTEIN, SERUM 5.3 g/dL (6.4-8.2)
--- NOTE | 2021-05-23 13:49 | NUR ---
telephone worker note spoke with [facility] pharmacist notified that vanco level 15 , stated that will order vanco dose today latter on 2099 f\u Addendum: 05/23/21 at 1439 by GRACIA HUTTON RN ua collected as ordered ,keep clean dry, foster care social worker at bedside
[2021-05-23 14:14] LABS: PHOSPHORUS 2.4 mg/dL (2.5-4.9)
--- NOTE | 2021-05-23 15:05 | NUR ---
telephone sterilizer note called blood bank, no blood ready yet will f\u
[2021-05-23] MEDS ORDERED: NEUTRA PHOS 1 POWD.PACKET GT ONE (16:00)
--- NOTE | 2021-05-23 16:20 | NUR ---
ANIMAL CARE WORKER NOTE BLOOD TRANSFUSION START TO ADMINISTERED 1 UNIT PRBC
[2021-05-23 16:21] LABS: BILIRUBIN,URINE NEGATIVE (NEGATIVE); COLOR,URINE DARK YELLOW (YELLOW); LEUKOCYTE ESTERASE ,URINE MODERATE (NEGATIVE); NITRITE, URINE POSITIVE (NEGATIVE); PH,URINE 6.5 (5.0-8.0); PROTEIN,URINE 30 mg/dl (NEGATIVE); UGLUCOSE NEGATIVE (NEGATIVE)
[2021-05-23] MEDS: JEVITY 1.2 CAL 1,000 ML BOTTLE GT PRN (16:21)
[2021-05-23 16:30] LABS: RBC,URINE 81-100 /HPF (0-2); WBC,URINE TOO NUMEROUS TO COUN /HPF (0-3)
[2021-05-23 16:31] LABS: BACTERIA,URINE Few /HPF (None Seen); CALCIUM OXALATE CRYSTALS,UR Few /HPF (None Seen); SQUAMOUS EPITHELIAL CELL,UR None Seen /HPF (None Seen); YEAST,URINE Moderate /HPF (None Seen)
[2021-05-23] MEDS ORDERED: APIXABAN 5 MG TABLET GT SCH (17:00)
--- NOTE | 2021-05-23 17:20 | NUR ---
YARD RIGGER NOTE DURING BLOOD TRANSFUSION BP AFTER 15 ADMINISTERING 74/[address] MIRELES WITH ORDER GIVE ALBUMIN IV AND MIDODRINE VIA G TUBE , ORDER CARRIED
[2021-05-23] MEDS ORDERED: ALBUMIN 25% 25 GM in PREMIX 1 EA IV ONE (17:30)
[2021-05-23] MEDS: MIDODRINE HCL (5MG) 5 MG TABLET PO SCH (17:31)
[2021-05-23] MEDS: ASCORBIC ACID 500 MG TABLET GT SCH (17:32)
--- NOTE | 2021-05-23 18:15 | NUR ---
RETAIL MERCHANDISER NOTE AFTER DONE ALBUMIN BP 83/45, WILL MONITOR
--- NOTE | 2021-05-23 19:04 | NUR ---
LORI CLOUD NOTE CALLIE CALLED ORDERED LATRELLECK BP NOW 76/37 PLACED ON TRAMMELLING POSITION , WILL MONITOR Addendum: 05/23/21 at 1906 by GRACIA HUTTON RN CONT ON BLOOD TRANSFUSION ORDERED
--- NOTE | 2021-05-23 19:30 | NUR ---
MANAGER BEAUTY NOTE ENDORSED TO NEXT DAYNA MANCIA RN DENISE TBP 74\33 WAL EARLIER AND MONITOR CLOSELY
--- NOTE | 2021-05-23 20:00 | NUR ---
APPLICATION DEVELOPMENT TEAM LEAD NOTE PT IN BED WITH EYES OPEN. NON VERBAL,ON VENT/TRACH TOLERATING THE SETTING WELL. NO DISTRESS OR DISCOMFORT NOTED. NO SS OF PAIN NOTED. GTF INFUSING WELL, 0 ML RESIDUAL NOTED. ON TELE SR WITH 1ST DEGREE AV BLOCK HR 90. FLORIDALMA PICC LNE INTACT AND PATENT INFUSING NS @ 75 ML/HR, NO SS OF INFILTRATION NOTED. I UNIT OF PRBC FINISHED INFUSING. NO A/R NOTED. KEPT HIM DRY AND CLEAN. ALL NEEDS ATTENDED. VSS. CONTINUE TO MONITOR HIM.
--- NOTE | 2021-05-23 21:27 | NUR ---
RT NOTE PT NOTED WITH AGONAL BREATHING. CHARGE NURSE CHELI AND RN BLANCHE AWARE. INCREASED FIO2 TO 50% AT THIS TIME. PT TOLERATING WELL. WILL CONTINUE TO MONITOR CLOSELY.
[2021-05-23] MEDS: FLUDROCORTISONE 0.1 MG TABLET GT SCH (21:55)
[2021-05-23] MEDS: CHLORHEXIDINE GLUCONATE 15 ML UDC MM SCH (21:55)
[2021-05-23] MEDS: POLYETHYLENE GLYCOL 3350 17 GM POWD.PACK GT SCH (21:55)
[2021-05-23] MEDS: VANCOMYCIN 1.25 GM in IV D5W 250 ML IV SCH (22:11)
--- NOTE | 2021-05-23 23:45 | NUR ---
SAILOR NOTE DIANNA DNP INFORMED THAT PT O2 SAT DROPS TO 92% ON 50 % FIO2 AND ALSO BP IN LOW SIDE. PER DIANNA CONTINUE TO MONITOR. NO NEW ORDER AT THIS TIME.
[2021-05-24] VITALS (10 sets, daily range): BP systolic 80–138; BP diastolic 32–77
[2021-05-24] MEDS: BLOOD SUGAR DIAGNOSTIC 1 EACH STRIP IN SCH ×5 (00:52→23:33)
[2021-05-24] MEDS: BACLOFEN (10 MG) 10 MG TABLET GT SCH ×5 (00:52→23:46)
[2021-05-24] MEDS: INSULIN REGULAR, HUMAN 100 UNIT/ML 3 ML VIAL SQ PRN ×4 (01:01→23:42)
[2021-05-24] MEDS: PIPERACILLIN /TAZOBACTAM 3.375 G in IV D5W 50 ML IV SCH ×3 (05:20→20:34)
[2021-05-24] MEDS: METOCLOPRAMIDE HCL 10 MG TABLET GT SCH ×3 (05:21→20:34)
--- NOTE | 2021-05-24 06:22 | NUR ---
GRAD INTERN NOTE PT IN BED IN HIGH NELSON POSITION. REMAIN ON VENT/TRACH TOLERATING VENT SETTINGS WELL. FIO2 REMAIN 50%. NO S/S OF PAIN NOTED. O2 SAT 95%. VSS. REPOSIITON HIM Q2H, KEPT HIM DRY AND CLEAN. ALL NEEDS ATTENDED. WILL ENDORSE TO DAY SHIFT NURSE FOR CONTINUE TO CARE.
[2021-05-24 07:15] LABS: BASOPHILS % (AUTO) 0.1 % (0.0-2.0); HEMATOCRIT 21 % (39-51); LYMPHOCYTES # (AUTO) 0.3 K/uL (0.8-4.8); LYMPHOCYTES % (AUTO) 6.1 % (20.0-44.0); MEAN CORPUSCULAR HGB CONC 34 g/dl (31.0-36.0); MEAN CORPUSCULAR VOLUME 98 fL (80-96); MONOCYTES # (AUTO) 0.1 K/uL (0.1-1.30); MONOCYTES % (AUTO) 1.6 % (2.0-12.0); NEUTROPHILS # (AUTO) 4.5 K/uL (1.8-8.9); NEUTROPHILS % (AUTO) 92.2 % (43.0-81.0); RED BLOOD CELL COUNT(AUTO) 2.12 MIL/uL (4.5-6.0); WHITE BLOOD COUNT (AUTO) 4.8 K/uL (4.3-11.0)
[2021-05-24 07:24] LABS: ALBUMIN 2.2 g/dL (3.4-5.0); BILIRUBIN,TOTAL 0.6 mg/dL (0.2-1.0); CALCIUM, SERUM 7.5 mg/dL (8.5-10.1); CREATININE 0.6 mg/dL (0.6-1.3); PHOSPHORUS 2.4 mg/dL (2.5-4.9); POTASSIUM 3.6 mmol/L (3.5-5.1); TOTAL PROTEIN, SERUM 5.9 g/dL (6.4-8.2)
--- NOTE | 2021-05-24 07:25 | NUR ---
RN OPENING NOTES RECEIVED PATIENT IN BED WITH EYES OPEN. NON VERBAL,ON VENT/TRACH TOLERATING THE SETTING WELL. NO DISTRESS OR DISCOMFORT NOTED. ON TELE MONITOR READING SR WITH HR OF 76. IV ACCESS ON FLORIDALMA PICC LNE AND MUSTAPHA MIDLINE INTACT AND PATENT, FLUSHED WELL. NO SS OF INFILTRATION NOTED. ON GTF JEVITY RUNNING AT 50 ML/HR, NO RESIDUAL NOTED. ALL SAFETY MEASURES IN PLACE. HOB ELEVATED BED LOCKED AND IN LOWEST POSITION WITH SIDERAILS UP. CALL LIGHT WITHIN REACH OF PATIENT. WILL CONTINUE TO MONITOR PATIENT ACCORDINGLY.
[2021-05-24 07:34] LABS: PLATELET COUNT (AUTO) 44 K/uL (150-450)
--- NOTE | 2021-05-24 08:15 | NUR ---
RN NOTES NOTED PATIENT WITH TEMP OF 96.7, KIRAN VALDOVINOS APPLIED ON PATIENT. WILL CONTINUE TO MONITOR PATIENT ACCORDINGLY.
[2021-05-24] MEDS: PANTOPRAZOLE 40 MG TABLET.DR PO SCH (08:28)
[2021-05-24] MEDS: LEVETIRACETAM SOL (5 ML) 100 MG/ML UDC GT SCH ×2 (08:34→21:12)
[2021-05-24] MEDS: CHLORHEXIDINE GLUCONATE 15 ML UDC MM SCH ×2 (08:34→20:35)
[2021-05-24] MEDS: MIDODRINE HCL (5MG) 5 MG TABLET PO SCH ×3 (08:35→17:10)
[2021-05-24] MEDS: FLUDROCORTISONE 0.1 MG TABLET GT SCH ×2 (08:35→20:34)
[2021-05-24] MEDS: TIZANIDINE HCL 4 MG TABLET GT SCH ×3 (08:35→17:10)
[2021-05-24] MEDS: DEXAMETHASONE SOD PHOSPHATE 10 MG/ML VIAL IV SCH (08:35)
[2021-05-24] MEDS: PROSOURCE / PROSTAT (PYXIS) 30 ML UDC GT SCH (08:38)
[2021-05-24] MEDS ORDERED: PANTOPRAZOLE 40 MG/PACK PACK GT SCH (09:00)
--- NOTE | 2021-05-24 09:45 | NUR ---
RN NOTES TEMP NOW NOTED 97.5, REMOVED KIRAN ARUNA FROM PATIENT. NO ANY ACUTE DISTRESS NOTED AT THE TIME. ALL NEEDS ATTENDED. ALL SAFETY MEASURES IN PLACE. WILL CONTINUE TO MONITOR PATIENT ACCORDINGLY.
--- NOTE | 2021-05-24 12:15 | NUR ---
RN NOTES PATIENT RECEIVING I UNIT PRBC, NO ADVERVESE REACTION NOTED. NOT IN DISTRESS, VITAL SIGN T-97.1, P 65, O2SAT- 95%, BP-87/60. WILL CONTINUE TO MONITOR PATIENT ACCORDINGLY.
[2021-05-24] MEDS: DIGOXIN 0.25 MG TABLET GT SCH (13:12)
--- NOTE | 2021-05-24 14:30 | NUR ---
RN NOTES BLOOD TRANSFUSION DONE, NO ADVERVESE REACTION NOTED. NOT IN DISTRESS, VITAL SIGN T-97.2, P 73, O2SAT- 97%, BP-105/68. WILL CONTINUE TO MONITOR PATIENT ACCORDINGLY.
[2021-05-24] MEDS ORDERED: NEUTRA PHOS 1 POWD.PACKET GT ONE (15:00)
[2021-05-24] MEDS: JEVITY 1.2 CAL 1,000 ML BOTTLE GT PRN (15:25)
[2021-05-24] MEDS: ASCORBIC ACID 500 MG TABLET GT SCH (17:10)
--- NOTE | 2021-05-24 18:48 | NUR ---
RN CLOSING NOTES PATIENT REMAINS IN STABLE CONDITION THROUGHOUT SHIFT. NO SOB OR ANY ACUTE DISTRESS NOTED. REMAIN ON VENT/TRACH TOLERATING VENT SETTINGS WELL. O2 SAT 96%. GT FEEDING JEVITY 1.2 RUNNING AT 60 ML/HR, TOLERATING WELL. NO RESIDUAL NOTED. ALL DUE MEDS GIVEN ORDERED. WOUND CARE RENDERED, TOLERATED WELL. KEPT PATIENT CLEAN, DRY AND COMFORTABLE. ALL NEEDS ATTENDED. WILL ENDORSE TO ONCOMING NURSE FOR CONTINUE TO CARE.
[2021-05-24 19:02] LABS: ABG BASE EXCESS 3.8 mmol/L; ABG OXYGEN SATURATION 94.6 % (92.0-98.5); ABG PCO2 38.1 mmHg (35.0-45.0); ABG PH 7.478 (7.350-7.450); ABG PO2 73.9 mmHg (75.0-100.0); AaDO2 167.5 mmHg; COHb 0.4 % (0.5-1.5); MetHb 0.2 % (0.0-1.5); PEEP,BG 5 cm H2O; SITE, ABG Right Radial; VT, ABG 450 mL
--- NOTE | 2021-05-24 19:20 | NUR ---
RN NOTE RECEIVED PATIENT IN BED RESTING OBTUNDED,ON MECHANICAL VENT BILATERAL UPPER EXTREMITIES SWOLLEN WEEPING FLUIDS,IV SITE IS ON LEFT UPPER ARM PICC LINE AND RIGHT UPPER ARM MID LINE INTACT PATENT,ON G-TUBE FEEDING JEVITY 1.2 60CC/HR CHECKED PLACEMENT IN PLACE NO RESIDUAL NOTED,HUTCHISON CATHETER IN PLACE URINE DRAINING YELLOW AND CLEAR BY GRAVITY,SAFETY MEASURE IMPLEMENT,HEAD OF THE BED ELEVATED,CONTINUE TO MONITOR.
--- NOTE | 2021-05-24 19:30 | NUR ---
RN NOTE PATIENT TEMP IS 95 APPLIED KIRAN HUGGER CONTINUE TO MONITOR.
[2021-05-24] MEDS: VANCOMYCIN 1.25 GM in IV D5W 250 ML IV SCH (21:06)
[2021-05-24] MEDS: POLYETHYLENE GLYCOL 3350 17 GM POWD.PACK GT SCH (21:12)
--- NOTE | 2021-05-24 22:38 | NUR ---
RN NOTE NOTIFIED DR BUSTAMANTE PATIENT HR BETWEEN 44-48 NO NEW ORDER CONTINUE TO MONITOR.
[2021-05-25] VITALS (19 sets, daily range): BP systolic 91–138; BP diastolic 28–78
[2021-05-25 03:54] LABS: ABG BASE EXCESS 4.8 mmol/L; ABG OXYGEN SATURATION 94.4 % (92.0-98.5); ABG PCO2 46.6 mmHg (35.0-45.0); ABG PH 7.422 (7.350-7.450); ABG PO2 77.6 mmHg (75.0-100.0); AaDO2 226.5 mmHg; COHb 0.4 % (0.5-1.5); MetHb 0.3 % (0.0-1.5); O2Hb 93.7 % (94.0-97.0); SITE, ABG Right Radial; VENT MODE, BG AC 16 450 50 +5
[2021-05-25] MEDS: METOCLOPRAMIDE HCL 10 MG TABLET GT SCH ×3 (05:21→21:32)
[2021-05-25] MEDS: BACLOFEN (10 MG) 10 MG TABLET GT SCH ×3 (05:21→17:25)
[2021-05-25] MEDS: PIPERACILLIN /TAZOBACTAM 3.375 G in IV D5W 50 ML IV SCH ×3 (05:21→21:33)
[2021-05-25] MEDS: BLOOD SUGAR DIAGNOSTIC 1 EACH STRIP IN SCH ×3 (06:04→18:10)
[2021-05-25] MEDS: INSULIN REGULAR, HUMAN 100 UNIT/ML 3 ML VIAL SQ PRN ×3 (06:13→18:11)
--- NOTE | 2021-05-25 06:59 | NUR ---
RN NOTE PATIENT REMAINS ON OBTUNDED CONTRACTED NON VERBAL ON MECHANICAL VENT,ON G-TUBE,BILATERAL EXTREMITIES SWOLLEN WEEPING FLUIDS,HUTCHISON CATHETER IN PLACE,ALL DUE MEDS GIVEN MD ORDERED,REPOSITIONED EVERY 2 HOURS,KEPT CLEAN AND DRY ALL THE TIME,ALL NEEDS MET ENDORSE NEXT COMING SHIFT FOR CONTINUATION OF CARE.
--- NOTE | 2021-05-25 07:30 | NUR ---
RN OPENING NOTES RECEIVED PATIENT IN BED WITH EYES OPEN. NON VERBAL,ON VENT/TRACH TOLERATING THE SETTING WELL. NO DISTRESS OR DISCOMFORT NOTED. ON TELE MONITOR READING NSR WITH 1ST DEGREE AV BLOCK WITH HR OF 71. IV ACCESS ON FLORIDALMA PICC LNE AND [place]HA MIDLINE INTACT AND PATENT, FLUSHED WELL. NO SS OF INFILTRATION NOTED. PATIENT WITH GTUBE PATENT AND INTACT, VERIFIED PLACEMENT BY AUSCULTATION. JEVITY RUNNING AT 60 ML/HR, NO RESIDUAL NOTED. ALL SAFETY MEASURES IN PLACE. HOB ELEVATED BED LOCKED AND IN LOWEST POSITION WITH SIDERAILS UP. CALL LIGHT WITHIN REACH OF PATIENT. WILL CONTINUE TO MONITOR PATIENT ACCORDINGLY.
[2021-05-25 07:53] LABS: ALBUMIN 1.8 g/dL (3.4-5.0); BILIRUBIN,TOTAL 0.7 mg/dL (0.2-1.0); CALCIUM, SERUM 7.5 mg/dL (8.5-10.1); CREATININE 0.6 mg/dL (0.6-1.3); POTASSIUM 3.6 mmol/L (3.5-5.1); TOTAL PROTEIN, SERUM 5.1 g/dL (6.4-8.2)
[2021-05-25] MEDS: PROSOURCE / PROSTAT (PYXIS) 30 ML UDC GT SCH (08:31)
[2021-05-25] MEDS: LEVETIRACETAM SOL (5 ML) 100 MG/ML UDC GT SCH ×2 (08:31→21:32)
[2021-05-25] MEDS: CHLORHEXIDINE GLUCONATE 15 ML UDC MM SCH ×2 (08:31→21:32)
[2021-05-25] MEDS: DEXAMETHASONE SOD PHOSPHATE 10 MG/ML VIAL IV SCH (08:31)
[2021-05-25] MEDS: MIDODRINE HCL (5MG) 5 MG TABLET PO SCH ×3 (08:32→17:25)
[2021-05-25] MEDS: FLUDROCORTISONE 0.1 MG TABLET GT SCH ×2 (08:32→21:32)
[2021-05-25] MEDS: TIZANIDINE HCL 4 MG TABLET GT SCH ×3 (08:32→17:25)
[2021-05-25] MEDS: PANTOPRAZOLE 40 MG TABLET.DR PO SCH (08:32)
[2021-05-25 08:34] LABS: BASOPHILS % (AUTO) 0.4 % (0.0-2.0); EOSINOPHILS % (AUTO) 0.1 % (0.0-6.0); LYMPHOCYTES # (AUTO) 0.2 K/uL (0.8-4.8); LYMPHOCYTES % (AUTO) 6.8 % (20.0-44.0); MEAN CORPUSCULAR HGB CONC 33 g/dl (31.0-36.0); MEAN CORPUSCULAR VOLUME 99 fL (80-96); MONOCYTES % (AUTO) 1.2 % (2.0-12.0); NEUTROPHILS # (AUTO) 2.6 K/uL (1.8-8.9); NEUTROPHILS % (AUTO) 91.5 % (43.0-81.0); RED BLOOD CELL COUNT(AUTO) 1.96 MIL/uL (4.5-6.0); WHITE BLOOD COUNT (AUTO) 2.8 K/uL (4.3-11.0)
[2021-05-25 08:37] LABS: HEMATOCRIT 19 % (39-51); HEMOGLOBIN 6.4 g/dL (13.5-17.5); PLATELET COUNT (AUTO) 34 K/uL (150-450)
[2021-05-25] MEDS ORDERED: K PHOS NEUTRAL 250 MG TABLET PO ONE (11:30)
[2021-05-25] MEDS ORDERED: NEUTRA PHOS 1 POWD.PACKET GT ONE (12:00)
[2021-05-25] MEDS: DIGOXIN 0.25 MG TABLET GT SCH (12:25)
[2021-05-25 14:56] LABS: BASOPHILS % (AUTO) 0.1 % (0.0-2.0); LYMPHOCYTES # (AUTO) 0.1 K/uL (0.8-4.8); MEAN CORPUSCULAR HGB CONC 33 g/dl (31.0-36.0); MEAN CORPUSCULAR VOLUME 100 fL (80-96); NEUTROPHILS % (AUTO) 95.9 % (43.0-81.0); WHITE BLOOD COUNT (AUTO) 3.1 K/uL (4.3-11.0)
[2021-05-25 15:44] LABS: RED BLOOD CELL COUNT(AUTO) 1.84 MIL/uL (4.5-6.0)
[2021-05-25 15:45] LABS: HEMOGLOBIN 6.1 g/dL (13.5-17.5)
[2021-05-25 15:46] LABS: HEMATOCRIT 18 % (39-51); PLATELET COUNT (AUTO) 33 K/uL (150-450)
[2021-05-25 16:10] LABS: BAND % (MANUAL) 10 % (0.0-5.0); LYMPHOCYTES % (MANUAL) 4 % (16-48); NEUTROPHILS % (MANUAL) 86 (42-76)
[2021-05-25] MEDS: JEVITY 1.2 CAL 1,000 ML BOTTLE GT PRN (16:48)
--- NOTE | 2021-05-25 17:00 | NUR ---
rn notes started blood transfusion at this time, bp-105/78, p-71, r-19, t-97.7, o2-99%, patient trachea/vent dependent. will follow up.
--- NOTE | 2021-05-25 17:15 | NUR ---
rn notes patient has no s/s of any reaction, t-97.7F, p-67, r-19, o2-97, bp- 101/47. increased blood infusion @ 120ml/hr, patient tolerating blood infusion well.
[2021-05-25] MEDS: PANTOPRAZOLE 40 MG VIAL IV SCH (17:24)
[2021-05-25] MEDS: ASCORBIC ACID 500 MG TABLET GT SCH (17:25)
--- NOTE | 2021-05-25 18:35 | NUR ---
RN NOTES PATIENT STABLE BP 102/28, P-63, R-19, T-98.2, O2-98% , NO ANY S/S OF REACTION NOTES. PATIENT HAS NO RESPIRATORY DISTRESS, TOLERATING BLOOD TRANSFUSION WELL. CONTINUED MONITORING ENDORSED ONCOMING NURSE MUKUL.
--- NOTE | 2021-05-25 19:10 | NUR ---
RN NOTES RECEIVED REPORT FROM MORNING RN. PATIENT IN BED. WITH TRACH SHILEY #8 CONNECTED TO MV WITH PRESCRIBE SETTINGS TOLERATING WELL. WITH GT PATENT NO GASTRIC RESIDUAL NOTED CONNECTED TO CONTINUOS FEEDING @ 60ML/HR. WITH L UA PICC LINE 2 LUMENS, MUSTAPHA MIDLINE PATENT FLUSHES WELL. WITH ONGOING 1 UNIT PRBC TYPE O POSITIVE NO TRANSFUSION REACTION NOTED. WITH HUTCHISON CATHETER PATENT DRAINING YELLOWISH URINE. ALL SAFETY MEASURES IN PLACE AT ALL TIME. HOB ELEVATED. CALL LIGHT WITHIN REACH. WILL CLOSELY MONITOR THE PATIENT
--- NOTE | 2021-05-25 20:46 | NUR ---
RN NOTES BLOOD TRANSFUSION COMPLETED.
--- NOTE | 2021-05-25 20:54 | NUR ---
RN NOTES STARTED ANOTHER 1 UNIT PRBC TYPE O POSITIVE. WILL MONITOR THE PATIENT FOR ANY TRANSFUSION REACTION
[2021-05-25] MEDS: POLYETHYLENE GLYCOL 3350 17 GM POWD.PACK GT SCH (21:33)
[2021-05-25] MEDS: VANCOMYCIN 1.25 GM in IV D5W 250 ML IV SCH (21:33)
[2021-05-26] VITALS: BP_SYST 129; BP_SYST 138; BP_DIAS 65; BP_DIAS 68
[2021-05-26] MEDS: BLOOD SUGAR DIAGNOSTIC 1 EACH STRIP IN SCH ×5 (00:10→23:11)
[2021-05-26] MEDS: BACLOFEN (10 MG) 10 MG TABLET GT SCH ×5 (00:14→23:18)
[2021-05-26] MEDS: INSULIN REGULAR, HUMAN 100 UNIT/ML 3 ML VIAL SQ PRN (00:14)
[2021-05-26 04:00] VITALS: BP 113/47
[2021-05-26] MEDS: METOCLOPRAMIDE HCL 10 MG TABLET GT SCH ×3 (05:24→20:22)
[2021-05-26] MEDS: PIPERACILLIN /TAZOBACTAM 3.375 G in IV D5W 50 ML IV SCH ×3 (05:24→22:00)
[2021-05-26 06:30] LABS: BASOPHILS % (AUTO) 0.3 % (0.0-2.0); HEMATOCRIT 31 % (39-51); HEMOGLOBIN 10.6 g/dL (13.5-17.5); LYMPHOCYTES # (AUTO) 0.2 K/uL (0.8-4.8); LYMPHOCYTES % (AUTO) 6.5 % (20.0-44.0); MEAN CORPUSCULAR HGB CONC 35 g/dl (31.0-36.0); MEAN CORPUSCULAR VOLUME 94 fL (80-96); MONOCYTES % (AUTO) 1.3 % (2.0-12.0); NEUTROPHILS # (AUTO) 2.9 K/uL (1.8-8.9); NEUTROPHILS % (AUTO) 91.9 % (43.0-81.0); RED BLOOD CELL COUNT(AUTO) 3.26 MIL/uL (4.5-6.0); WHITE BLOOD COUNT (AUTO) 3.2 K/uL (4.3-11.0)
--- NOTE | 2021-05-26 06:40 | NUR ---
RN NOTES PATIENT REMAINS STABLE THE WHOLE SHIFT. S/P BLOOD TRANSFUSION NO TRANSFUSION REACTION NOTED. ALL DUE MEDS GIVEN ORDERED. VENT SETTINGS TOLERATING WELL. ALL SAFETY MEASURES IN PLACE AT ALL TIMES. HOB ELEVATED. CALL LIGHT WITHIN REACH ALL NEEDS ATTENDED. WILL CONTINUE TO MONITOR.
[2021-05-26 06:47] LABS: PLATELET COUNT (AUTO) 27 K/uL (150-450)
[2021-05-26 07:31] LABS: ALANINE AMINOTRANSFERASE 45 U/L (12-78); ALKALINE PHOSPHATASE 63 U/L (46-116); ASPARTATE AMINOTRANSFERASE 17 U/L (15-37); BILIRUBIN,TOTAL 1.2 mg/dL (0.2-1.0); CALCIUM, SERUM 7.5 mg/dL (8.5-10.1); CARBON DIOXIDE 32 mmol/L (21-32); CHLORIDE 102 mmol/L (98-107); CREATININE 0.5 mg/dL (0.6-1.3); GLUCOSE 119 mg/dL (74-106); POTASSIUM 4.1 mmol/L (3.5-5.1); SODIUM SERUM 137 mmol/L (136-145); UREA NITROGEN, BLOOD 30 mg/dL (7-18)
[2021-05-26 08:00] VITALS: BP 108/79
[2021-05-26 08:11] LABS: ABG BASE EXCESS 7.1 mmol/L; ABG OXYGEN SATURATION 91.6 % (92.0-98.5); ABG PCO2 36.9 mmHg (35.0-45.0); ABG PH 7.533 (7.350-7.450); COHb 1.5 % (0.5-1.5); O2Hb 90.2 % (94.0-97.0); PEEP,BG 5 cm H2O; SITE, ABG Right Radial; VT, ABG 450 mL
[2021-05-26] MEDS: CHLORHEXIDINE GLUCONATE 15 ML UDC MM SCH ×2 (09:23→20:22)
[2021-05-26] MEDS: TIZANIDINE HCL 4 MG TABLET GT SCH ×3 (09:24→17:13)
[2021-05-26] MEDS: PANTOPRAZOLE 40 MG VIAL IV SCH ×2 (09:24→17:14)
[2021-05-26] MEDS: MIDODRINE HCL (5MG) 5 MG TABLET PO SCH ×3 (09:24→17:14)
[2021-05-26] MEDS: LEVETIRACETAM SOL (5 ML) 100 MG/ML UDC GT SCH ×2 (09:24→21:07)
[2021-05-26] MEDS: FLUDROCORTISONE 0.1 MG TABLET GT SCH ×2 (09:24→20:22)
[2021-05-26] MEDS: DEXAMETHASONE SOD PHOSPHATE 10 MG/ML VIAL IV SCH (09:24)
[2021-05-26] MEDS: PROSOURCE / PROSTAT (PYXIS) 30 ML UDC GT SCH (09:25)
[2021-05-26] MEDS ORDERED: NEUTRA PHOS 1 POWD.PACKET GT ONE (10:00)
[2021-05-26 12:00] VITALS: BP 151/51
[2021-05-26] MEDS: DIGOXIN 0.25 MG TABLET GT SCH (12:27)
[2021-05-26 16:00] VITALS: BP 99/34
[2021-05-26] MEDS ORDERED: NEUTRA PHOS 1 POWD.PACKET NG ONE (16:00)
[2021-05-26 16:31] LABS: HEMOGLOBIN 10.1 g/dL (13.5-17.5)
[2021-05-26] MEDS: ASCORBIC ACID 500 MG TABLET GT SCH (17:13)
--- NOTE | 2021-05-26 19:27 | NUR ---
RN NOTES RECEIVED PT ASLEEP IN BED. CELI MOLINA #8 CONNECTED TO MV WITH PRESCRIBE SETTINGS. PT NOTED WITH LABORED BREATHING, RT MADE AWARE. WITH GT PATENT AND CONTINUES ON FEEDING @ 60ML/HR JEVITY 04/02. WITH L UA PICC LINE 2 LUMENS, MUSTAPHA MIDLINE PATENT FLUSHES WELL. HUTCHISON CATHETER PATENT DRAINING YELLOWISH URINE. ALL SAFETY MEASURES IN PLACE AT ALL TIME. HOB ELEVATED. DUE MEDS GIVEN, NEEDS ATTENDED. AM CARE DONE.
--- NOTE | 2021-05-26 19:42 | NUR ---
RN NOTE RECEIVED PATIENT IN BED, AWAKE, NON-VERBAL. BREATHING NOTED WITH MILD LABORED BREATHING. NOTED WITH TRACH, ON VENT, WITH SETTINGS OF AC 16, VT 450, FIO2 50%, PEEP 5.0. OXYGEN SATURATION OF 96 PERCENT. SKIN WARM, NOTED WITH SEVERAL SKIN DISCOLORATION THAT ARE EDEMATOUS, LEFT UPPER ARM, AND LEFT UPPER BACK, LEAKING BLOOD, SITES COVERED WITH GAUZE. NOTED WITH LEFT UPPER ARM PICC LINE, NO BLEEDING, RIGHT UPPER ARM MIDLINE, NO BLEEDING. NO IVF RUNNING. NOTE WITH G-TUBE, WITH FEEDING OF JEVITY 1.2 AT 60 CC/HR. NO RESIDUAL. FLUSHED WITH 60 CC. NOTED WITH HUTCHISON CATHETER, DRAINING YELLOW URINE. BED LOW, IN LOCKED POSITION. CALL LIGHT WITHIN REACH.
[2021-05-26] MEDS: JEVITY 1.2 CAL 1,000 ML BOTTLE GT PRN (19:58)
[2021-05-26 20:00] VITALS: BP 112/23
--- NOTE | 2021-05-26 20:08 | NUR ---
RN NOTE PATIENT SUCTIONED VIA TRACH, NOTED WITH MINIMAL AMOUNT OF DARK RED BLOOD, <5 CC. WILL CONTINUE TO MONITOR.
[2021-05-26] MEDS: VANCOMYCIN 1.25 GM in IV D5W 250 ML IV SCH (20:23)
[2021-05-26] MEDS: POLYETHYLENE GLYCOL 3350 17 GM POWD.PACK GT SCH (21:07)
--- NOTE | 2021-05-26 23:12 | NUR ---
BS 126, NO SLIDE SCALE COVERAGE
[2021-05-27] VITALS: BP 125/41
--- NOTE | 2021-05-27 00:31 | NUR ---
RN NOTE PATIENT NOTED WITH FACIAL GRIMACING AND EPISODES OF CRYING. SLEEPS INTERMITTENTLY. ASSISTED WITH REPOSITIONING. ADMINISTERED NORCO 5/325 VIA G-TUBE. WILL CONTINUE TO MONITOR. CALL LIGHT WITHIN REACH.
[2021-05-27 00:32] LABS: HEMOGLOBIN 10.1 g/dL (13.5-17.5)
[2021-05-27 04:00] VITALS: BP 111/30
[2021-05-27] MEDS: PIPERACILLIN /TAZOBACTAM 3.375 G in IV D5W 50 ML IV SCH ×2 (04:03→12:04)
[2021-05-27] MEDS: METOCLOPRAMIDE HCL 10 MG TABLET GT SCH ×2 (04:03→12:04)
[2021-05-27] MEDS: BACLOFEN (10 MG) 10 MG TABLET GT SCH ×3 (05:16→17:30)
[2021-05-27] MEDS: BLOOD SUGAR DIAGNOSTIC 1 EACH STRIP IN SCH ×3 (05:44→17:30)
--- NOTE | 2021-05-27 05:45 | NUR ---
BS 122, NO INSULIN COVERAGE PER SLIDING SCALE.
[2021-05-27 07:08] LABS: BASOPHILS % (AUTO) 0.4 % (0.0-2.0); HEMATOCRIT 29 % (39-51); HEMOGLOBIN 9.9 g/dL (13.5-17.5); LYMPHOCYTES # (AUTO) 0.2 K/uL (0.8-4.8); LYMPHOCYTES % (AUTO) 8.5 % (20.0-44.0); MEAN CORPUSCULAR HGB CONC 35 g/dl (31.0-36.0); MEAN CORPUSCULAR VOLUME 95 fL (80-96); MONOCYTES % (AUTO) 1.6 % (2.0-12.0); NEUTROPHILS # (AUTO) 2.5 K/uL (1.8-8.9); NEUTROPHILS % (AUTO) 89.5 % (43.0-81.0); RED BLOOD CELL COUNT(AUTO) 3.02 MIL/uL (4.5-6.0); WHITE BLOOD COUNT (AUTO) 2.7 K/uL (4.3-11.0)
[2021-05-27 07:16] LABS: PLATELET COUNT (AUTO) 19 K/uL (150-450)
[2021-05-27 07:34] LABS: ALANINE AMINOTRANSFERASE 44 U/L (12-78); ALBUMIN 1.7 g/dL (3.4-5.0); ALKALINE PHOSPHATASE 77 U/L (46-116); ASPARTATE AMINOTRANSFERASE 29 U/L (15-37); BILIRUBIN,TOTAL 1.5 mg/dL (0.2-1.0); CALCIUM, SERUM 7.3 mg/dL (8.5-10.1); CARBON DIOXIDE 31 mmol/L (21-32); CHLORIDE 100 mmol/L (98-107); CREATININE 0.5 mg/dL (0.6-1.3); GLUCOSE 127 mg/dL (74-106); PHOSPHORUS 2.3 mg/dL (2.5-4.9); POTASSIUM 4.8 mmol/L (3.5-5.1); SODIUM SERUM 135 mmol/L (136-145); TOTAL PROTEIN, SERUM 5.8 g/dL (6.4-8.2); UREA NITROGEN, BLOOD 29 mg/dL (7-18)
--- NOTE | 2021-05-27 07:40 | NUR ---
RN OPENING NOTE PATIENT RECEIVED IN BED, OBTUNDED, EYES OPEN. PATIENT ON MECHANICAL VENTILATION WITH FIO2 OF 50% SATURATING 94% ON BEDSIDE PULSE OX MONITOR. HUTCHISON CATH IN PLACE, PATENT. G TUBE IN PLACE RUNNING JEVITY 1.2 AT 60 CC/HR. RIGHT UA MIDLINE AND LEFT UA PICC LINE IN PLACE, PATENT. BED LOCKED AND IN LOWEST POSITION, CALL LIGHT WITHIN REACH, 3 SIDE RAILS UP. WILL CONTINUE TO MONITOR.
[2021-05-27 07:47] LABS: BAND % (MANUAL) 4 % (0.0-5.0); LYMPHOCYTES % (MANUAL) 6 % (16-48); MONOCYTES % (MANUAL) 2 % (0-11.0); NEUTROPHILS % (MANUAL) 88 (42-76)
[2021-05-27 08:00] VITALS: BP 115/81
[2021-05-27] MEDS: PANTOPRAZOLE 40 MG VIAL IV SCH ×2 (08:50→17:30)
[2021-05-27] MEDS: DEXAMETHASONE SOD PHOSPHATE 10 MG/ML VIAL IV SCH (08:50)
[2021-05-27] MEDS: FLUDROCORTISONE 0.1 MG TABLET GT SCH (08:51)
[2021-05-27] MEDS: MIDODRINE HCL (5MG) 5 MG TABLET PO SCH ×3 (08:51→17:30)
[2021-05-27] MEDS: LEVETIRACETAM SOL (5 ML) 100 MG/ML UDC GT SCH (08:51)
[2021-05-27] MEDS: TIZANIDINE HCL 4 MG TABLET GT SCH ×3 (08:51→17:30)
[2021-05-27] MEDS: CHLORHEXIDINE GLUCONATE 15 ML UDC MM SCH (08:51)
--- NOTE | 2021-05-27 08:59 | NUR ---
SPOKE WITH CHARGE NURSE. PT STILL UNSTABLE, UNABLE TO COME DOWN FOR CT ABD/PELV
[2021-05-27] MEDS: PROSOURCE / PROSTAT (PYXIS) 30 ML UDC GT SCH (09:00)
[2021-05-27] MEDS ORDERED: K PHOS NEUTRAL 250 MG TABLET PO ONE (10:00)
[2021-05-27 12:00] VITALS: BP 89/44
[2021-05-27] MEDS ORDERED: ALBUMIN 25% 25 GM in PREMIX 1 EA IV SCH (12:00)
[2021-05-27] MEDS: DIGOXIN 0.25 MG TABLET GT SCH (12:04)
[2021-05-27] MEDS: ALBUMIN 25% 25 GM in PREMIX 1 EA IV SCH ×2 (13:18→13:53)
[2021-05-27] MEDS ORDERED: IV NS 0.9% 500 ML IV ONE (14:30)
[2021-05-27 16:00] VITALS: BP 93/49
--- NOTE | 2021-05-27 16:33 | NUR ---
PER RN PT IS DECLINING, CHANGE OF STATUS, STATED CT SCAN WILL LIKELY CANCEL
[2021-05-27 17:04] LABS: HEMOGLOBIN 9.9 g/dL (13.5-17.5)
[2021-05-27] MEDS: ASCORBIC ACID 500 MG TABLET GT SCH (17:29)
[2021-05-27] MEDS: INSULIN REGULAR, HUMAN 100 UNIT/ML 3 ML VIAL SQ PRN (17:31)
--- NOTE | 2021-05-27 18:00 | NUR ---
RN NOTE PER DO ROACH, FAMILY DECIDED ON COMFORT MEASURES ONLY.
--- NOTE | 2021-05-27 18:47 | NUR ---
RN CLOSING NOTE PATIENT REMAINS IN BED, OBTUNDED, EYES OPEN. PATIENT ON MECHANICAL VENTILATION WITH FIO2 OF 50% SATURATING 92% ON BEDSIDE PULSE OX MONITOR. HUTCHISON CATH IN PLACE, PATENT. G TUBE IN PLACE RUNNING JEVITY 1.2 AT 60 CC/HR. RIGHT UA MIDLINE AND LEFT UA PICC LINE IN PLACE, PATENT. FAMILY DECIDED ON COMFORT MEASURES ONLY. PATIENT STILL ON VENTILATOR, FAMILY AT BEDSIDE WITH PATIENT AT THIS TIME. FAMILY WILL LET NURSING STAFF KNOW WHEN READY FOR VENTILATOR SUPPORT TO BE REMOVED. BED LOCKED AND IN LOWEST POSITION, CALL LIGHT WITHIN REACH, 3 SIDE RAILS UP. WILL ENDORSE TO DESIGN PRINTING MACHINE SETTER NURSE.
--- NOTE | 2021-05-27 19:10 | NUR ---
RN NOTES RECEIVED REPORT FROM MORNING RN. PATIENT IN BED ON VENTILATOR WITH FF SETTINGS TRACH #8 AC 16, TV 450 FIO2 50 PEEP 5 SATING 94%. WITH GT PATENT NO GASTRIC RESIDUAL NOTED. WITH IV ACCESS AT MUSTAPHA MIDLINE, FLORIDALMA PICC LINE PATENT FLUSHES WELL. WITH HUTCHISON CATHETER INTACT DRAINING YELLOWISH URINE OUTPUT. VITAL SIGNS TAKEN AND RECORDED. PATIENT IS ON COMFORT MEASURES. FAMILY AT BEDSIDE. WILL CLOSELY MONITOR THE PATIENT.
[2021-05-27 20:00] VITALS: BP 118/51
[2021-05-27] MEDS ORDERED: DC PROPOFOL WHEN EXTUBATED XX PRN (20:00)
[2021-05-27] MEDS ORDERED: MORPHINE SULFATE PF DRIP 250 MG in IV D5W 240 ML IV PRN (20:00)
[2021-05-27] MEDS ORDERED: KEY,NONCONTROL,TO KEEP IN PYXI 1 EA MC ONE (20:40)
--- NOTE | 2021-05-27 20:40 | NUR ---
PT ON COMFORT MEASURES. PT REMOVED OFF VENT AT THIS TIME AND PLACED ON T-MASK AT 2L. CHARGE NURSE AND RN NOTIFIED.
--- NOTE | 2021-05-27 20:45 | NUR ---
RN NOTES @2039 RT PUT PATIENT ON MASK AT 2 LPM. @ 2044 STARTED MORPHINE DRIP @ 2MG/HR. WILL CONTINUE TO MONITOR. FAMILY AT BEDSIDE.
--- NOTE | 2021-05-27 21:04 | NUR ---
RN NOTES NOTIFIED BY MT OF [place] ON THE MONITOR AT 2102, WENT TO CHECK PT. PULSE NOT APPRECIATED; BOTH WITH PALPATION WITH AUSCULATION AND DOPPLER. PRONOUNCED AT 2103 WITH ANOTHER RN JAMIE MARCOS RN. ALL TREATMENTS TURNED OFF AND DISCONTINUED. MISSY STEVE (DIANNA MARVIN) NOTIFIED AND ACKNOWLEDGED. NSG PERSONAL SECURITY SPECIALIST AND ADMITTING NOTIFIED & ACKNOWLEDGED. PROVIDED SAFE AND QUIET TIME FOR PT'S FAMILY. POST MORTEM RENDERED AFTER. CALLED ONCE [facility] ([phone])TO REPORT PT'S SPOKE WITH BRII WITH REF: [id number]. CORE DROPPER MADE AND WELL AWARE.
--- NOTE | 2021-05-27 21:10 | NUR ---
RN NOTES FAMILY LEFT THE HOSPITAL. THEY WILL ARRANGE MORTUARY IN A.M
--- NOTE | 2021-05-27 23:18 | NUR ---
RN NOTES BODY PICKED UP BY SECURITY TO [facility]
== END 2021-05-27 23:56 | DRG 207 ==
LOC: ER 09:20 → TRANSITION 13:10 → ICU 13:45 → TELE1 05-22 19:41 → HOSPICE1 05-27 17:53
PROVIDERS: ATTEND Internal Medicine
PROC: 5A1955Z Respiratory Ventilation, Greater than 96 Consecutive Hours (ICD-10-PCS; principal; 2021-05-21)
PROC: 30233N1 Transfusion of Nonautologous Red Blood Cells into Peripheral Vein, Percutaneous Approach (ICD-10-PCS; 2021-05-23)
PROC: 05H533Z Insertion of Infusion Device into Right Subclavian Vein, Percutaneous Approach (ICD-10-PCS; 2021-05-23)
PROC: B546ZZA Ultrasonography of Right Subclavian Vein, Guidance (ICD-10-PCS; 2021-05-23)
DX: J95.851 Ventilator associated pneumonia (principal); J96.21 Acute and chronic respiratory failure with hypoxia; R53.2 Functional quadriplegia; N17.0 Acute kidney failure with tubular necrosis; E43 Unspecified severe protein-calorie malnutrition; D68.59 Other primary thrombophilia; J90 Pleural effusion, not elsewhere classified; Z99.11 Dependence on respirator [ventilator] status; N39.0 Urinary tract infection, site not specified; N18.9 Chronic kidney disease, unspecified; Z51.5 Encounter for palliative care; I13.10 Hypertensive heart and chronic kidney disease without heart failure, with stage 1 through stage 4 chronic kidney disease, or unspecified chronic kidney disease; E78.5 Hyperlipidemia, unspecified; D69.6 Thrombocytopenia, unspecified; I25.10 Atherosclerotic heart disease of native coronary artery without angina pectoris; J45.909 Unspecified asthma, uncomplicated; R13.10 Dysphagia, unspecified; Z87.440 Personal history of urinary (tract) infections; Z93.1 Gastrostomy status; Z79.01 Long term (current) use of anticoagulants; Z93.0 Tracheostomy status; D64.9 Anemia, unspecified; L89.156 Pressure-induced deep tissue damage of sacral region; L89.810 Pressure ulcer of head, unstageable; L89.890 Pressure ulcer of other site, unstageable; N31.9 Neuromuscular dysfunction of bladder, unspecified; Z86.74 Personal history of sudden cardiac arrest; Z86.16 Personal history of COVID-19; Z87.01 Personal history of pneumonia (recurrent); N50.89 Other specified disorders of the male genital organs; S14.109S Unspecified injury at unspecified level of cervical spinal cord, sequela; G40.909 Epilepsy, unspecified, not intractable, without status epilepticus; Y83.3 Surgical operation with formation of external stoma as the cause of abnormal reaction of the patient, or of later complication, without mention of misadventure at the time of the procedure; Y72.8 Miscellaneous otorhinolaryngological devices associated with adverse incidents, not elsewhere classified; Y92.129 Unspecified place in nursing home as the place of occurrence of the external cause; Z68.26 Body mass index [BMI] 26.0-26.9, adult
CPT/HCPCS: 31720; 36415; 36600; 71045-TC; 80048-TC; 80053-TC; 80061-TC; 80076-TC; 80162-TC; 80202-TC; 81001; 82803-TC; 82962-TC; 83605-TC; 83735-TC; 83880; 84100-TC; 84443-TC; 84484-TC; 85025-TC; 85027-TC; 86850-TC; 87040-TC; 87081-TC; 87086-TC; 93970-TC; 94002-TC; 94003-TC; 94760-TC; 94762-TC; 94799-TC; 99082-TC; A4216; A6253; A6403; C9113; G0378; J1100; J1815; J1953; J2274; J2543; J3370; J7030; J7040; J7050; J7060; J8597; P9016; P9047